=== PATIENT | male | born 1980 | race Caucasian/White ===

== ENCOUNTER 2016-10-17 10:04 | Inpatient (IN) | payer BC, OTHER ==
[2016-10-17] MEDS ORDERED: ONDANSETRON 4 MG/2 ML VIAL IVP STA ×2 (10:57→13:57)
[2016-10-17] MEDS ORDERED: HYDROmorphone 1 MG/ML 1 ML SYRINGE IVP STA ×2 (10:58→13:57)
--- NOTE | 2016-10-17 11:01 | ED ---
Nausea/Vomiting/Diarrhea HPI - General Source: patient, RN notes reviewed Mode of arrival: wheelchair Limitations: no limitations <Jaye Turcios - Last Filed: 10/17/16 17:25> <Thaddeus Allen - Last Filed: 10/18/16 01:53> - General Chief complaint: Nausea/Vomiting/Diarrhea Stated complaint: vomiting Time Seen by Provider: 10/17/16 10:32 - History of Present Illness Initial comments: Patient is a 35-year-old male presents to the emergency room for evaluation of nausea, vomiting and abdominal pain. Patient states nausea and vomiting beginning about 3 days ago. Patient states he's been unable to keep down any food. Patient denies trying any new foods. Patient denies recent travel outside the country. Patient denies sick contacts. Patient states he's having increased diffuse abdominal pain. Patient denies any history of abdominal surgeries. Patient states he is having 10 out of 10 constant pain. Patient states he feels dizzy. Patient denies headache. Patient denies chest pain or shortness of breath. Patient does admit that he drinks about 6-7 beers per day. Patient denies any history of pancreatitis. Patient denies pain or burning during urination, trouble urinating or blood in urine. Patient denies any flank pain. Patient denies fevers but states he's been having on and off hot flashes and chills. (Jaye Turcios) - Related Data Home Medications Medication Instructions Recorded Confirmed Atenolol [Atenolol] 50 mg PO BID 10/17/16 10/17/16 Citalopram Hydrobromide [CeleXA] 20 mg PO DAILY 10/17/16 10/17/16 Fluticasone Nasal [place] [Flonase 1 spray EA NOSTRIL BID PRN 10/17/16 10/17/16 Nasal [place]] Lisinopril-Hctz 20-25 mg 1 tab PO DAILY 10/17/16 10/17/16 [Zestoretic 20-25] Omeprazole [PriLOSEC] 20 mg PO AC-BID 10/17/16 10/17/16 Allergies Allergy/AdvReac Type Severity Reaction Status Date / Time Penicillins Allergy Severe Rash/Hives Verified 10/17/16 15:16 sulfamethoxazole Allergy Unknown Verified 10/17/16 15:16 [From ] Childhood trimethoprim [From ] Allergy Unknown Verified 10/17/16 15:16 Childhood Review of Systems ROS Other: All systems not noted in ROS Statement are negative. <Jaye Turcios - Last Filed: 10/17/16 17:25> ROS Other: All systems not noted in ROS Statement are negative. <Thaddeus Allen - Last Filed: 10/18/16 01:53> ROS Statement: Those systems with pertinent positive or pertinent negative responses have been documented in the HPI. (Jaye Turcios) (Thaddeus Allen) Past Medical History Past Medical History: No Reported History History of Any Multi-Drug Resistant Organisms: None Reported Past Surgical History: No Surgical Hx Reported Past Psychological History: No Psychological Hx Reported Smoking Status: Current every day smoker Past Alcohol Use History: Occasional Past Drug Use History: Marijuana - Past Family History Mother Family Medical History: COPD Father Family Medical History: Cancer Additional Family Medical History / Comment(s): PROSTATE CANCER <Jaye Turcios - Last Filed: 10/17/16 17:25> General Exam Limitations: no limitations General appearance: alert, in no apparent distress Head exam: Present: atraumatic, normocephalic, normal inspection Eye exam: Present: normal appearance ENT exam: Present: normal exam Neck exam: Present: normal inspection Respiratory exam: Present: normal lung sounds bilaterally. Absent: respiratory distress Cardiovascular Exam: Present: regular rate, normal rhythm, normal heart sounds GI/Abdominal exam: Present: distended, tenderness (Diffuse), guarding Extremities exam: Present: normal inspection Back exam: Present: normal inspection Neurological exam: Present: alert, oriented X3, CN II-XII intact, normal gait Psychiatric exam: Present: normal affect, normal mood Skin exam: Present: warm, dry, intact, normal color. Absent: rash <Jaye Turcios - Last Filed: 10/17/16 17:25> <Thaddeus Allen - Last Filed: 10/18/16 01:53> - General Exam Comments Initial Comments: Laying in exam room, uncomfortable secondary to pain. (Jaye Turcios) Medical Decision Making - Lab Data Result diagrams: 10/17/16 11:30 10/17/16 11:30 - Radiology Data Radiology results: report reviewed, image reviewed <Jaye Turcios - Last Filed: 10/17/16 17:25> - Lab Data Result diagrams: 10/17/16 11:30 10/17/16 22:03 <Thaddeus Allen - Last Filed: 10/18/16 01:53> - Medical Decision Making Patient is a 35-year-old male presents to the emergency room for evaluation of abdominal pain, nausea and vomiting. Patient does admit he drinks 6-7 beers per day. Patient's lipase/amylase elevated. WBC elevated. Patient will be admitted for acute pancreatitis secondary to alcohol dependence. Patient will be placed on Ativan protocol and NPO diet. Case discussed with Dr. Allen. Dr. Allen discussed case with Dr. Mendes who agreed to admit patient. Plan discussed with patient. (Jaye Turcios) I saw this patient in conjunction with the physician assistant activities director. I performed independent history and physical exam. Agree with case management. (Thaddeus Allen) - Lab Data Lab Results 10/17/16 10/17/16 10/17/16 Range/Units 11:30 11:30 11:30 WBC 17.8 H (3.8-10.6) k/uL RBC 6.66 H (4.30-5.90) m/uL Hgb 20.4 H (13.0-17.5) gm/dL Hct 58.1 H (39.0-53.0) % MCV 87.2 (80.0-100.0) fL MCH 30.6 (25.0-35.0) pg MCHC 35.0 (31.0-37.0) g/dL RDW 12.4 (11.5-15.5) % Plt Count 210 (150-450) k/uL Neutrophils % 90 % Lymphocytes % 5 % Monocytes % 4 % Eosinophils % 0 % Basophils % 0 % Neutrophils # 16.1 H (1.3-7.7) k/uL Lymphocytes # 0.8 L (1.0-4.8) k/uL Monocytes # 0.7 (0-1.0) k/uL Eosinophils # 0.0 (0-0.7) k/uL Basophils # 0.0 (0-0.2) k/uL Sodium 128 L (137-145) mmol/L Potassium 5.3 H (3.5-5.1) mmol/L Chloride 78 L* (98-107) mmol/L Carbon Dioxide 26 (22-30) mmol/L Anion Gap 24 mmol/L BUN 55 H (9-20) mg/dL Creatinine 3.43 H (0.66-1.25) mg/dL Est GFR (MDRD) Af Amer 25 (>60 ml/min/1.73 sqM) Est GFR (MDRD) Non-Af 20 (>60 ml/min/1.73 sqM) Glucose 121 H (74-99) mg/dL Calcium 7.0 L (8.4-10.2) mg/dL Magnesium 2.4 H (1.6-2.3) mg/dL Total Bilirubin 1.4 H (0.2-1.3) mg/dL AST 1218 H (17-59) U/L ALT 276 H (21-72) U/L Alkaline Phosphatase 57 (38-126) U/L Total Protein 7.3 (6.3-8.2) g/dL Albumin 4.8 (3.5-5.0) g/dL Amylase 1583 H* (30-110) U/L Lipase 33614 H (23-300) U/L Urine Color Urine Appearance (Clear) Urine pH (5.0-8.0) Ur Specific [place] (1.001-1.035) Urine Protein (Negative) Urine Glucose (UA) (Negative) Urine Ketones (Negative) Urine Blood (Negative) Urine Nitrate (Negative) Urine Bilirubin (Negative) Urine Urobilinogen (<2.0) mg/dL Ur Leukocyte Esterase (Negative) Urine WBC (0-5) /hpf Amorphous Sediment (None) /hpf Urine Mucus (None) /hpf 10/17/16 Range/Units 12:50 WBC (3.8-10.6) k/uL RBC (4.30-5.90) m/uL Hgb (13.0-17.5) gm/dL Hct (39.0-53.0) % MCV (80.0-100.0) fL MCH (25.0-35.0) pg MCHC (31.0-37.0) g/dL RDW (11.5-15.5) % Plt Count (150-450) k/uL Neutrophils % % Lymphocytes % % Monocytes % % Eosinophils % % Basophils % % Neutrophils # (1.3-7.7) k/uL Lymphocytes # (1.0-4.8) k/uL Monocytes # (0-1.0) k/uL Eosinophils # (0-0.7) k/uL Basophils # (0-0.2) k/uL Sodium (137-145) mmol/L Potassium (3.5-5.1) mmol/L Chloride (98-107) mmol/L Carbon Dioxide (22-30) mmol/L Anion Gap mmol/L BUN (9-20) mg/dL Creatinine (0.66-1.25) mg/dL Est GFR (MDRD) Af Amer (>60 ml/min/1.73 sqM) Est GFR (MDRD) Non-Af (>60 ml/min/1.73 sqM) Glucose (74-99) mg/dL Calcium (8.4-10.2) mg/dL Magnesium (1.6-2.3) mg/dL Total Bilirubin (0.2-1.3) mg/dL AST (17-59) U/L ALT (21-72) U/L Alkaline Phosphatase (38-126) U/L Total Protein (6.3-8.2) g/dL Albumin (3.5-5.0) g/dL Amylase (30-110) U/L Lipase (23-300) U/L Urine Color Dark Brown Urine Appearance Turbid (Clear) Urine pH 5.0 (5.0-8.0) Ur Specific [place] 1.008 (1.001-1.035) Urine Protein 1+ H (Negative) Urine Glucose (UA) Negative (Negative) Urine Ketones Negative (Negative) Urine Blood Large H (Negative) Urine Nitrate Negative (Negative) Urine Bilirubin Negative (Negative) Urine Urobilinogen <2.0 (<2.0) mg/dL Ur Leukocyte Esterase Negative (Negative) Urine WBC 14 H (0-5) /hpf Amorphous Sediment Few H (None) /hpf Urine Mucus Few H (None) /hpf (Thaddeus Allen) Disposition Decision Date: 10/17/16 <Jaye Turcios - Last Filed: 10/17/16 17:25> <Thaddeus Allen - Last Filed: 10/18/16 01:53> Clinical Impression: Pancreatitis Disposition: ADMITTED IP TO THIS HOSP Condition: Stable
[2016-10-17] MEDS: SODIUM CHLORIDE 0.9% 1,000 ML IV ONE (11:27)
--- NOTE | 2016-10-17 11:50 | XR ---
EXAMINATION TYPE: XR KUB DATE OF EXAM: 10/17/2016 11:43 AM COMPARISON: NONE HISTORY: Pain, nausea vomiting TECHNIQUE: Single supine KUB image of the abdomen is obtained. FINDINGS: The osseous structures are intact. The bowel gas pattern is nonspecific. Lung bases are clear. Scat tered prominent bowel loops in the right abdomen noted. IMPRESSION: 1. Nonspecific abdomen. Few prominent bowel loops are seen in the right abdomen which could be relat ed to an ileus or enteritis. Correlate clinically.
[2016-10-17 12:27] LABS: Basophils % (A) 0 %; CH 31.8; CHCM 36.6; Eosinophils % (A) 0 %; HCT 58.1 % (39.0-53.0); HGB 20.4 gm/dL (13.0-17.5); Luc # (Auto) 0.17; Luc % (Auto) 1; Lymphocytes # (A) 0.8 k/uL (1.0-4.8); Lymphocytes % (A) 5 %; MCH 30.6 pg (25.0-35.0); MCV 87.2 fL (80.0-100.0); Mean Platelet Volume 9.8; Monocytes # (A) 0.7 k/uL (0-1.0); Monocytes % (A) 4 %; Neutrophils # (A) 16.1 k/uL (1.3-7.7); Neutrophils % (A) 90 %; RBC 6.66 m/uL (4.30-5.90); RDW 12.4 % (11.5-15.5); WBC 17.8 k/uL (3.8-10.6); WBC (Perox) 19.52
[2016-10-17 12:42] LABS: Potassium 5.3 mmol/L (3.5-5.1); Total Bilirubin 1.4 mg/dL (0.2-1.3); Total Protein 7.3 g/dL (6.3-8.2)
[2016-10-17 13:17] LABS: Amorphous Sediment,Urine Few /hpf; Appearance,Urine Turbid (Clear); Bilirubin,Urine Negative (Negative); Glucose,Urine (UA) Negative (Negative); Ketones,Urine Negative (Negative); Leukocyte Esterase,Urine Negative (Negative); Mucus,Urine Few /hpf; Nitrite,Urine Negative (Negative); Particle Count 123748; Protein,Urine 1+ (Negative); Specific Gravity,Urine 1.008 (1.001-1.035); UA Billing (MACRO vs. MICRO) MICRO; Urobilinogen,Urine <2.0 mg/dL (<2.0); WBC,Urine 14 /hpf (0-5)
[2016-10-17] MEDS ORDERED: NALOXONE 0.4 MG/ML 1 ML VIAL IV PRN (14:12)
[2016-10-17] MEDS ORDERED: LORazepam 2 MG/ML SYRINGE IV PRN (14:15)
[2016-10-17] MEDS ORDERED: THIAMINE 100 MG/ML 2 ML VIAL IM STA (14:15)
[2016-10-17] MEDS: SODIUM CHLORIDE 0.9% 1,000 ML IV SCH (14:35)
[2016-10-17] MEDS ORDERED: FLUTICASONE 50MCG/SPRAY NASAL 16GM EA NOSTRIL PRN (15:58)
[2016-10-17] MEDS ORDERED: PANTOPRAZOLE 40 MG/10 ML VIAL IVP SCH (16:00)
[2016-10-17] MEDS ORDERED: THIAMINE 100 MG TAB PO SCH (17:00)
[2016-10-17] MEDS: HYDROmorphone 1 MG/ML 1 ML SYRINGE IV PRN ×3 (17:42→22:36)
[2016-10-17] MEDS: ATENOLOL 50 MG TAB PO SCH (20:28)
[2016-10-17] MEDS: ONDANSETRON 4 MG/2 ML VIAL IVP PRN (21:28)
[2016-10-17] MEDS ORDERED: hydrALAZINE HCL 20 MG/ML 1 ML VIAL IVP PRN (21:52)
[2016-10-17] MEDS ORDERED: IOHEXOL 350 MG/ML 25 ML BOTTLE (ORAL USE) PO PRN (22:09)
--- NOTE | 2016-10-17 22:26 | XR ---
EXAMINATION TYPE: XR chest 1V portable DATE OF EXAM: 10/17/2016 10:08 PM COMPARISON: NONE HISTORY: COPD, heart failure TECHNIQUE: Single frontal view of the chest is obtained. FINDINGS: Heart and mediastinum are normal. Lungs are clear. Diaphragm is normal. There is no heart failure. Bony thorax appears normal. IMPRESSION: Normal chest
[2016-10-17 22:30] LABS: Potassium 4.9 mmol/L (3.5-5.1); Total Bilirubin 1.1 mg/dL (0.2-1.3); Total Protein 5.5 g/dL (6.3-8.2)
[2016-10-17] MEDS ORDERED: LEVOFLOXACIN 500MG-D5W PMX 500 MG in DEXTROSE/WATER 1 100ML.BAG IVPB SCH (22:30)
[2016-10-17 22:43] LABS: Calcium 4.6 mg/dL (8.4-10.2)
[2016-10-17] MEDS ORDERED: CALCIUM GLUCONATE 1,000 MG in SODIUM CHLORIDE 0.9% 100 ML IVPB ONE (22:57)
[2016-10-18 00:23] LABS: Glucose,Whole Blood 139 mg/dL (75-99)
[2016-10-18] MEDS: HYDROmorphone 1 MG/ML 1 ML SYRINGE IV PRN ×7 (01:19→22:43)
[2016-10-18] MEDS: LORazepam 2 MG/ML SYRINGE IV PRN (01:20)
[2016-10-18] MEDS: SODIUM CHLORIDE 0.9% 1,000 ML IV SCH ×4 (01:22→21:06)
[2016-10-18] MEDS: HYDROcodone/APAP 5-325MG 1 EACH TAB PO PRN (02:20)
[2016-10-18 03:29] LABS: Troponin I 0.108 ng/mL (0.000-0.034)
[2016-10-18 06:06] LABS: Basophils % (A) 0 %; CH 31.5; CHCM 35.5; Eosinophils # (A) 0.1 k/uL (0-0.7); Eosinophils % (A) 0 %; HCT 52.2 % (39.0-53.0); HDW 2.31; HGB 18.3 gm/dL (13.0-17.5); Large Platelets Flag Slight; Luc # (Auto) 0.22; Luc % (Auto) 1; Lymphocytes # (A) 0.6 k/uL (1.0-4.8); Lymphocytes % (A) 4 %; MCH 31.2 pg (25.0-35.0); MCHC 35.1 g/dL (31.0-37.0); Monocytes # (A) 0.7 k/uL (0-1.0); Monocytes % (A) 5 %; Neutrophils # (A) 13.9 k/uL (1.3-7.7); Neutrophils % (A) 89 %; RBC 5.87 m/uL (4.30-5.90); RDW 12.6 % (11.5-15.5); WBC 15.6 k/uL (3.8-10.6); WBC (Perox) 16.49
[2016-10-18 07:37] LABS: Magnesium 1.9 mg/dL (1.6-2.3); Potassium 5.2 mmol/L (3.5-5.1)
[2016-10-18 07:55] LABS: Amorphous Sediment,Urine Occasional /hpf; Appearance,Urine Cloudy (Clear); Bilirubin,Urine Negative (Negative); Glucose,Urine (UA) Trace (Negative); Ketones,Urine Negative (Negative); Leukocyte Esterase,Urine Negative (Negative); Nitrite,Urine Negative (Negative); Particle Count 9871; Protein,Urine 1+ (Negative); RBC,Urine 1 /hpf (0-5); Specific Gravity,Urine 1.009 (1.001-1.035); Squamous Epithelial Cell,Urine 1 /hpf (0-4); UA Billing (MACRO vs. MICRO) MICRO; Urobilinogen,Urine <2.0 mg/dL (<2.0); WBC,Urine 2 /hpf (0-5)
[2016-10-18 08:06] LABS: Ionized Calcium 2.2 mg/dL (4.5-5.3)
[2016-10-18 08:08] LABS: Phosphorous 9.3 mg/dL (2.5-4.5)
[2016-10-18] MEDS: CALCIUM GLUCONATE 1,000 MG in SODIUM CHLORIDE 0.9% 100 ML IVPB SCH ×4 (08:19→22:44)
[2016-10-18] MEDS: ATENOLOL 50 MG TAB PO SCH (08:28)
[2016-10-18] MEDS: ONDANSETRON 4 MG/2 ML VIAL IVP PRN ×3 (08:28→20:10)
[2016-10-18] MEDS: NICOTINE 14MG/24HR PATCH TRANSDERM SCH (08:29)
[2016-10-18] MEDS: CITALOPRAM HYDROBROMIDE 20 MG TAB PO SCH (08:30)
[2016-10-18] MEDS: HEPARIN SODIUM,PORCINE 5,000 UNIT/ML 1 ML VIAL SQ SCH ×2 (08:30→20:11)
[2016-10-18] MEDS: PANTOPRAZOLE 40 MG/10 ML VIAL IVP SCH ×2 (08:31→20:12)
[2016-10-18 08:34] LABS: Total Protein 5.4 g/dL (6.3-8.2)
--- NOTE | 2016-10-18 08:42 | HP ---
DATE OF ADMISSION: 10/17/2016 CHIEF COMPLAINT: Nausea, vomiting and as well as abdominal pain. HISTORY OF PRESENT ILLNESS: This 35-year-old gentleman with a past medical history of multiple medical problems including Crohn's colitis, history of nicotine dependence being followed by Dr. Stone ) in the [facility] was complaining of abdominal pain, which was in upper abdomen. The symptoms persisting for the past several days. About 3 days ago the patient was unable to keep anything down. The patient also had significant alcohol intake up to 8 beers per day according to him. Patient also complaining of multiple other symptoms including burning chest pains and as well as feeling of heated face and because of multiple complex medical issues, the patient came to [facility] admitted for further evaluation and treatment. On admission the patient had multiple lab abnormalities including WBC 17.2, hemoglobin 20.4, amylase elevated to 1583, lipase 47666 indicating acute severe pancreatitis and patient is admitted for further evaluation and treatment. There is no history of any fever, rigors. No history of headache, loss of consciousness or seizures. PAST MEDICAL HISTORY: History of Crohn's colitis, history of nicotine dependence. Medications prior to admission include: 1. Prilosec 20 mg a.c. b.i.d. 2. Lisinopril, hydrochlorothiazide 1 tablet p.o. daily. 3. Flonase one spray b.i.d. p.r.n. 4. Celexa 20 mg p.o. daily. 5. Atenolol 50 mg b.i.d. ALLERGIES: PENICILLIN, SULFA, SEPTRA. FAMILY HISTORY: History of chronic obstructive pulmonary disease and prostate cancer in the family. SOCIAL HISTORY: History of smoking on a daily basis and alcohol as mentioned earlier. REVIEW OF SYSTEMS: ENT: No diminished hearing or diminished vision. CARDIOVASCULAR: No angina. RESPIRATORY: No cough or hemoptysis. GI: As mentioned earlier. : No dysuria. NERVOUS SYSTEM: No numbness or weakness. ALLERGY/IMMUNOLOGY: As mentioned earlier. MUSCULOSKELETAL: As mentioned earlier. HEMATOLOGY: No history of anemia. ENDOCRINE: No history of diabetes, hypothyroidism. CONSTITUTIONAL: As mentioned earlier. DERMATOLOGY: Negative. RHEUMATOLOGY: Negative. PSYCHIATRY: As mentioned earlier. PHYSICAL EXAMINATION: The patient is alert and oriented x3. Pulse 87, blood pressure 120/86, respirations 22, temperature 98 degrees, pulse ox 90% on room air. HEENT: Conjunctivae normal. Oral mucosa moist. Facial puffiness. NECK: No jugular venous distention. No thyroid enlargement or carotid bruit. No lymph node enlargement. CARDIOVASCULAR: S1 and S2, muffled. No S3, no S4. RESPIRATORY: Breath sounds diminished at the bases. No rhonchi, no crackles. ABDOMEN: Soft, distended. Diffuse tenderness present especially in the epigastrium. No guarding. No rigidity. No rebound tenderness. No mass palpable. No ascites. Bowel sounds diminished. LEGS: No edema, no swelling. NERVOUS SYSTEM: Higher function as mentioned earlier. Cranial nerves II through XII grossly intact. Moves all 4 limbs. No focal motor or sensory deficits. LYMPHATIC: No lymphadenopathy in the neck, axillae or groin. SKIN: No ulcer, rash or bleeding. LABS: WBC 17.3, hemoglobin 20.4. Sodium 128, potassium 5.3. Creatinine is 3.43. ASSESSMENT: 1. Acute severe pancreatitis with systemic inflammatory response syndrome. 2. Increased WBC. 3. Increased hemoglobin possibly secondary to dehydration. 4. Incessant vomiting, dehydration with acute renal failure, possible prerenal acute tubular necrosis. 5. Hyponatremia. 6. Hyperkalemia. 7. Hypochloremia. 8. Hypocalcemia. 9. Increased total bilirubin. 10. Increased AST, ALT, possibly secondary to alcoholic hepatitis. 11. History of EtOH. 12. History of nicotine dependence. 13. Increased amylase and lipase with amylase 1583 and lipase 38833. 14. Possible urinary tract infection. 15. History of Crohn's colitis. 16. History of nicotine dependence. 17. FULL CODE. RECOMMENDATIONS AND DISCUSSION: In this 35-year-old gentleman who presented with multiple complex medical issues, will monitor the patient closely. Continue the current medications and symptomatic treatment. The patient has features of acute severe pancreatitis. I recommend CAT scan of the abdomen and symptomatic treatment. We will keep the patient n.p.o. and obtain gastroenterology consultation. Empiric antibiotics also will be started. Cultures will be obtained. Proton pump inhibitors. Symptomatic treatment for pain. See orders for further details. Monitor blood pressure closely. Watch for alcohol withdrawal. Overall prognosis extremely guarded because of multiple complex medical issues, which I discussed with the patient and at the bedside who understand and agree. Further recommendations to follow.
[2016-10-18] MEDS ORDERED: LISINOPRIL-HCTZ 20-25 MG 1 EACH TAB PO SCH (09:00)
--- NOTE | 2016-10-18 09:18 | P.GSCN ---
History of Present Illness Consult date: 10/18/16 Reason for Consult: Abdominal pain/pancreatitis History of present illness: Patient is a 35-year-old white male who presented to the emergency room for nausea vomiting and abdominal pain. Of significance is the fact that on Thursday the patient had a heavy episode of binge drinking. The patient on laboratory studies as noted to have a markedly elevated lipase and amylase. Amylase was 1583, and lipase was 19,355. The patient was admitted to the floor and it was noted to have a calcium of 4.6. Additionally he had some changes of concern on his EKG. The patient does not have a known history of gallstones. Past surgical history: Negative Past medical history: Asthma Review of systems: HEENT: Patient complains of some blurred vision at this time Lungs: Asthma Heart: Negative, history of hypertension GI: As above : Negative ALLERGIES: Penicillin Sulfa Family history: Father substance abuse Social history: Alcohol 6-7 beers per day Marijuana use positive in the past Smoking positive Review of Systems - Constitutional Reports as per HPI - Cardiovascular Reports as per HPI - Respiratory Reports as per HPI - Gastrointestinal Reports as per HPI - Genitourinary Reports as per HPI - Psychiatric Reports as per HPI - Allergic/Immunologic Reports as per HPI Past Medical History Past Medical History: No Reported History Additional Past Medical History / Comment(s): CROHNS OR COLITS PT NOT SURE WHICH ONE History of Any Multi-Drug Resistant Organisms: None Reported Past Surgical History: No Surgical Hx Reported Past Anesthesia/Blood Transfusion Reactions: No Reported Reaction Past Psychological History: No Psychological Hx Reported Smoking Status: Current every day smoker Past Alcohol Use History: Occasional Additional Past Alcohol Use History / Comment(s): ADMITS TO 6-7 BEER PER DAY, STARTED SMOKING AT AGE 14 AND QUIT 2011 Past Drug Use History: Marijuana - Past Family History Mother Family Medical History: COPD Father Family Medical History: Cancer Additional Family Medical History / Comment(s): PROSTATE CANCER Medications and Allergies Home Medications Medication Instructions Recorded Confirmed Type Atenolol [Atenolol] 50 mg PO BID 10/17/16 10/17/16 History Citalopram Hydrobromide [CeleXA] 20 mg PO DAILY 10/17/16 10/17/16 History Fluticasone Nasal [place] [Flonase 1 spray EA NOSTRIL BID PRN 10/17/16 10/17/16 History Nasal [place]] Lisinopril-Hctz 20-25 mg 1 tab PO DAILY 10/17/16 10/17/16 History [Zestoretic 20-25] Omeprazole [PriLOSEC] 20 mg PO AC-BID 10/17/16 10/17/16 History Allergies Allergy/AdvReac Type Severity Reaction Status Date / Time Penicillins Allergy Severe Rash/Hives Verified 10/17/16 15:16 sulfamethoxazole Allergy Unknown Verified 10/17/16 15:16 [From ] Childhood trimethoprim [From ] Allergy Unknown Verified 10/17/16 15:16 Childhood Surgical - Exam Vital Signs Temp Pulse Resp BP Pulse Ox 97.2 F L 98 18 126/92 98 10/17/16 10:14 10/17/16 10:14 10/17/16 10:14 10/17/16 10:14 10/17/16 10:14 - General well developed, moderate distress - Eyes normal ocular movement - ENT normal pinna, normal nares, no hearing loss - Neck no masses, trachea midline, no lymphadectomy, no venous distension - Respiratory normal expansion, normal respiratory effort, clear to auscultation - Cardiovascular Rhythm: regular Heart Sounds: normal: S1, S2 - Abdomen Distended Diffuse tenderness greatest in the midepigastric area Decreased bowel sounds - Neurologic Somewhat lethargic Positive chovstec sign - Psychiatric Somewhat lethargic this morning Results - Labs 10/18/16 05:28 10/18/16 05:28 Abnormal Lab Results - Last 24 Hours (Table) 10/17/16 10/18/16 10/18/16 Range/Units 22:03 00:19 00:30 WBC (3.8-10.6) k/uL Hgb (13.0-17.5) gm/dL Neutrophils # (1.3-7.7) k/uL Lymphocytes # (1.0-4.8) k/uL Sodium 124 L (137-145) mmol/L Potassium (3.5-5.1) mmol/L Chloride 89 L (98-107) mmol/L Carbon Dioxide 18 L (22-30) mmol/L BUN 69 H (9-20) mg/dL Creatinine 3.70 H (0.66-1.25) mg/dL Glucose 142 H (74-99) mg/dL POC Glucose (mg/dL) 139 H (75-99) mg/dL Calcium 4.6 L* (8.4-10.2) mg/dL Ionized Calcium Dion (4.5-5.3) mg/dL Phosphorus (2.5-4.5) mg/dL AST 678 H (17-59) U/L ALT 198 H (21-72) U/L Alkaline Phosphatase 35 L (38-126) U/L CK-MB (CK-2) (0.0-2.4) ng/mL Troponin I (0.000-0.034) ng/mL Total Protein 5.5 L (6.3-8.2) g/dL Albumin 3.4 L (3.5-5.0) g/dL Amylase (30-110) U/L Lipase (23-300) U/L Urine Protein (Negative) Urine Glucose (UA) (Negative) Urine Blood (Negative) Amorphous Sediment (None) /hpf Urine Opiates Screen Detected H (NotDetected) U Methamphetamines Scrn Detected H (NotDetected) Urine Cocaine Screen Detected H (NotDetected) 10/18/16 10/18/16 10/18/16 Range/Units 00:30 02:20 05:28 WBC 15.6 H (3.8-10.6) k/uL Hgb 18.3 H (13.0-17.5) gm/dL Neutrophils # 13.9 H (1.3-7.7) k/uL Lymphocytes # 0.6 L (1.0-4.8) k/uL Sodium (137-145) mmol/L Potassium (3.5-5.1) mmol/L Chloride (98-107) mmol/L Carbon Dioxide (22-30) mmol/L BUN (9-20) mg/dL Creatinine (0.66-1.25) mg/dL Glucose (74-99) mg/dL POC Glucose (mg/dL) (75-99) mg/dL Calcium (8.4-10.2) mg/dL Ionized Calcium Dion (4.5-5.3) mg/dL Phosphorus (2.5-4.5) mg/dL AST (17-59) U/L ALT (21-72) U/L Alkaline Phosphatase (38-126) U/L CK-MB (CK-2) 186.0 H* (0.0-2.4) ng/mL Troponin I 0.108 H* (0.000-0.034) ng/mL Total Protein (6.3-8.2) g/dL Albumin (3.5-5.0) g/dL Amylase (30-110) U/L Lipase (23-300) U/L Urine Protein 1+ H (Negative) Urine Glucose (UA) Trace H (Negative) Urine Blood Large H (Negative) Amorphous Sediment Occasional H (None) /hpf Urine Opiates Screen (NotDetected) U Methamphetamines Scrn (NotDetected) Urine Cocaine Screen (NotDetected) 10/18/16 Range/Units 05:28 WBC (3.8-10.6) k/uL Hgb (13.0-17.5) gm/dL Neutrophils # (1.3-7.7) k/uL Lymphocytes # (1.0-4.8) k/uL Sodium 128 L (137-145) mmol/L Potassium 5.2 H (3.5-5.1) mmol/L Chloride 88 L (98-107) mmol/L Carbon Dioxide 21 L (22-30) mmol/L BUN 79 H (9-20) mg/dL Creatinine 4.30 H (0.66-1.25) mg/dL Glucose 129 H (74-99) mg/dL POC Glucose (mg/dL) (75-99) mg/dL Calcium 4.0 L* (8.4-10.2) mg/dL Ionized Calcium Dion 2.2 L* (4.5-5.3) mg/dL Phosphorus 9.3 H* (2.5-4.5) mg/dL AST 557 H (17-59) U/L ALT 187 H (21-72) U/L Alkaline Phosphatase (38-126) U/L CK-MB (CK-2) (0.0-2.4) ng/mL Troponin I (0.000-0.034) ng/mL Total Protein 5.4 L (6.3-8.2) g/dL Albumin 3.2 L (3.5-5.0) g/dL Amylase 970 H* (30-110) U/L Lipase 27257 H (23-300) U/L Urine Protein (Negative) Urine Glucose (UA) (Negative) Urine Blood (Negative) Amorphous Sediment (None) /hpf Urine Opiates Screen (NotDetected) U Methamphetamines Scrn (NotDetected) Urine Cocaine Screen (NotDetected) Diabetes panel 10/17/16 10/18/16 Range/Units 22:03 05:28 Sodium 124 L 128 L (137-145) mmol/L Potassium 4.9 5.2 H (3.5-5.1) mmol/L Chloride 89 L 88 L (98-107) mmol/L Carbon Dioxide 18 L 21 L (22-30) mmol/L BUN 69 H 79 H (9-20) mg/dL Creatinine 3.70 H 4.30 H (0.66-1.25) mg/dL Glucose 142 H 129 H (74-99) mg/dL Calcium 4.6 L* 4.0 L* (8.4-10.2) mg/dL AST 678 H 557 H (17-59) U/L ALT 198 H 187 H (21-72) U/L Alkaline Phosphatase 35 L 40 (38-126) U/L Total Protein 5.5 L 5.4 L (6.3-8.2) g/dL Albumin 3.4 L 3.2 L (3.5-5.0) g/dL Calcium panel 10/17/16 10/18/16 Range/Units 22:03 05:28 Calcium 4.6 L* 4.0 L* (8.4-10.2) mg/dL Ionized Calcium Dion 2.2 L* (4.5-5.3) mg/dL Phosphorus 9.3 H* (2.5-4.5) mg/dL Albumin 3.4 L 3.2 L (3.5-5.0) g/dL Pituitary panel 10/17/16 10/18/16 Range/Units 22:03 05:28 Sodium 124 L 128 L (137-145) mmol/L Potassium 4.9 5.2 H (3.5-5.1) mmol/L Chloride 89 L 88 L (98-107) mmol/L Carbon Dioxide 18 L 21 L (22-30) mmol/L BUN 69 H 79 H (9-20) mg/dL Creatinine 3.70 H 4.30 H (0.66-1.25) mg/dL Glucose 142 H 129 H (74-99) mg/dL Calcium 4.6 L* 4.0 L* (8.4-10.2) mg/dL Adrenal panel 10/17/16 10/18/16 Range/Units 22:03 05:28 Sodium 124 L 128 L (137-145) mmol/L Potassium 4.9 5.2 H (3.5-5.1) mmol/L Chloride 89 L 88 L (98-107) mmol/L Carbon Dioxide 18 L 21 L (22-30) mmol/L BUN 69 H 79 H (9-20) mg/dL Creatinine 3.70 H 4.30 H (0.66-1.25) mg/dL Glucose 142 H 129 H (74-99) mg/dL Calcium 4.6 L* 4.0 L* (8.4-10.2) mg/dL Total Bilirubin 1.1 1.0 (0.2-1.3) mg/dL AST 678 H 557 H (17-59) U/L ALT 198 H 187 H (21-72) U/L Alkaline Phosphatase 35 L 40 (38-126) U/L Total Protein 5.5 L 5.4 L (6.3-8.2) g/dL Albumin 3.4 L 3.2 L (3.5-5.0) g/dL - Imaging Chest x-ray: report reviewed Abdominal x-ray: report reviewed Assessment and Plan Plan: Impression/plan: 1. Pancreatitis 2. Hypocalcemia related to pancreatitis 3. Elevated cardiac enzymes cardiology consult pending 4. GI consult pending 5. Computed tomography scan to be performed today 6. Patient does not have an acute surgical abdomen at this time 7. Conservative management of pancreatitis will follow
[2016-10-18] MEDS ORDERED: SODIUM CHLORIDE 0.9% 500 ML IV ONE ×2 (09:26→10:14)
[2016-10-18] MEDS: SODIUM CHLORIDE 0.9% 1,000 ML IV ONE (10:13)
[2016-10-18 10:19] LABS: Creatine Kinase >32000 U/L (55-170)
[2016-10-18 10:20] LABS: Troponin I 0.065 ng/mL (0.000-0.034)
[2016-10-18] MEDS: THIAMINE 100 MG/ML 2 ML VIAL IVP SCH ×2 (12:36→18:51)
--- NOTE | 2016-10-18 13:12 | P.CNPUL ---
History of Present Illness Consult date: 10/18/16 Requesting physician: Syd Mendes Reason for consult: other (Acute pancreatitis) Chief complaint: Abdominal pain History of present illness: This is a 35-year-old white male with history of alcohol abuse, patient has been a heavy drinker for many years, but he had no previous episodes of documented pancreatitis. On Thursday, patient had a heavy episode of binge drinking, and he presented to the emergency room with severe abdominal pain and some nausea and vomiting, elevated lipase and amylase, and hypocalcemia with a calcium 4.6. Patient was admitted to the ICU, and he was noted to have prolonged QT interval, patient was given multiple doses of calcium gluconate since admission, and has been receiving significant amount of fluid boluses over the last a few hours since admission. At this point the patient has mild abdominal discomfort, no further episodes of nausea vomiting. No headaches no blurred vision no dizziness. No shortness of breath no cough no wheezing. No melena no hematemesis no frequency or urgency. Patient was already seen by GI and general surgery on consultation, and strongly felt that the patient does not have a surgical abdomen. Recommended present conservative measures for severe pancreatitis. Review of Systems 12 point review of systems were obtained, please refer to pertinent positives and negatives in HPI Past Medical History Past Medical History: No Reported History Additional Past Medical History / Comment(s): CROHNS OR COLITS PT NOT SURE WHICH ONE History of Any Multi-Drug Resistant Organisms: None Reported Past Surgical History: No Surgical Hx Reported Past Anesthesia/Blood Transfusion Reactions: No Reported Reaction Past Psychological History: No Psychological Hx Reported Smoking Status: Current every day smoker Past Alcohol Use History: Occasional Additional Past Alcohol Use History / Comment(s): ADMITS TO 6-7 BEER PER DAY, STARTED SMOKING AT AGE 14 AND QUIT 2011 Past Drug Use History: Marijuana - Past Family History Mother Family Medical History: COPD Father Family Medical History: Cancer Additional Family Medical History / Comment(s): PROSTATE CANCER Medications and Allergies Home Medications Medication Instructions Recorded Confirmed Type Atenolol [Atenolol] 50 mg PO BID 10/17/16 10/17/16 History Citalopram Hydrobromide [CeleXA] 20 mg PO DAILY 10/17/16 10/17/16 History Fluticasone Nasal [place] [Flonase 1 spray EA NOSTRIL BID PRN 10/17/16 10/17/16 History Nasal [place]] Lisinopril-Hctz 20-25 mg 1 tab PO DAILY 10/17/16 10/17/16 History [Zestoretic 20-25] Omeprazole [PriLOSEC] 20 mg PO AC-BID 10/17/16 10/17/16 History Allergies Allergy/AdvReac Type Severity Reaction Status Date / Time Penicillins Allergy Severe Rash/Hives Verified 10/17/16 15:16 sulfamethoxazole Allergy Unknown Verified 10/17/16 15:16 [From ] Childhood trimethoprim [From ] Allergy Unknown Verified 10/17/16 15:16 Childhood Physical Exam Vitals: Vital Signs Temp Pulse Pulse Resp BP BP Pulse Ox 10/18/16 12:00 96.5 F L 92 17 103/56 99 10/18/16 11:00 75 22 99/58 99 10/18/16 10:00 75 19 107/60 100 10/18/16 09:00 74 20 103/62 97 10/18/16 08:30 98.4 F 74 21 95/59 97 10/18/16 08:00 80 20 101/72 97 10/18/16 07:50 73 20 10/18/16 07:30 75 21 99/66 97 10/18/16 07:00 76 16 84/71 99 10/18/16 06:30 75 39 H 103/71 95 10/18/16 06:00 73 13 106/73 95 10/18/16 05:30 76 21 103/56 95 10/18/16 05:00 74 15 101/63 99 10/18/16 04:30 73 16 104/70 99 10/18/16 04:00 78 73 27 H 104/70 98 10/18/16 03:30 76 13 104/70 96 10/18/16 03:00 80 30 H 103/62 98 10/18/16 02:54 73 20 10/18/16 02:30 79 20 103/62 98 10/18/16 02:00 98.4 F 75 21 103/62 87 L 10/18/16 01:50 13 94/61 95 10/18/16 01:40 70 14 94/61 96 10/18/16 01:30 94/61 93 L 10/18/16 01:20 73 27 H 101/67 98 10/18/16 01:10 76 29 H 101/67 94 L 10/18/16 01:00 72 30 H 101/67 96 10/18/16 00:50 69 28 H 101/67 95 10/18/16 00:40 76 17 101/67 96 10/18/16 00:30 98.4 F 10 L 101/67 97 10/18/16 00:20 73 10/18/16 00:19 73 10/17/16 23:00 97.1 F L 73 18 97/66 97 10/17/16 16:24 96.2 F L 83 16 123/89 96 10/17/16 16:13 20 10/17/16 14:41 98 F 87 20 128/86 98 Intake and Output 10/17/16 10/18/16 10/18/16 22:59 06:59 14:59 Intake Total 0 600 2000 Output Total 515 345 Balance 0 85 1655 Intake: IV 600 1900 Calcium Gluconate 1,000 100 mg In Sodium Chloride 0.9 % 100 ml @ 100 mls/hr IVPB ONCE ONE Rx#: [id number] Sodium Chloride 0.9% 1, 500 900 000 ml @ 200 mls/hr IV . Q5H ROBYN Rx#:[id number] Sodium Chloride 0.9% 500 1000 ml @ 999 mls/hr IV .Q31M ONE Rx#:[id number] Intake, IV Titration 100 Amount Calcium Gluconate 1,000 100 mg In Sodium Chloride 0.9 % 100 ml @ 100 mls/hr IVPB TID ROBYN Rx#: [id number] Oral 0 Output: Urine 515 345 Other: Voiding Method Toilet Indwelling Catheter Indwelling Catheter # Voids 0 0 0 # Bowel Movements 0 0 Weight 79.832 kg Patient Weight 10/19/16 06:59 Weight 79.832 kg Physical Exam: Revealed a 35-year-old white male in no form of respiratory distress. Patient looks generally weak. HEENT:[Neck is supple.] [No neck masses.] [No thyromegaly.] [No JVD.] Chest: [Clear throughout, no crackles, no rhonchi, no wheezes.] Cardiac Exam: [Normal S1 and S2, no S3 gallop, no murmur.] Abdomen: [Slightly distended, mild tenderness throughout the epigastric area diminished bowel sounds. Extremities: [No clubbing, no edema, no cyanosis.] Neurological Exam: [No focal neurologic deficit. Except for minimal lethargy.] Results - Laboratory Findings CBC and BMP: 10/18/16 05:28 10/18/16 05:28 Abnormal lab findings: Abnormal Labs 10/17/16 10/18/16 10/18/16 22:03 00:19 00:30 WBC Hgb Neutrophils # Lymphocytes # Sodium 124 L Potassium Chloride 89 L Carbon Dioxide 18 L BUN 69 H Creatinine 3.70 H Glucose 142 H POC Glucose (mg/dL) 139 H Calcium 4.6 L* Ionized Calcium Dion Phosphorus AST 678 H ALT 198 H Alkaline Phosphatase 35 L Total Creatine Kinase CK-MB (CK-2) Troponin I Total Protein 5.5 L Albumin 3.4 L Amylase Lipase Urine Protein Urine Glucose (UA) Urine Blood Amorphous Sediment Urine Opiates Screen Detected H U Methamphetamines Scrn Detected H Urine Cocaine Screen Detected H 10/18/16 10/18/16 10/18/16 00:30 02:20 05:28 WBC 15.6 H Hgb 18.3 H Neutrophils # 13.9 H Lymphocytes # 0.6 L Sodium Potassium Chloride Carbon Dioxide BUN Creatinine Glucose POC Glucose (mg/dL) Calcium Ionized Calcium Dion Phosphorus AST ALT Alkaline Phosphatase Total Creatine Kinase CK-MB (CK-2) 186.0 H* Troponin I 0.108 H* Total Protein Albumin Amylase Lipase Urine Protein 1+ H Urine Glucose (UA) Trace H Urine Blood Large H Amorphous Sediment Occasional H Urine Opiates Screen U Methamphetamines Scrn Urine Cocaine Screen 10/18/16 10/18/16 10/18/16 05:28 08:30 08:33 WBC Hgb Neutrophils # Lymphocytes # Sodium 128 L Potassium 5.2 H Chloride 88 L Carbon Dioxide 21 L BUN 79 H Creatinine 4.30 H Glucose 129 H POC Glucose (mg/dL) Calcium 4.0 L* Ionized Calcium Dion 2.2 L* <2.0 L* Phosphorus 9.3 H* AST 557 H ALT 187 H Alkaline Phosphatase Total Creatine Kinase >72221 H CK-MB (CK-2) 158.0 H* Troponin I 0.065 H* Total Protein 5.4 L Albumin 3.2 L Amylase 970 H* Lipase 80165 H Urine Protein Urine Glucose (UA) Urine Blood Amorphous Sediment Urine Opiates Screen U Methamphetamines Scrn Urine Cocaine Screen - Diagnostic Findings Chest x-ray: image reviewed (No evidence of active disease) Assessment and Plan Plan: Impression: 1 acute severe pancreatitis secondary to alcoholism. Patient's tracie criteria is at least 3 point on admission, and that categorizes his pancreatitis as severe and needs criteria to be in the intensive care unit. 2 acute hypocalcemia secondary to severe pancreatitis. Patient is receiving calcium gluconate intermittently for his hypocalcemia. In the meantime we'll continue to monitor his cardiac rhythm. 3 history of alcoholism, patient will need to be on alcohol withdrawal protocol. 4 significantly elevated CPK, patient will be monitored closely for acute rhabdomyolysis, in the meantime we'll continue IV fluids as ordered. He received so far at least 4 L of fluids, and his symptoms receiving 0.9 normal saline at 200 mL per hour. Time with Patient: Greater than 30
--- NOTE | 2016-10-18 14:08 | CT ---
EXAMINATION TYPE: CT abdomen pelvis wo con DATE OF EXAM: 10/18/2016 1:45 PM COMPARISON: NONE HISTORY: Pancreatitis CT DLP: 817 mGycm Automated exposure control for dose reduction was used. FINDINGS: Multiple axial sections were obtained from the diaphragm to the floor the pelvis with oral contrast. There are bilateral pleural effusions. There is a small hiatal hernia. There is mild infiltrate or atelectasis at the posterior lung bases. There is moderate ascites fluid in the abdomen. There is a large pancreas with stranding around the p ancreas. There is fluid in the anterior pararenal space bilaterally. Liver shows no focal defect. Spleen appears normal. There is no adrenal mass. Kidneys have normal siz e. There is no hydronephrosis. There is no retroperitoneal adenopathy. There is no sign of a bowel ob struction. There is oral contrast in large and small bowel. There is a Powell catheter in urinary blad madan. There is a small amount of air in the bladder. There is no sign of a pelvic mass. Bony structure s are intact. IMPRESSION: BILATERAL PLEURAL EFFUSIONS WITH MILD BASILAR PULMONARY INFILTRATES. MODERATE ASCITES. MODERATE RETROPERITONEAL FLUID. DIFFUSE ENLARGEMENT OF THE PANCREAS CONSISTENT WITH ACUTE PANCREATITIS. NO EVIDENCE OF A PSEUDOCYST.
--- NOTE | 2016-10-18 15:28 | ECHOF ---
Referral Reason:htn MEASUREMENTS -------- HEIGHT: 167.6 cm WEIGHT: 77.1 kg BP: 109/76 RVIDd: 2.7 cm (< 3.3) IVSd: 1.1 cm (0.6 - 1.1) LVIDd: 4.0 cm (3.9 - 5.3) LVPWd: 1.2 cm (0.6 - 1.1) IVSs: 1.3 cm LVIDs: 2.8 cm LVPWs: 1.8 cm LA Diam: 3.2 cm (2.7 - 3.8) Ao Diam: 3.2 cm (2.0 - 3.7) AV Cusp: 2.1 cm (1.5 - 2.6) MV EXCURSION: 23.991 mm (> 18.000) MV EF SLOPE: 107 mm/s (70 - 150) EPSS: 0.5 cm MV E Silas: 0.59 m/s MV DecT: 252 ms MV A Silas: 0.50 m/s MV E/A Ratio: 1.18 FINDINGS -------- Sinus rhythm. This was a technically good study. The left ventricular size is normal. There is borderline concentric left ventricular hypertrophy. Overall left ventricular systolic function is normal with, an EF between 55 - 60 %. The right ventricle is normal in size and function. The left atrial size is normal. The right atrium is normal in size. The aortic valve is trileaflet and appears structurally normal. Normal appearing mitral valve. No mitral regurgitation. The tricuspid valve appears structurally normal. Trace/mild (physiologic) pulmonic regurgitation. The aortic root size is normal. Normal inferior vena cava with normal inspiratory collapse consistent with estimated right atrial pressure of 5 mmHg. There is no pericardial effusion. CONCLUSIONS -------- 1. Sinus rhythm. 2. The aortic root size is normal. 3. Normal inferior vena cava with normal inspiratory collapse consistent with estimated right atrial pressure of 5 mmHg. 4. There is no pericardial effusion. 5. This was a technically good study. 6. There is borderline concentric left ventricular hypertrophy. 7. Overall left ventricular systolic function is normal with, an EF between 55 - 60 %. 8. The left atrial size is normal. 9. The aortic valve is trileaflet and appears structurally normal. 10. Normal appearing mitral valve. 11. The tricuspid valve appears structurally normal. 12. Trace/mild (physiologic) pulmonic regurgitation. SPRAYER INSECTICIDE: Vicky Gutierrez RDCS
--- NOTE | 2016-10-18 17:25 | CONS ---
DATE OF CONSULTATION: 10/18/2016 REASON FOR CONSULTATION: Acute severe pancreatitis. HISTORY OF PRESENT ILLNESS: Patient is a 35-year-old white male with history of alcohol abuse admitted to the hospital with nausea, vomiting, and abdominal pain for the last 2 days' duration. The patient apparently had a night of binge drinking and he came home with severe epigastric pain and threw up several times. She was brought into the emergency room by his yesterday morning and subsequently was admitted to the hospital with acute severe pancreatitis. He was noted to have elevated amylase and lipase at 1583 and ( ) respectively. The patient was initially admitted to the floor and subsequently because of significant electrolytes abnormalities and calcium of 4.6 he was transferred to the intensive care unit. The patient was uncomfortable. He complains of severe abdominal pain. He did not have any further episodes of nausea, vomiting. He never had similar symptoms in the past. He states that he drinks approximately 8 beers a day along with a pint of whiskey for the last 3-4 years' duration. He denies any fever, chills, night sweats. PAST SURGICAL HISTORY: None PAST MEDICAL HISTORY: History of Crohn disease, hypertension, gastroesophageal reflux disease, anxiety, depression. Medications at home: 1. Atenolol. 2. Celexa. 3. Flonase. 4. Lisinopril/hydrochlorothiazide. 5. Prilosec. ALLERGIES: SULFA SOCIAL HISTORY: Chronic smoker and alcohol use, as mentioned above. FAMILY HISTORY: Dad had chronic obstructive pulmonary disease. REVIEW OF SYSTEMS: CARDIOPULMONARY: He denies any chest pain or shortness of breath. He denies any dysuria. NEUROLOGY: Unremarkable. PSYCHIATRIC: Unremarkable. ENT: Vision unremarkable. Overall he does not feel well. No fever, chills, night sweats. On physical examination he appears uncomfortable, but no respiratory distress. Vitals as are stable. Blood pressure is 119/56, pulse is 75, temperature 98.4. HEENT: Unremarkable. Conjunctivae pink. Sclerae anicteric. Oral cavity, no lesions. NECK: No JVD or lymph node enlargement. Chest clear to auscultation. HEART: Regular rate and rhythm. ABDOMEN: Soft. It was slightly distended. There was tenderness in the epigastric area, but no rebound, rigidity. Bowel sounds are positive. No organomegaly. EXTREMITIES: No pedal edema. NEURO: He is alert and oriented x3. No focal deficits. Labs done at the time of admission to hospital: Amylase [place] 1583. [place]ase 24[address]. [place] [address], amylase down to 970. AST and ALT are 557 and 187 respectively. Alk phos and T-bili are within normal limits. Calcium is 4, phosphorus is 9.3. BUN 79, creatinine 4.30. Sodium 128, potassium 5.2, chloride 88, CO2 21. WBC 15.6, hemoglobin 18.3, platelets 177. Urine was positive for opiates, methamphetamines and cocaine. IMPRESSION: This is a patient who was admitted to the hospital with acute onset of nausea, vomiting, severe epigastric pain and noted to have acute severe pancreatitis with inflammatory response syndrome. He is noted to have leukocytosis, multiple electrolyte abnormalities including severe hypocalcemia, acute renal failure with elevated BUN and creatinine which has worsened in the last 24 hours. So far no imaging studies were performed because of elevated BUN and creatinine but he is scheduled for a CT of the abdomen without any contrast. Over the last 12 hours, he developed slight hypertension and has become oliguric with significantly decreased urine output. Etiology of pancreatitis appears to be moderate to heavy drinking for the last several years. RECOMMENDATIONS: 1. We will start him on aggressive IV hydration, suggest to the nurse to give bolus of 500 mL and monitor urine output carefully and increase IV fluid rate to 200 mL an hour for now. 2. Discuss with Dr. Nunez about patient's overall condition. 3. Agree with CT of the abdomen without any contrast. 4. Nephrology consultation. 5. Continue to correct electrolyte abnormalities. 6. The patient was already started on empiric antibiotics and we will continue the same for now. 7. IV proton pump inhibitors with Protonix 40 mg q.12 hours. 8. I had a lengthy discussion with the patient's who is at the bedside about overall clinical condition and guarded prognosis. 9. Will follow the patient closely during this hospital stay. Thank you for this consultation.
--- NOTE | 2016-10-18 17:39 | CONS ---
DATE OF CONSULTATION: Mr. Rosado is a 35-year-old male who presented to the emergency room with abdominal pain, nausea and vomiting. He was diagnosed with acute pancreatitis. Cardiology consultation was requested because of elevation of his troponin. Patient denies any history of cardiac disease. He has symptoms of dyspnea and chest discomfort in the past. He has been told eight years ago he has a weak muscle of the heart. He has a history of hypertension. He chews tobacco. He is nondiabetic. His lipid profile is not available. He has been drinking alcohol quite heavily recently and he uses drugs at times. He denies any peripheral edema. No clear PND. No orthopnea. His medications at home include: 1. Atenolol 50 mg twice a day. 2. Lisinopril HCT 20 to 25 mg daily. 3. Fluticasone. 4. Celexa. 5. Prilosec 20 mg twice a day. REVIEW OF SYSTEMS: RESPIRATORY SYSTEM: He has some dyspnea on exertion. No recent wheezing. He has history of chronic tobacco use. GI system: He had the nausea and vomiting. The abdominal pain as noted. He has no prior history of pancreatitis. system: No history of dysuria or hematuria. Nervous system: No history of stroke or seizure. PHYSICAL EXAMINATION: A 35-year-old male; alert and in apparent discomfort. Blood pressure 107/60 with a heart in the 70s. HEAD: Normocephalic. EYES: Sclerae anicteric. NECK: Good upstroke. No bruit. No jugular venous distention. LUNGS: With decreased air exchange. No wheezes. HEART: Regular rate and rhythm. S1, S2, no S3, with a systolic murmur at the base. No diastolic murmur. No rub. ABDOMEN: Soft, mild general tenderness more noted in the left upper quadrant. Positive bowel sounds. No organomegaly. Lab data revealed a lipase of 10,422. On presentation it was 19,355. His amylase on admission was 1553. Today is 970. His troponin on admission 0.065 and subsequently 0.108. His BUN and creatinine this morning are 79 and 4.3. Potassium 5.2. Hemoglobin of 18.3. Calcium is less than 2. His drug screen positive for opiates, methamphetamine and cocaine. His white blood cell of 15.6, it was 17.8 on admission. His chest x-ray shows no acute changes. His abdominal x-ray shows no free air. IMPRESSION: 1. Acute pancreatitis related to her acute alcoholism. 2. Minimal elevation of troponin nondiagnostic probably type II event. 3. Renal failure of unclear duration. 4. History of hypertension. 5. Chronic tobacco use. 6. History of drug use. RECOMMENDATION: From the cardiac standpoint, I will stop his Lisinopril, HCT, the dose of his beta reji will be decreased to 25 mg twice a day because of his blood pressure being on the low side, I will obtain echocardiogram with Doppler. Will obtain an EKG. His prognosis is guarded because of the multiple indicators associated with his acute pancreatitis. Depending on his progress, further recommendation will be made. Thank you for this consult. We will follow with you.
[2016-10-18 19:15] LABS: INR 1.3 (<1.1); Prothrombin Time 12.8 sec (9.0-12.0)
[2016-10-18 19:20] LABS: Magnesium 1.7 mg/dL (1.6-2.3); Potassium 4.8 mmol/L (3.5-5.1)
[2016-10-18 19:41] LABS: Calcium 2.9 mg/dL (8.4-10.2)
[2016-10-18] MEDS: ATENOLOL 25 MG TAB PO SCH (20:11)
[2016-10-18] MEDS: LEVOFLOXACIN 250MG-D5W PMX 250 MG in DEXTROSE/WATER 1 50ML.BAG IVPB SCH (20:54)
--- NOTE | 2016-10-18 22:09 | PN ---
DATE OF SERVICE: 10/18/2016 This 35 -year-old gentleman admitted with acute severe pancreatitis, also had acute renal failure, possible rhabdomyolysis and prerenal factors and dehydration. The patient also had positive for cocaine also at this time. The patient also has significant ETOH as well. The pancreas and amylase elevated. CT scan of the abdomen showed bilateral pleural effusions, ascites and as well as diffuse enlargement of the pancreas consistent with acute pancreatitis. No evidence of pseudocyst or cholelithiasis noted. The patient is being closely monitored in the ICU at this time. The patient is complaining of pain. The patient also had severe hypocalcemia, possibly secondary to pancreatitis. The patient being monitored in the Intensive Care Unit. Past medical history reviewed. REVIEW OF SYSTEMS: CARDIOVASCULAR: No angina or palpitations. Respiratory: As mentioned earlier. GENITOURINARY: As mentioned earlier. GASTROINTESTINAL: as mentioned earlier. Nervous system: No numbness, weakness. Current medications reviewed and include: 1. Mclean 5 mg q.6 p.r.n. 2. Tenormin 25 mg p.o. b.i.d. 3. Calcium gluconate p.o. t.i.d. 4. Celexa 20 mg daily. 5. Flonase one spray b.i.d. 6. Heparin 5000 subcu b.i.d. 7. Dilaudid 1 mg q.3 p.r.n. nausea. 8. Levaquin 250 mg IV daily. 9. Ativan p.r.n. 10. Habitrol 14 day. 11. Zofran. 12. Protonix. 13. Vitamin B1. PHYSICAL EXAMINATION: The patient is alert and oriented times three. Pulse 94, blood pressure 99/56, respirations 18, temperature 96.5, pulse 99% on room air. HEENT: Conjunctivae normal. Oral mucosa moist. Facial puffiness and flushing also present. NECK: No jugular venous distention. No carotid bruit. No lymph node enlargement. CARDIOVASCULAR: S1, S2 muffled. No S3, no S4. RESPIRATORY: Breath sounds diminished at the bases. No rhonchi, no crackles. ABDOMEN: Soft, mild diffuse tenderness present, otherwise, no guarding. No rigidity. No mass palpable. Flanks are dull. Otherwise, bowel sounds present. No bruit. LEGS: No edema. No swelling. CENTRAL NERVOUS SYSTEM: Higher functions as mentioned earlier. Moves all four limbs. No focal deficits. LYMPHATICS: No lymph nodes palpable in the neck, axillae or groin. SKIN: No ulcer, rash or bleeding. LABS: WBC 15.6. Sodium 128, potassium 5.2, creatinine is 4.30, calcium is 4. calcium is 2.2. is 9.3, AST is 557, ALT is 187, creatinine kinase is 3200, troponin 0.065. Amylase is 970. Albumin 3.2. Total protein is 5.4. Lipase is 10,422. UA noted. Drug screen positive for opiates, methamphetamines and cocaine. Cultures are negative so far. ASSESSMENT: 1. Acute severe pancreatitis with severe acute respiratory syndrome as well as possible sepsis on empiric antibiotics. 2. Increased WBC secondary from sepsis and acute pancreatitis. 3. Acute renal failure, possibly acute tubular necrosis, prerenal and also secondary to rhabdomyolysis. 4. Acute rhabdomyolysis. 5. Incessant vomiting and dehydration, with possible acute gastritis secondary from alcohol intoxication. 6. Increased hemoglobin present on admission secondary to dehydration. 7. Hyponatremia. 8. Hyperkalemia. 9. Hyperchloremia. 10. Hypocalcemia severe persistent possibly secondary to severe pancreatitis. 11. Ascites and bilateral pleural effusion on the CAT scan. 12. Increased total bilirubin. 13. Increased AST, ALT, possibly secondary to alcoholic hepatitis. 14. History of ETOH. 15. History of nicotine dependence. 16. Increased amylase, lipase with amylase diminishing trends. 17. Urinary tract infection. 18. History of Crohn's colitis. 19. History of nicotine dependence. 20. FULL CODE. RECOMMENDATIONS AND DISCUSSION: In this 36 -year-old gentleman who presented with multiple complex medical issues, we will monitor the patient closely. Continue the current antibiotics. Continue symptomatic treatment. Continue empiric antibiotics. Follow cultures. Otherwise, I would also recommend closely follow with gastroenterology. Multiple consultants. Monitor fluid and electrolytes balance closely. Continue to monitor in the ICU. Continue the calcium. Repeat labs. DVT prophylaxis. Prognosis guarded. Further recommendations to follow. Discussed with the patient. VERONICA
[2016-10-19] MEDS: HYDROmorphone 1 MG/ML 1 ML SYRINGE IV PRN ×9 (01:12→23:05)
[2016-10-19] MEDS: CALCIUM GLUCONATE 1,000 MG in SODIUM CHLORIDE 0.9% 100 ML IVPB SCH ×12 (01:12→22:23)
[2016-10-19] MEDS: ONDANSETRON 4 MG/2 ML VIAL IVP PRN ×5 (01:12→22:56)
[2016-10-19] MEDS: SODIUM CHLORIDE 0.9% 1,000 ML IV SCH ×5 (02:38→22:23)
[2016-10-19 02:42] LABS: Uric Acid 12.5 mg/dL (3.5-8.5)
[2016-10-19 02:44] LABS: Ionized Calcium 2.2 mg/dL (4.5-5.3)
[2016-10-19 02:46] LABS: Calcium 3.5 mg/dL (8.4-10.2)
[2016-10-19 05:56] LABS: Anion Gap 15 mmol/L; Blood Urea Nitrogen 77 mg/dL (9-20); Carbon Dioxide 14 mmol/L (22-30); Chloride 99 mmol/L (98-107); Glucose 103 mg/dL (74-99); Magnesium 1.7 mg/dL (1.6-2.3); Non-African American GFR(MDRD) 20 (>60 ml/min/1.73 sqM); Phosphorous 4.9 mg/dL (2.5-4.5); Potassium 4.5 mmol/L (3.5-5.1); Sodium 128 mmol/L (137-145)
[2016-10-19 05:58] LABS: Ionized Calcium 2.5 mg/dL (4.5-5.3)
[2016-10-19 06:05] LABS: Calcium 3.8 mg/dL (8.4-10.2)
[2016-10-19 06:06] LABS: Amylase 443 U/L (30-110)
[2016-10-19] MEDS ORDERED: Magnesium Replacement Protocol 1 EACH MISC MISCELLANE PRN (06:09)
[2016-10-19 06:40] LABS: Creatine Kinase >32000 U/L (55-170)
[2016-10-19] MEDS: MAGNESIUM SULFATE-D5W PMX 1 GM in DEXTROSE/WATER 1 100ML.BAG IVPB SCH ×2 (06:46→08:10)
--- NOTE | 2016-10-19 08:45 | P.PN ---
Subjective Patient is a 35-year-old white male who presented to the emergency room with a complaint of nausea vomiting and abdominal pain. He was noted to have elevated lipase and amylase and findings consistent with severe pancreatitis. He had an episode of heavy drinking on Thursday prior to admission. After admission to the hospital his calcium was noted to be decreased and he had some changes of concern on his EKG he was therefore admitted to the intensive care unit. The patient despite calcium supplementation was noted to have a drop in his calcium to 2.9 which this morning is increased at 3.8. The patient is to be seen by cardiology. The patient today is more awake and alert. He complains of some midepigastric abdominal discomfort but this is improved. Objective - Vital Signs Vital signs: Vital Signs Temp 97.4 F L 10/19/16 04:00 Pulse 71 10/19/16 07:00 Resp 14 10/19/16 07:00 BP 100/86 10/19/16 07:00 Pulse Ox 100 10/19/16 07:00 Intake & Output 10/18/16 10/19/16 10/19/16 18:59 06:59 18:59 Intake Total 3200 3150 400 Output Total 1215 930 100 Balance 1984 2220 300 Weight 79.832 kg 77.4 kg Intake: IV 3100 2400 200 Sodium Chloride 0.9% 1, 2100 2400 200 000 ml @ 200 mls/hr IV . Q5H [facility] Rx#:[id number] Sodium Chloride 0.9% 500 1000 ml @ 999 mls/hr IV .Q31M [facility] Rx#:[id number] Intake, IV Titration 100 750 200 Amount Calcium Gluconate 1,000 100 mg In Sodium Chloride 0.9 % 100 ml @ 100 mls/hr IVPB Q4H [facility] Rx#: [id number] Calcium Gluconate 1,000 600 100 mg In Sodium Chloride 0.9 % 100 ml @ 100 mls/hr IVPB Q4H [facility] Rx#: [id number] Calcium Gluconate 1,000 100 mg In Sodium Chloride 0.9 % 100 ml @ 100 mls/hr IVPB TID [facility] Rx#: [id number] Levofloxacin 250Mg-D5w 50 Pmx 250 mg In Dextrose/ Water 1 50ml.bag @ 50 mls /hr IVPB HS [facility] Rx#: [id number] Magnesium Sulfate-D5w Pmx 100 1 gm In Dextrose/Water 1 100ml.bag @ 100 mls/hr IVPB Q1H [facility] Rx#: [id number] Output: Urine 1105 930 100 Emesis 110 Other: Voiding Method Indwelling Catheter Indwelling Catheter # Voids 0 - Constitutional General appearance: Present: average body habitus, mild distress - Respiratory Respiratory: bilateral: CTA - Cardiovascular Rhythm: regular Heart sounds: normal: S1, S2 - Gastrointestinal Gastrointestinal Comment(s): Positive bowel sounds Moderate midepigastric abdominal tenderness No guarding or rebound - Psychiatric Psychiatric: Present: appropriate affect - Labs CBC & Chem 7: 10/18/16 05:28 10/19/16 04:44 Labs: Abnormal Lab Results - Last 24 Hours (Table) 10/18/16 10/18/16 10/18/16 Range/Units 05:28 08:30 08:33 PT (9.0-12.0) sec Sodium 128 L (137-145) mmol/L Potassium 5.2 H (3.5-5.1) mmol/L Chloride 88 L (98-107) mmol/L Carbon Dioxide 21 L (22-30) mmol/L BUN 79 H (9-20) mg/dL Creatinine 4.30 H (0.66-1.25) mg/dL Glucose 129 H (74-99) mg/dL Uric Acid (3.5-8.5) mg/dL Calcium 4.0 L* (8.4-10.2) mg/dL Ionized Calcium Dion 2.2 L* <2.0 L* (4.5-5.3) mg/dL Phosphorus 9.3 H* (2.5-4.5) mg/dL AST 557 H (17-59) U/L ALT 187 H (21-72) U/L Creatine Kinase (55-170) U/L Total Creatine Kinase >24052 H (55-170) U/L CK-MB (CK-2) 158.0 H* (0.0-2.4) ng/mL Troponin I 0.065 H* (0.000-0.034) ng/mL Total Protein 5.4 L (6.3-8.2) g/dL Albumin 3.2 L (3.5-5.0) g/dL Amylase 970 H* (30-110) U/L Lipase 41721 H (23-300) U/L 10/18/16 10/18/16 10/18/16 Range/Units 18:54 18:54 19:39 PT 12.8 H (9.0-12.0) sec Sodium 127 L (137-145) mmol/L Potassium (3.5-5.1) mmol/L Chloride 95 L (98-107) mmol/L Carbon Dioxide 18 L (22-30) mmol/L BUN 84 H* (9-20) mg/dL Creatinine 4.19 H (0.66-1.25) mg/dL Glucose 123 H (74-99) mg/dL Uric Acid (3.5-8.5) mg/dL Calcium 2.9 L* (8.4-10.2) mg/dL Ionized Calcium Dion 2.0 L* (4.5-5.3) mg/dL Phosphorus 6.0 H (2.5-4.5) mg/dL AST (17-59) U/L ALT (21-72) U/L Creatine Kinase (55-170) U/L Total Creatine Kinase (55-170) U/L CK-MB (CK-2) (0.0-2.4) ng/mL Troponin I (0.000-0.034) ng/mL Total Protein (6.3-8.2) g/dL Albumin (3.5-5.0) g/dL Amylase (30-110) U/L Lipase (23-300) U/L 10/19/16 10/19/16 Range/Units 01:48 04:44 PT (9.0-12.0) sec Sodium 128 L (137-145) mmol/L Potassium (3.5-5.1) mmol/L Chloride (98-107) mmol/L Carbon Dioxide 14 L (22-30) mmol/L BUN 77 H (9-20) mg/dL Creatinine 3.50 H (0.66-1.25) mg/dL Glucose 103 H (74-99) mg/dL Uric Acid 12.5 H (3.5-8.5) mg/dL Calcium 3.5 L* 3.8 L* (8.4-10.2) mg/dL Ionized Calcium Dion 2.2 L* 2.5 L* (4.5-5.3) mg/dL Phosphorus 4.9 H (2.5-4.5) mg/dL AST (17-59) U/L ALT (21-72) U/L Creatine Kinase >90247 H (55-170) U/L Total Creatine Kinase (55-170) U/L CK-MB (CK-2) (0.0-2.4) ng/mL Troponin I (0.000-0.034) ng/mL Total Protein (6.3-8.2) g/dL Albumin (3.5-5.0) g/dL Amylase 443 H* (30-110) U/L Lipase 3723 H (23-300) U/L Microbiology - Last 24 Hours (Table) 10/17/16 22:03 Blood Culture - Preliminary Blood No Growth after 24 hours 10/18/16 00:30 Urine Culture - Preliminary Urine,Catheterized Assessment and Plan Plan: Impression/plan: 1. Pancreatitis 2. Hypocalcemia related to pancreatitis 3. Elevated cardiac enzymes cardiology consult pending 4. GI consult pending 5. Patient does not have an acute surgical abdomen at this time 6. Conservative management of pancreatitis will follow
[2016-10-19] MEDS: NICOTINE 14MG/24HR PATCH TRANSDERM SCH (08:51)
[2016-10-19] MEDS: PANTOPRAZOLE 40 MG/10 ML VIAL IVP SCH ×2 (08:52→20:07)
[2016-10-19] MEDS: HEPARIN SODIUM,PORCINE 5,000 UNIT/ML 1 ML VIAL SQ SCH ×2 (08:52→20:07)
[2016-10-19] MEDS: CITALOPRAM HYDROBROMIDE 20 MG TAB PO SCH (08:52)
[2016-10-19] MEDS: ATENOLOL 25 MG TAB PO SCH ×2 (09:51→20:06)
[2016-10-19] MEDS: THIAMINE 100 MG/ML 2 ML VIAL IVP SCH ×2 (13:31→17:59)
--- NOTE | 2016-10-19 13:37 | P.PN ---
Subjective Principal diagnosis: Acute alcohol related pancreatitis This is a 35-year-old white male with history of alcohol abuse, patient has been a heavy drinker for many years, but he had no previous episodes of documented pancreatitis. On Thursday, patient had a heavy episode of binge drinking, and he presented to the emergency room with severe abdominal pain and some nausea and vomiting, elevated lipase and amylase, and hypocalcemia with a calcium 4.6. Patient was admitted to the ICU, and he was noted to have prolonged QT interval, patient was given multiple doses of calcium gluconate since admission, and has been receiving significant amount of fluid boluses over the last a few hours since admission. At this point the patient has mild abdominal discomfort, no further episodes of nausea vomiting. No headaches no blurred vision no dizziness. No shortness of breath no cough no wheezing. No melena no hematemesis no frequency or urgency. Patient was already seen by GI and general surgery on consultation, and strongly felt that the patient does not have a surgical abdomen. Recommended present conservative measures for severe pancreatitis. Patient was reevaluated today on 10/19/2016, he is experiencing less and less abdominal pain, no nausea no vomiting, no melena, no hematemesis. His labs were reviewed, continues to have a bit of anion gap metabolic acidosis, renal profile is slightly improved. Amylases and lipases are improved, however his CPK remains elevated over 32,000, and the patient remains on lots of fluids his IV fluid is running at 200 mL per hour. He was reevaluated again by surgery and gastroenterology, and the recommendation is to continue present supportive care measures. Objective - Vital Signs Vital signs: Vital Signs Temp 97.9 F 10/19/16 08:00 Pulse 67 10/19/16 11:00 Resp 10/19/16 11:00 BP 116/65 10/19/16 11:00 Pulse Ox 100 10/19/16 11:00 Intake & Output 10/18/16 10/19/16 10/19/16 18:59 06:59 18:59 Intake Total 3200 3150 1300 Output Total 1215 930 600 Balance 19840 700 Weight 79.832 kg 77.4 kg Intake: IV 3100 2400 800 Sodium Chloride 0.9% 12099 2400 800 000 ml @ 200 mls/hr IV . Q5H [facility] Rx#:[id number] Sodium Chloride 0.9% 500 1000 ml @ 999 mls/hr IV .Q31M [facility] Rx#:[id number] Intake, IV Titration 100 750 500 Amount Calcium Gluconate 1,000 100 mg In Sodium Chloride 0.9 % 100 ml @ 100 mls/hr IVPB Q4H [facility] Rx#: [id number] Calcium Gluconate 1,000 600 300 mg In Sodium Chloride 0.9 % 100 ml @ 100 mls/hr IVPB Q4H [facility] Rx#: [id number] Calcium Gluconate 1,000 100 mg In Sodium Chloride 0.9 % 100 ml @ 100 mls/hr IVPB TID [facility] Rx#: [id number] Levofloxacin 250Mg-D5w 50 Pmx 250 mg In Dextrose/ Water 1 50ml.bag @ 50 mls /hr IVPB HS [facility] Rx#: [id number] Magnesium Sulfate-D5w Pmx 200 1 gm In Dextrose/Water 1 100ml.bag @ 100 mls/hr IVPB Q1H [facility] Rx#: [id number] Output: Urine 1105 930 600 Emesis 110 Other: Voiding Method Indwelling Catheter Indwelling Catheter Indwelling Catheter # Voids 0 - Exam Physical Exam: Revealed a 35-year-old white male in no form of respiratory distress. Patient looks generally weak. HEENT:[Neck is supple.] [No neck masses.] [No thyromegaly.] [No JVD.] Chest: [Clear throughout, no crackles, no rhonchi, no wheezes.] Cardiac Exam: [Normal S1 and S2, no S3 gallop, no murmur.] Abdomen: [Slightly distended, mild tenderness throughout the epigastric area diminished bowel sounds. Extremities: [No clubbing, no edema, no cyanosis.] Neurological Exam: [No focal neurologic deficit. Except for minimal lethargy.] - Labs CBC & Chem 7: 10/18/16 05:28 10/19/16 04:44 Labs: Abnormal Lab Results - Last 24 Hours (Table) 10/18/16 10/18/16 10/18/16 Range/Units 08:35 18:54 18:54 PT 12.8 H (9.0-12.0) sec Sodium 127 L (137-145) mmol/L Chloride 95 L (98-107) mmol/L Carbon Dioxide 18 L (22-30) mmol/L BUN 84 H* (9-20) mg/dL Creatinine 4.19 H (0.66-1.25) mg/dL Glucose 123 H (74-99) mg/dL Uric Acid (3.5-8.5) mg/dL Calcium 2.9 L* (8.4-10.2) mg/dL Ionized Calcium Dion (4.5-5.3) mg/dL Phosphorus 6.0 H (2.5-4.5) mg/dL Creatine Kinase (55-170) U/L Amylase (30-110) U/L Lipase (23-300) U/L Vitamin D 25-Hydroxy 20.3 L (30.0-100.0) ng/mL PTH Intact 75.6 H (14.0-72.0) pg/mL 10/18/16 10/19/16 10/19/16 Range/Units 19:39 01:48 04:44 PT (9.0-12.0) sec Sodium 128 L (137-145) mmol/L Chloride (98-107) mmol/L Carbon Dioxide 14 L (22-30) mmol/L BUN 77 H (9-20) mg/dL Creatinine 3.50 H (0.66-1.25) mg/dL Glucose 103 H (74-99) mg/dL Uric Acid 12.5 H (3.5-8.5) mg/dL Calcium 3.5 L* 3.8 L* (8.4-10.2) mg/dL Ionized Calcium Dion 2.0 L* 2.2 L* 2.5 L* (4.5-5.3) mg/dL Phosphorus 4.9 H (2.5-4.5) mg/dL Creatine Kinase >84621 H (55-170) U/L Amylase 443 H* (30-110) U/L Lipase 3723 H (23-300) U/L Vitamin D 25-Hydroxy (30.0-100.0) ng/mL PTH Intact (14.0-72.0) pg/mL Microbiology - Last 24 Hours (Table) 10/18/16 00:30 Urine Culture - Final Urine,Catheterized 10/17/16 22:03 Blood Culture - Preliminary Blood No Growth after 24 hours Assessment and Plan Plan: Impression: 1 acute severe pancreatitis secondary to alcoholism. Patient's tracie criteria is at least 3 point on admission, and that categorizes his pancreatitis as severe and needs criteria to be in the intensive care unit. 2 acute hypocalcemia secondary to severe pancreatitis. Patient is receiving calcium gluconate intermittently for his hypocalcemia. In the meantime we'll continue to monitor his cardiac rhythm. 3 history of alcoholism, patient will need to be on alcohol withdrawal protocol. 4 significantly elevated CPK, patient will be monitored closely for acute rhabdomyolysis, in the meantime we'll continue IV fluids as ordered. He received so far at least 4 L of fluids, and his symptoms receiving 0.9 normal saline at 200 mL per hour. Prognosis remains guarded, will continue to follow in the ICU. Time with Patient: Less than 30
--- NOTE | 2016-10-19 14:50 | CONS ---
DATE OF CONSULTATION: REASON FOR CONSULTATION: Renal failure, severe electrolyte abnormalities with severe hypocalcemia and hypophosphatemia. HISTORY OF PRESENT ILLNESS: Patient is a 35-year-old male who was admitted to the hospital with abdominal pain. His drug screen was positive for cocaine, amphetamines and opiates. He also has a history of alcohol abuse. His lipase was 19,355 on initial admission. Patient after also has rhabdomyolysis with CK levels more than 32,000. Serum creatinine was at 3.4. Initially it did go up to 4.19 and today it is down to 3.5. His urine output has improved. Sodium acetate about 127 to 128 mEq/L. Serum calcium was at 2.9 with ionized calcium less than 2, and phosphorus at 6. His vitamin D level was at 20.3 and PTH at 75.6. PAST MEDICAL HISTORY: Significant for Crohn's colitis, history of nicotine dependence and EtOH abuse. Medications prior to admission included lisinopril and hydrochlorothiazide, Prilosec, Flonase. ALLERGIES: PENICILLIN, SULFA, SEPTRA. SOCIAL HISTORY: As mentioned positive for smoking and alcohol. His drug screen was positive for cocaine as well. REVIEW OF SYSTEMS: Positive for abdominal pain, nausea or vomiting. No significant chest pain or shortness of breath. Patient denies numbness, tingling sensation. He has not had any seizures. On examination, the patient is comfortable, awake, alert, oriented x3, not in any acute distress. Blood pressure is 133/67, heart rate 85 per minute. He is afebrile. Examination of the heart S1 and S2. Examination of the lungs: Bilateral breath sounds are heard. Abdomen is soft, nontender. Examination of lower extremities shows no significant edema. LABS: His serum calcium 2.9 on admission, now it is up to 3.8, ionized calcium is at 2.5, magnesium at 1.7, vitamin D 20.3. PTH 75.6, sodium 128, potassium 4.5, serum creatinine 3.5. CK more than 32,000. Lipase at 3723, [place] [address]. ASSESSMENT: 1. Acute kidney injury secondary to acute tubular necrosis from rhabdomyolysis with improvement in urine output and decreasing serum creatinine. We will continue with aggressive IV hydration and continue to avoid nephrotoxic medications. Patient also has pancreatitis with evidence of intravascular volume depletion on admission. 2. Severe hypocalcemia which worsened postadmission possibly related to underlying pancreatitis and complicated with ongoing rhabdomyolysis. 25-hydroxy vitamin D level is on the lower side. Patient will be started on Drisdol. We will continue with the current dose of calcium gluconate at 2 grams q.4 hours. Rocaltrol can be added if serum calcium does not continue to improve. 3. Hyponatremia associated with renal failure. Continue with the normal saline for now. 4. Rhabdomyolysis associated with cocaine abuse. 5. Severe pancreatitis, being followed by Surgery, status post CT of the abdomen and pelvis, which showed diffuse enlargement of the pancreas. No necrotic areas or other complications mentioned on the CT scan at this time. PLAN: Continue with IV fluids for now. I will repeat another BMP this afternoon. If the acidosis is worse, we can add sodium bicarb. However, at this time in view of ongoing hypocalcemia would avoid aggressive and alkalinization. Thank you for this consultation. Will continue to follow the patient with you during his hospitalization.
--- NOTE | 2016-10-19 16:08 | PN ---
Patient is a 35-year-old pleasant white male admitted to the hospital with severe acute pancreatitis. He still complains of some abdominal pain, intermittent nausea, vomiting requiring pain medications every 2 to 3 hours. He did have a CT of the chest and abdomen done yesterday which showed moderate amount of ascites, moderate retroperitoneal fluid, diffuse enlargement of the pancreas consistent with acute pancreatitis. No evidence of pseudocyst or necrosis identified. On physical examination, he appears somewhat uncomfortable. Vital signs are stable. Blood pressure is 100/86, pulse is 71, temperature 97.9. HEENT: Unremarkable. Conjunctivae are pink. Sclerae anicteric. Oral cavity, no lesions. NECK: No JVD or lymph node enlargement. Chest was clear to auscultation. HEART: Regular rate and rhythm. ABDOMEN: Distended, was very tender in the epigastric area. Bowel sounds are positive. No organomegaly. EXTREMITIES: No pedal edema. SKIN: No rashes. NEURO: He is alert and oriented x3. No focal deficits. LABS: BUN 77, creatinine 3.5, sodium 128, potassium 4.5. She was 299, chloride 14, ionized calcium is 2.2 and T-bili is one, creatinine kinase is more than 32,000 and amylase is down to 443, lipase 3723. IMPRESSION: 1. Acute severe pancreatitis with systemic inflammatory response syndrome. 2. Acute rhabdomyolysis. 3. Acute renal failure gradually improving. 4. History of alcohol abuse. RECOMMENDATIONS: 1. Continue with aggressive IV hydration. 2. Continue with broad-spectrum antibiotics. 3. We will continue with supportive and symptomatic care and will follow the patient closely during his hospital stay.
--- NOTE | 2016-10-19 17:54 | PN ---
Mr. Rosado is a 35-year-old male who presented with evidence of severe pancreatitis. He is feeling better today. His abdomen is feeling better. His breathing is better. He denies any chest pain. He still has abdominal pain. Hemodynamically stable. His renal function, improving. He had evidence of rhabdomyolysis. He continues to be on the IV fluids and atenolol 25 mg twice a day. PHYSICAL EXAMINATION: Blood pressure 130/70 with a heart in the 70s. LUNGS: Clear. HEART: Regular rate rhythm. S1, S2, no S3, no rub. ABDOMEN: Soft, mild tenderness. No rebound. Positive bowel sounds. EXTREMITIES: No edema. Lab data revealed lytes revealed BUN, creatinine 77 and 3.5. Potassium 4.5. His calcium is up to 2.5. His creatinine kinase is 32,000. Amylase is down to 443 and lipase down to 3723. He had an echocardiogram performed yesterday revealed a preserved systolic function with no significant valvular abnormality. IMPRESSION: 1. Severe pancreatitis with multiple high risk indicators. 2. Acute renal failure, improving. 3. Rhabdomyolysis. 4. Hypertension. 5. History of chronic alcoholism. RECOMMENDATIONS: From the cardiac standpoint, we will continue present medical therapy. Follow his renal function and his CK. There is no active cardiac issue at this time, we will see him on as-needed basis. Please feel free to call us for any questions.
[2016-10-19 19:17] LABS: Ionized Calcium 2.4 mg/dL (4.5-5.3)
[2016-10-19 19:41] LABS: Calcium 3.5 mg/dL (8.4-10.2)
[2016-10-19] MEDS: LORazepam 2 MG/ML SYRINGE IV PRN ×2 (20:05→22:26)
[2016-10-19] MEDS: HYDROcodone/APAP 5-325MG 1 EACH TAB PO PRN (20:44)
[2016-10-19] MEDS: SODIUM BICARBONATE TAB 650 MG TAB PO SCH (22:22)
[2016-10-19] MEDS: LEVOFLOXACIN 250MG-D5W PMX 250 MG in DEXTROSE/WATER 1 50ML.BAG IVPB SCH (22:27)
[2016-10-20] MEDS: LORazepam 2 MG/ML SYRINGE IV PRN ×3 (00:06→01:28)
[2016-10-20] MEDS: CALCIUM GLUCONATE 1,000 MG in SODIUM CHLORIDE 0.9% 100 ML IVPB SCH ×5 (01:25→07:54)
[2016-10-20] MEDS: HYDROmorphone 1 MG/ML 1 ML SYRINGE IV PRN ×8 (01:27→22:00)
[2016-10-20] MEDS: SODIUM CHLORIDE 0.9% 1,000 ML IV SCH ×5 (01:44→21:42)
[2016-10-20] MEDS: IPRATROPIUM-ALBUTEROL 3 ML NEB INHALATION PRN ×2 (03:10→15:48)
[2016-10-20] MEDS: HYDROcodone/APAP 5-325MG 1 EACH TAB PO PRN ×3 (03:20→19:41)
[2016-10-20 04:51] LABS: Amylase 231 U/L (30-110); Anion Gap 10 mmol/L; Blood Urea Nitrogen 47 mg/dL (9-20); Carbon Dioxide 16 mmol/L (22-30); Chloride 105 mmol/L (98-107); Glucose 94 mg/dL (74-99); Magnesium 2.2 mg/dL (1.6-2.3); Non-African American GFR(MDRD) 40 (>60 ml/min/1.73 sqM); Phosphorous 3.2 mg/dL (2.5-4.5); Potassium 4.2 mmol/L (3.5-5.1); Sodium 131 mmol/L (137-145)
[2016-10-20 05:04] LABS: Calcium 4.1 mg/dL (8.4-10.2)
[2016-10-20 05:40] LABS: Creatine Kinase >32000 U/L (55-170)
[2016-10-20] MEDS: ONDANSETRON 4 MG/2 ML VIAL IVP PRN ×2 (05:59→19:39)
[2016-10-20 07:15] LABS: CH 30.5; CHCM 32.8; HCT 43.6 % (39.0-53.0); HDW 2.45; Large Platelets Flag Slight; MCH 30.6 pg (25.0-35.0); MCHC 32.8 g/dL (31.0-37.0); MCV 93.4 fL (80.0-100.0); Mean Platelet Volume 10.4; RBC 4.67 m/uL (4.30-5.90); RDW 12.9 % (11.5-15.5); WBC 10.6 k/uL (3.8-10.6)
[2016-10-20 07:21] LABS: HGB 14.3 gm/dL (13.0-17.5)
[2016-10-20] MEDS: NICOTINE 14MG/24HR PATCH TRANSDERM SCH (07:50)
[2016-10-20] MEDS: ATENOLOL 25 MG TAB PO SCH ×2 (07:53→20:01)
[2016-10-20] MEDS: HEPARIN SODIUM,PORCINE 5,000 UNIT/ML 1 ML VIAL SQ SCH ×2 (07:54→20:01)
[2016-10-20] MEDS: SODIUM BICARBONATE TAB 650 MG TAB PO SCH ×2 (07:54→20:01)
[2016-10-20] MEDS: CITALOPRAM HYDROBROMIDE 20 MG TAB PO SCH (07:54)
[2016-10-20] MEDS: PANTOPRAZOLE 40 MG/10 ML VIAL IVP SCH ×2 (07:54→20:02)
--- NOTE | 2016-10-20 08:27 | XR ---
EXAMINATION TYPE: XR chest 1V portable DATE OF EXAM: 10/20/2016 6:46 AM COMPARISON: 17 October 2016 chest x-ray HISTORY: Wheezes TECHNIQUE: Single frontal view of the chest is obtained. FINDINGS: Abnormal increased attenuation present at the right lung base, there is an obscured right hemidiaphragm. Increased retrocardiac density also noted, heart size is stable. No pneumothorax. Ther e are overlying cardiac leads. IMPRESSION: Correlate for basilar pneumonia versus atelectasis and associated effusion, follow-up to resolution
--- NOTE | 2016-10-20 11:31 | PN ---
DATE OF SERVICE: 10/19/2016 This 35-year-old admitted with acute severe pancreatitis, also had renal failure and rhabdomyolysis. Also had generalized aches and pains. Also had severe hypocalcemia, possibly secondary to pancreatitis. The patient also had some features of sepsis present on admission. The patient was on broad spectrum IV antibiotics. Multiple consultants including gastroenterology, Dr. Nunez, nephrology and cardiology are following the patient closely. Urine output is apparently improving at this time. The patient is still being monitored in the ICU at this time. Patient has severe chronic alcoholism also. Past medical history reviewed. REVIEW OF SYSTEMS: CARDIOVASCULAR: No angina or palpitations. GI: As mentioned earlier. : As mentioned. NERVOUS SYSTEM: As mentioned. ALLERGY/IMMUNOLOGY: No asthma or hayfever. MUSCULOSKELETAL: As mentioned earlier. Current medications are reviewed and include: 1. [place] 5 mg every 6. p.r.n. 2. Tenormin 25 mg b.i.d. 3. Calcium. 4. Celexa. 5. Hydromorphone. 6. Levaquin 500 mg daily. 7. Ativan p.r.n. 8. [place]. 9. Zofran. 10. Protonix. PHYSICAL EXAMINATION: GENERAL: Alert, oriented. VITAL SIGNS: Pulse 74, blood pressure 130/70, respirations 18, temperature 97.9, pulse ox 97% on room air. HEENT: Conjunctiva normal. NECK: No JVD. CARDIOVASCULAR: Breath sounds diminished in the bases. Bilateral scattered rhonchi and crackles. ABDOMEN: Soft. Mild diffuse distention. Mild diffuse tenderness. No guarding. No rigidity. No masses palpable. NERVOUS SYSTEM: No focal deficits. LABS: Creatinine is 2.4, which is improving. Sodium 130. Most recent total calcium is 3.5, creatine kinase is more than 32,000. Amylase and lipase improving. ASSESSMENT: 1. Acute severe pancreatitis with possible sepsis, on empiric antibiotics. 2. Increased WBC, possibly sepsis and acute pancreatitis. 3. Acute renal failure, possibly acute tubular necrosis, prerenal also rhabdomyolysis. 4. Acute rhabdomyolysis. 5. Severe hypocalcemia. 6. Vomiting and dehydration with possible acute gastritis secondary to alcohol intoxication. 7. Increased hemoglobin present on admission secondary to dehydration. 8. Hyponatremia. 9. Hyperkalemia. 10. Hypochloremia. 11. Ascites and bilateral pleural effusion on CT scan. 12. Increased total bilirubin. 13. Increased AST, ALT, possibly secondary to alcoholic hepatitis and history of EtOH. 14. History of nicotine dependence. 15. Increased amylase and lipase. 16. Urinary tract infection. 17. History of Crohn's colitis. 18. Positive cocaine. 19. History of nicotine dependence. 20. FULL CODE. RECOMMENDATIONS AND DISCUSSION: I recommend to continue the current medications, continue with symptomatic treatment. Continue with IV fluids and continue with antibiotics. Calcium supplementation. Follow closely with Dr. Karimi. Calcium gluconate has been administered every 4 hours. We will continue to monitor. Continue with proton pump inhibitors. Overall prognosis is extremely guarded because of multiple complex medical issues. Further recommendations to follow. We will continue to monitor the patient in the ICU.
--- NOTE | 2016-10-20 11:59 | P.PN ---
Subjective Patient is a 35-year-old white male who presented to the emergency room with a complaint of nausea vomiting and abdominal pain. He was noted to have elevated lipase and amylase and findings consistent with severe pancreatitis. He had an episode of heavy drinking on Thursday prior to admission. After admission to the hospital his calcium was noted to be decreased and he had some changes of concern on his EKG he was therefore admitted to the intensive care unit. The patient despite calcium supplementation was noted to have a drop in his calcium to 2.9 which this morning is increased at 4.1. The patient is somewhat more lethargic and agitated today. The family states he received Ativan and he has adverse reactions to this. Despite this his abdominal pain appears to be improved as per the patient. Objective - Vital Signs Vital signs: Vital Signs Temp 98.4 F 10/20/16 08:00 Pulse 85 10/20/16 11:00 Resp 21 10/20/16 11:00 BP 140/73 10/20/16 11:00 Pulse Ox 97 10/20/16 11:00 Intake & Output 10/19/16 10/20/16 10/20/16 18:59 06:59 18:59 Intake Total 3000 3150 1100 Output Total 1575 1920 800 Balance 1425 1230 300 Weight 80.1 kg Intake: IV 2200 2450 1000 Levofloxacin 250Mg-D5w 50 Pmx 250 mg In Dextrose/ Water 1 50ml.bag @ 50 mls /hr IVPB HS ROBYN Rx#: [id number] Sodium Chloride 0.9% 1, 2200 2400 1000 000 ml @ 200 mls/hr IV . Q5H [facility] Rx#:[id number] Intake, IV Titration 800 700 100 Amount Calcium Gluconate 1,000 100 mg In Sodium Chloride 0.9 % 100 ml @ 100 mls/hr IVPB Q4H [facility] Rx#: [id number] Calcium Gluconate 1,000 600 600 100 mg In Sodium Chloride 0.9 % 100 ml @ 100 mls/hr IVPB Q4H [facility] Rx#: [id number] Magnesium Sulfate-D5w Pmx 200 1 gm In Dextrose/Water 1 100ml.bag @ 100 mls/hr IVPB Q1H [facility] Rx#: [id number] Output: Urine 1575 1920 800 Other: Voiding Method Indwelling Catheter Indwelling Catheter Indwelling Catheter # Voids 0 0 # Bowel Movements 1 - Constitutional General appearance: Present: average body habitus - Respiratory Details: Decreased breath sounds at the bases - Cardiovascular Rhythm: regular Heart sounds: normal: S1, S2 - Gastrointestinal Gastrointestinal Comment(s): Tenderness greatest in the midepigastric area General gastrointestinal: Present: distended, normal bowel sounds - Psychiatric Psychiatric Comment(s): Somewhat lethargic and agitated and agitated - Labs CBC & Chem 7: 10/20/16 04:09 10/20/16 04:09 Labs: Abnormal Lab Results - Last 24 Hours (Table) 10/18/16 10/19/16 10/20/16 Range/Units 08:35 18:33 04:09 Sodium 130 L 131 L (137-145) mmol/L Carbon Dioxide 14 L 16 L (22-30) mmol/L BUN 61 H 47 H (9-20) mg/dL Creatinine 2.40 H 1.90 H (0.66-1.25) mg/dL Glucose 101 H (74-99) mg/dL Calcium 3.5 L* 4.1 L* (8.4-10.2) mg/dL Ionized Calcium Dion 2.4 L* (4.5-5.3) mg/dL Creatine Kinase >44880 H (55-170) U/L Amylase 231 H (30-110) U/L Lipase 1622 H (23-300) U/L Vitamin D 25-Hydroxy 20.3 L (30.0-100.0) ng/mL PTH Intact 75.6 H (14.0-72.0) pg/mL 10/20/16 Range/Units 05:48 Sodium (137-145) mmol/L Carbon Dioxide (22-30) mmol/L BUN (9-20) mg/dL Creatinine (0.66-1.25) mg/dL Glucose (74-99) mg/dL Calcium (8.4-10.2) mg/dL Ionized Calcium Dion 2.8 L* (4.5-5.3) mg/dL Creatine Kinase (55-170) U/L Amylase (30-110) U/L Lipase (23-300) U/L Vitamin D 25-Hydroxy (30.0-100.0) ng/mL PTH Intact (14.0-72.0) pg/mL Microbiology - Last 24 Hours (Table) 10/17/16 22:03 Blood Culture - Preliminary Blood No Growth after 48 hours 10/18/16 00:30 Urine Culture - Final Urine,Catheterized Assessment and Plan Plan: Impression/plan: 1. Pancreatitis 2. Hypocalcemia related to pancreatitis, improving 3. Elevated cardiac enzymes cardiology consult pending 4. GI consult pending 5. Patient does not have an acute surgical abdomen at this time 6. Conservative management of pancreatitis will follow
[2016-10-20] MEDS: CALCIUM GLUCONATE 2,000 MG in SODIUM CHLORIDE 0.9% 100 ML IVPB SCH ×4 (12:09→22:00)
[2016-10-20] MEDS: THIAMINE 100 MG/ML 2 ML VIAL IVP SCH ×2 (12:11→16:54)
--- NOTE | 2016-10-20 14:41 | P.PN ---
Subjective Principal diagnosis: Acute alcohol related pancreatitis This is a 35-year-old white male with history of alcohol abuse, patient has been a heavy drinker for many years, but he had no previous episodes of documented pancreatitis. On Thursday, patient had a heavy episode of binge drinking, and he presented to the emergency room with severe abdominal pain and some nausea and vomiting, elevated lipase and amylase, and hypocalcemia with a calcium 4.6. Patient was admitted to the ICU, and he was noted to have prolonged QT interval, patient was given multiple doses of calcium gluconate since admission, and has been receiving significant amount of fluid boluses over the last a few hours since admission. At this point the patient has mild abdominal discomfort, no further episodes of nausea vomiting. No headaches no blurred vision no dizziness. No shortness of breath no cough no wheezing. No melena no hematemesis no frequency or urgency. Patient was already seen by GI and general surgery on consultation, and strongly felt that the patient does not have a surgical abdomen. Recommended present conservative measures for severe pancreatitis. Patient was reevaluated today on 10/19/2016, he is experiencing less and less abdominal pain, no nausea no vomiting, no melena, no hematemesis. His labs were reviewed, continues to have a bit of anion gap metabolic acidosis, renal profile is slightly improved. Amylases and lipases are improved, however his CPK remains elevated over 32,000, and the patient remains on lots of fluids his IV fluid is running at 200 mL per hour. He was reevaluated again by surgery and gastroenterology, and the recommendation is to continue present supportive care measures. Patient was reevaluated today on 10/20/2016, denies any abdominal pain, no nausea , no vomiting, his liver enzymes and pancreatic enzymes are improving. CPK remains elevated, calcium remains low and he is requiring frequent IV push calcium gluconate. No shortness of breath, no cough, no wheezing. Patient is sedated and we are still following the of all withdrawal protocol. Objective - Vital Signs Vital signs: Vital Signs Temp 98.4 F 10/20/16 08:00 Pulse 78 10/20/16 12:00 Resp 22 10/20/16 12:00 BP 143/85 10/20/16 12:00 Pulse Ox 97 10/20/16 12:00 Intake & Output 10/19/16 10/20/16 10/20/16 18:59 06:59 18:59 Intake Total 3000 3150 1300 Output Total 1575 1920 1200 Balance 1425 1230 100 Weight 80.1 kg 80.1 kg Intake: IV 2200 2450 1200 Levofloxacin 250Mg-D5w 50 Pmx 250 mg In Dextrose/ Water 1 50ml.bag @ 50 mls /hr IVPB HS [facility] Rx#: [id number] Sodium Chloride 0.9% 1, 2200 2400 1200 000 ml @ 200 mls/hr IV . Q5H [facility] Rx#:[id number] Intake, IV Titration 800 700 100 Amount Calcium Gluconate 1,000 100 mg In Sodium Chloride 0.9 % 100 ml @ 100 mls/hr IVPB Q4H [facility] Rx#: [id number] Calcium Gluconate 1,000 600 600 100 mg In Sodium Chloride 0.9 % 100 ml @ 100 mls/hr IVPB Q4H [facility] Rx#: [id number] Magnesium Sulfate-D5w Pmx 200 1 gm In Dextrose/Water 1 100ml.bag @ 100 mls/hr IVPB Q1H [facility] Rx#: [id number] Output: Urine 1575 1920 1200 Other: Voiding Method Indwelling Catheter Indwelling Catheter Indwelling Catheter # Voids 0 0 # Bowel Movements 1 - Exam Physical Exam: Revealed a 35-year-old white male in no form of respiratory distress. Patient looks generally weak. HEENT:[Neck is supple.] [No neck masses.] [No thyromegaly.] [No JVD.] Chest: [Clear throughout, no crackles, no rhonchi, no wheezes.] Cardiac Exam: [Normal S1 and S2, no S3 gallop, no murmur.] Abdomen: [Slightly distended, mild tenderness throughout the epigastric area diminished bowel sounds. Extremities: [No clubbing, no edema, no cyanosis.] Neurological Exam: [No focal neurologic deficit. Except for minimal lethargy.] - Labs CBC & Chem 7: 10/20/16 04:09 10/20/16 04:09 Labs: Abnormal Lab Results - Last 24 Hours (Table) 10/19/16 10/20/16 10/20/16 Range/Units 18:33 04:09 05:48 Sodium 130 L 131 L (137-145) mmol/L Carbon Dioxide 14 L 16 L (22-30) mmol/L BUN 61 H 47 H (9-20) mg/dL Creatinine 2.40 H 1.90 H (0.66-1.25) mg/dL Glucose 101 H (74-99) mg/dL Calcium 3.5 L* 4.1 L* (8.4-10.2) mg/dL Ionized Calcium Dion 2.4 L* 2.8 L* (4.5-5.3) mg/dL Creatine Kinase >50455 H (55-170) U/L Amylase 231 H (30-110) U/L Lipase 1622 H (23-300) U/L Microbiology - Last 24 Hours (Table) 10/17/16 22:03 Blood Culture - Preliminary Blood No Growth after 48 hours 10/18/16 00:30 Urine Culture - Final Urine,Catheterized Assessment and Plan Plan: Impression: 1 acute severe pancreatitis secondary to alcoholism. Patient's tracie criteria is at least 3 point on admission, and that categorizes his pancreatitis as severe and needs criteria to be in the intensive care unit. 2 acute hypocalcemia secondary to severe pancreatitis. Patient is receiving calcium gluconate intermittently for his hypocalcemia. In the meantime we'll continue to monitor his cardiac rhythm. 3 history of alcoholism, patient will need to be on alcohol withdrawal protocol. 4 significantly elevated CPK, patient will be monitored closely for acute rhabdomyolysis, in the meantime we'll continue IV fluids as ordered. He received so far at least 4 L of fluids, and his symptoms receiving 0.9 normal saline at 200 mL per hour. Prognosis remains guarded, will continue to follow in the ICU.
--- NOTE | 2016-10-20 19:17 | PN ---
DATE OF SERVICE: 10/20/2016 Patient is a 35-year-old pleasant white male admitted to hospital with acute severe pancreatitis with abdominal pain, hypertension, electrolyte abnormalities and has been in the intensive care unit for the last 3 days. He stated that abdominal pain is slightly better, but still requiring pain medications every 3 to 4 hours. No fever, chills or night sweats. He has been having some episodes of nausea, vomiting despite being on Zofran. On physical examination, blood pressure is 128/90, pulse rate 82, and temperature is 97. HEENT unremarkable. Conjunctivae pink. Sclerae anicteric. Oral cavity, no lesions. NECK: No JVD or lymph node enlargement. Chest was clear to auscultation. HEART: Regular rate and rhythm. ABDOMEN: Soft. It was distended, it was tender in the epigastric area. Bowel sounds are positive. EXTREMITIES: No pedal edema. SKIN: No rashes. NEURO: Alert and oriented x3. No focal deficits. Labs from today: WBC 10.6, hemoglobin 14.3, platelets are 146, BUN is down to 47, creatinine is down to 1.9. CPK is still more than 22,000. Amylase is 231, lipase is 1622. IMPRESSION: 1. Acute severe pancreatitis with systemic inflammatory response syndrome, gradually improving 2. Acute renal failure gradually improving with BUN and creatinine with creatinine down to 1.9. The patient has been diuresing well. 3. Electrolyte abnormalities are being corrected and Dr. Nunez is following the patient closely. 4. Elevated serum transaminases probably related to acute pancreatitis and labs are still pending from today. 5. Acute rhabdomyolysis secondary to heavy alcohol use. RECOMMENDATIONS: 1. Continue with symptomatic and supportive care. 2. Repeat CMP tomorrow. 3. Continue with IV Protonix. 4. We will continue to follow the patient closely during his hospital stay.
--- NOTE | 2016-10-20 19:49 | PN ---
Patient is seen for follow-up for acute kidney injury, rhabdomyolysis, severe hypocalcemia and pancreatitis. He was admitted with drug screen being positive for opiates, cocaine, amphetamines. Patient also has a history of significant alcohol abuse. His renal function has been improving with significantly improved urine output and serum creatinine now down to 1.9 from 4.3 mg/dL. CK level remains elevated at more than 32,000. The patient's hypocalcemia has been improving. He is maintained on 2 grams q.4 hours. On examination, blood pressure is 141/71, heart rate 89 per minute. The patient is afebrile. Examination of the heart S1 and S2. Examination of the lungs are clear breath sounds bases. Abdomen is soft with tenderness noted all over the abdomen. Examination of lower extremities shows no significant edema. Labs show sodium 131, potassium 4.2, BUN 47, serum creatinine 1.9. Calcium is 4.1, CK more than 32,000. Lipase is down to 1622. ASSESSMENT: 1. Acute kidney injury, acute tubular necrosis secondary to rhabdomyolysis, acute pancreatitis and volume depletion. 2. Severe hypocalcemia which is multifactorial secondary to acute pancreatitis, rhabdomyolysis as well as possibly a component of hungry bone syndrome as patient probably had decreased nutritional intake prior to admission in view of history of EtOH abuse. The CT scan shows no evidence of necrosis. Patient is being followed by Surgery. The lipase level continues to improve. 3. Acute pancreatitis secondary to alcohol. Lipase level has been decreasing. 4. Hyperphosphatemia secondary to renal failure. 5. Anion gap metabolic acidosis secondary to renal failure, maintained on oral sodium bicarb. His CO2 has improved from 14 to 16. Therefore, I have not started IV bicarb as alkalinization would further worsen the hypocalcemia. PLAN: Continue normal saline. Repeat labs in the a.m. Continue with current dose of calcium gluconate. Consider reimaging of the abdomen.
[2016-10-20] MEDS: LEVOFLOXACIN 250MG-D5W PMX 250 MG in DEXTROSE/WATER 1 50ML.BAG IVPB SCH (20:01)
--- NOTE | 2016-10-20 23:54 | PN ---
Mr. Rosado is a 35-year-old male who presented with acute pancreatitis with alcoholism and drug abuse. He is feeling better today. Nausea is better. He has no chest pain. He has no dizziness. No palpitations. His calcium remains low. He is overall feeling better. He continues to be at this time on the IV fluids as well as calcium replacement. PHYSICAL EXAMINATION: Blood pressure 143/80 with a heart rate in the 70s. LUNGS: Clear. HEART: Regular rate and rhythm. S1, S2, no S3, no rub. ABDOMEN: Soft, improved tenderness. EXTREMITIES: No edema. Lab data revealed BUN, creatinine 46 and 1.9, improved compared with yesterday with potassium 4.2. His creatine kinase remains above 32,000. Calcium is 2.8. His lipase is down to 1622 and amylase to 231. IMPRESSION: 1. Acute severe pancreatitis, improving. 2. Rhabdomyolysis. 3. Renal failure with ATN improving. 4. Hypocalcemia. RECOMMENDATIONS: Will continue present therapy. From the cardiac standpoint, he is stable, I will repeat his EKG. I will see him on an as needed basis. Please feel free to call us for any question.
[2016-10-21] MEDS: HYDROmorphone 1 MG/ML 1 ML SYRINGE IV PRN ×9 (00:03→22:36)
[2016-10-21] MEDS: HYDROcodone/APAP 5-325MG 1 EACH TAB PO PRN ×4 (01:07→18:36)
[2016-10-21] MEDS: IPRATROPIUM-ALBUTEROL 3 ML NEB INHALATION PRN ×3 (01:26→18:41)
[2016-10-21] MEDS: CALCIUM GLUCONATE 2,000 MG in SODIUM CHLORIDE 0.9% 100 ML IVPB SCH ×6 (03:01→22:36)
[2016-10-21] MEDS: SODIUM CHLORIDE 0.9% 1,000 ML IV SCH ×2 (03:05→15:51)
[2016-10-21] MEDS: ONDANSETRON 4 MG/2 ML VIAL IVP PRN ×2 (05:16→19:53)
[2016-10-21 05:53] LABS: ALT 87 U/L (21-72); AST 185 U/L (17-59); Alkaline Phosphatase 31 U/L (38-126); Amylase 151 U/L (30-110); Anion Gap 16 mmol/L; Blood Urea Nitrogen 19 mg/dL (9-20); Carbon Dioxide 12 mmol/L (22-30); Chloride 110 mmol/L (98-107); Glucose 72 mg/dL (74-99); Magnesium 2.1 mg/dL (1.6-2.3); Non-African American GFR(MDRD) >60 (>60 ml/min/1.73 sqM); Phosphorous 2.8 mg/dL (2.5-4.5); Potassium 4.1 mmol/L (3.5-5.1); Sodium 138 mmol/L (137-145); Total Bilirubin 1.1 mg/dL (0.2-1.3); Total Protein 4.4 g/dL (6.3-8.2)
[2016-10-21 06:06] LABS: Calcium 5.6 mg/dL (8.4-10.2)
--- NOTE | 2016-10-21 06:53 | PN ---
DATE OF SERVICE: 10/20/2016 This 35-year-old gentleman who was admitted with acute severe pancreatitis and possible sepsis is on empiric antibiotics. The patient also WBC and acute renal failure, which is also being closely monitored. The creatinine is improved to 1.90 at this time and creatine kinase is still elevated at 32,000. The patient is on q.4 calcium. The total calcium is improving to 4.1 at this time. PAST MEDICAL HISTORY: Reviewed. REVIEW OF SYSTEMS: CARDIOVASCULAR: No angina or palpitations. RESPIRATORY: As mentioned earlier. GI: As mentioned earlier. : No dysuria. Current medications are reviewed and include: 1. [place] 5 mg q.6 p.r.n. 2. DuoNeb q.i.d. and p.r.n. 3. Tenormin 25 mg b.i.d. 4. Calcium gluconate 2 grams IV hours. 5. Celexa 20 mg p.o. daily. 6. Flonase one spray b.i.d. p.r.n. 7. Heparin 5000 subcu b.i.d. 8. Dilaudid 1 mg q.3 p.r.n. 9. Levaquin 250 mg q.h.s. 10. Ativan 1 mg q.2 p.r.n. 11. Narcan 0.2 q.2 p.r.n. 12. Habitrol 21 daily. 13. Protonix 40 b.i.d. 14. Vitamin B1, 100 mg p.o. b.i.d. PHYSICAL EXAM: The patient is alert and oriented x2. Pulse 85, blood pressure is 151/85, respirations 17, temperature normal, pulse ox 97% on room air. HEENT: Conjunctivae normal. Oral mucosa moist. NECK: No jugular venous distention. No carotid bruit. No lymph node enlargement. CARDIOVASCULAR: S1 and S2, muffled. RESPIRATORY: Breath sounds diminished at the bases. A few scattered rhonchi, no crackles. ABDOMEN: Soft, mild diffuse distention, mild diffuse tenderness. No guarding, no rigidity, no mass palpable. Bowel sounds diminished. Flanks are dull. LEGS: No edema, no swelling. NERVOUS SYSTEM: Higher function as mentioned. Moves all 4 limbs. No focal deficits. LYMPHATICS: No lymphadenopathy of neck, axillae or groin. SKIN: No ulcers, rashes or bleeding. LABS: CBC within normal limits. Sodium 131. Creatinine 1.90. The calcium is 4.1 and creatine kinase more than 32,000. Amylase is 231 and lipase 1622. ASSESSMENT: 1. Acute severe pancreatitis with possible sepsis, present on admission, on empiric antibiotics. 2. Increased WBC, possibly sepsis and as well as acute pancreatitis. 3. Acute renal failure, possibly acute tubular necrosis, prerenal also rhabdomyolysis. 4. Acute rhabdomyolysis. 5. Severe hypocalcemia secondary to acute pancreatitis. 6. Vomiting and dehydration with possible acute gastritis secondary to alcohol intoxication. 7. Increased hemoglobin, present on admission. secondary to dehydration. 8. Hyponatremia. 9. Hyperkalemia. 10. Hypochloremia. 11. Ascites and bilateral pleural effusion on the CAT scan. 12. Increased total bilirubin. 13. Increased AST, ALT, possibly secondary to alcohol hepatitis and EtOH. 14. History of nicotine dependence. 15. Increased amylase and lipase. 16. Urinary tract infection. 17. History of Crohn's colitis. 18. Positive cocaine. 19. FULL CODE. 20. Bibasilar atelectasis, possibly. RECOMMENDATIONS AND DISCUSSION: In this 35-year-old gentleman admitted with multiple complex medical issues, we will monitor the patient closely. Continue the current medications. Continue symptomatic treatment. Otherwise, continue with empiric antibiotics. Continue also proton pump inhibitors. Monitor fluid electrolyte balance closely. Gastroenterology is following the patient closely. Amylase and lipase are improving, but at the same time the patient has features of significant pancreatitis as well. The most recent chest x-ray showed bibasilar pneumonia atelectasis. A 2-D echo with Doppler was done yesterday, which showed normal ejection fraction. Overall prognosis guarded because of multiple complex medical issues. Further recommendations to follow. MTDD
[2016-10-21] MEDS: NICOTINE 14MG/24HR PATCH TRANSDERM SCH (07:05)
[2016-10-21] MEDS: ATENOLOL 25 MG TAB PO SCH ×2 (08:04→21:40)
[2016-10-21] MEDS: CITALOPRAM HYDROBROMIDE 20 MG TAB PO SCH (08:04)
[2016-10-21] MEDS: HEPARIN SODIUM,PORCINE 5,000 UNIT/ML 1 ML VIAL SQ SCH ×2 (08:05→21:40)
[2016-10-21] MEDS: PANTOPRAZOLE 40 MG/10 ML VIAL IVP SCH ×2 (08:05→21:41)
[2016-10-21] MEDS: SODIUM BICARBONATE TAB 650 MG TAB PO SCH ×2 (08:05→21:41)
--- NOTE | 2016-10-21 10:24 | P.CON ---
Psychiatric Consult - . Consult date: 10/21/16 Consult:: I reviewed the medical record and attempted to interview Mr. Rosado. He was in acute distress and complained of worsening abdominal pain. His , Rubia, was at his bedside. His complained that he had a "adverse reaction" to the lorazepam. She alleged that his mental status has improved since the doctors discontinued the lorazepam. However, he remains on the CIWA protocol. The severity of the alcohol withdrawal symptoms as indicated by his CIWA scores did not require dosing of lorazepam this morning. Due to the severity of his acute distress I could not complete a formal psychiatric assessment. He continues to be at risk for complications of alcohol withdrawal. Please reconsult when patient is medically stable. 10/21/16 10:17
[2016-10-21] MEDS: THIAMINE 100 MG/ML 2 ML VIAL IVP SCH ×2 (11:35→16:31)
--- NOTE | 2016-10-21 11:40 | P.PN ---
Subjective Principal diagnosis: 35-year-old male limited with acute severe pancreatitis rhabdomyolysis with underlying heavy alcohol abuse. Currently resting in the ICU. Multiple clear emesis. Unable to tolerate diet. Afebrile. Diffuse upper abdominal pain with mild abdominal bloatedness. [place] reticulocyte enzymes improving lipase 624. Creatinine kinase pending. Objective - Vital Signs Vital signs: Vital Signs Temp 97.6 F 10/21/16 08:00 Pulse 97 10/21/16 11:00 Resp 22 10/21/16 11:00 BP 149/90 10/21/16 11:00 Pulse Ox 96 10/21/16 11:00 Intake & Output 10/20/16 10/21/16 10/21/16 18:59 06:59 18:59 Intake Total 2800 2360 1100 Output Total 2400 2400 1185 Balance 400 -40 -85 Weight 80.1 kg 79.3 kg 79.3 kg Intake: IV 2400 2210 1000 Sodium Chloride 0.9% 1, 2400 2210 1000 000 ml @ 200 mls/hr IV . Q5H [facility] Rx#:[id number] Intake, IV Titration 400 150 100 Amount Calcium Gluconate 1,000 100 100 mg In Sodium Chloride 0.9 % 100 ml @ 100 mls/hr IVPB Q4H [facility] Rx#: [id number] Calcium Gluconate 2,000 300 100 mg In Sodium Chloride 0.9 % 100 ml @ 100 mls/hr IVPB Q4H [facility] Rx#: [id number] Levofloxacin 250Mg-D5w 50 Pmx 250 mg In Dextrose/ Water 1 50ml.bag @ 50 mls /hr IVPB HS ROBYN Rx#: [id number] Output: Urine 2400 2400 1185 Other: Voiding Method Indwelling Catheter Indwelling Catheter Indwelling Catheter # Voids 0 0 # Bowel Movements 1 - Exam General appearance: The patient is alert, oriented, in no acute distress. HET: Head is normocephalic and atraumatic. Pupils are equal and reactive. Oropharynx is clear without lesions. Neck: Supple without lymphadenopathy. Trachea midline. Heart: S1 S2. Regular rate and rhythm. Lungs: No crackles or wheezes are heard. Abdomen: Soft, bloated with diffuse tenderness midepigastrium and left upper quadrant with hypoactive bowel sounds. No peritoneal signs. No palpable organomegaly or masses. Extremities: Normal skin color and turgor. No cyanosis, rash, ulceration, clubbing, or edema. Radial and pedal pulses are 2/4 bilaterally. Fully liquid clear yellow urine. Neurological: No focal deficits. Strength and sensation are grossly intact. - Labs CBC & Chem 7: 10/20/16 04:09 10/21/16 05:09 Labs: Abnormal Lab Results - Last 24 Hours (Table) 10/21/16 10/21/16 Range/Units 05:09 06:35 Chloride 110 H (98-107) mmol/L Carbon Dioxide 12 L (22-30) mmol/L Glucose 72 L (74-99) mg/dL Calcium 5.6 L* (8.4-10.2) mg/dL Ionized Calcium Dion 3.7 L (4.5-5.3) mg/dL AST 185 H (17-59) U/L ALT 87 H (21-72) U/L Alkaline Phosphatase 31 L (38-126) U/L Total Protein 4.4 L (6.3-8.2) g/dL Albumin 2.3 L (3.5-5.0) g/dL Amylase 151 H (30-110) U/L Lipase 624 H (23-300) U/L Microbiology - Last 24 Hours (Table) 10/17/16 22:03 Blood Culture - Preliminary Blood No Growth after 72 hours Assessment and Plan Plan: Impression: 1. Acute severe pancreatitis with EtOH abuse. Hepatic enzymes slowly improving. 2. Alcohol hepatitis; transaminases improving. 3. Acute renal failure acute tubular necrosis secondary to rhabdomyolysis. Recommendations: 1. Consider TPN/PPN if agreeable with [employer] patient is unable to tolerate diet at this time secondary to persistent nausea vomiting abdominal discomfort. 2. Continue to monitor laboratory studies and vital signs. 3. Continue to monitor in the ICU setting. Supportive measures. 4. Will follow closely with you.
[2016-10-21] MEDS ORDERED: SODIUM CHLORIDE 0.9% 1,000 ML IV SCH (11:45)
--- NOTE | 2016-10-21 11:57 | P.PN ---
Subjective This is a pleasant 35-year-old gentleman who was admitted on 10/17/2016 with complaints of acute abdominal pain. He does have a history of alcohol abuse and had been binge drinking prior to his arrival. He had developed severe abdominal pain nausea vomiting. He is found to have elevated lipase and amylase with hypocalcemia and was admitted to the intensive care unit for prolonged QT interval and required multiple doses of calcium gluconate. He had been seen and evaluated by GI and general surgery and the plan is for conservative measures for the severe pancreatitis and rhabdomyolysis. His urine drug screen was also positive for opiates methamphetamines and cocaine. He is seen again today 10/21/2016 in follow-up. He remains in the intensive care unit. He is currently in fairly significant amount of abdominal discomfort. He's had clear emesis today. Not tolerating any liquids or food at this time. His CK level remains greater than 32,000. His amylase has improved to 151 lipase improved to 624. Acute renal failure has recovered as well. No leukocytosis. He has some complaints of increasing shortness of breath. He does have bilateral wheezing. His chest x-ray does show bilateral infiltrates with a right pleural effusion. He is maintaining good O2 saturations in the upper 90s on 2 L/m per nasal cannula. Objective - Vital Signs Vital signs: Vital Signs Temp 97.6 F 10/21/16 08:00 Pulse 102 H 10/21/16 11:43 Resp 22 10/21/16 11:00 BP 149/90 10/21/16 11:00 Pulse Ox 96 10/21/16 11:00 Intake & Output 10/20/16 10/21/16 10/21/16 18:59 06:59 18:59 Intake Total 2800 2360 1100 Output Total 2400 2400 1185 Balance 400 -40 -85 Weight 80.1 kg 79.3 kg 79.3 kg Intake: IV 2400 2210 1000 Sodium Chloride 0.9% 1, 2400 2210 1000 000 ml @ 200 mls/hr IV . Q5H [facility] Rx#:[id number] Intake, IV Titration 400 150 100 Amount Calcium Gluconate 1,000 100 100 mg In Sodium Chloride 0.9 % 100 ml @ 100 mls/hr IVPB Q4H [facility] Rx#: [id number] Calcium Gluconate 2,000 300 100 mg In Sodium Chloride 0.9 % 100 ml @ 100 mls/hr IVPB Q4H [facility] Rx#: [id number] Levofloxacin 250Mg-D5w 50 Pmx 250 mg In Dextrose/ Water 1 50ml.bag @ 50 mls /hr IVPB HS [facility] Rx#: [id number] Output: Urine 2400 2400 1185 Other: Voiding Method Indwelling Catheter Indwelling Catheter Indwelling Catheter # Voids 0 0 # Bowel Movements 1 - Exam GENERAL EXAM: Alert, currently fairly uncomfortable but in no acute distress. HEAD: Normocephalic. EYES: Normal reaction of pupils, equal size. NOSE: Clear with pink turbinates. THROAT: No erythema or exudates. NECK: No masses, no JVD. CHEST: No chest wall deformity. LUNGS: Equal air entry with faint end expiratory wheeze. Diminished. Crackles in the bilateral posterior bases. More so on the right.. CVS: S1 and S2 normal with no audible murmurs, regular rhythm. ABDOMEN: Slightly distended. Tender to palpation. SPINE: No scoliosis or deformity SKIN: No rashes CENTRAL NERVOUS SYSTEM: No focal deficits, tone is normal in all 4 extremities. Extremities: There is no significant peripheral edema. No clubbing, no cyanosis. Peripheral pulses are intact. - Labs CBC & Chem 7: 10/20/16 04:09 10/21/16 05:09 Labs: Abnormal Lab Results - Last 24 Hours (Table) 10/21/16 10/21/16 Range/Units 05:09 06:35 Chloride 110 H (98-107) mmol/L Carbon Dioxide 12 L (22-30) mmol/L Glucose 72 L (74-99) mg/dL Calcium 5.6 L* (8.4-10.2) mg/dL Ionized Calcium Dion 3.7 L (4.5-5.3) mg/dL AST 185 H (17-59) U/L ALT 87 H (21-72) U/L Alkaline Phosphatase 31 L (38-126) U/L Total Protein 4.4 L (6.3-8.2) g/dL Albumin 2.3 L (3.5-5.0) g/dL Amylase 151 H (30-110) U/L Lipase 624 H (23-300) U/L Microbiology - Last 24 Hours (Table) 10/17/16 22:03 Blood Culture - Preliminary Blood No Growth after 72 hours Assessment and Plan Plan: Impression: #1 Acute pancreatitis secondary to significant alcohol abuse. Improving, amylase 151, lipase 624. #2 Chronic and ongoing alcoholism. #3 Acute hypocalcemia secondary to severe pancreatitis., Improving calcium level 5.6. #4 Acute rhabdomyolysis reviewed #5 Drug abuse urine positive for opiates, cocaine, methamphetamines. Plan: The patient was seen and evaluated by Dr. Curran. We'll continue with his current medications. He does have the bronchodilators to be used as needed. We 'll continue to follow up with his chest x-ray. GI and surgical services are involved as well. We'll continue to follow make further recommendations based on his clinical status.
[2016-10-21] MEDS ORDERED: FUROSEMIDE 10 MG/ML 2 ML VIAL IV ONE (12:21)
[2016-10-21] MEDS ORDERED: LABETALOL SYRINGE 5 MG/ML IVP SCH (12:30)
--- NOTE | 2016-10-21 12:47 | XR ---
EXAMINATION TYPE: XR chest 1V portable DATE OF EXAM: 10/21/2016 12:30 PM COMPARISON: 10/20/2016 HISTORY: Shortness of breath TECHNIQUE: Single frontal view of the chest is obtained. FINDINGS: There is persistent right-sided consolidation and pleural effusion with tiny left effusion and lower lobe consolidation. Interstitial central pattern noted. Heart remains enlarged. IMPRESSION: 1. Mild improvement of findings most typical of CHF.
[2016-10-21] MEDS: DEXTROSE 5% IN WATER 1,000 ML with SODIUM BICARB (1 MEQ/ML) 150 ML IV SCH (12:50)
--- NOTE | 2016-10-21 13:45 | P.PN ---
Subjective 35-year-old gentleman being seen in the intensive care unit this morning. at the bedside. Patient's initial presentation on October 17 with acute abdominal pain with nausea vomiting inability to keep fluids down. Patient does have a history of chronic alcohol abuse. Patient apparently had been binge drinking prior to arrival. Patient was noted to have elevated lipase and amylase with hypocalcemia on admission. Patient was admitted to the intensive care unit to be monitored closely and treated for a prolonged QT interval. Calcium was corrected. Patient currently is resting in bed patient reports having increased abdominal pain. Patient states that he has had for greater than a year chronic left lower quadrant discomfort. It's noted that the amylase has improved 151 this morning. The lipase improving to 624. The CK continues to be elevated greater than 32,000 Objective - Vital Signs Vital signs: Vital Signs Temp 98.6 F 10/21/16 12:00 Pulse 99 10/21/16 13:00 Resp 32 H 10/21/16 13:00 BP 155/79 10/21/16 13:00 Pulse Ox 97 10/21/16 13:00 Intake & Output 10/20/16 10/21/16 10/21/16 18:59 06:59 18:59 Intake Total 2800 2360 1280 Output Total 2400 2400 1760 Balance 400 -40 -480 Weight 80.1 kg 79.3 kg 79.3 kg Intake: IV 2400 2210 1180 Dextrose 5% in Water 1, 80 000 ml @ 80 mls/hr IV . [id number] [facility] with Sodium Bicarb (1 Meq/ml) 150 ml Rx#:[id number] Sodium Chloride 0.9% 1, 2400 2210 1100 000 ml @ 200 mls/hr IV . Q5H [facility] Rx#:[id number] Intake, IV Titration 400 150 100 Amount Calcium Gluconate 1,000 100 100 mg In Sodium Chloride 0.9 % 100 ml @ 100 mls/hr IVPB Q4H [facility] Rx#: [id number] Calcium Gluconate 2,000 300 100 mg In Sodium Chloride 0.9 % 100 ml @ 100 mls/hr IVPB Q4H [facility] Rx#: [id number] Levofloxacin 250Mg-D5w 50 Pmx 250 mg In Dextrose/ Water 1 50ml.bag @ 50 mls /hr IVPB HS [facility] Rx#: [id number] Output: Urine 2400 2400 1760 Other: Voiding Method Indwelling Catheter Indwelling Catheter Indwelling Catheter # Voids 0 0 # Bowel Movements 1 1 - Exam Physical exam 35-year-old gentleman currently resting in bed reportedly experiencing bilateral abdominal pain with nausea Lungs posterior diminished at the bases right greater than the left. Adequate air entry bilaterally. Not able to appreciate any wheezing. No conversational dyspnea noted. Heart S1-S2 audible and regular denying chest pain Abdomen diffuse tenderness across the abdominal wall firm slightly distended. Indwelling Powell catheter in place. Bowel tones 4. No stool noted. Reports a sensation of nausea with dry heaves noted Skin no evidence of a skin rash flushed face Extremities no edema noted to the bilateral upper or lower extremities - Labs CBC & Chem 7: 10/20/16 04:09 10/21/16 05:09 Labs: Abnormal Lab Results - Last 24 Hours (Table) 10/21/16 10/21/16 Range/Units 05:09 06:35 Chloride 110 H (98-107) mmol/L Carbon Dioxide 12 L (22-30) mmol/L Glucose 72 L (74-99) mg/dL Calcium 5.6 L* (8.4-10.2) mg/dL Ionized Calcium Dion 3.7 L (4.5-5.3) mg/dL AST 185 H (17-59) U/L ALT 87 H (21-72) U/L Alkaline Phosphatase 31 L (38-126) U/L Total Protein 4.4 L (6.3-8.2) g/dL Albumin 2.3 L (3.5-5.0) g/dL Amylase 151 H (30-110) U/L Lipase 624 H (23-300) U/L Microbiology - Last 24 Hours (Table) 10/17/16 22:03 Blood Culture - Preliminary Blood No Growth after 72 hours Assessment and Plan Plan: Impression Present on admission nausea vomiting abdominal pain suspect due to acute pancreatitis due to significant alcohol abuse Chronic and ongoing alcoholism Urine drug screen positive for opiates, cocaine, and methamphetamines Present on admission acute right middle moniliasis Present on admission acute hypocalcemia secondary to severe pancreatitis Plan Conservative management of pancreatitis From a surgical perspective there is no evidence of an acute surgical abdomen at this time continue with IV fluid as ordered Continue with the ICU management per ornamenter hand's recommendations The above dictated assessment and findings were discussed with dr Lori Olivas. Impression and the plan of care have been dictated as directed. Zuly Clemente nurse practitioner acting as a scribe for dr White
--- NOTE | 2016-10-21 16:52 | CT ---
EXAMINATION TYPE: CT abdomen pelvis wo con DATE OF EXAM: 10/21/2016 4:15 PM COMPARISON: NONE INDICATION: Severe abdominal pain DLP: 579 mGycm, Automated exposure control for dose reduction was used. CONTRAST: None Study performed TECHNIQUE: Axial images were obtained from above the diaphragm to the pubic rami in the axial plane a t 5 mm thick sections. Reconstructed images are reviewed on the computer in the coronal plane. FINDINGS: Limited CT sections are obtained the lung bases. Bilateral pleural effusions are present.. CT ABDOMEN: Ascites is present. Liver: Normal Spleen: Normal Pancreas: The liver may be increased in size with irregular margins. Correlate for acute pancreatitis . Adrenal glands: The adrenal glands are normal. Gallbladder: Normal Kidneys: No masses are evident. No hydronephrosis is present. No cysts are present. Aorta: Vascular calcification is within the aorta. Inferior vena cava: Normal. CT PELVIS: Loops of bowel within the abdomen and pelvis are normal. Some wall thickening within the proximal small bowel loops may be present. Study is performed without oral contrast limiting their evaluation . Appendix: Not identified Urinary bladder: An air-fluid levels within urinary bladder. Correlate for recent catheterization. In fection could be considered. Genitourinary structures: Prostate appears unremarkable. Powell catheter is present. Osseous structures: No suspicious lytic or sclerotic lesions. IMPRESSIONS: 1. Small bilateral pleural effusions. 2. Ascites. 3. Enlarged irregular pancreas suspicious for acute pancreatitis. 4. Some wall thickening within loops of bowel may be present in the upper abdomen. Correlate for ente ritis.
--- NOTE | 2016-10-21 17:26 | PN ---
DATE OF SERVICE: 10/21/2016 This 35-year-old gentleman was admitted with acute severe pancreatitis also had renal failure and rhabdomyolysis. The patient also found to be acidotic at this time. The patient is being closely monitored at this time. The patient also had hypocalcemia which is being corrected by periodic episodes, multiple consultants are following the patient. The patient is being closely monitored in Intensive Care Unit at this time. Chest x-ray showed some mild improvement at this time. Past medical history reviewed. REVIEW OF SYSTEMS: CARDIOVASCULAR: As mentioned earlier. RESPIRATORY: As mentioned earlier. GI: No nausea or vomiting. GENITOURINARY: No dysuria. CENTRAL NERVOUS SYSTEM: No numbness or weakness. Current medications are reviewed and include: 1. Boaz 5 mg 2. DuoNeb q.i.d. and p.r.n. 3. Tenormin 25 mg p.o. b.i.d. 4. Calcium gluconate. 5. Celexa 20 mg daily. 6. Flonase b.i.d. 7. Heparin 5000 subcu b.i.d. 8. Dilaudid 1 mg q.3 p.r.n. 9. Trandate. 10. Levaquin daily. 11. Ativan 1 mg. 12. Narcan. 13. Habitrol 14. 14. Zofran. 15. Protonix. 16. Sodium Blood pressure is ntd, respiratory rate 34. Temperature 98.6. Pulse ox 98% on 2 L. HEENT: Conjunctivae normal. NECK: No jugular venous distention. CARDIOVASCULAR: S1, S2. RESPIRATORY: Breath sounds diminished at the bases. Scattered rhonchi and crackles. Abdomen soft, obese, and nontender. No guarding. No rigidity. Ascites present. LEGS: No edema. No swelling. Nervous system: Higher function as mentioned earlier. Moves all four limbs. No focal deficits. LABS: Albumin is 12.8, is 4.4.is 2.5 24. Calcium is 5.6. CO2 12. ASSESSMENT: 1. Acute severe pancreatitis with possible sepsis, present on admission on empiric antibiotics. 2. Increased WBC, possibly sepsis and as well as acute pancreatitis. 3. Severe acidosis. 4. Acute renal failure, possibly acute renal failure secondary to rhabdomyolysis. 5. Acute severe rhabdomyolysis. 6. Severe hypocalcemia secondary to acute pancreatitis, vomiting and dehydration with possible acute gastritis secondary to alcoholic intoxication. 7. Increased hemoglobin present on admission secondary to dehydration. 8. Hyponatremia. 9. Hyperkalemia. 10. Hyperchloremia. 11. Ascites and bilateral pleural effusion on the CAT scan, possibly secondary to pancreatitis. 12. Increased total bilirubin. 13. Increased AST, ALT, possibly secondary to alcoholic hepatitis and ETOH. 14. History of nicotine dependence. 15. Increased amylase lipase. 16. Urinary tract infection. 17. History of Crohn's colitis. 18. Positive cocaine. 19. Bibasilar atelectasis 20. FULL CODE. RECOMMENDATIONS AND DISCUSSION: In this 35 -year-old gentleman who presented with multiple complex medical issues, we will monitor the patient closely. Continue the current medications and symptomatic treatment. I would continue with empiric antibiotics, sodium bicarb drip for acidosis. Overall prognosis extremely guarded because of multiple complex medical issues, Further recommendations to follow. Repeat CAT scan will also be ordered. Further recommendations to follow. Prognosis guarded. Discussed with the family. Understands and agrees. VERONICA
[2016-10-21] MEDS: LABETALOL SYRINGE 5 MG/ML IVP PRN (19:50)
[2016-10-21] MEDS ORDERED: LEVOFLOXACIN 500MG-D5W PMX 500 MG in DEXTROSE/WATER 1 100ML.BAG IVPB SCH (21:00)
[2016-10-22] MEDS: HYDROcodone/APAP 5-325MG 1 EACH TAB PO PRN ×6 (00:29→23:32)
[2016-10-22] MEDS: HYDROmorphone 1 MG/ML 1 ML SYRINGE IV PRN ×4 (00:36→08:54)
[2016-10-22] MEDS: ONDANSETRON 4 MG/2 ML VIAL IVP PRN ×2 (02:54→08:53)
[2016-10-22] MEDS: IPRATROPIUM-ALBUTEROL 3 ML NEB INHALATION PRN ×2 (02:58→16:01)
[2016-10-22] MEDS: DEXTROSE 5% IN WATER 1,000 ML with SODIUM BICARB (1 MEQ/ML) 150 ML IV SCH ×2 (03:27→17:39)
[2016-10-22] MEDS: CALCIUM GLUCONATE 2,000 MG in SODIUM CHLORIDE 0.9% 100 ML IVPB SCH ×5 (03:27→23:15)
[2016-10-22 05:15] LABS: Ionized Calcium 4.4 mg/dL (4.5-5.3)
[2016-10-22 05:26] LABS: Amylase 58 U/L (30-110); Anion Gap 10 mmol/L; Blood Urea Nitrogen 10 mg/dL (9-20); Calcium 6.8 mg/dL (8.4-10.2); Carbon Dioxide 22 mmol/L (22-30); Chloride 103 mmol/L (98-107); Glucose 106 mg/dL (74-99); Non-African American GFR(MDRD) >60 (>60 ml/min/1.73 sqM); Phosphorous 2.2 mg/dL (2.5-4.5); Sodium 135 mmol/L (137-145)
[2016-10-22] MEDS ORDERED: Potassium Replacement Protocol 1 EACH MISC MISCELLANE PRN (05:41)
[2016-10-22 05:48] LABS: Creatine Kinase 5704 U/L (55-170)
[2016-10-22] MEDS: POTASSIUM CHLORIDE ER 20 MEQ TAB.ER PO SCH ×2 (05:59→06:50)
[2016-10-22 07:59] LABS: CH 30.1; CHCM 32.5; HDW 2.73; HGB 11.8 gm/dL (13.0-17.5); MCH 30.6 pg (25.0-35.0); MCHC 32.8 g/dL (31.0-37.0); MCV 93.2 fL (80.0-100.0); RBC 3.86 m/uL (4.30-5.90); RDW 13.3 % (11.5-15.5); WBC 18.3 k/uL (3.8-10.6)
[2016-10-22 08:00] LABS: Mean Platelet Volume 9.1
[2016-10-22] MEDS: ATENOLOL 25 MG TAB PO SCH ×2 (08:52→20:04)
[2016-10-22] MEDS: HEPARIN SODIUM,PORCINE 5,000 UNIT/ML 1 ML VIAL SQ SCH ×2 (08:53→20:04)
[2016-10-22] MEDS: CITALOPRAM HYDROBROMIDE 20 MG TAB PO SCH (08:53)
[2016-10-22] MEDS: SODIUM BICARBONATE TAB 650 MG TAB PO SCH ×2 (08:53→20:04)
[2016-10-22] MEDS: PANTOPRAZOLE 40 MG/10 ML VIAL IVP SCH ×2 (08:53→20:04)
[2016-10-22] MEDS: NICOTINE 14MG/24HR PATCH TRANSDERM SCH (09:13)
--- NOTE | 2016-10-22 09:14 | P.PN ---
Subjective Principal diagnosis: Acute severe pancreatitis, rhabdomyolysis 35-year-old male limited with acute severe pancreatitis rhabdomyolysis with underlying heavy alcohol abuse. Currently resting in the ICU. Improvement in nausea vomiting. Tolerating small amounts of clear liquids/popsicles. Afebrile T-max 99.7. Repeat CT scan abdomen pelvis just reported no evidence of bowel obstruction or pancreatic necrosis findings consistent with acute pancreatitis. Diffuse upper abdominal pain with mild abdominal bloatedness slowly improving. Pancreatic/CK enzymes improving. White count 18.3. Objective - Vital Signs Vital signs: Vital Signs Temp 98.6 F 10/22/16 08:00 Pulse 98 10/22/16 08:00 Resp 16 10/22/16 08:00 BP 149/91 10/22/16 08:00 Pulse Ox 94 L 10/22/16 08:00 Intake & Output 10/21/16 10/22/16 10/22/16 18:59 06:59 18:59 Intake Total 1780 1510 160 Output Total 3810 1855 300 Balance -2030 -345 -140 Weight 79.3 kg 80.2 kg Intake: IV 1580 960 160 Dextrose 5% in Water 1, 480 960 160 000 ml @ 80 mls/hr IV . [id number] [facility] with Sodium Bicarb (1 Meq/ml) 150 ml Rx#:[id number] Sodium Chloride 0.9% 1, 1100 000 ml @ 200 mls/hr IV . Q5H [facility] Rx#:[id number] Intake, IV Titration 200 550 Amount Calcium Gluconate 2,000 200 400 mg In Sodium Chloride 0.9 % 100 ml @ 100 mls/hr IVPB Q4H [facility] Rx#: [id number] Levofloxacin 250Mg-D5w 50 Pmx 250 mg In Dextrose/ Water 1 50ml.bag @ 50 mls /hr IVPB HS [facility] Rx#: [id number] Levofloxacin 500Mg-D5w 100 Pmx 500 mg In Dextrose/ Water 1 100ml.bag @ 100 mls/hr IVPB HS [facility] Rx#: [id number] Oral 0 Output: Urine 3810 1855 250 Emesis 50 Other: Voiding Method Indwelling Catheter Indwelling Catheter # Voids 0 # Bowel Movements 1 1 - Exam General appearance: The patient is alert, oriented, in no acute distress. HET: Head is normocephalic and atraumatic. Pupils are equal and reactive. Oropharynx is clear without lesions. Neck: Supple without lymphadenopathy. Trachea midline. Heart: S1 S2. Regular rate and rhythm. Lungs: No crackles or wheezes are heard. Abdomen: Soft, bloated with diffuse tenderness midepigastrium and left upper quadrant with hypoactive bowel sounds. No peritoneal signs. No palpable organomegaly or masses. Extremities: Normal skin color and turgor. No cyanosis, rash, ulceration, clubbing, or edema. Radial and pedal pulses are 2/4 bilaterally. Fully liquid clear yellow urine. Neurological: No focal deficits. Strength and sensation are grossly intact. - Labs CBC & Chem 7: 10/22/16 05:00 10/22/16 05:00 Labs: Abnormal Lab Results - Last 24 Hours (Table) 10/22/16 10/22/16 Range/Units 05:00 05:00 WBC 18.3 H (3.8-10.6) k/uL RBC 3.86 L (4.30-5.90) m/uL Hgb 11.8 L (13.0-17.5) gm/dL Hct 36.0 L (39.0-53.0) % Sodium 135 L (137-145) mmol/L Potassium 3.0 L* (3.5-5.1) mmol/L Glucose 106 H (74-99) mg/dL Calcium 6.8 L (8.4-10.2) mg/dL Ionized Calcium Dion 4.4 L (4.5-5.3) mg/dL Phosphorus 2.2 L (2.5-4.5) mg/dL Creatine Kinase 5704 H (55-170) U/L Lipase 325 H (23-300) U/L Microbiology - Last 24 Hours (Table) 10/17/16 22:03 Blood Culture - Preliminary Blood No Growth after 96 hours Assessment and Plan Plan: Impression: 1. Acute severe pancreatitis with EtOH abuse. Hepatic enzymes slowly improving. 2. Alcohol hepatitis; transaminases improving. 3. Acute renal failure acute tubular necrosis secondary to rhabdomyolysis. Recommendations: 1. Consider TPN/PPN if unable to advance diet presently patient is tolerating sips of clears popsicles. 2. Continue to monitor laboratory studies and vital signs. 3. Continue to monitor in the ICU setting. Supportive measures. 4. Will follow closely with you.
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
--- NOTE | 2016-10-22 10:20 | XR ---
EXAMINATION TYPE: XR chest 1V portable DATE OF EXAM: 10/22/2016 6:43 AM COMPARISON: Prior chest x-ray third of October 2016 HISTORY: Abnormal chest x-ray, infiltrates TECHNIQUE: Single frontal view of the chest is obtained. FINDINGS: Abnormal increased attenuation present at the lung bases right greater than left. No evide nt pneumothorax. Cardiac mediastinal silhouette, pulmonary vascularity and michelle are stable. IMPRESSION: There may be basilar atelectasis versus edema or pneumonia, possible associated effusion s, follow-up recommended.
[2016-10-22] MEDS ORDERED: Phosphorus Replacement Protoco 1 EACH MISC MISCELLANE PRN (10:27)
--- NOTE | 2016-10-22 10:43 | XR ---
EXAMINATION TYPE: XR abdomen 1V DATE OF EXAM ORDERED: 10/22/2016 10:32 AM HISTORY: Abdominal distention. COMPARISON: Previous study dated 10/17/[address] scan of the abdomen and pelvis dated 10/21/2016. FINDINGS: The abdominal gas pattern is within normal limits. There is no evidence of pio free air or bowel obstruction. No unusual calcifications are seen. IMPRESSION: NO ACUTE INTRA-ABDOMINAL ABNORMALITY.
--- NOTE | 2016-10-22 11:40 | P.PN ---
Subjective 35-year-old male being seen in the intensive care unit. at the bedside. Questions answered. Patient had a repeat CAT scan of the abdomen pelvis are reported no evidence of a bowel obstruction or pancreatic necrosis findings are consistent with acute pancreatitis patient continues to have diffuse abdominal bloating with upper abdominal discomfort. Patient continues to report feeling a nausea sensation is been no active emesis. Did note the white count is 18.3 this morning patient is afebrile the CPK is down to 5700. In the lipase is down to 325 Objective - Vital Signs Vital signs: Vital Signs Temp 98.6 F 10/22/16 08:00 Pulse 96 10/22/16 11:00 Resp 14 10/22/16 11:00 BP 153/87 10/22/16 11:00 Pulse Ox 92 L 10/22/16 11:00 Intake & Output 10/21/16 10/22/16 10/22/16 18:59 06:59 18:59 Intake Total 1780 1510 530 Output Total 3810 1855 780 Balance -2030 -345 -250 Weight 79.3 kg 80.2 kg Intake: IV 1580 960 240 Dextrose 5% in Water 1, 480 960 240 000 ml @ 80 mls/hr IV . [id number] [facility] with Sodium Bicarb (1 Meq/ml) 150 ml Rx#:[id number] Sodium Chloride 0.9% 1, 1100 000 ml @ 200 mls/hr IV . Q5H [facility] Rx#:[id number] Intake, IV Titration 200 550 240 Amount Calcium Gluconate 2,000 200 400 100 mg In Sodium Chloride 0.9 % 100 ml @ 100 mls/hr IVPB Q4H [facility] Rx#: [id number] Levofloxacin 250Mg-D5w 50 Pmx 250 mg In Dextrose/ Water 1 50ml.bag @ 50 mls /hr IVPB HS [facility] Rx#: [id number] Levofloxacin 500Mg-D5w 100 Pmx 500 mg In Dextrose/ Water 1 100ml.bag @ 100 mls/hr IVPB HS [facility] Rx#: [id number] Sodium Chloride 0.9% 1, 140 000 ml @ 100 mls/hr IV . Q10H [facility] Rx#:[id number] Oral 0 50 Output: Urine 3810 1855 730 Emesis 50 Other: Voiding Method Indwelling Catheter Indwelling Catheter # Voids 0 # Bowel Movements 1 1 - Exam Physical exam 35-year-old gentleman currently resting in bed oriented 3 states continues to have diffuse abdominal pain slightly improved Lungs posterior diminished at the bases right greater than the left. Adequate air entry bilaterally. Not able to appreciate any wheezing. No conversational dyspnea noted. Heart S1-S2 audible and regular denying chest pain Abdomen diffuse tenderness across the abdominal wall firm slightly distended. Indwelling Powell catheter in place. Bowel tones 4. No stool noted. Reports a sensation of nausea with dry heaves noted Skin no evidence of a skin Extremities no edema noted to the bilateral upper or lower extremities - Labs CBC & Chem 7: 10/22/16 05:00 10/22/16 05:00 Labs: Abnormal Lab Results - Last 24 Hours (Table) 10/22/16 10/22/16 Range/Units 05:00 05:00 WBC 18.3 H (3.8-10.6) k/uL RBC 3.86 L (4.30-5.90) m/uL Hgb 11.8 L (13.0-17.5) gm/dL Hct 36.0 L (39.0-53.0) % Sodium 135 L (137-145) mmol/L Potassium 3.0 L* (3.5-5.1) mmol/L Glucose 106 H (74-99) mg/dL Calcium 6.8 L (8.4-10.2) mg/dL Ionized Calcium Dion 4.4 L (4.5-5.3) mg/dL Phosphorus 2.2 L (2.5-4.5) mg/dL Creatine Kinase 5704 H (55-170) U/L Lipase 325 H (23-300) U/L Microbiology - Last 24 Hours (Table) 10/17/16 22:03 Blood Culture - Preliminary Blood No Growth after 96 hours Assessment and Plan Plan: Impression Present on admission nausea vomiting abdominal pain suspect due to acute pancreatitis due to significant alcohol abuse Chronic and ongoing alcoholism Urine drug screen positive for opiates, cocaine, and methamphetamines Present on admission acute right middle moniliasis Present on admission acute hypocalcemia secondary to severe pancreatitis Electrolyte abnormality hypokalemia Plan Conservative management of pancreatitis From a surgical perspective there is no evidence of an acute surgical abdomen at this time continue with IV fluid as ordered Continue with the ICU management per defensive line coach's recommendations Potassium to be replaced per protocol the ICU The above dictated assessment and findings were discussed with dr Lori Olivas. Impression and the plan of care have been dictated as directed. Zuly Clemente nurse practitioner acting as a scribe for dr White
[2016-10-22] MEDS: THIAMINE 100 MG/ML 2 ML VIAL IVP SCH ×2 (11:55→18:23)
[2016-10-22] MEDS ORDERED: POTASSIUM PHOSPHATE 10 MMOL in SODIUM CHLORIDE 0.9% 250 ML IV ONE (12:00)
--- NOTE | 2016-10-22 18:33 | PN ---
Patient is seen for follow-up for acute kidney injury, severe pancreatitis, metabolic acidosis, severe hypocalcemia. Calcium level has improved. Pancreatitis has also been improving. Renal function is significantly better, and overall the patient states he is feeling better. CK level has been decreasing. It had been more than 32,000. On examination today, blood pressure is 163/93, heart rate 89 per minute. He is afebrile. Examination of the heart S1 and S2. Examination of the lungs: Bilateral breath sounds are heard. Abdomen is soft, nontender. Examination of lower extremities shows edema 1+ bilaterally. MIX CHEMIST exam is grossly intact. Patient is moving all 4 extremities. Labs show sodium 135, potassium 3.0, chloride 103, BUN 10, serum creatinine 0.7. CO2 is 22. CK is 5704. ASSESSMENT: 1. Acute kidney injury, acute tubular necrosis, currently resolved. 2. Hypokalemia, status post replacement. 3. Metabolic acidosis, now improved. Will discontinue the bicarb and switch back to normal saline. 4. Severe hypocalcemia associated with pancreatitis with acute pancreatitis, currently significantly improved. I will decrease calcium gluconate to 2 grams every 6 hours for now. 5. Rhabdomyolysis currently improving. 6. Positive drug screen for cocaine, amphetamines and opiates at the time of admission with history of significant alcohol use as well. PLAN: Decrease calcium gluconate, discontinue IV bicarb. Repeat labs in a.m.
[2016-10-22] MEDS: SODIUM CHLORIDE 0.9% 1,000 ML IV SCH (22:19)
--- NOTE | 2016-10-22 22:46 | PN ---
DATE OF SERVICE: 10/22/2016 This 35-year-old gentleman who was admitted with acute severe pancreatitis, multiple problems, including possible sepsis, renal failure, rhabdomyolysis as well as severe hypocalcemia. The patient also has severe acidosis. Multiple consultants are following the patient closely. Abdomen x-ray showed no acute intra-abdominal abnormality. A CAT scan of the abdomen was repeated, showed small bilateral effusion and ascites and pancreas enlarged. PAST MEDICAL HISTORY: Reviewed. REVIEW OF SYSTEMS: CARDIOVASCULAR: No angina or palpitations. RESPIRATORY: As mentioned earlier. GI: As mentioned earlier. : No dysuria. NERVOUS: No numbness or weakness. Current medications are reviewed, include: 1. [place] 5 mg 2 tabs q.4 p.r.n. p.r.n. 2. DuoNeb q.i.d. and p.r.n. 3. Tenormin 25 mg b.i.d. 4. Calcium gluconate q.4 5. Celexa 20 mg daily. 6. Dextrose. 7. Ativan. 8. KCL. 9. Narcan. 10. Habitrol. 11. Zofran. 12. Protonix. 13. Vitamin B1. PHYSICAL EXAM: The patient is alert and oriented x3. Pulse 99, blood pressure 159/90, respirations 16, temperature is normal, pulse ox 100% on 3L. HEENT: Conjunctivae normal. NECK: No jugular venous distension. CARDIOVASCULAR: S1 and S2 muffled. RESPIRATORY: Breath sounds diminished in the bases. Bilateral scattered rhonchi and crackles. Abdomen is soft, obese. Ascites present. Mild diffuse discomfort present. LEGS: No edema. NERVOU SYSTEM: No focal deficits. LABS: WBC 18.3, hemoglobin 11.8. Sodium 130, potassium 3. Lipase is 325. Creatine kinase is 5704. ASSESSMENT: 1. Acute severe pancreatitis with possible sepsis, present on admission on empiric antibiotics. 2. Increased WBC, possibly sepsis and as well as acute pancreatitis. 3. Severe acidosis. 4. Acute renal failure, possibly acute renal failure secondary to acute tubular necrosis. 5. Acute severe rhabdomyolysis. 6. Severe hypocalcemia secondary to acute pancreatitis, vomiting and dehydration with a possible acute gastritis secondary to alcoholic intoxication. 7. Increased hemoglobin present on admission secondary to dehydration. 8. Hyponatremia. 9. Hyperkalemia. 10. Hyperchloremia. 11. Ascites and bilateral pleural effusion on the CAT scan secondary to pancreatitis. 12. Increased total bilirubin. 13. Increased AST, ALT, possibly secondary to alcoholic hepatitis and EtOH. 14. History of nicotine dependence. 15. Increased amylase, lipase. 16. Urinary tract infection. 17. History of Crohn colitis. 18. Positive cocaine. 19. Bibasilar atelectasis. 20. FULL CODE. RECOMMENDATIONS AND DISCUSSION: In this 35-year-old gentleman who presented with multiple complex medical issues, we will monitor the patient closely. Continue the current medications, continue symptomatic treatment. Otherwise, at this time I recommend continuing with current antibiotics. Otherwise, continue the rest of the medications. Monitor closely bicarb; otherwise, supplement potassium, monitor lytes closely, pain medications. Guarded prognosis guarded prognosis because of multiple complex medical issues. Monitor creatinine closely. Further recommendations to follow. MTDD
[2016-10-23] MEDS: LABETALOL SYRINGE 5 MG/ML IVP PRN ×2 (01:52→06:20)
[2016-10-23] MEDS: HYDROcodone/APAP 5-325MG 1 EACH TAB PO PRN ×7 (03:20→22:52)
[2016-10-23 05:00] LABS: CH 30.2; CHCM 32.7; HCT 37.1 % (39.0-53.0); HDW 2.84; HGB 12.2 gm/dL (13.0-17.5); MCH 30.5 pg (25.0-35.0); MCV 92.6 fL (80.0-100.0); Mean Platelet Volume 8.3; RBC 4.01 m/uL (4.30-5.90); RDW 13.5 % (11.5-15.5); WBC 23.7 k/uL (3.8-10.6)
[2016-10-23 05:23] LABS: Anion Gap 12 mmol/L; Blood Urea Nitrogen 9 mg/dL (9-20); Calcium 7.1 mg/dL (8.4-10.2); Carbon Dioxide 23 mmol/L (22-30); Chloride 106 mmol/L (98-107); Creatine Kinase 1346 U/L (55-170); Glucose 91 mg/dL (74-99); Magnesium 1.8 mg/dL (1.6-2.3); Non-African American GFR(MDRD) >60 (>60 ml/min/1.73 sqM); Potassium 3.4 mmol/L (3.5-5.1); Sodium 141 mmol/L (137-145)
[2016-10-23] MEDS: MAGNESIUM SULFATE-D5W PMX 1 GM in DEXTROSE/WATER 1 100ML.BAG IVPB SCH ×2 (06:23→07:52)
[2016-10-23] MEDS: POTASSIUM CHLORIDE ER 20 MEQ TAB.ER PO SCH ×2 (07:01→07:52)
[2016-10-23] MEDS: ATENOLOL 25 MG TAB PO SCH ×2 (07:54→20:43)
[2016-10-23] MEDS: PANTOPRAZOLE 40 MG/10 ML VIAL IVP SCH ×2 (07:54→20:43)
[2016-10-23] MEDS: CITALOPRAM HYDROBROMIDE 20 MG TAB PO SCH (07:54)
[2016-10-23] MEDS: SODIUM BICARBONATE TAB 650 MG TAB PO SCH ×2 (07:54→20:43)
[2016-10-23] MEDS: HEPARIN SODIUM,PORCINE 5,000 UNIT/ML 1 ML VIAL SQ SCH ×2 (07:54→20:42)
--- NOTE | 2016-10-23 07:54 | XR ---
EXAMINATION TYPE: XR chest 1V DATE OF EXAM: 10/23/2016 6:32 AM COMPARISON: Prior chest x-ray dated 22 October 2016 HISTORY: Shortness of breath, abnormal chest x-ray TECHNIQUE: Single frontal view of the chest is obtained. FINDINGS: No significant interval change is evident. Lung volumes are low, patchy basilar density pe rsists. Cardiomediastinal silhouette, pulmonary vascularity and michelle are stable. No evident pneumotho rax. IMPRESSION: There may be basilar atelectasis, effusion, correlate to exclude pneumonia, edema.
[2016-10-23] MEDS: NICOTINE 14MG/24HR PATCH TRANSDERM SCH (07:55)
[2016-10-23] MEDS: SODIUM CHLORIDE 0.9% 1,000 ML IV SCH (09:15)
[2016-10-23] MEDS: CALCIUM GLUCONATE 2,000 MG in SODIUM CHLORIDE 0.9% 100 ML IVPB SCH ×2 (09:15→17:40)
[2016-10-23] MEDS: POTASSIUM CHLORIDE ORAL LIQUID 40 MEQ/30 ML CUP NG-TUBE SCH ×2 (10:37→11:23)
[2016-10-23] MEDS: THIAMINE 100 MG/ML 2 ML VIAL IVP SCH ×2 (10:38→17:40)
--- NOTE | 2016-10-23 11:02 | P.PN ---
Subjective Principal diagnosis: Acute severe pancreatitis, rhabdomyolysis 35-year-old male limited with acute severe pancreatitis rhabdomyolysis with underlying heavy alcohol abuse. Currently resting in the ICU. Marked improvement in nausea vomiting. Tolerating clear liquids/popsicles. Afebrile. Abdominal pain improving. Objective - Vital Signs Vital signs: Vital Signs Temp 98.5 F 10/23/16 08:00 Pulse 97 10/23/16 10:00 Resp 18 10/23/16 10:00 BP 137/78 10/23/16 10:00 Pulse Ox 99 10/23/16 10:00 Intake & Output 10/22/16 10/23/16 10/23/16 18:59 06:59 18:59 Intake Total 1300 940 480 Output Total 1685 1575 525 Balance -385 -635 -45 Weight 84.5 kg Intake: IV 590 840 280 Dextrose 5% in Water 1, 240 000 ml @ 80 mls/hr IV . [id number] [facility] with Sodium Bicarb (1 Meq/ml) 150 ml Rx#:[id number] Sodium Chloride 0.9% 350 840 280 Intake, IV Titration 660 100 200 Amount Calcium Gluconate 2,000 200 mg In Sodium Chloride 0.9 % 100 ml @ 100 mls/hr IVPB Q4H [facility] Rx#: [id number] Calcium Gluconate 2,000 100 mg In Sodium Chloride 0.9 % 100 ml @ 100 mls/hr IVPB Q8HR [facility] Rx#: [id number] Magnesium Sulfate-D5w Pmx 200 1 gm In Dextrose/Water 1 100ml.bag @ 100 mls/hr IVPB Q1H [facility] Rx#: [id number] Potassium Phosphate 10 250 mmol In Sodium Chloride 0 .9% 250 ml @ 125 mls/hr IV ONCE ONE Rx#:[id number] Sodium Chloride 0.9% 1, 210 000 ml @ 100 mls/hr IV . Q10H [facility] Rx#:[id number] Oral 50 0 0 Output: Urine 1635 1575 525 Emesis 50 Other: Voiding Method Indwelling Catheter Indwelling Catheter Indwelling Catheter # Bowel Movements 1 - Exam General appearance: The patient is alert, oriented, in no acute distress. HET: Head is normocephalic and atraumatic. Pupils are equal and reactive. Oropharynx is clear without lesions. Neck: Supple without lymphadenopathy. Trachea midline. Heart: S1 S2. Regular rate and rhythm. Lungs: No crackles or wheezes are heard. Abdomen: Soft, mildly bloated with mild tenderness midepigastrium and left upper quadrant with normal bowel sounds. No peritoneal signs. No palpable organomegaly or masses. Extremities: Normal skin color and turgor. No cyanosis, rash, ulceration, clubbing, or edema. Radial and pedal pulses are 2/4 bilaterally. Neurological: No focal deficits. Strength and sensation are grossly intact. - Labs CBC & Chem 7: 10/23/16 04:47 10/23/16 09:35 Labs: Abnormal Lab Results - Last 24 Hours (Table) 10/23/16 10/23/16 10/23/16 Range/Units 04:47 04:47 09:35 WBC 23.7 H (3.8-10.6) k/uL RBC 4.01 L (4.30-5.90) m/uL Hgb 12.2 L (13.0-17.5) gm/dL Hct 37.1 L (39.0-53.0) % Potassium 3.4 L 3.3 L (3.5-5.1) mmol/L Creatinine 0.62 L (0.66-1.25) mg/dL Calcium 7.1 L (8.4-10.2) mg/dL Creatine Kinase 1346 H (55-170) U/L Microbiology - Last 24 Hours (Table) 10/17/16 22:03 Blood Culture - Preliminary Blood No Growth after 120 hours Assessment and Plan Plan: Impression: 1. Acute severe pancreatitis with EtOH abuse. Hepatic enzymes slowly improving. 2. Alcohol hepatitis; transaminases improving. 3. Acute renal failure acute tubular necrosis secondary to rhabdomyolysis. Recommendations: 1. Full liquids. 2. Continue to monitor laboratory studies and vital signs. 3. May transfer out of ICU. Supportive measures. 4. Will follow closely with you.
--- NOTE | 2016-10-23 11:10 | P.PN ---
Subjective This is a pleasant 35-year-old gentleman who was admitted on 10/17/2016 with complaints of acute abdominal pain. He does have a history of alcohol abuse and had been binge drinking prior to his arrival. He had developed severe abdominal pain nausea vomiting. He is found to have elevated lipase and amylase with hypocalcemia and was admitted to the intensive care unit for prolonged QT interval and required multiple doses of calcium gluconate. He had been seen and evaluated by GI and general surgery and the plan is for conservative measures for the severe pancreatitis and rhabdomyolysis. His urine drug screen was also positive for opiates methamphetamines and cocaine. He is seen again today 10/23/2016 in follow-up. He remains in the intensive care unit. He is awake and alert in no acute distress. He's been up ambulating in the hallway. His abdominal discomfort has subsided. He is anxious to go home. Objective - Vital Signs Vital signs: Vital Signs Temp 98.5 F 10/23/16 08:00 Pulse 97 10/23/16 10:00 Resp 18 10/23/16 10:00 BP 137/78 10/23/16 10:00 Pulse Ox 99 10/23/16 10:00 Intake & Output 10/22/16 10/23/16 10/23/16 18:59 06:59 18:59 Intake Total 1300 940 480 Output Total 1685 1575 525 Balance -385 -635 -45 Weight 84.5 kg Intake: IV 590 840 280 Dextrose 5% in Water 1, 240 000 ml @ 80 mls/hr IV . [id number] [facility] with Sodium Bicarb (1 Meq/ml) 150 ml Rx#:[id number] Sodium Chloride 0.9% 350 840 280 Intake, IV Titration 660 100 200 Amount Calcium Gluconate 2,000 200 mg In Sodium Chloride 0.9 % 100 ml @ 100 mls/hr IVPB Q4H [facility] Rx#: [id number] Calcium Gluconate 2,000 100 mg In Sodium Chloride 0.9 % 100 ml @ 100 mls/hr IVPB Q8HR [facility] Rx#: [id number] Magnesium Sulfate-D5w Pmx 200 1 gm In Dextrose/Water 1 100ml.bag @ 100 mls/hr IVPB Q1H [facility] Rx#: [id number] Potassium Phosphate 10 250 mmol In Sodium Chloride 0 .9% 250 ml @ 125 mls/hr IV ONCE ONE Rx#:[id number] Sodium Chloride 0.9% 1, 210 000 ml @ 100 mls/hr IV . Q10H [facility] Rx#:[id number] Oral 50 0 0 Output: Urine 1635 1575 525 Emesis 50 Other: Voiding Method Indwelling Catheter Indwelling Catheter Indwelling Catheter # Bowel Movements 1 - Exam GENERAL EXAM: Alert, currently fairly uncomfortable but in no acute distress. HEAD: Normocephalic. EYES: Normal reaction of pupils, equal size. NOSE: Clear with pink turbinates. THROAT: No erythema or exudates. NECK: No masses, no JVD. CHEST: No chest wall deformity. LUNGS: Equal air entry, clear anteriorly there are faint crackles in the left posterior base.. CVS: S1 and S2 normal with no audible murmurs, regular rhythm. ABDOMEN: Soft. Bowel sounds are present. SPINE: No scoliosis or deformity SKIN: No rashes CENTRAL NERVOUS SYSTEM: No focal deficits, tone is normal in all 4 extremities. Extremities: There is no significant peripheral edema. No clubbing, no cyanosis. Peripheral pulses are intact. - Labs CBC & Chem 7: 10/23/16 04:47 10/23/16 09:35 Labs: Abnormal Lab Results - Last 24 Hours (Table) 10/23/16 10/23/16 10/23/16 Range/Units 04:47 04:47 09:35 WBC 23.7 H (3.8-10.6) k/uL RBC 4.01 L (4.30-5.90) m/uL Hgb 12.2 L (13.0-17.5) gm/dL Hct 37.1 L (39.0-53.0) % Potassium 3.4 L 3.3 L (3.5-5.1) mmol/L Creatinine 0.62 L (0.66-1.25) mg/dL Calcium 7.1 L (8.4-10.2) mg/dL Creatine Kinase 1346 H (55-170) U/L Microbiology - Last 24 Hours (Table) 10/17/16 22:03 Blood Culture - Preliminary Blood No Growth after 120 hours Assessment and Plan Plan: Impression: #1 Acute pancreatitis secondary to significant alcohol abuse. Improved. #2 Chronic and ongoing alcoholism. #3 Acute hypocalcemia secondary to severe pancreatitis., Improving calcium level 7.1. #4 Acute rhabdomyolysis improved, current CK 1346. #5 Drug abuse urine positive for opiates, cocaine, methamphetamines. Plan: The patient was seen and evaluated by Dr. Curran. We'll continue with his current medications. He does have the bronchodilators to be used as needed. We 'll continue to follow up with his chest x-ray. He is again encouraged regarding the importance of complete smoking cessation. NicoDerm patch remains in place. CIWA protocol is continued. He is cleared for transfer out of the intensive care unit today. We'll continue to follow and make further recommendations based on his clinical status.
[2016-10-23] MEDS: BACITRACIN 500 UNIT/GM OINT 28.4 GM TUBE TOPICAL SCH ×2 (11:23→20:42)
--- NOTE | 2016-10-23 12:16 | P.PN ---
Subjective 35-year-old male patient being seen in the intensive care unit this morning. Significantly more awake and alert. Patient states there is a significant improvement in the abdominal pain this morning. Patient reportedly is denying any nausea vomiting. States urinating with no difficulty. Has had 2 loose stools this morning.. Did note the white count is elevated this morning to 23. Patient is currently denying any fever chills. Blood and urine cultures obtained on admission showed no growth. Patient's initial presentation was on October 17 when patient was admitted with acute abdominal pain. Patient has a history of chronic alcohol abuse. Reportedly had been binge drinking on the day of the admission. Subsequently the patient develop severe severe abdominal pain nausea vomiting and inability to keep fluids down. Patient was noted to have elevated lipase and amylase with hypocalcemia. Decision was to admit the patient to the intensive care unit for close monitoring. Patient did have a prolonged QT interval which was monitored closely and the calcium was corrected and patient was being treated for acute pancreatitis with rhabdomyolysis which improved Objective - Vital Signs Vital signs: Vital Signs Temp 98.5 F 10/23/16 08:00 Pulse 97 10/23/16 10:00 Resp 18 10/23/16 10:00 BP 137/78 10/23/16 10:00 Pulse Ox 99 10/23/16 10:00 Intake & Output 10/22/16 10/23/16 10/23/16 18:59 06:59 18:59 Intake Total 1300 940 480 Output Total 1685 1575 525 Balance -385 -635 -45 Weight 84.5 kg Intake: IV 590 840 280 Dextrose 5% in Water 1, 240 000 ml @ 80 mls/hr IV . [id number] [facility] with Sodium Bicarb (1 Meq/ml) 150 ml Rx#:[id number] Sodium Chloride 0.9% 350 840 280 Intake, IV Titration 660 100 200 Amount Calcium Gluconate 2,000 200 mg In Sodium Chloride 0.9 % 100 ml @ 100 mls/hr IVPB Q4H [facility] Rx#: [id number] Calcium Gluconate 2,000 100 mg In Sodium Chloride 0.9 % 100 ml @ 100 mls/hr IVPB Q8HR [facility] Rx#: [id number] Magnesium Sulfate-D5w Pmx 200 1 gm In Dextrose/Water 1 100ml.bag @ 100 mls/hr IVPB Q1H [facility] Rx#: [id number] Potassium Phosphate 10 250 mmol In Sodium Chloride 0 .9% 250 ml @ 125 mls/hr IV ONCE ONE Rx#:[id number] Sodium Chloride 0.9% 1, 210 000 ml @ 100 mls/hr IV . Q10H [facility] Rx#:[id number] Oral 50 0 0 Output: Urine 1635 1575 525 Emesis 50 Other: Voiding Method Indwelling Catheter Indwelling Catheter Indwelling Catheter # Bowel Movements 1 2 - Exam Physical exam 35-year-old gentleman currently resting in bed. Pleasant cooperative oriented 3 patient states "I'm going to stop drinking alcohol I'm done" Lungs essentially clear adequate air movement Heart S1-S2 audible regular Abdomen soft slightly distended pitting edema noted bilateral flank areas. Scrotal edema improving. Tolerating clear liquid diet no further episodes of nausea or vomiting states is improving. Patient states abdominal pain is improving 2 loose stools this morning bowel tones present 4 Extremities a trace pedal edema bilaterally - Labs CBC & Chem 7: 10/23/16 04:47 10/23/16 09:35 Labs: Abnormal Lab Results - Last 24 Hours (Table) 10/23/16 10/23/16 10/23/16 Range/Units 04:47 04:47 09:35 WBC 23.7 H (3.8-10.6) k/uL RBC 4.01 L (4.30-5.90) m/uL Hgb 12.2 L (13.0-17.5) gm/dL Hct 37.1 L (39.0-53.0) % Potassium 3.4 L 3.3 L (3.5-5.1) mmol/L Creatinine 0.62 L (0.66-1.25) mg/dL Calcium 7.1 L (8.4-10.2) mg/dL Creatine Kinase 1346 H (55-170) U/L Microbiology - Last 24 Hours (Table) 10/17/16 22:03 Blood Culture - Preliminary Blood No Growth after 120 hours Assessment and Plan Plan: Impression Present on admission nausea vomiting abdominal pain suspect due to acute pancreatitis due to significant alcohol abuse Chronic and ongoing alcoholism Urine drug screen positive for opiates, cocaine, and methamphetamines Present on admission acute right middle moniliasis Present on admission acute hypocalcemia secondary to severe pancreatitis Electrolyte abnormality hypokalemia Plan Conservative management of pancreatitis From a surgical perspective there is no evidence of an acute surgical abdomen at this time continue with IV fluid as ordered Repeat blood and urine culture now Start Zosyn as ordered monitor response Will follow with further surgical recommendations as indicated The above dictated assessment and findings were discussed with dr temple. Impression and the plan of care have been dictated as directed. Zuly Clemente nurse practitioner acting as a scribe for dr temple
[2016-10-23] MEDS ORDERED: CALCIUM GLUCONATE 1,000 MG in SODIUM CHLORIDE 0.9% 100 ML IVPB SCH (19:00)
--- NOTE | 2016-10-23 19:24 | PN ---
Patient is seen for followup for acute kidney injury, severe pancreatitis, severe hypocalcemia and rhabdomyolysis. His renal function has improved and is currently within normal range. Patient's CK level has decreased significantly. Pancreatitis has also improved. Overall, clinically he has improved as well. The calcium supplementation was decreased yesterday and his serum calcium level continues to rise with current calcium at 7.1 and ionized calcium at 4.5. On examination today, patient is resting comfortably. He is easily arousable. Blood pressure is 137/78, heart rate 90 per minute. He is afebrile. HEART: S1 and S2. LUNGS: Bilateral breath sounds are heard. Abdomen is soft. Some tenderness noted. Some ascites is noted as well. Lower extremities show trace edema bilaterally. [employer] is grossly intact. Labs show sodium 141, potassium was 3.5, status post replacement now at 4.3, serum creatinine down to 0.62. CK is 1346. ASSESSMENT: 1. Acute kidney injury, acute tubular necrosis, currently resolved. 2. Severe rhabdomyolysis also significantly improved. 3. Severe pancreatitis with significant improvement. 4. Severe hypocalcemia from acute pancreatitis, significantly improved. Currently patient is maintained on calcium gluconate 2 g q.8 hours. I will decrease it further to 1 g q.8h. and repeat labs in a.m.
--- NOTE | 2016-10-23 20:47 | PN ---
DATE OF SERVICE: 10/23/2016 This 35-year-old gentleman who was admitted with acute severe pancreatitis with possible sepsis is on empiric antibiotics. The patient also had abdominal distention. The patient also had multiple complex medical issues and complications of pancreatitis also. further details also pleural effusion and ascites. Hypocalcemia is improving. Sensorium was definitely improving at this time. also been advised. Multiple consultants are following the patient. Past medical history reviewed. REVIEW OF SYSTEMS: CARDIOVASCULAR: S1, S2. RESPIRATORY: As mentioned earlier. GASTROINTESTINAL: No nausea or vomiting. GASTROINTESTINAL: No dysuria. Current medications are reviewed and include: 1. [place] 5 mg q.4 p.r.n. 2. DuoNeb q.i.d. and p.r.n. 3. Tenormin 25 mg b.i.d. 4. Bacitracin. 5. Calcium gluconate q.8. 6. Celexa 20 mg daily. 7. Heparin 5000 subcu b.i.d. 8. Trandate. 9. Ativan p.r.n. 10. Habitrol 14 daily. 11. Protonix. 12. Vitamin B1. PHYSICAL EXAMINATION: The patient is alert and oriented times three. Pulse 89, blood pressure 150/84. Respiratory rate 18. Temperature 97.9. Pulse ox 98% on room air. HEENT: Conjunctivae normal. NECK: No jugular venous distention. CARDIOVASCULAR: S1, S2 muffled. RESPIRATORY: Breath sounds diminished at the bases. Bilateral scattered rhonchi and crackles. ABDOMEN: Soft, obese. Ascites present. LEGS: No edema. No swelling. CENTRAL NERVOUS SYSTEM: No focal deficits. LABS: WBC 23.7, hemoglobin 12.2, potassium 3.3 and 4.3. ASSESSMENT: 1. Acute severe pancreatitis with possible sepsis, present on admission on empiric antibiotics. 2. Increased WBC, possible sepsis as well as acute pancreatitis. 3. Acute acidosis. 4. Acute severe metabolic acidosis, possibly secondary to sepsis. 5. Acute renal failure, possibly acute renal failure, possibly secondary to acute tubular necrosis. 6. Acute severe rhabdomyolysis. 7. Severe hypocalcemia secondary to acute pancreatitis. 8. Vomiting and dehydration, with possible acute gastritis secondary to alcoholic intoxication, present on admission. 9. Increased hemoglobin present on admission secondary to dehydration. 10. Hyponatremia. 11. Hyperkalemia. 12. Hyperchloremia. 13. Ascites and bilateral pleural effusion on the CAT scan secondary to pancreatitis and increased total bilirubin. 14. Increased AST, ALT possibly secondary to alcoholic hepatitis and ETOH. 15. History of nicotine dependence. 16. Increased amylase and lipase. 17. Urinary tract infection. 18. History of Crohn's colitis. 19. Positive cocaine. 20. Bibasilar atelectasis. 21. FULL CODE. RECOMMENDATIONS AND DISCUSSION: Recommend to continue current medications, continue with monitoring, symptomatic treatment. Otherwise, at this time, supplement potassium. Continue the rest of the medications. Monitor closely. Follow the white count closely. Prognosis still extremely guarded because of multiple complex medical issues. See orders for further details. Monitor calcium and I would recommend telemetry at this time. Continue to monitor. Further recommendations to follow. MTDD
[2016-10-24] MEDS: HYDROcodone/APAP 5-325MG 1 EACH TAB PO PRN ×6 (03:05→21:59)
[2016-10-24] MEDS: CALCIUM GLUCONATE 1,000 MG in SODIUM CHLORIDE 0.9% 100 ML IVPB SCH ×2 (03:23→11:26)
[2016-10-24] MEDS: SODIUM CHLORIDE 0.9% 1,000 ML IV SCH ×2 (03:23→16:40)
[2016-10-24 05:26] LABS: Basophils % (A) 0 %; CH 29.8; CHCM 31.8; Eosinophils # (A) 0.2 k/uL (0-0.7); Eosinophils % (A) 1 %; HCT 39.6 % (39.0-53.0); HDW 2.85; HGB 12.7 gm/dL (13.0-17.5); Luc # (Auto) 0.18; Luc % (Auto) 1; Lymphocytes # (A) 0.4 k/uL (1.0-4.8); Lymphocytes % (A) 2 %; MCH 30.3 pg (25.0-35.0); MCHC 32.1 g/dL (31.0-37.0); MCV 94.3 fL (80.0-100.0); Mean Platelet Volume 8.2; Monocytes # (A) 0.6 k/uL (0-1.0); Monocytes % (A) 3 %; Neutrophils # (A) 21.3 k/uL (1.3-7.7); Neutrophils % (A) 94 %; RDW 13.7 % (11.5-15.5); WBC 22.7 k/uL (3.8-10.6)
[2016-10-24 05:41] LABS: Anion Gap 9 mmol/L; Blood Urea Nitrogen 7 mg/dL (9-20); Calcium 7.9 mg/dL (8.4-10.2); Carbon Dioxide 28 mmol/L (22-30); Chloride 101 mmol/L (98-107); Glucose 101 mg/dL (74-99); Magnesium 1.9 mg/dL (1.6-2.3); Non-African American GFR(MDRD) >60 (>60 ml/min/1.73 sqM); Phosphorous 3.4 mg/dL (2.5-4.5); Sodium 138 mmol/L (137-145)
[2016-10-24] MEDS: CITALOPRAM HYDROBROMIDE 20 MG TAB PO SCH (08:17)
[2016-10-24] MEDS: BACITRACIN 500 UNIT/GM OINT 28.4 GM TUBE TOPICAL SCH ×2 (08:17→21:03)
[2016-10-24] MEDS: SODIUM BICARBONATE TAB 650 MG TAB PO SCH (08:17)
[2016-10-24] MEDS: PANTOPRAZOLE 40 MG/10 ML VIAL IVP SCH ×2 (08:17→21:03)
[2016-10-24] MEDS: MAGNESIUM SULFATE-D5W PMX 1 GM in DEXTROSE/WATER 1 100ML.BAG IVPB SCH ×2 (08:17→14:36)
[2016-10-24] MEDS: NICOTINE 14MG/24HR PATCH TRANSDERM SCH (08:17)
[2016-10-24] MEDS: HEPARIN SODIUM,PORCINE 5,000 UNIT/ML 1 ML VIAL SQ SCH ×2 (08:17→21:03)
[2016-10-24] MEDS: ATENOLOL 25 MG TAB PO SCH ×2 (08:17→21:03)
[2016-10-24] MEDS ORDERED: IV VANCOMYCIN PER PHARMACY 1 EACH MISC MISCELLANE PRN (08:32)
[2016-10-24] MEDS: LEVOFLOXACIN 750MG-D5W PMX 750 MG in DEXTROSE/WATER 1 150ML.BAG IVPB SCH (09:28)
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
[2016-10-24 11:27] LABS: INR 1.4 (<1.1); Prothrombin Time 13.6 sec (9.0-12.0)
--- NOTE | 2016-10-24 11:51 | P.PN ---
Subjective Principal diagnosis: Acute severe pancreatitis, rhabdomyolysis 35-year-old male limited with acute severe pancreatitis rhabdomyolysis with underlying heavy alcohol abuse. Increased abdominal distention and discomfort Marked improvement in nausea vomiting. Tolerating clear liquids/popsicles. Afebrile. Objective - Vital Signs Vital signs: Vital Signs Temp 97.0 F L 10/24/16 10:15 Pulse 99 10/24/16 10:15 Resp 20 10/24/16 10:15 BP 140/87 10/24/16 10:15 Pulse Ox 95 10/24/16 10:15 Intake & Output 10/23/16 10/24/16 10/24/16 18:59 06:59 18:59 Intake Total 760 1140 560 Output Total 650 Balance 110 1140 560 Weight 91.2 kg 91.2 kg Intake: IV 560 560 560 Sodium Chloride 0.9% 560 560 560 Intake, IV Titration 200 100 Amount Calcium Gluconate 1,000 100 mg In Sodium Chloride 0.9 % 100 ml @ 100 mls/hr IVPB Q8H ROBYN Rx#: [id number] Magnesium Sulfate-D5w Pmx 200 1 gm In Dextrose/Water 1 100ml.bag @ 100 mls/hr IVPB Q1H ROBYN Rx#: [id number] Oral 0 480 Output: Urine 650 Other: Voiding Method Indwelling Catheter Toilet Toilet # Voids 4 # Bowel Movements 2 2 - Exam General appearance: The patient is alert, oriented, in no acute distress. HET: Head is normocephalic and atraumatic. Pupils are equal and reactive. Oropharynx is clear without lesions. Neck: Supple without lymphadenopathy. Trachea midline. Heart: S1 S2. Regular rate and rhythm. Lungs: No crackles or wheezes are heard. Abdomen: Increased abdominal distention and firmness with diffuse mild tenderness normal bowel sounds. No peritoneal signs. No palpable organomegaly or masses. Extremities: Generalized anasarca. Neurological: No focal deficits. Strength and sensation are grossly intact. - Labs CBC & Chem 7: 10/24/16 05:04 10/24/16 05:04 Labs: Abnormal Lab Results - Last 24 Hours (Table) 10/24/16 10/24/16 10/24/16 Range/Units 05:04 05:04 10:51 WBC 22.7 H (3.8-10.6) k/uL RBC 4.20 L (4.30-5.90) m/uL Hgb 12.7 L (13.0-17.5) gm/dL Neutrophils # 21.3 H (1.3-7.7) k/uL Lymphocytes # 0.4 L (1.0-4.8) k/uL PT 13.6 H (9.0-12.0) sec BUN 7 L (9-20) mg/dL Creatinine 0.60 L (0.66-1.25) mg/dL Glucose 101 H (74-99) mg/dL Calcium 7.9 L (8.4-10.2) mg/dL Microbiology - Last 24 Hours (Table) 10/23/16 14:00 Urine Culture - Preliminary Urine,Clean Catch 10/17/16 22:03 Blood Culture - Final Blood No Growth after 144 hours Assessment and Plan Plan: Impression: 1. Acute severe pancreatitis with EtOH abuse. Hepatic enzymes slowly improving. 2. Alcohol hepatitis; transaminases improving. 3. Acute renal failure acute tubular necrosis secondary to rhabdomyolysis. 4. Abdominal distention suspect ascites secondary to severe pancreatitis with component of anasarca. Recommendations: 1. May advance to full liquids as tolerated. Ultrasound abdomen to assess for ascites if present we'll proceed with therapeutic diagnostic paracentesis with IR. 2. Continue to monitor laboratory studies and vital signs. 3. Supportive measures. 4. Will follow closely with you. Assessment and plan of care discussed with Dr. Levy.
[2016-10-24 11:59] LABS: ALT 58 U/L (21-72); AST 70 U/L (17-59); Alkaline Phosphatase 97 U/L (38-126); Anion Gap 8 mmol/L; Blood Urea Nitrogen 6 mg/dL (9-20); Carbon Dioxide 28 mmol/L (22-30); Chloride 101 mmol/L (98-107); Glucose 102 mg/dL (74-99); Non-African American GFR(MDRD) >60 (>60 ml/min/1.73 sqM); Sodium 137 mmol/L (137-145); Total Protein 4.6 g/dL (6.3-8.2)
--- NOTE | 2016-10-24 12:13 | US ---
Limited abdomen ultrasound HISTORY: Ascites Limited abdomen ultrasound performed and correlated to CT scan abdomen and pelvis November 07 Small amount ascites is present. IMPRESSION: Limited exam. Small amount of ascites.
--- NOTE | 2016-10-24 13:37 | P.PN ---
Subjective 35-year-old male being seen resting comfortably in bed reports having less nausea no active vomiting and tolerating the clear liquids has remained afebrile. Patients being followed for acute severe pancreatitis suspect due to chronic alcohol abuse. The abdomen remains distended continues to report abdominal discomfort but states it's improving Objective - Vital Signs Vital signs: Vital Signs Temp 97.0 F L 10/24/16 10:15 Pulse 99 10/24/16 10:15 Resp 20 10/24/16 10:15 BP 140/87 10/24/16 10:15 Pulse Ox 95 10/24/16 10:15 Intake & Output 10/23/16 10/24/16 10/24/16 18:59 06:59 18:59 Intake Total 760 1140 560 Output Total 650 Balance 110 1140 560 Weight 91.2 kg 91.2 kg Intake: IV 560 560 560 Sodium Chloride 0.9% 560 560 560 Intake, IV Titration 200 100 Amount Calcium Gluconate 1,000 100 mg In Sodium Chloride 0.9 % 100 ml @ 100 mls/hr IVPB Q8H ROBYN Rx#: [id number] Magnesium Sulfate-D5w Pmx 200 1 gm In Dextrose/Water 1 100ml.bag @ 100 mls/hr IVPB Q1H ROBYN Rx#: [id number] Oral 0 480 Output: Urine 650 Other: Voiding Method Indwelling Catheter Toilet Toilet # Voids 4 # Bowel Movements 2 2 - Exam Physical exam Pleasant 35 rolled gentleman sitting up in bed states abdominal pain is improving but continues to report a feeling of abdominal bloating tolerating clear liquid diet Lungs essentially clear with adequate air movement on room air sats greater than 95% no cough noted no conversational dyspnea noted Heart S1-S2 audible regular denying chest pain Abdomen slightly distended persist slightly more firm with diffuse tenderness across the abdominal wall. Generalized anasarca decrease scrotal edema Extremities upper thighs edema noted no pedal edema noted - Labs CBC & Chem 7: 10/24/16 05:04 10/24/16 05:04 Labs: Abnormal Lab Results - Last 24 Hours (Table) 10/24/16 10/24/16 10/24/16 Range/Units 05:04 05:04 05:04 WBC 22.7 H (3.8-10.6) k/uL RBC 4.20 L (4.30-5.90) m/uL Hgb 12.7 L (13.0-17.5) gm/dL Neutrophils # 21.3 H (1.3-7.7) k/uL Lymphocytes # 0.4 L (1.0-4.8) k/uL PT (9.0-12.0) sec BUN 7 L 6 L (9-20) mg/dL Creatinine 0.60 L 0.64 L (0.66-1.25) mg/dL Glucose 101 H 102 H (74-99) mg/dL Calcium 7.9 L 8.0 L (8.4-10.2) mg/dL AST 70 H (17-59) U/L Total Protein 4.6 L (6.3-8.2) g/dL Albumin 2.3 L (3.5-5.0) g/dL 10/24/16 Range/Units 10:51 WBC (3.8-10.6) k/uL RBC (4.30-5.90) m/uL Hgb (13.0-17.5) gm/dL Neutrophils # (1.3-7.7) k/uL Lymphocytes # (1.0-4.8) k/uL PT 13.6 H (9.0-12.0) sec BUN (9-20) mg/dL Creatinine (0.66-1.25) mg/dL Glucose (74-99) mg/dL Calcium (8.4-10.2) mg/dL AST (17-59) U/L Total Protein (6.3-8.2) g/dL Albumin (3.5-5.0) g/dL Microbiology - Last 24 Hours (Table) 10/23/16 14:00 Urine Culture - Preliminary Urine,Clean Catch 10/17/16 22:03 Blood Culture - Final Blood No Growth after 144 hours Assessment and Plan Plan: Impression Present on admission nausea vomiting abdominal pain suspect due to acute pancreatitis due to significant alcohol abuse Chronic and ongoing alcoholism Urine drug screen positive for opiates, cocaine, and methamphetamines Present on admission acute hypocalcemia secondary to severe pancreatitis Electrolyte abnormality hypokalemia Present on admission Acute renal failure acute tubular necrosis secondary to rhabdomyolysis. Improving . Abdominal distention suspect ascites secondary to severe pancreatitis with component of anasarca. Plan Conservative management of pancreatitis From a surgical perspective there is no evidence of an acute surgical abdomen at this time continue with IV fluid as ordered Repeat blood and urine culture now Start IV Levaquin and vancomycin as ordered monitor response Will follow with further surgical recommendations as indicated Monitor white count repeat labs in the morning if there is no significant improvement in the white count patient would benefit from a CAT scan of the abdomen and pelvis GIs recommendations noted ultrasound the abdomen to assess ascites pending the results may benefit from a therapeutic diagnostic paracentesis with interventional radiology The above dictated assessment and findings were discussed with dr Lori Olivas. Impression and the plan of care have been dictated as directed. Zuly Clemente nurse practitioner acting as a scribe for dr White
[2016-10-24] MEDS: CALCIUM CARBONATE 500 MG CHEWABLE PO SCH ×2 (14:37→16:40)
[2016-10-24] MEDS: THIAMINE 100 MG/ML 2 ML VIAL IVP SCH (16:28)
--- NOTE | 2016-10-24 16:38 | PN ---
DATE OF SERVICE: 10/24/2016 This 35-year-old gentleman who was admitted with acute severe pancreatitis with possible sepsis also has significant ascites. No chest pain. No palpitation. No fever. On exam, alert and oriented x3. Pulse is 99, blood pressure 140/87, respiration 20, temperature 97 degrees, pulse ox 94% on room air. HEENT: Conjunctivae normal. NECK: No jugular venous distention. CARDIOVASCULAR SYSTEM: S1, S2 muffled. RESPIRATORY: Breath sounds diminished at bases. Scattered rhonchi and crackles. ABDOMEN: Soft, obese. Ascites present. LEGS: No edema. No swelling. NERVOUS SYSTEM: No focal deficit. LABS: WBC 20.7, hemoglobin 12.7. ASSESSMENT: 1. Acute severe pancreatitis with possible sepsis, present on admission, on empiric antibiotics. 2. Increased white count, possible sepsis as well as acute pancreatitis. 3. Acute acidosis. 4. Acute severe metabolic acidosis, possibly secondary to sepsis. 5. Acute renal failure, possibly secondary to acute tubular necrosis. 6. Acute severe rhabdomyolysis. 7. Severe hypocalcemia secondary to acute pancreatitis. 8. Ascites. 9. Vomiting and dehydration, possibly acute gastritis secondary to alcohol intoxication, present on admission. 10. Increased hemoglobin, present on admission, secondary to dehydration. 11. Hyponatremia. 12. Hyperkalemia. 13. Hyperchloremia. 14. Ascites and bilateral pleural effusion on the CT scan secondary to pancreatitis. 15. Increased total bilirubin. 16. Increased AST, ALT, possibly secondary to alcoholic hepatitis and ethanol. 17. History of nicotine dependence. 18. Increased amylase, lipase. 19. Urinary tract infection. 20. History of Crohn's colitis. 21. Positive cocaine. 22. Bibasilar atelectasis. 23. FULL CODE. RECOMMENDATIONS AND DISCUSSION: In this 35-year-old gentleman who presented with multiple complex medical issues, we will monitor the patient closely, continue the current medications, continue with symptomatic treatment. Otherwise, monitor calcium closely. Ascites was noted. Otherwise, I would also recommend repeat chest x-ray in the morning and continue to monitor. Guarded prognosis. Further recommendations to follow. See orders for further details.
[2016-10-24] MEDS: VANCOMYCIN 1,500 MG in SODIUM CHLORIDE 0.9% 250 ML IVPB SCH ×3 (16:39→23:43)
[2016-10-24] MEDS: THIAMINE 100 MG TAB PO SCH (16:51)
--- NOTE | 2016-10-24 17:06 | US ---
EXAMINATION TYPE: US paracentesis abd w/image DATE OF EXAM: 10/24/2016 4:35 PM COMPARISON: NONE HISTORY: Ascites. PROCEDURE: Maximal barrier technique was utilized. The skin overlying a suitable pocket of fluid was localized with ultrasound and the overlying skin was prepped and draped. Ultrasound was utilized with sterile technique. Lidocaine was used for local anesthesia and a skin anastacio made with a scalpel. Catheter was advanced under direct ultrasound guidance into a suitable pocket of fluid and approximately 2.3 liter s of dark miguel fluid were removed. Catheter was withdrawn and hemostasis achieved. There is no imm ediate complication; the patient is discharged in stable condition. IMPRESSION: STATUS POST ULTRASOUND GUIDED PARACENTESIS FOR PALLIATION OF ASCITES. THIS PROCEDURE WA S PERFORMED BY THE UNDERSIGNED. Specimen sent for laboratory analysis.
[2016-10-24 20:07] LABS: RBC, Body Fluid 3300 /uL
[2016-10-24] MEDS: ONDANSETRON 4 MG/2 ML VIAL IVP PRN (22:03)
[2016-10-25] MEDS: HYDROcodone/APAP 5-325MG 1 EACH TAB PO PRN ×7 (01:00→23:20)
[2016-10-25] MEDS: ONDANSETRON 4 MG/2 ML VIAL IVP PRN ×3 (04:13→20:20)
[2016-10-25] MEDS: VANCOMYCIN 1,500 MG in SODIUM CHLORIDE 0.9% 250 ML IVPB SCH ×3 (07:47→23:20)
[2016-10-25] MEDS: HEPARIN SODIUM,PORCINE 5,000 UNIT/ML 1 ML VIAL SQ SCH ×2 (07:49→21:01)
[2016-10-25] MEDS: CALCIUM CARBONATE 500 MG CHEWABLE PO SCH ×3 (07:49→18:30)
[2016-10-25] MEDS: BACITRACIN 500 UNIT/GM OINT 28.4 GM TUBE TOPICAL SCH ×2 (07:49→21:00)
[2016-10-25] MEDS: NICOTINE 14MG/24HR PATCH TRANSDERM SCH (07:49)
[2016-10-25] MEDS: CITALOPRAM HYDROBROMIDE 20 MG TAB PO SCH (07:50)
[2016-10-25] MEDS: ATENOLOL 25 MG TAB PO SCH ×2 (07:50→21:00)
[2016-10-25] MEDS: PANTOPRAZOLE 40 MG TABLET PO SCH ×2 (07:50→21:01)
--- NOTE | 2016-10-25 08:04 | XR ---
EXAMINATION TYPE: XR chest 1V portable DATE OF EXAM: 10/25/2016 7:37 AM CLINICAL HISTORY: Difficulty breathing and CHF progress study. Right-sided pain. Paracentesis yester day. History of COPD. TECHNIQUE: Single AP portable upright view of the chest is obtained. COMPARISON: Chest x-ray from 2 days earlier. FINDINGS: There is persistent low lung volumes with small bilateral pleural effusions and right basi lar atelectasis and/or infiltrate all redemonstrated. Cardiac silhouette size is stable and upper hopkins its of normal. Upper lungs are clear without pneumothorax. Osseous structures are intact. IMPRESSION: Overall stable findings, low lung volumes with small bilateral pleural effusions and pa tchy right basilar atelectasis and/or infiltrate all redemonstrated.
[2016-10-25] MEDS: LEVOFLOXACIN 750MG-D5W PMX 750 MG in DEXTROSE/WATER 1 150ML.BAG IVPB SCH (10:45)
[2016-10-25] MEDS: THIAMINE 100 MG TAB PO SCH ×2 (11:17→18:30)
--- NOTE | 2016-10-25 11:51 | P.PN ---
Subjective Patient seen in follow-up for acute kidney injury and electrolyte imbalance. Patient presented with acute pancreatitis and rhabdomyolysis. His renal injury has resolved and GFR is at baseline. He was extremely hypocalcemic which is now significantly improved. He is maintained on oral calcium supplementation. Appetite is gradually improving still has abdominal discomfort. No vomiting or diarrhea. He did undergo paracentesis for 2.3 L drained on October 24. Vital signs are stable. General: The patient appeared well nourished and normally developed. HEENT: Head exam is unremarkable. Neck is without jugular venous distension. LUNGS: Lungs are clear to auscultation and percussion. Breath sounds decreased. HEART: Rate and Rhythm are regular. First and second heart sounds normal. No murmurs, rubs or gallops. ABDOMEN: Abdominal exam reveals normal bowel sounds. Mildly tender to palpation. EXTREMITITES: Trace edema. Objective - Vital Signs Vital signs: Vital Signs Temp 97.9 F 10/25/16 07:39 Pulse 110 H 10/25/16 07:39 Resp 22 10/25/16 07:39 BP 139/89 10/25/16 07:39 Pulse Ox 97 10/25/16 07:39 Intake & Output 10/24/16 10/25/16 10/25/16 18:59 06:59 18:59 Intake Total 1640 Balance 1640 Weight 91.2 kg Intake: IV 560 Sodium Chloride 0.9% 560 Oral 1080 Other: Voiding Method Toilet # Voids 1 - Labs CBC & Chem 7: 10/24/16 05:04 10/24/16 05:04 Labs: Abnormal Lab Results - Last 24 Hours (Table) 10/24/16 Range/Units 05:04 BUN 6 L (9-20) mg/dL Creatinine 0.64 L (0.66-1.25) mg/dL Glucose 102 H (74-99) mg/dL Calcium 8.0 L (8.4-10.2) mg/dL AST 70 H (17-59) U/L Total Protein 4.6 L (6.3-8.2) g/dL Albumin 2.3 L (3.5-5.0) g/dL Microbiology - Last 24 Hours (Table) 10/24/16 12:35 Gram Stain - Preliminary Paracentesis Fluid Body Fluid Culture - Preliminary 10/23/16 14:00 Urine Culture - Final Urine,Clean Catch 10/23/16 12:56 Blood Culture - Preliminary Blood No Growth after 24 hours 10/23/16 13:05 Blood Culture - Preliminary Blood No Growth after 24 hours Assessment and Plan Plan: Assessment: #1. Nonoliguric acute kidney injury secondary to ATN related to pancreatitis. Resolved. #2. Rhabdomyolysis. Resolved. #3. Severe hypocalcemia related to acute pancreatitis. Improved with aggressive supplementation. Calcium corrected for albumin is now in normal range. #4. Acute pancreatitis. Improved. Plan: Continue Tums 500 mg 3 times daily. Encourage oral intake. Avoid nephrotoxic agents and hypotensive episodes. Repeat electrolytes in the morning.
[2016-10-25] MEDS: HYDROmorphone 1 MG/ML 1 ML SYRINGE IVP PRN ×3 (13:18→21:01)
[2016-10-25 13:37] LABS: Basophils # (A) 0.1 k/uL (0-0.2); Basophils % (A) 0 %; CHCM 32.6; Eosinophils # (A) 0.1 k/uL (0-0.7); Eosinophils % (A) 1 %; HCT 38.6 % (39.0-53.0); HDW 2.78; HGB 12.1 gm/dL (13.0-17.5); Luc # (Auto) 0.25; Luc % (Auto) 1; Lymphocytes # (A) 0.4 k/uL (1.0-4.8); Lymphocytes % (A) 2 %; MCH 29.1 pg (25.0-35.0); MCHC 31.5 g/dL (31.0-37.0); MCV 92.6 fL (80.0-100.0); Mean Platelet Volume 9.1; Monocytes % (A) 5 %; Neutrophils # (A) 17.1 k/uL (1.3-7.7); Neutrophils % (A) 90 %; RBC 4.16 m/uL (4.30-5.90); RDW 13.9 % (11.5-15.5); WBC (Perox) 20.18
--- NOTE | 2016-10-25 14:05 | CT ---
EXAMINATION TYPE: CT abdomen pelvis wo con DATE OF EXAM: 10/25/2016 1:40 PM COMPARISON: CT abdomen and pelvis 4 days earlier HISTORY: Patient just had paracentesis yesterday and today is having a lot of pain CT DLP: 538.6 mGycm Automated exposure control for dose reduction was used. TECHNIQUE: Helical acquisition of images was performed from the lung bases through the pelvis. FINDINGS: LUNG BASES: There are persistent small to moderate-sized bilateral pleural effusions partially imaged with associated compressive atelectasis. LIVER/GB: Dependent density in gallbladder could reflect vicarious excretion of contrast versus gallb ladder sludge. PANCREAS: There is heterogeneous ill-defined fluid surrounding pancreas appears mildly prominent in d istal body and tail. No significant change from prior study is seen. SPLEEN: No significant abnormality is seen. ADRENALS: No significant abnormality is seen. KIDNEYS: No significant abnormality is seen. ADENOPATHY: None visualized REPRODUCTIVE ORGANS: No significant abnormality is seen URINARY BLADDER: No significant abnormality is seen. PELVIC ADENOPATHY: None visualized. OSSEOUS STRUCTURES: No significant abnormality is seen. BOWEL: Evaluation bowel is suboptimal due to lack of enteric contrast. New ingested pill is seen dep endently in the stomach on axial image 18. No suspicious small or large bowel dilatation is seen. The re is abnormal wall thickening throughout entirely visualized colon consistent with long segment coli tis. Some mild to moderate wall thickening of small bowel loops centrally in the abdomen is also felt present. Long segment enterocolitis is suspected. Other: There is worsening mild to moderate diffuse soft tissue anasarca. There is persistent small to moderate amount of abdominal and pelvic ascites that remains present slightly improved from prior af ter paracentesis. IMPRESSION: 1. Small to moderate amount of abdominal and pelvic ascites slightly improved after interval paracent esis. Stable small to moderate-sized bilateral pleural effusions. Slightly worsening mild diffuse sof t tissue anasarca. Findings may be product of acute pancreatitis, clinical and lab correlation advise d. There is suspicion for diffuse enterocolitis similar to the prior exam. No free air or new suspici ous finding is seen to account for patient's symptoms.
--- NOTE | 2016-10-25 14:40 | P.PN ---
Subjective Principal diagnosis: acute severe pancreatits Objective - Vital Signs Vital signs: Vital Signs Temp 97.9 F 10/25/16 07:39 Pulse 110 H 10/25/16 07:39 Resp 18 10/25/16 08:00 BP 139/89 10/25/16 07:39 Pulse Ox 97 10/25/16 07:39 Intake & Output 10/24/16 10/25/16 10/25/16 18:59 06:59 18:59 Intake Total 1640 Balance 1640 Weight 91.2 kg Intake: IV 560 Sodium Chloride 0.9% 560 Oral 1080 Other: Voiding Method Toilet # Voids 1 - Constitutional General appearance: Present: average body habitus - Gastrointestinal Gastrointestinal Comment(s): Wound is moderately distended and diffusely tender but without any guarding or rebound. - Labs CBC & Chem 7: 10/25/16 13:10 10/24/16 05:04 Labs: Abnormal Lab Results - Last 24 Hours (Table) 10/25/16 Range/Units 13:10 WBC 19.0 H (3.8-10.6) k/uL RBC 4.16 L (4.30-5.90) m/uL Hgb 12.1 L (13.0-17.5) gm/dL Hct 38.6 L (39.0-53.0) % Neutrophils # 17.1 H (1.3-7.7) k/uL Lymphocytes # 0.4 L (1.0-4.8) k/uL Microbiology - Last 24 Hours (Table) 10/24/16 12:35 Gram Stain - Preliminary Paracentesis Fluid Body Fluid Culture - Preliminary 10/23/16 14:00 Urine Culture - Final Urine,Clean Catch 10/23/16 12:56 Blood Culture - Preliminary Blood No Growth after 24 hours 10/23/16 13:05 Blood Culture - Preliminary Blood No Growth after 24 hours Assessment and Plan Plan: The patient is fair for acute pancreatitis which is not resolving. His white count is trending downwards. Other labs are still pending. Computed tomography scan from this morning was reviewed and does not show any development of an abscess. She still has significant amount of intra-abdominal fluid and ascites which has improved since last paracentesis. Have recommended placement of a PICC line and starting TPN and since the patient is not tolerating any oral diet at this time. Further recommendations are to followher surgical intervention is planned at this time
[2016-10-25 15:20] LABS: Ionized Calcium 4.7 mg/dL (4.5-5.3)
[2016-10-25 15:34] LABS: ALT 50 U/L (21-72); AST 67 U/L (17-59); Alkaline Phosphatase 110 U/L (38-126); Amylase 56 U/L (30-110); Anion Gap 9 mmol/L; Blood Urea Nitrogen 5 mg/dL (9-20); Calcium 7.4 mg/dL (8.4-10.2); Carbon Dioxide 31 mmol/L (22-30); Chloride 100 mmol/L (98-107); Glucose 112 mg/dL (74-99); Non-African American GFR(MDRD) >60 (>60 ml/min/1.73 sqM); Potassium 3.7 mmol/L (3.5-5.1); Sodium 140 mmol/L (137-145); Total Bilirubin 0.7 mg/dL (0.2-1.3); Total Protein 4.5 g/dL (6.3-8.2); Triglycerides 103 mg/dL (<150)
[2016-10-25 15:56] LABS: Magnesium 1.8 mg/dL (1.6-2.3); Phosphorous 4.1 mg/dL (2.5-4.5)
[2016-10-25] MEDS ORDERED: MVI, ADULT NO.4 WITH VIT K 10 ML, TRACE (CONC-1ML/DOSE) 1 ML in AMINO ACID 4.25%-D10W+L... IV ONE ×3 (16:30)
[2016-10-26] MEDS: HYDROmorphone 1 MG/ML 1 ML SYRINGE IVP PRN ×5 (01:21→20:01)
[2016-10-26] MEDS: HYDROcodone/APAP 5-325MG 1 EACH TAB PO PRN ×6 (02:36→21:32)
[2016-10-26] MEDS: ONDANSETRON 4 MG/2 ML VIAL IVP PRN ×3 (02:36→15:30)
[2016-10-26 06:31] LABS: Glucose,Whole Blood 111 mg/dL (75-99)
[2016-10-26] MEDS: INSULIN LISPRO (humaLOG) 300 UNIT/3 ML VIAL SQ SCH ×3 (06:48→17:59)
[2016-10-26] MEDS ORDERED: VANCOMYCIN TROUGH DUE 1 EACH MISC MISCELLANE ONE (07:00)
[2016-10-26] MEDS: VANCOMYCIN 1,500 MG in SODIUM CHLORIDE 0.9% 250 ML IVPB SCH (08:56)
[2016-10-26] MEDS: PANTOPRAZOLE 40 MG TABLET PO SCH ×2 (09:03→21:36)
[2016-10-26] MEDS: BACITRACIN 500 UNIT/GM OINT 28.4 GM TUBE TOPICAL SCH ×2 (09:03→20:10)
[2016-10-26] MEDS: CITALOPRAM HYDROBROMIDE 20 MG TAB PO SCH (09:03)
[2016-10-26] MEDS: NICOTINE 14MG/24HR PATCH TRANSDERM SCH (09:03)
[2016-10-26] MEDS: HEPARIN SODIUM,PORCINE 5,000 UNIT/ML 1 ML VIAL SQ SCH ×2 (09:03→20:10)
[2016-10-26] MEDS: CALCIUM CARBONATE 500 MG CHEWABLE PO SCH ×3 (09:03→17:24)
[2016-10-26] MEDS: ATENOLOL 25 MG TAB PO SCH ×2 (09:04→20:10)
[2016-10-26 09:28] LABS: Ionized Calcium 4.4 mg/dL (4.5-5.3)
[2016-10-26 09:50] LABS: Amylase 51 U/L (30-110); Anion Gap 10 mmol/L; Calcium 7.4 mg/dL (8.4-10.2); Carbon Dioxide 29 mmol/L (22-30); Chloride 100 mmol/L (98-107); Glucose 138 mg/dL (74-99); Non-African American GFR(MDRD) >60 (>60 ml/min/1.73 sqM); Sodium 139 mmol/L (137-145)
[2016-10-26 10:06] LABS: Blood Urea Nitrogen 6 mg/dL (9-20); Potassium 4.7 mmol/L (3.5-5.1)
[2016-10-26 10:07] LABS: Magnesium 1.7 mg/dL (1.6-2.3); Total Protein 4.6 g/dL (6.3-8.2)
[2016-10-26 10:08] LABS: Phosphorous 4.2 mg/dL (2.5-4.5); Total Bilirubin 0.9 mg/dL (0.2-1.3)
[2016-10-26 10:09] LABS: ALT 41 U/L (21-72); AST 71 U/L (17-59); Alkaline Phosphatase 108 U/L (38-126)
--- NOTE | 2016-10-26 11:18 | P.PN ---
Subjective Patient seen in follow-up for acute kidney injury and electrolyte imbalance. Patient presented with acute pancreatitis and rhabdomyolysis. His renal injury has resolved and GFR is at baseline. He was extremely hypocalcemic which is now significantly improved. He is maintained on oral calcium supplementation. Appetite remains poor and he was started on TPN on October 25. No vomiting or diarrhea. He did undergo paracentesis for 2.3 L drained on October 24. Vital signs are stable. General: The patient appeared well nourished and normally developed. HEENT: Head exam is unremarkable. Neck is without jugular venous distension. LUNGS: Lungs are clear to auscultation and percussion. Breath sounds decreased. HEART: Rate and Rhythm are regular. First and second heart sounds normal. No murmurs, rubs or gallops. ABDOMEN: Abdominal exam reveals normal bowel sounds. Mildly tender to palpation. EXTREMITITES: 1+ edema. Objective - Vital Signs Vital signs: Vital Signs Temp 96.9 F L 10/25/16 23:00 Pulse 99 10/26/16 07:37 Resp 16 10/26/16 08:00 BP 155/96 10/26/16 07:37 Pulse Ox 99 10/26/16 09:03 Intake & Output 10/25/16 10/26/16 10/26/16 18:59 06:59 18:59 Weight 91.2 kg 84 kg Other: # Voids 1 - Labs CBC & Chem 7: 10/25/16 13:10 10/26/16 08:35 Labs: Abnormal Lab Results - Last 24 Hours (Table) 10/25/16 10/25/16 10/25/16 Range/Units 13:10 14:50 14:50 WBC 19.0 H (3.8-10.6) k/uL RBC 4.16 L (4.30-5.90) m/uL Hgb 12.1 L (13.0-17.5) gm/dL Hct 38.6 L (39.0-53.0) % Neutrophils # 17.1 H (1.3-7.7) k/uL Lymphocytes # 0.4 L (1.0-4.8) k/uL Carbon Dioxide 31 H (22-30) mmol/L BUN 5 L (9-20) mg/dL Creatinine 0.51 L (0.66-1.25) mg/dL Glucose 112 H (74-99) mg/dL POC Glucose (mg/dL) (75-99) mg/dL Calcium 7.4 L (8.4-10.2) mg/dL Ionized Calcium Dion (4.5-5.3) mg/dL AST 67 H (17-59) U/L Total Protein 4.5 L (6.3-8.2) g/dL Albumin 2.1 L (3.5-5.0) g/dL Prealbumin 4 L (18-36) mg/dL Lipase 506 H (23-300) U/L 10/26/16 10/26/16 Range/Units 06:27 08:35 WBC (3.8-10.6) k/uL RBC (4.30-5.90) m/uL Hgb (13.0-17.5) gm/dL Hct (39.0-53.0) % Neutrophils # (1.3-7.7) k/uL Lymphocytes # (1.0-4.8) k/uL Carbon Dioxide (22-30) mmol/L BUN 6 L (9-20) mg/dL Creatinine 0.47 L (0.66-1.25) mg/dL Glucose 138 H (74-99) mg/dL POC Glucose (mg/dL) 111 H (75-99) mg/dL Calcium 7.4 L (8.4-10.2) mg/dL Ionized Calcium Dion 4.4 L (4.5-5.3) mg/dL AST 71 H (17-59) U/L Total Protein 4.6 L (6.3-8.2) g/dL Albumin 2.1 L (3.5-5.0) g/dL Prealbumin (18-36) mg/dL Lipase 503 H (23-300) U/L Microbiology - Last 24 Hours (Table) 10/24/16 12:35 Gram Stain - Preliminary Paracentesis Fluid Body Fluid Culture - Preliminary 10/23/16 12:56 Blood Culture - Preliminary Blood No Growth after 48 hours 10/23/16 13:05 Blood Culture - Preliminary Blood No Growth after 48 hours Assessment and Plan Plan: Assessment: #1. Nonoliguric acute kidney injury secondary to ATN related to pancreatitis. Resolved. #2. Rhabdomyolysis. Resolved. #3. Severe hypocalcemia related to acute pancreatitis. Improved with aggressive supplementation. Calcium corrected for albumin is now in normal range. #4. Acute pancreatitis. Improved. Plan: Continue Tums 500 mg 3 times daily. Encourage oral intake as tolerated. Avoid nephrotoxic agents and hypotensive episodes. Repeat electrolytes in the morning. Scheduled for another paracentesis tomorrow. Surgery following.
[2016-10-26] MEDS: LEVOFLOXACIN 750MG-D5W PMX 750 MG in DEXTROSE/WATER 1 150ML.BAG IVPB SCH (11:24)
--- NOTE | 2016-10-26 11:50 | P.PN ---
Subjective Principal diagnosis: acute severe pancreatits Patient is doing okay with some nausea vomiting tolerating ice chips and water. PICC line has not been placed. He is scheduled for a paracentesis for tomorrow morning. Pain persists but is not improving. Continues to have significant amount of anasarca. Objective - Vital Signs Vital signs: Vital Signs Temp 96.9 F L 10/25/16 23:00 Pulse 99 10/26/16 07:37 Resp 16 10/26/16 08:00 BP 155/96 10/26/16 07:37 Pulse Ox 99 10/26/16 09:03 Intake & Output 10/25/16 10/26/16 10/26/16 18:59 06:59 18:59 Weight 91.2 kg 84 kg Other: # Voids 1 - Gastrointestinal Gastrointestinal Comment(s): Abdomen remains distended and firm - Labs CBC & Chem 7: 10/25/16 13:10 10/26/16 08:35 Labs: Abnormal Lab Results - Last 24 Hours (Table) 10/25/16 10/25/16 10/25/16 Range/Units 13:10 14:50 14:50 WBC 19.0 H (3.8-10.6) k/uL RBC 4.16 L (4.30-5.90) m/uL Hgb 12.1 L (13.0-17.5) gm/dL Hct 38.6 L (39.0-53.0) % Neutrophils # 17.1 H (1.3-7.7) k/uL Lymphocytes # 0.4 L (1.0-4.8) k/uL Carbon Dioxide 31 H (22-30) mmol/L BUN 5 L (9-20) mg/dL Creatinine 0.51 L (0.66-1.25) mg/dL Glucose 112 H (74-99) mg/dL POC Glucose (mg/dL) (75-99) mg/dL Calcium 7.4 L (8.4-10.2) mg/dL Ionized Calcium Dion (4.5-5.3) mg/dL AST 67 H (17-59) U/L Total Protein 4.5 L (6.3-8.2) g/dL Albumin 2.1 L (3.5-5.0) g/dL Prealbumin 4 L (18-36) mg/dL Lipase 506 H (23-300) U/L 10/26/16 10/26/16 Range/Units 06:27 08:35 WBC (3.8-10.6) k/uL RBC (4.30-5.90) m/uL Hgb (13.0-17.5) gm/dL Hct (39.0-53.0) % Neutrophils # (1.3-7.7) k/uL Lymphocytes # (1.0-4.8) k/uL Carbon Dioxide (22-30) mmol/L BUN 6 L (9-20) mg/dL Creatinine 0.47 L (0.66-1.25) mg/dL Glucose 138 H (74-99) mg/dL POC Glucose (mg/dL) 111 H (75-99) mg/dL Calcium 7.4 L (8.4-10.2) mg/dL Ionized Calcium Dion 4.4 L (4.5-5.3) mg/dL AST 71 H (17-59) U/L Total Protein 4.6 L (6.3-8.2) g/dL Albumin 2.1 L (3.5-5.0) g/dL Prealbumin (18-36) mg/dL Lipase 503 H (23-300) U/L Microbiology - Last 24 Hours (Table) 10/24/16 12:35 Gram Stain - Preliminary Paracentesis Fluid Body Fluid Culture - Preliminary 10/23/16 12:56 Blood Culture - Preliminary Blood No Growth after 48 hours 10/23/16 13:05 Blood Culture - Preliminary Blood No Growth after 48 hours Assessment and Plan Plan: The patient is fair for acute pancreatitis which is not resolving. Patient has been started on TPN. PICC line and paracentesis plan for tomorrow morning. CT shows no evidence of abscess or necrosis at this time. Continue current treatment no surgical intervention is planned.
[2016-10-26] MEDS ORDERED: CALCIUM GLUCONATE 1,000 MG in SODIUM CHLORIDE 0.9% 100 ML IVPB ONE (12:00)
[2016-10-26 12:20] LABS: Glucose,Whole Blood 103 mg/dL (75-99)
--- NOTE | 2016-10-26 12:25 | PN ---
DATE OF SERVICE: 11/04/2016 This 35 -year-old gentleman admitted with acute severe pancreatitis with possible sepsis, also had significant ascites, ascitic tap was done. Currently the fluid is leaking from the ascitic tap site. The patient complaining of severe left-sided diffuse abdominal pain also. WBC 9, hemoglobin is 12.1. Other labs are noted. Lipase is still elevated, 506. CAT scan of the abdomen was ordered on an urgent basis which showed small to moderate amount of abdominal pelvic ascites, slightly improved after the paracentesis and small to moderate sized bilateral pleural effusions and worsening mild diffuse soft tissue anasarca. Suspicion for diffuse enterocolitis also noted. PAST MEDICAL HISTORY: Reviewed. REVIEW OF SYSTEMS: CARDIOVASCULAR: As mentioned earlier. RESPIRATORY: As mentioned earlier. GASTROINTESTINAL: As mentioned earlier. : No dysuria. Nervous system: No numbness, weakness. TPN PICC line is recommend by Dr. Taylor. Nephrology is also following the patient closely. Current medications are: 1. [place] 5 mg q.4 p.r.n. 2. DuoNeb q.i.d. and p.r.n. 3. Tenormin 25 mg b.i.d. 4. Bacitracin. 5. Celexa. 6. Heparin. 7. Dilaudid. 8. Levaquin. 9. Ativan. 10. Narcan. 11. Habitrol. 12. Protonix. 13. Calcium. 14. Vitamin B1. 15. Vancomycin. PHYSICAL EXAMINATION: Patient is alert and oriented times three. Pulse 94. Blood pressure 140/92. Respiratory rate 20. Temperature 97.7. Pulse ox 97% on 2 L. HEENT: Conjunctivae normal. NECK: No jugular venous distention. CARDIOVASCULAR: S1, S2 muffled. RESPIRATORY: Breath sounds diminished at the bases. A few scattered rhonchi and crackles. ABDOMEN: Soft. Tense, diffuse, ascites present. Diffuse tenderness. No guarding. No rigidity. No mass palpable. Bowel sounds diminished. Legs: No edema, no swelling. Nervous system: Diffusely weak. Labs: WBC 19, hemoglobin is 12.1. Otherwise, total protein 4.5, albumin is 2.1. Lipase is 506. ASSESSMENT: 1. Acute severe pancreatitis with possible sepsis, present on admission on empiric antibiotics. 2. Increased WBC, possible sepsis as well as acute pancreatitis. 3. Acute acidosis. 4. Acute severe metabolic acidosis, possibly secondary to sepsis and pancreatitis. 5. Acute renal failure, possibly secondary to acute tubular necrosis with acute severe rhabdomyolysis. 6. Severe hypocalcemia possibly secondary to acute pancreatitis. 7. Ascites secondary to acute pancreatitis. 8. Vomiting and dehydration possible acute gastritis secondary to alcoholic intoxication, present on admission. 9. Poor nutrition with mild to moderate protein calorie malnutrition. 10. Increased hemoglobin present on admission secondary to dehydration. 11. Hyponatremia. 12. Hyperkalemia. 13. Hyperchloremia. 14. Ascites and bilateral pleural effusion on the CAT scan secondary to pancreatitis. 15. Increased total bilirubin. 16. Increased AST, ALT, possibly secondary to alcoholic hepatitis and ETOH. 17. PPN. 18. History of nicotine dependence. 19. Increased amylase and lipase. 20. Urinary tract infection. 21. History of Crohn's colitis. 22. Positive cocaine on admission. 23. Bibasilar atelectasis. 24. FULL CODE. RECOMMENDATIONS AND DISCUSSION: In this 35-year-old gentleman who presented with multiple complex medical issues, we will monitor the patient closely. Continue the current medications. Continue symptomatic treatment. Otherwise, there is no evidence of pancreatic abscess in the new CAT scan. However, we will continue to monitor. Dr. Taylor's notes appreciated. Prognosis extremely guarded because of multiple complex medical issues as described earlier. Further recommendations to follow. See orders for further details. I would also recommend repeat cultures as well. Interventional radiology to evaluate the patient for possible repeat aspiration also. Closely follow with gastroenterology and multiple other consultants. Further recommendations to follow. Discussed with family.
[2016-10-26 12:48] LABS: Basophils # (A) 0.1 k/uL (0-0.2); Basophils % (A) 0 %; CH 29.6; CHCM 31.1; Eosinophils # (A) 0.2 k/uL (0-0.7); Eosinophils % (A) 1 %; HCT 37.2 % (39.0-53.0); HDW 2.79; HGB 11.7 gm/dL (13.0-17.5); Hypochromasia Slight; Luc # (Auto) 0.26; Luc % (Auto) 1; Lymphocytes # (A) 1.2 k/uL (1.0-4.8); Lymphocytes % (A) 6 %; MCH 30.1 pg (25.0-35.0); MCHC 31.6 g/dL (31.0-37.0); MCV 95.5 fL (80.0-100.0); Mean Platelet Volume 10.9; Monocytes # (A) 1.2 k/uL (0-1.0); Monocytes % (A) 7 %; Neutrophils # (A) 16.2 k/uL (1.3-7.7); Neutrophils % (A) 85 %; RDW 13.9 % (11.5-15.5); WBC 19.1 k/uL (3.8-10.6); WBC (Perox) 20.22
[2016-10-26] MEDS: THIAMINE 100 MG TAB PO SCH ×2 (13:08→17:24)
[2016-10-26] MEDS: 1: MVI, ADULT NO.4 WITH VIT K 10 ML, TRACE (CONC-1ML/DOSE) 1 ML in AMINO ACID 4.25%-D10W IV SCH ×6 (13:10→13:21)
[2016-10-26] MEDS: VANCOMYCIN 1,750 MG in SODIUM CHLORIDE 0.9% 250 ML IVPB SCH (15:45)
[2016-10-26 17:12] LABS: Glucose,Whole Blood 120 mg/dL (75-99)
[2016-10-27] MEDS: HYDROmorphone 1 MG/ML 1 ML SYRINGE IVP PRN ×6 (00:05→20:43)
[2016-10-27] MEDS: 1: MVI, ADULT NO.4 WITH VIT K 10 ML, TRACE (CONC-1ML/DOSE) 1 ML in AMINO ACID 4.25%-D10W IV SCH ×6 (00:09→12:16)
[2016-10-27 00:17] LABS: Glucose,Whole Blood 112 mg/dL (75-99)
[2016-10-27] MEDS: VANCOMYCIN 1,750 MG in SODIUM CHLORIDE 0.9% 250 ML IVPB SCH ×2 (00:20→08:27)
[2016-10-27] MEDS: INSULIN LISPRO (humaLOG) 300 UNIT/3 ML VIAL SQ SCH ×3 (00:22→12:14)
[2016-10-27] MEDS: HYDROcodone/APAP 5-325MG 1 EACH TAB PO PRN ×6 (02:17→23:05)
[2016-10-27 05:58] LABS: Glucose,Whole Blood 125 mg/dL (75-99)
[2016-10-27] MEDS: CALCIUM CARBONATE 500 MG CHEWABLE PO SCH ×3 (08:27→16:20)
[2016-10-27] MEDS: NICOTINE 14MG/24HR PATCH TRANSDERM SCH (08:27)
[2016-10-27] MEDS: PANTOPRAZOLE 40 MG TABLET PO SCH ×2 (08:27→21:16)
[2016-10-27] MEDS: BACITRACIN 500 UNIT/GM OINT 28.4 GM TUBE TOPICAL SCH ×2 (08:27→21:16)
[2016-10-27] MEDS: CITALOPRAM HYDROBROMIDE 20 MG TAB PO SCH (08:27)
[2016-10-27] MEDS: ATENOLOL 25 MG TAB PO SCH ×2 (08:27→21:16)
[2016-10-27] MEDS: HEPARIN SODIUM,PORCINE 5,000 UNIT/ML 1 ML VIAL SQ SCH ×2 (08:32→21:16)
[2016-10-27 09:08] LABS: Basophils % (A) 0 %; CH 29.3; CHCM 30.4; Eosinophils # (A) 0.1 k/uL (0-0.7); Eosinophils % (A) 1 %; HCT 33.8 % (39.0-53.0); HDW 2.72; HGB 10.6 gm/dL (13.0-17.5); Hypochromasia Moderate; Luc # (Auto) 0.31; Luc % (Auto) 2; Lymphocytes # (A) 0.5 k/uL (1.0-4.8); Lymphocytes % (A) 4 %; MCH 30.4 pg (25.0-35.0); MCHC 31.3 g/dL (31.0-37.0); MCV 96.9 fL (80.0-100.0); Monocytes # (A) 0.8 k/uL (0-1.0); Monocytes % (A) 6 %; Neutrophils # (A) 11.5 k/uL (1.3-7.7); Neutrophils % (A) 87 %; RBC 3.49 m/uL (4.30-5.90); WBC 13.3 k/uL (3.8-10.6); WBC (Perox) 14.19
[2016-10-27 09:29] LABS: INR 1.1 (<1.1); Prothrombin Time 11.4 sec (9.0-12.0)
[2016-10-27 09:30] LABS: ALT 41 U/L (21-72); AST 56 U/L (17-59); Alkaline Phosphatase 113 U/L (38-126); Amylase 51 U/L (30-110); Anion Gap 11 mmol/L; Blood Urea Nitrogen 6 mg/dL (9-20); Calcium 7.3 mg/dL (8.4-10.2); Carbon Dioxide 28 mmol/L (22-30); Chloride 101 mmol/L (98-107); Glucose 127 mg/dL (74-99); Non-African American GFR(MDRD) >60 (>60 ml/min/1.73 sqM); Phosphorous 4.4 mg/dL (2.5-4.5); Potassium 3.5 mmol/L (3.5-5.1); Sodium 140 mmol/L (137-145); Total Bilirubin 0.5 mg/dL (0.2-1.3); Total Protein 4.3 g/dL (6.3-8.2)
[2016-10-27 09:47] LABS: Magnesium 1.7 mg/dL (1.6-2.3)
[2016-10-27 09:49] LABS: Ionized Calcium 4.5 mg/dL (4.5-5.3)
[2016-10-27] MEDS: LEVOFLOXACIN 750MG-D5W PMX 750 MG in DEXTROSE/WATER 1 150ML.BAG IVPB SCH (10:11)
--- NOTE | 2016-10-27 10:37 | PN ---
DATE OF SERVICE: 10/26/2016 This 35-year-old gentleman who was admitted with severe pancreatitis with possible sepsis is still having significant tense ascites at this admission, abdominal pain and inability to eat much at this time. He is being closely monitored. PAST MEDICAL HISTORY: Reviewed. REVIEW OF SYSTEMS: CARDIOVASCULAR: No angina. GI: As mentioned. : As mentioned. Current medications are reviewed and include: 1. [place] 5 mg 2 tabs every 6 hours q.i.d. p.r.n. 3. Tenormin 25 mg b.i.d. 4. Bacitracin. 5. TUMS. 6. Celexa. 7. Heparin subcu b.i.d. 8. Dilaudid. 9. Humalog. 10. Levaquin. 11. Ativan. 12. Albuterol. 13. Zofran. 14. Protonix. 15. Vancomycin. At this time the patient is alert and oriented x3, pulse 89, blood pressure 145/90, respirations 20, temperature 97.4, pulse ox 100% on 2 liters. HEENT: Conjunctivae normal. Oral mucosa moist. NECK: No JVD. No lymph node enlargement. CARDIOVASCULAR: S1 and S2 muffled. LUNGS: Breath sounds diminished at the bases. Few scattered rhonchi and crackles. ABDOMEN: Soft, tense, ascites present. Otherwise leaking fluid also present. LYMPHATICS: No lymph node enlargement. LEGS: No edema. NERVOUS SYSTEM: Diffusely weak. LABS: WBC 19, hemoglobin 11.7, 8.3, lipase 503. ASSESSMENT: 1. Acute severe pancreatitis with possible sepsis, present on admission, on empiric antibiotics. 2. Increased WBC, possibly sepsis secondary to acute pancreatitis. 3. Acute metabolic acidosis, severe, possibly secondary to sepsis and pancreatitis. 4. Acute renal failure, possibly secondary to tubular necrosis with acute severe rhabdomyolysis. 5. Severe hypocalcemia, possibly secondary to acute pancreatitis. 6. Ascites secondary to acute pancreatitis. 7. Vomiting and dehydration, possible gastritis secondary to alcoholic intoxication, present on admission. 8. Poor nutrition with mild to moderate protein calorie malnutrition. 9. Increased hemoglobin, present on admission, secondary to dehydration. 10. Hyponatremia. 11. Hyperkalemia. 12. Hyperchloremia. 13. Ascites with bilateral pleural effusion on the CT scan, secondary to pancreatitis. 14. Increased total bilirubin. 15. Increased AST, ALT, possibly secondary to alcoholic hepatitis and EtOH. 16. TPN. 17. History of nicotine dependence. 18. Increased amylase and lipase. 19. Urinary tract infection. 20. History of Crohn's colitis. 21. Positive cocaine on admission. 22. History of bibasilar atelectasis. 23. FULL CODE. RECOMMENDATIONS AND DISCUSSION: This 35-year-old gentleman who presented with multiple complex medical issues, we will monitor the patient closely. Continue the current medications and symptomatic treatment. Otherwise at this time interventional radiology for ascitic tap tomorrow. Monitor electrolytes closely. TPN. Proton pump inhibitors. Guarded prognosis because of multiple complex medical issues. Further recommendations to follow. MTDD
--- NOTE | 2016-10-27 11:27 | P.PN ---
Subjective 35-year-old male being seen on rounds this morning at bedside. Patients being followed by surgical service for surgical recommendations for symptomatic acute pancreatitis. Patient is status post paracentesis done on Thursday with 2.3 L obtained. Patient does have a drain in place right lower quadrant dark miguel drainage noted in the drainage bag lipase this morning is 552 patient continues to report having abdominal discomfort with a nausea sensation and inability to eat poor oral intake. Patient is to be receiving nutritional support per PPN Objective - Vital Signs Vital signs: Vital Signs Temp 97.8 F 10/27/16 11:02 Pulse 106 H 10/27/16 11:02 Resp 20 10/27/16 11:02 BP 140/85 10/27/16 11:02 Pulse Ox 91 L 10/27/16 11:02 Intake & Output 10/26/16 10/27/16 10/27/16 18:59 06:59 18:59 Intake Total 1346 1131 Output Total 2350 5450 1150 Balance -2350 -4104 -19 Weight 80 kg Intake: IV 100 Sodium Chloride 0.9% 100 Intake, IV Titration 1246 Amount Amino Acid 4.25%-D10w+ 996 Lytes*E* 1,000 ml @ 83 mls/hr IV .BY DURATION ROBYN Rx#:[id number] Vancomycin 1,750 mg In 250 Sodium Chloride 0.9% 250 ml @ 125 mls/hr IVPB Q8HR ROBYN Rx#:[id number] Oral 1131 Output: Urine 2350 5200 1150 Emesis 250 Other: Voiding Method Toilet # Voids 3 # Bowel Movements 0 # Emeses 1 - Exam Physical exam 35-year-old male resting in bed continues to report having abdominal discomfort with inability to take oral fluid poor caloric intake Lungs essentially clear with adequate air movement on room air sats greater than 95% no cough noted no conversational dyspnea noted Heart S1-S2 audible regular denying chest pain Abdomen slightly distended persist slightly more firm with diffuse tenderness across the abdominal wall. Generalized anasarca decrease scrotal edema. Drain in place right lower quadrant Extremities upper thighs edema noted no pedal edema noted - Labs CBC & Chem 7: 10/28/16 09:15 10/28/16 09:15 Labs: Abnormal Lab Results - Last 24 Hours (Table) 10/26/16 10/26/16 10/26/16 Range/Units 08:40 11:57 17:11 WBC 19.1 H (3.8-10.6) k/uL RBC 3.90 L (4.30-5.90) m/uL Hgb 11.7 L (13.0-17.5) gm/dL Hct 37.2 L (39.0-53.0) % Neutrophils # 16.2 H (1.3-7.7) k/uL Lymphocytes # (1.0-4.8) k/uL Monocytes # 1.2 H (0-1.0) k/uL BUN (9-20) mg/dL Creatinine (0.66-1.25) mg/dL Glucose (74-99) mg/dL POC Glucose (mg/dL) 103 H 120 H (75-99) mg/dL Calcium (8.4-10.2) mg/dL Total Protein (6.3-8.2) g/dL Albumin (3.5-5.0) g/dL Lipase (23-300) U/L 10/27/16 10/27/16 10/27/16 Range/Units 00:01 05:49 08:07 WBC 13.3 H (3.8-10.6) k/uL RBC 3.49 L (4.30-5.90) m/uL Hgb 10.6 L (13.0-17.5) gm/dL Hct 33.8 L (39.0-53.0) % Neutrophils # 11.5 H (1.3-7.7) k/uL Lymphocytes # 0.5 L (1.0-4.8) k/uL Monocytes # (0-1.0) k/uL BUN (9-20) mg/dL Creatinine (0.66-1.25) mg/dL Glucose (74-99) mg/dL POC Glucose (mg/dL) 112 H 125 H (75-99) mg/dL Calcium (8.4-10.2) mg/dL Total Protein (6.3-8.2) g/dL Albumin (3.5-5.0) g/dL Lipase (23-300) U/L 10/27/16 Range/Units 08:07 WBC (3.8-10.6) k/uL RBC (4.30-5.90) m/uL Hgb (13.0-17.5) gm/dL Hct (39.0-53.0) % Neutrophils # (1.3-7.7) k/uL Lymphocytes # (1.0-4.8) k/uL Monocytes # (0-1.0) k/uL BUN 6 L (9-20) mg/dL Creatinine 0.53 L (0.66-1.25) mg/dL Glucose 127 H (74-99) mg/dL POC Glucose (mg/dL) (75-99) mg/dL Calcium 7.3 L (8.4-10.2) mg/dL Total Protein 4.3 L (6.3-8.2) g/dL Albumin 1.9 L (3.5-5.0) g/dL Lipase 552 H (23-300) U/L Microbiology - Last 24 Hours (Table) 10/26/16 00:15 Blood Culture - Preliminary Blood No Growth after 24 hours 10/24/16 12:35 Gram Stain - Preliminary Paracentesis Fluid Body Fluid Culture - Preliminary 10/23/16 12:56 Blood Culture - Preliminary Blood No Growth after 72 hours 10/23/16 13:05 Blood Culture - Preliminary Blood No Growth after 72 hours 10/26/16 01:15 Urine Culture - Preliminary Urine,Voided Assessment and Plan Plan: Impression Present on admission nausea vomiting abdominal pain suspect due to acute pancreatitis due to significant alcohol abuse Chronic and ongoing alcoholism Urine drug screen positive for opiates, cocaine, and methamphetamines Present on admission acute hypocalcemia secondary to severe pancreatitis Electrolyte abnormality hypokalemia Present on admission Acute renal failure acute tubular necrosis secondary to rhabdomyolysis. Improving . Abdominal distention suspect ascites secondary to severe pancreatitis with component of anasarca. Status post paracentesis October 24 2.3 L obtained with right lower quadrant drain placed Mild to moderate protein calorie malnutrition suspect due to poor caloric intake Plan From a surgical perspective there is no evidence of an acute surgical abdomen at this time continue with IV fluid as ordered Repeat blood and urine culture now Increase activity Will follow with further surgical recommendations as indicated The above dictated assessment and findings were discussed with dr Lori Olivas. Impression and the plan of care have been dictated as directed. Zuly Clemente nurse practitioner acting as a scribe for dr White
--- NOTE | 2016-10-27 11:41 | US ---
EXAMINATION TYPE: US abdomen limited DATE OF EXAM: 10/27/2016 10:18 AM COMPARISON: US on PACS CLINICAL HISTORY: Pancreatitis, Alcohol dependance. Check for ascites. Previous Para. RUQ ABDOMINAL ULTRASOUND, limited Very minimal free fluid seen in abdomen. IMPRESSION: Minimal ascites, Limited exam
[2016-10-27 11:46] LABS: Glucose,Whole Blood 124 mg/dL (75-99)
[2016-10-27] MEDS: THIAMINE 100 MG TAB PO SCH ×2 (12:16→16:20)
[2016-10-27] MEDS ORDERED: LIDOCAINE 2% INJ 20 MG/ML (20 ML MDV) ONE (13:36)
[2016-10-27] MEDS ORDERED: LIDOCAINE 2% INJ 20 MG/ML SQ ONE (13:49)
[2016-10-27] MEDS ORDERED: FAT EMULSION 20% 250 ML in EMPTY BAG 1 BAG IV SCH (16:00)
--- NOTE | 2016-10-27 16:40 | IR ---
EXAMINATION TYPE: IR cvc insert >=5 years DATE OF EXAM: 10/27/2016 2:01 PM COMPARISON: NONE CLINICAL HISTORY: Abdomen surgery, pancreatitis Needs long-term intravenous access for therapy. PROCEDURE: After informed consent, the skin overlying the left upper extremity vein was localized with ultrasoun d and noted to be compressible and patent. An ultrasound image was obtained and submitted on the pat ient's chart. The overlying skin was prepped and draped and Lidocaine was used for local anesthesia. A skin anastacio was made with a scalpel. Access was gained to the vein under ultrasound guidance with a 21 gauge needle and a 0.018 inch wire was advanced. Access site was dilated with Peel-Away sheath and catheter tailored to the appropriate length and advanced such that the distal tip is at the cavoa trial junction. Spot image was obtained verifying placement. Catheter was fixed to the skin with rivas ture and a sterile dressing was placed following hemostasis. Catheter was aspirated and flushed with saline. Patient was discharged in stable condition without complication. Maximal barrier technique is utilized. Ultrasound image is documented on the chart. Ultrasound used with sterile technique. Fluoro time and fluoroscopic images submitted to document procedure: 47 intraoperative C-arm images, 0.1 minutes fluoroscopy time IMPRESSION: STATUS POST ULTRASOUND AND FLUOROSCOPIC GUIDED PICC LINE PLACEMENT, READY FOR USE. THIS PROCEDURE WAS PERFORMED BY THE UNDERSIGNED.
[2016-10-27 17:56] LABS: Hepatitis B Surface Ag Index 0.06
[2016-10-27 18:01] LABS: Hepatitis B Core IgM Index 0.04
[2016-10-27 18:13] LABS: Hepatitis C Virus IgG Index 0.02
[2016-10-27 18:15] LABS: Hepatitis C Virus IgG Ab Negative (Negative)
[2016-10-27] MEDS ORDERED: MAGNESIUM SULFATE-D5W PMX 1 GM in DEXTROSE/WATER 1 100ML.BAG IVPB ONE (20:00)
[2016-10-27] MEDS: POTASSIUM CHLORIDE ER 20 MEQ TAB.ER PO SCH ×2 (21:15→23:08)
[2016-10-27] MEDS: FUROSEMIDE 10 MG/ML 4 ML VIAL IV SCH (21:16)
[2016-10-28] MEDS ORDERED: HYDROmorphone 1 MG/ML 1 ML SYRINGE IVP STA (00:22)
[2016-10-28] MEDS: HYDROcodone/APAP 5-325MG 1 EACH TAB PO PRN ×5 (04:44→22:53)
[2016-10-28] MEDS: HYDROmorphone 1 MG/ML 1 ML SYRINGE IVP PRN ×6 (05:48→23:28)
[2016-10-28] MEDS ORDERED: VANCOMYCIN TROUGH DUE 1 EACH MISC MISCELLANE ONE (07:00)
[2016-10-28] MEDS: BACITRACIN 500 UNIT/GM OINT 28.4 GM TUBE TOPICAL SCH ×2 (09:00→20:14)
[2016-10-28] MEDS: HEPARIN SODIUM,PORCINE 5,000 UNIT/ML 1 ML VIAL SQ SCH ×2 (09:00→20:14)
[2016-10-28] MEDS: FUROSEMIDE 10 MG/ML 4 ML VIAL IV SCH ×2 (09:00→20:14)
[2016-10-28] MEDS: ATENOLOL 25 MG TAB PO SCH ×2 (09:01→20:14)
[2016-10-28] MEDS: PANTOPRAZOLE 40 MG TABLET PO SCH ×2 (09:01→20:14)
[2016-10-28] MEDS: CALCIUM CARBONATE 500 MG CHEWABLE PO SCH ×3 (09:01→16:12)
[2016-10-28] MEDS: NICOTINE 14MG/24HR PATCH TRANSDERM SCH (09:02)
[2016-10-28] MEDS: CITALOPRAM HYDROBROMIDE 20 MG TAB PO SCH (09:02)
[2016-10-28 09:24] LABS: Basophils # (A) 0.1 k/uL (0-0.2); Basophils % (A) 0 %; CH 29.4; CHCM 31.1; Eosinophils # (A) 0.1 k/uL (0-0.7); Eosinophils % (A) 1 %; HCT 35.3 % (39.0-53.0); HDW 2.65; HGB 11.1 gm/dL (13.0-17.5); Hypochromasia Slight; Luc # (Auto) 0.43; Luc % (Auto) 3; Lymphocytes # (A) 0.6 k/uL (1.0-4.8); Lymphocytes % (A) 4 %; MCH 29.8 pg (25.0-35.0); MCHC 31.4 g/dL (31.0-37.0); MCV 94.9 fL (80.0-100.0); Mean Platelet Volume 8.3; Monocytes % (A) 7 %; Neutrophils # (A) 13.2 k/uL (1.3-7.7); Neutrophils % (A) 85 %; RBC 3.72 m/uL (4.30-5.90); WBC 15.4 k/uL (3.8-10.6)
[2016-10-28 09:29] LABS: Ionized Calcium 4.6 mg/dL (4.5-5.3)
[2016-10-28 09:40] LABS: ALT 44 U/L (21-72); AST 54 U/L (17-59); Alkaline Phosphatase 148 U/L (38-126); Amylase 56 U/L (30-110); Anion Gap 9 mmol/L; Blood Urea Nitrogen 5 mg/dL (9-20); Calcium 7.6 mg/dL (8.4-10.2); Carbon Dioxide 32 mmol/L (22-30); Chloride 98 mmol/L (98-107); Glucose 128 mg/dL (74-99); Magnesium 1.6 mg/dL (1.6-2.3); Non-African American GFR(MDRD) >60 (>60 ml/min/1.73 sqM); Phosphorous 4.5 mg/dL (2.5-4.5); Potassium 3.7 mmol/L (3.5-5.1); Sodium 139 mmol/L (137-145); Total Bilirubin 0.5 mg/dL (0.2-1.3); Total Protein 4.8 g/dL (6.3-8.2)
[2016-10-28] MEDS: ONDANSETRON 4 MG/2 ML VIAL IVP PRN ×2 (10:35→17:37)
[2016-10-28] MEDS: THIAMINE 100 MG TAB PO SCH ×2 (11:49→16:12)
--- NOTE | 2016-10-28 13:17 | P.PN ---
Subjective 35-year-old being seen on rounds this morning currently resting in bed patient is currently tolerating liquids with no difficulty continues to report having abdominal discomfort this been no active emesis. No stool. Patient did have an ultrasound of the abdomen done yesterday minimal ascites noted labs reviewed lipase 581 this morning potassium 3.7 Objective - Vital Signs Vital signs: Vital Signs Temp 97.4 F L 10/28/16 07:00 Pulse 101 H 10/28/16 07:00 Resp 18 10/28/16 07:00 BP 148/97 10/28/16 07:00 Pulse Ox 100 10/28/16 07:00 Intake & Output 10/27/16 10/28/16 10/28/16 18:59 06:59 18:59 Intake Total 4310 800 Output Total 3875 Balance 435 800 Weight 80 kg 85.3 kg Intake: Oral 4310 800 Output: Urine 3575 Emesis 100 Other 200 Other: Voiding Method Toilet # Voids 2 1 # Bowel Movements 1 1 - Exam Physical exam 35-year-old currently resting in bed reportedly tolerating liquids or spinal nausea. Lungs essentially clear with adequate air movement on room air sats 99% Heart S1-S2 audible and regular denying chest pain abdomen firm slightly distended drain right lower quadrant and place urinating no difficulty currently tolerating a full liquid diet 2 stools documented Extremities 1+ nonpitting edema to the bilateral lower extremities - Labs CBC & Chem 7: 10/28/16 09:15 10/28/16 09:15 Labs: Abnormal Lab Results - Last 24 Hours (Table) 10/28/16 10/28/16 Range/Units 09:15 09:15 WBC 15.4 H (3.8-10.6) k/uL RBC 3.72 L (4.30-5.90) m/uL Hgb 11.1 L (13.0-17.5) gm/dL Hct 35.3 L (39.0-53.0) % Neutrophils # 13.2 H (1.3-7.7) k/uL Lymphocytes # 0.6 L (1.0-4.8) k/uL Carbon Dioxide 32 H (22-30) mmol/L BUN 5 L (9-20) mg/dL Creatinine 0.58 L (0.66-1.25) mg/dL Glucose 128 H (74-99) mg/dL Calcium 7.6 L (8.4-10.2) mg/dL Alkaline Phosphatase 148 H (38-126) U/L Total Protein 4.8 L (6.3-8.2) g/dL Albumin 2.2 L (3.5-5.0) g/dL Lipase 581 H (23-300) U/L Microbiology - Last 24 Hours (Table) 10/26/16 00:15 Blood Culture - Preliminary Blood No Growth after 48 hours 10/24/16 12:35 Gram Stain - Preliminary Paracentesis Fluid Body Fluid Culture - Preliminary 10/23/16 12:56 Blood Culture - Preliminary Blood No Growth after 96 hours 10/23/16 13:05 Blood Culture - Preliminary Blood No Growth after 96 hours 10/26/16 01:15 Urine Culture - Final Urine,Voided Assessment and Plan Plan: Impression Present on admission nausea vomiting abdominal pain suspect due to acute pancreatitis due to significant alcohol abuse Chronic and ongoing alcoholism Urine drug screen positive for opiates, cocaine, and methamphetamines Present on admission acute hypocalcemia secondary to severe pancreatitis Electrolyte abnormality hypokalemia Present on admission Acute renal failure acute tubular necrosis secondary to rhabdomyolysis. Improving . Abdominal distention suspect ascites secondary to severe pancreatitis with component of anasarca. Status post paracentesis October 24 2.3 L obtained with right lower quadrant drain placed Mild to moderate protein calorie malnutrition suspect due to poor caloric intake Plan Full liquid diet Increase activity Monitor electrolytes attempt keep in a therapeutic range Continue Lasix 40 IV every 12 From a surgical perspective there is no evidence of an acute surgical abdomen at this time continue with IV fluid as ordered Will follow with further surgical recommendations as indicated The above dictated assessment and findings were discussed with dr Lori Olivas. Impression and the plan of care have been dictated as directed. Zuly Clemente nurse practitioner acting as a scribe for dr White
[2016-10-28] MEDS ORDERED: SPIRONOLACTONE 25 MG TAB PO STA (14:43)
[2016-10-29] MEDS: HYDROmorphone 1 MG/ML 1 ML SYRINGE IVP PRN ×3 (02:24→09:32)
[2016-10-29] MEDS: HYDROcodone/APAP 5-325MG 1 EACH TAB PO PRN ×6 (03:09→23:25)
[2016-10-29] MEDS: CALCIUM CARBONATE 500 MG CHEWABLE PO SCH ×3 (07:46→17:22)
[2016-10-29 08:13] LABS: Ionized Calcium 4.6 mg/dL (4.5-5.3)
[2016-10-29 08:23] LABS: ALT 38 U/L (21-72); AST 50 U/L (17-59); Alkaline Phosphatase 114 U/L (38-126); Amylase 54 U/L (30-110); Anion Gap 7 mmol/L; Blood Urea Nitrogen 4 mg/dL (9-20); Calcium 7.3 mg/dL (8.4-10.2); Carbon Dioxide 32 mmol/L (22-30); Chloride 100 mmol/L (98-107); Glucose 125 mg/dL (74-99); Magnesium 1.7 mg/dL (1.6-2.3); Non-African American GFR(MDRD) >60 (>60 ml/min/1.73 sqM); Potassium 3.4 mmol/L (3.5-5.1); Sodium 139 mmol/L (137-145); Total Bilirubin 0.4 mg/dL (0.2-1.3); Total Protein 4.7 g/dL (6.3-8.2)
[2016-10-29 08:44] LABS: Basophils # (A) 0.1 k/uL (0-0.2); Basophils % (A) 0 %; CH 29.4; CHCM 31.5; Eosinophils # (A) 0.1 k/uL (0-0.7); Eosinophils % (A) 1 %; HCT 34.3 % (39.0-53.0); HDW 2.54; HGB 10.8 gm/dL (13.0-17.5); Luc # (Auto) 0.29; Luc % (Auto) 2; Lymphocytes # (A) 0.7 k/uL (1.0-4.8); Lymphocytes % (A) 5 %; MCH 29.5 pg (25.0-35.0); MCHC 31.4 g/dL (31.0-37.0); MCV 93.9 fL (80.0-100.0); Mean Platelet Volume 8.8; Monocytes # (A) 0.9 k/uL (0-1.0); Monocytes % (A) 6 %; Neutrophils # (A) 11.5 k/uL (1.3-7.7); Neutrophils % (A) 85 %; RBC 3.65 m/uL (4.30-5.90); RDW 13.9 % (11.5-15.5); WBC 13.5 k/uL (3.8-10.6); WBC (Perox) 14.01
[2016-10-29] MEDS: POTASSIUM CHLORIDE ER 20 MEQ TAB.ER PO SCH ×2 (09:32→11:35)
[2016-10-29] MEDS: PANTOPRAZOLE 40 MG TABLET PO SCH ×2 (09:32→20:09)
[2016-10-29] MEDS: NICOTINE 14MG/24HR PATCH TRANSDERM SCH (09:32)
[2016-10-29] MEDS: HEPARIN SODIUM,PORCINE 5,000 UNIT/ML 1 ML VIAL SQ SCH ×2 (09:32→20:09)
[2016-10-29] MEDS: BACITRACIN 500 UNIT/GM OINT 28.4 GM TUBE TOPICAL SCH ×2 (09:32→20:09)
[2016-10-29] MEDS: FUROSEMIDE 10 MG/ML 4 ML VIAL IV SCH ×2 (09:32→20:09)
[2016-10-29] MEDS: ATENOLOL 25 MG TAB PO SCH ×2 (09:32→20:09)
[2016-10-29] MEDS: ONDANSETRON 4 MG/2 ML VIAL IVP PRN (09:42)
--- NOTE | 2016-10-29 09:57 | P.PN ---
Subjective Principal diagnosis: Acute severe pancreatitis, rhabdomyolysis 35-year-old male limited with acute severe pancreatitis rhabdomyolysis with underlying heavy alcohol abuse. Diagnostic therapeutic paracentesis Thursday. Cytology negative for malignant cells. Tolerating clear liquids. Afebrile. Objective - Vital Signs Vital signs: Vital Signs Temp 96.3 F L 10/29/16 07:00 Pulse 96 10/29/16 07:00 Resp 20 10/29/16 07:00 BP 159/96 10/29/16 07:00 Pulse Ox 99 10/29/16 07:00 Intake & Output 10/28/16 10/29/16 10/29/16 18:59 06:59 18:59 Intake Total 160 550 Output Total 400 2150 Balance -240 -1600 Weight 86.2 kg Intake: IV 160 Sodium Chloride 0.9% 160 Oral 550 Output: Urine 400 2150 Other: Voiding Method Urinal # Voids 1 1 # Bowel Movements 1 - Exam General appearance: The patient is alert, oriented, in no acute distress. HET: Head is normocephalic and atraumatic. Pupils are equal and reactive. Oropharynx is clear without lesions. Neck: Supple without lymphadenopathy. Trachea midline. Heart: S1 S2. Regular rate and rhythm. Lungs: No crackles or wheezes are heard. Abdomen: Mildly bloated. Paracentesis site with ostomy bag collecting small amount clear yellow ascitic fluid drainage. No peritoneal signs. No palpable organomegaly or masses. Extremities: Generalized mild anasarca. Neurological: No focal deficits. Strength and sensation are grossly intact. - Labs CBC & Chem 7: 10/29/16 08:00 10/29/16 08:00 Labs: Abnormal Lab Results - Last 24 Hours (Table) 10/29/16 10/29/16 Range/Units 08:00 08:00 WBC 13.5 H (3.8-10.6) k/uL RBC 3.65 L (4.30-5.90) m/uL Hgb 10.8 L (13.0-17.5) gm/dL Hct 34.3 L (39.0-53.0) % Neutrophils # 11.5 H (1.3-7.7) k/uL Lymphocytes # 0.7 L (1.0-4.8) k/uL Potassium 3.4 L (3.5-5.1) mmol/L Carbon Dioxide 32 H (22-30) mmol/L BUN 4 L (9-20) mg/dL Creatinine 0.56 L (0.66-1.25) mg/dL Glucose 125 H (74-99) mg/dL Calcium 7.3 L (8.4-10.2) mg/dL Total Protein 4.7 L (6.3-8.2) g/dL Albumin 2.1 L (3.5-5.0) g/dL Lipase 579 H (23-300) U/L Microbiology - Last 24 Hours (Table) 10/26/16 00:15 Blood Culture - Preliminary Blood No Growth after 72 hours 10/24/16 12:35 Gram Stain - Final Paracentesis Fluid Body Fluid Culture - Final 10/23/16 12:56 Blood Culture - Preliminary Blood No Growth after 120 hours 10/23/16 13:05 Blood Culture - Preliminary Blood No Growth after 120 hours Assessment and Plan Plan: Impression: 1. Acute severe pancreatitis with EtOH abuse. 2. Alcohol hepatitis. 3. Acute renal failure acute tubular necrosis secondary to rhabdomyolysis. 4. Abdominal distention with ascites secondary to severe pancreatitis with component of anasarca status post therapeutic diagnostic paracentesis. Recommendations: 1. May advance to full liquids as tolerated. 2. Continue to monitor laboratory studies and vital signs. 3. Supportive measures. Assessment and plan of care discussed with Dr. Johnston.
--- NOTE | 2016-10-29 10:12 | P.PN ---
Subjective 35-year-old being seen on rounds this morning for surgical service as part of a workup for acute pancreatitis. Patient did undergo a diagnostic therapeutic paracentesis done last Thursday. Patient currently is sleepy and lethargic had just received IV pain medication. Patient reports tolerating a clear liquid diet. Patient states "that he has been out of bed ambulating to the bathroom" backup did note the potassium this morning is 3.8. The lipase 579. Was 581 the day before. Objective - Vital Signs Vital signs: Vital Signs Temp 96.3 F L 10/29/16 07:00 Pulse 96 10/29/16 07:00 Resp 20 10/29/16 07:00 BP 159/96 10/29/16 07:00 Pulse Ox 99 10/29/16 07:00 Intake & Output 10/28/16 10/29/16 10/29/16 18:59 06:59 18:59 Intake Total 160 550 Output Total 400 2150 Balance -240 -1600 Weight 86.2 kg Intake: IV 160 Sodium Chloride 0.9% 160 Oral 550 Output: Urine 400 2150 Other: Voiding Method Urinal # Voids 1 1 # Bowel Movements 1 - Exam Physical exam 35-year-old resting in bed arousable to verbal stimuli he just received IV pain medication continues to report having abdominal discomfort Lungs essentially clear on room air Heart S1-S2 audible and regular Abdomen remains firm distended a drain in the right lower quadrant. States stooling states no difficulty in urinating Extremities bilateral lower extremity nonpitting edema noted - Labs CBC & Chem 7: 10/29/16 08:00 10/29/16 08:00 Labs: Abnormal Lab Results - Last 24 Hours (Table) 10/29/16 10/29/16 Range/Units 08:00 08:00 WBC 13.5 H (3.8-10.6) k/uL RBC 3.65 L (4.30-5.90) m/uL Hgb 10.8 L (13.0-17.5) gm/dL Hct 34.3 L (39.0-53.0) % Neutrophils # 11.5 H (1.3-7.7) k/uL Lymphocytes # 0.7 L (1.0-4.8) k/uL Potassium 3.4 L (3.5-5.1) mmol/L Carbon Dioxide 32 H (22-30) mmol/L BUN 4 L (9-20) mg/dL Creatinine 0.56 L (0.66-1.25) mg/dL Glucose 125 H (74-99) mg/dL Calcium 7.3 L (8.4-10.2) mg/dL Total Protein 4.7 L (6.3-8.2) g/dL Albumin 2.1 L (3.5-5.0) g/dL Lipase 579 H (23-300) U/L Microbiology - Last 24 Hours (Table) 10/26/16 00:15 Blood Culture - Preliminary Blood No Growth after 72 hours 10/24/16 12:35 Gram Stain - Final Paracentesis Fluid Body Fluid Culture - Final 10/23/16 12:56 Blood Culture - Preliminary Blood No Growth after 120 hours 10/23/16 13:05 Blood Culture - Preliminary Blood No Growth after 120 hours Assessment and Plan Plan: Impression Present on admission nausea vomiting abdominal pain suspect due to acute pancreatitis due to significant alcohol abuse Chronic and ongoing alcoholism Urine drug screen positive for opiates, cocaine, and methamphetamines Present on admission acute hypocalcemia secondary to severe pancreatitis Electrolyte abnormality hypokalemia Present on admission Acute renal failure acute tubular necrosis secondary to rhabdomyolysis. Improving . Abdominal distention suspect ascites secondary to severe pancreatitis with component of anasarca. Status post paracentesis October 24 2.3 L obtained with right lower quadrant drain placed Mild to moderate protein calorie malnutrition suspect due to poor caloric intake Hypokalemic Plan Full liquid diet Increase activity Monitor electrolytes attempt keep in a therapeutic range Continue Lasix 40 IV every 12 From a surgical perspective there is no evidence of an acute surgical abdomen at this time we'll sign off and reevaluate as needed continue with IV fluid as ordered The above dictated assessment and findings were discussed with dr Lori Olivas. Impression and the plan of care have been dictated as directed. Zuly Clemente nurse practitioner acting as a scribe for dr White
[2016-10-29] MEDS: CITALOPRAM HYDROBROMIDE 20 MG TAB PO SCH (10:41)
[2016-10-29] MEDS: THIAMINE 100 MG TAB PO SCH ×2 (11:36→17:22)
[2016-10-29] MEDS ORDERED: POTASSIUM CHLORIDE ER 20 MEQ TAB.ER PO STA ×2 (12:33→14:55)
--- NOTE | 2016-10-29 12:33 | P.PN ---
Subjective Date of service 10/27/2016. Progress note dictated for Dr. Nesbitt. Interval history: This a 35-year-old gentleman admitted with acute severe pancreatitis with rhabdomyolysis, and multiple other medical issues in a patient with EtOH abuse. Underwent diagnostic, therapeutic paracentesis on Thursday with 2.3 L of dark miguel fluid removed, cytology pending. Scheduled again for therapeutic paracentesis today blood not enough fluid per ultrasound for radiology to tap. Complains of generalized abdominal pain. NPO, Feels hungry asking for diet advancement. Currently denying any nausea vomiting. Receiving PPN. Afebrile, improving leukocytosis with WBC down to 13.3. Urine and blood cultures currently negative. Lipase 552. Denies chest pain, palpitations or increasing shortness of breath. Objective - Vital Signs Vital signs: Vital Signs Temp 97.8 F 10/27/16 11:02 Pulse 106 H 10/27/16 11:02 Resp 20 10/27/16 11:02 BP 140/85 10/27/16 11:02 Pulse Ox 91 L 10/27/16 11:02 Intake & Output 10/26/16 10/27/16 10/27/16 18:59 06:59 18:59 Intake Total 2357 1251 Output Total 2350 5450 1150 Balance -2350 -3093 101 Weight 80 kg 80 kg Intake: IV 100 Sodium Chloride 0.9% 100 Intake, IV Titration 2257 Amount Amino Acid 4.25%-D10w+ 996 Lytes*E* 1,000 ml @ 83 mls/hr IV .BY DURATION ROBYN Rx#:[id number] Mvi, Adult No.4 with Vit 1011 K 10 ml Trace (Conc-1Ml/ Dose) 1 ml In Amino Acid 4.25%-D10w+Lytes*E* 1,000 ml @ 83 mls/hr IV .BY DURATION ROBYN Rx#: [id number] Vancomycin 1,750 mg In 250 Sodium Chloride 0.9% 250 ml @ 125 mls/hr IVPB Q8HR ROBYN Rx#:[id number] Oral 1251 Output: Urine 2350 5200 1150 Emesis 250 Other: Voiding Method Toilet # Voids 3 # Bowel Movements 0 # Emeses 1 - Exam PHYSICAL EXAM: VITAL SIGNS: As above GENERAL: [Sitting up in bed, no acute distress] HEENT: [Pupils equal conjunctiva normal.] NECK: [Supple, no JVD] RESPIRATORY EFFORT:[Normal] LUNGS: [Diminished, no rhonchi, no crackles, no wheezing] CARDIOVASCULAR regular S1 and S2, no murmurs rubs or gallops GI: [Abdomen soft, distended, generalized diffuse tenderness, right lower quadrant -prior paracentesis site covered with ostomy bag collecting dark miguel drainage, positive bowel sounds. Generalized anasarca. PSYCH: [Alert and oriented -3, mood and affect normal.] EXTREMITIES: Generalized anasarca NEURO: No focal deficits, moves all 4 extremities, strength and sensation grossly intact - Labs CBC & Chem 7: 10/29/16 08:00 10/29/16 08:00 Labs: Abnormal Lab Results - Last 24 Hours (Table) 10/26/16 10/27/16 10/27/16 Range/Units 17:11 00:01 05:49 WBC (3.8-10.6) k/uL RBC (4.30-5.90) m/uL Hgb (13.0-17.5) gm/dL Hct (39.0-53.0) % Neutrophils # (1.3-7.7) k/uL Lymphocytes # (1.0-4.8) k/uL BUN (9-20) mg/dL Creatinine (0.66-1.25) mg/dL Glucose (74-99) mg/dL POC Glucose (mg/dL) 120 H 112 H 125 H (75-99) mg/dL Calcium (8.4-10.2) mg/dL Total Protein (6.3-8.2) g/dL Albumin (3.5-5.0) g/dL Lipase (23-300) U/L 10/27/16 10/27/16 10/27/16 Range/Units 08:07 08:07 11:42 WBC 13.3 H (3.8-10.6) k/uL RBC 3.49 L (4.30-5.90) m/uL Hgb 10.6 L (13.0-17.5) gm/dL Hct 33.8 L (39.0-53.0) % Neutrophils # 11.5 H (1.3-7.7) k/uL Lymphocytes # 0.5 L (1.0-4.8) k/uL BUN 6 L (9-20) mg/dL Creatinine 0.53 L (0.66-1.25) mg/dL Glucose 127 H (74-99) mg/dL POC Glucose (mg/dL) 124 H (75-99) mg/dL Calcium 7.3 L (8.4-10.2) mg/dL Total Protein 4.3 L (6.3-8.2) g/dL Albumin 1.9 L (3.5-5.0) g/dL Lipase 552 H (23-300) U/L Microbiology - Last 24 Hours (Table) 10/26/16 00:15 Blood Culture - Preliminary Blood No Growth after 24 hours 10/24/16 12:35 Gram Stain - Preliminary Paracentesis Fluid Body Fluid Culture - Preliminary 10/23/16 12:56 Blood Culture - Preliminary Blood No Growth after 72 hours 10/23/16 13:05 Blood Culture - Preliminary Blood No Growth after 72 hours 10/26/16 01:15 Urine Culture - Preliminary Urine,Voided Assessment and Plan Plan: 1. Acute severe pancreatitis, possible sepsis present on admission in a patient with EtOH abuse. 2. [Acute metabolic acidosis, severe possibly secondary to sepsis and pancreatitis]. 3. [Acute renal failure, secondary to tubular necrosis with acute severe rhabdomyolysis, improving]. 4. [Severe hypocalcemia possibly secondary to acute pancreatitis]. 5. Ascites with bilateral pleural effusion per computed tomography scan secondary to acute pancreatitis. Status post paracentesis 6. [Nausea, vomiting and dehydration possibly gastritis secondary to alcohol intoxication, present on admission, subsided]. 7. [Hypoalbuminemia, Mild to moderate protein calorie malnutrition, 8. Alcoholic hepatitis 9. Hypokalemia 10. Hyperchloremia 11. . Alcoholic hepatitis 12. History of Nicotine abuse 13. History of Crohn's colitis 14. Drug screen positive for cocaine on admission Plan: Continue on current medication regime , PPI, monitoring and symptomatic treatment. Antibiotics, TPN have been discontinued. Diet advanced to clear liquids. If tolerated plan on advancing diet to full liquids tomorrow. Lasix scheduled IV push added to med regime. Hepatitis panel ordered. Increase ambulation as tolerated. Following with GI closely. Maintain supportive care. Further recommendations to follow. The impression and plan of care has been dictated as directed. : I performed a H&P examination of this patient and discussed the same with the dictator. I agree with the dictator's note. Any additional findings/opinions/ etc. will be noted.
--- NOTE | 2016-10-29 12:44 | P.PN ---
Subjective Date of service 10/28/2016. Progress note dictated for Dr. Nesbitt. Interval history: This a 35-year-old gentleman admitted with acute severe pancreatitis with rhabdomyolysis, and multiple other medical issues in a patient with EtOH abuse. Status post paracentesis, cytology pending. Abdominal pain improving. Tolerating clear liquid diet with no nausea vomiting or diarrhea. Positive bowel movement.Afebrile. Lipase 581. Potassium 3.7, magnesium 1.6. Denies chest pain, palpitations or increasing shortness of breath. Objective - Vital Signs Vital signs: Vital Signs Temp 96.3 F L 10/29/16 07:00 Pulse 96 10/29/16 07:00 Resp 20 10/29/16 07:00 BP 159/96 10/29/16 07:00 Pulse Ox 99 10/29/16 07:00 Intake & Output 10/28/16 10/29/16 10/29/16 18:59 06:59 18:59 Intake Total 160 550 Output Total 400 2150 Balance -240 -1600 Weight 86.2 kg Intake: IV 160 Sodium Chloride 0.9% 160 Oral 550 Output: Urine 400 2150 Other: Voiding Method Urinal # Voids 1 1 # Bowel Movements 1 - Exam PHYSICAL EXAM: VITAL SIGNS: As above GENERAL: [Sitting up in bed, no acute distress] HEENT: [Pupils equal conjunctiva normal.] NECK: [Supple, no JVD] RESPIRATORY EFFORT:[Normal] LUNGS: [Essentially clear, Diminished bases, no rhonchi, no crackles, no wheezing] CARDIOVASCULAR regular S1 and S2, no murmurs rubs or gallops, positive edema GI: [Abdomen soft, distended, generalized diffuse tenderness, right lower quadrant -prior paracentesis site covered with ostomy-clear yellow drainage, positive bowel sounds. Generalized anasarca. PSYCH: [Alert and oriented -3, mood and affect normal.] EXTREMITIES: Generalized anasarca NEURO: No focal deficits, moves all 4 extremities, strength and sensation grossly intact - Labs CBC & Chem 7: 10/29/16 08:00 10/29/16 08:00 Labs: Abnormal Lab Results - Last 24 Hours (Table) 10/29/16 10/29/16 Range/Units 08:00 08:00 WBC 13.5 H (3.8-10.6) k/uL RBC 3.65 L (4.30-5.90) m/uL Hgb 10.8 L (13.0-17.5) gm/dL Hct 34.3 L (39.0-53.0) % Neutrophils # 11.5 H (1.3-7.7) k/uL Lymphocytes # 0.7 L (1.0-4.8) k/uL Potassium 3.4 L (3.5-5.1) mmol/L Carbon Dioxide 32 H (22-30) mmol/L BUN 4 L (9-20) mg/dL Creatinine 0.56 L (0.66-1.25) mg/dL Glucose 125 H (74-99) mg/dL Calcium 7.3 L (8.4-10.2) mg/dL Total Protein 4.7 L (6.3-8.2) g/dL Albumin 2.1 L (3.5-5.0) g/dL Lipase 579 H (23-300) U/L Microbiology - Last 24 Hours (Table) 10/26/16 00:15 Blood Culture - Preliminary Blood No Growth after 72 hours 10/24/16 12:35 Gram Stain - Final Paracentesis Fluid Body Fluid Culture - Final 10/23/16 12:56 Blood Culture - Preliminary Blood No Growth after 120 hours 10/23/16 13:05 Blood Culture - Preliminary Blood No Growth after 120 hours Assessment and Plan Plan: 1. Acute severe pancreatitis, possible sepsis present on admission in a patient with EtOH abuse. 2. [Acute metabolic acidosis, severe possibly secondary to sepsis and pancreatitis]. 3. [Acute renal failure, secondary to tubular necrosis with acute severe rhabdomyolysis, improving]. 4. [Severe hypocalcemia possibly secondary to acute pancreatitis]. 5. Ascites with bilateral pleural effusion per computed tomography scan secondary to acute pancreatitis. Status post paracentesis 6. [Nausea, vomiting and dehydration possibly gastritis secondary to alcohol intoxication, present on admission, subsided]. 7. [Hypoalbuminemia, Mild to moderate protein calorie malnutrition, 8. Alcoholic hepatitis 9. Hypokalemia 10. Hyperchloremia 11. . Alcoholic hepatitis 12. History of Nicotine abuse 13. History of Crohn's colitis 14. Drug screen positive for cocaine on admission 15. Hypomagnesemia Plan: Continue on current medication regime , PPI, Lasix, monitoring and symptomatic treatment. Antibiotics, TPN have been discontinued. Diet advanced to full liquids. Electrolyte supplements ordered. Close monitoring of electrolytes with repeat labs ordered for a.m. Aldactone added to med regime. Increase ambulation as tolerated. Maintain supportive care. Further recommendations to follow. The impression and plan of care has been dictated as directed. : I performed a H&P examination of this patient and discussed the same with the dictator. I agree with the dictator's note. Any additional findings/opinions/ etc. will be noted.
[2016-10-29] MEDS ORDERED: MAGNESIUM SULFATE-D5W PMX 1 GM in DEXTROSE/WATER 1 100ML.BAG IVPB ONE (13:00)
--- NOTE | 2016-10-29 15:26 | P.PN ---
Subjective Date of service 10/29/2016. Progress note dictated for Dr. Nesbitt. Interval history: This a 35-year-old gentleman admitted with acute severe pancreatitis with rhabdomyolysis, and multiple other medical issues in a patient with EtOH abuse. Cytology reporting no malignant cells. Minimal abdominal pain. Tolerating full liquid diet with no nausea vomiting or diarrhea. Positive bowel movement.Afebrile. Potassium and magnesium being supplemented .Denies chest pain, palpitations or increasing shortness of breath. Objective - Vital Signs Vital signs: Vital Signs Temp 96.3 F L 10/29/16 07:00 Pulse 96 10/29/16 07:00 Resp 20 10/29/16 07:00 BP 159/96 10/29/16 07:00 Pulse Ox 99 10/29/16 07:00 Intake & Output 10/28/16 10/29/16 10/29/16 18:59 06:59 18:59 Intake Total 160 550 Output Total 400 2150 Balance -240 -1600 Weight 86.2 kg Intake: IV 160 Sodium Chloride 0.9% 160 Oral 550 Output: Urine 400 2150 Other: Voiding Method Urinal # Voids 1 1 # Bowel Movements 1 - Labs CBC & Chem 7: 10/29/16 08:00 10/29/16 08:00 Labs: Abnormal Lab Results - Last 24 Hours (Table) 10/29/16 10/29/16 Range/Units 08:00 08:00 WBC 13.5 H (3.8-10.6) k/uL RBC 3.65 L (4.30-5.90) m/uL Hgb 10.8 L (13.0-17.5) gm/dL Hct 34.3 L (39.0-53.0) % Neutrophils # 11.5 H (1.3-7.7) k/uL Lymphocytes # 0.7 L (1.0-4.8) k/uL Potassium 3.4 L (3.5-5.1) mmol/L Carbon Dioxide 32 H (22-30) mmol/L BUN 4 L (9-20) mg/dL Creatinine 0.56 L (0.66-1.25) mg/dL Glucose 125 H (74-99) mg/dL Calcium 7.3 L (8.4-10.2) mg/dL Total Protein 4.7 L (6.3-8.2) g/dL Albumin 2.1 L (3.5-5.0) g/dL Lipase 579 H (23-300) U/L Microbiology - Last 24 Hours (Table) 10/26/16 00:15 Blood Culture - Preliminary Blood No Growth after 72 hours 10/24/16 12:35 Gram Stain - Final Paracentesis Fluid Body Fluid Culture - Final 10/23/16 12:56 Blood Culture - Preliminary Blood No Growth after 120 hours 10/23/16 13:05 Blood Culture - Preliminary Blood No Growth after 120 hours Assessment and Plan Plan: 1. Acute severe pancreatitis, possible sepsis present on admission in a patient with EtOH abuse. 2. [Acute metabolic acidosis, severe possibly secondary to sepsis and pancreatitis]. 3. [Acute renal failure, secondary to tubular necrosis with acute severe rhabdomyolysis, improving]. 4. [Severe hypocalcemia possibly secondary to acute pancreatitis]. 5. Ascites with bilateral pleural effusion per computed tomography scan secondary to acute pancreatitis. Status post paracentesis 6. [Nausea, vomiting and dehydration possibly gastritis secondary to alcohol intoxication, present on admission, subsided]. 7. [Hypoalbuminemia, Mild to moderate protein calorie malnutrition, 8. Alcoholic hepatitis 9. Hypokalemia 10. Hyperchloremia 11. . Alcoholic hepatitis 12. History of Nicotine abuse 13. History of Crohn's colitis 14. Drug screen positive for cocaine on admission 15. Hypomagnesemia Plan: Continue on current medication regime , PPI, Lasix, monitoring and symptomatic treatment. Electrolyte supplements ordered. Close monitoring of electrolytes with repeat labs ordered for a.m. Increase ambulation in hallway. Previous paracentesis site continues to drain an ostomy bag, further recommendations from GI pending. Discharge planning in progress for tomorrow. Further recommendations to follow. The impression and plan of care has been dictated as directed. : I performed a H&P examination of this patient and discussed the same with the dictator. I agree with the dictator's note. Any additional findings/opinions/ etc. will be noted.
[2016-10-29 17:11] LABS: Magnesium 1.9 mg/dL (1.6-2.3); Potassium 3.7 mmol/L (3.5-5.1)
[2016-10-30] MEDS: ONDANSETRON 4 MG/2 ML VIAL IVP PRN ×2 (00:23→07:51)
[2016-10-30] MEDS: HYDROcodone/APAP 5-325MG 1 EACH TAB PO PRN ×3 (03:31→11:32)
[2016-10-30 06:26] LABS: Basophils # (A) 0.1 k/uL (0-0.2); Basophils % (A) 1 %; CH 29.2; CHCM 31.2; Eosinophils # (A) 0.1 k/uL (0-0.7); Eosinophils % (A) 1 %; HCT 31.9 % (39.0-53.0); HDW 2.57; HGB 10.1 gm/dL (13.0-17.5); Hypochromasia Slight; Luc # (Auto) 0.38; Luc % (Auto) 2; Lymphocytes # (A) 0.7 k/uL (1.0-4.8); Lymphocytes % (A) 5 %; MCH 29.6 pg (25.0-35.0); MCHC 31.6 g/dL (31.0-37.0); MCV 93.8 fL (80.0-100.0); Mean Platelet Volume 8.3; Monocytes % (A) 6 %; Neutrophils # (A) 13.7 k/uL (1.3-7.7); Neutrophils % (A) 86 %; RBC 3.41 m/uL (4.30-5.90); RDW 13.8 % (11.5-15.5); WBC 15.9 k/uL (3.8-10.6); WBC (Perox) 17.08
[2016-10-30 06:32] LABS: Ionized Calcium 4.6 mg/dL (4.5-5.3)
[2016-10-30 06:53] LABS: ALT 43 U/L (21-72); AST 46 U/L (17-59); Alkaline Phosphatase 115 U/L (38-126); Amylase 65 U/L (30-110); Anion Gap 11 mmol/L; Blood Urea Nitrogen 4 mg/dL (9-20); Calcium 7.3 mg/dL (8.4-10.2); Carbon Dioxide 27 mmol/L (22-30); Chloride 99 mmol/L (98-107); Glucose 103 mg/dL (74-99); Magnesium 1.6 mg/dL (1.6-2.3); Non-African American GFR(MDRD) >60 (>60 ml/min/1.73 sqM); Phosphorous 4.3 mg/dL (2.5-4.5); Potassium 3.6 mmol/L (3.5-5.1); Sodium 137 mmol/L (137-145); Total Bilirubin 0.6 mg/dL (0.2-1.3); Total Protein 4.7 g/dL (6.3-8.2)
[2016-10-30] MEDS: NICOTINE 14MG/24HR PATCH TRANSDERM SCH (07:50)
[2016-10-30] MEDS: CALCIUM CARBONATE 500 MG CHEWABLE PO SCH ×2 (07:50→11:33)
[2016-10-30] MEDS: HEPARIN SODIUM,PORCINE 5,000 UNIT/ML 1 ML VIAL SQ SCH (07:50)
[2016-10-30] MEDS: FUROSEMIDE 10 MG/ML 4 ML VIAL IV SCH (07:50)
[2016-10-30] MEDS: CITALOPRAM HYDROBROMIDE 20 MG TAB PO SCH (07:50)
[2016-10-30] MEDS: BACITRACIN 500 UNIT/GM OINT 28.4 GM TUBE TOPICAL SCH (07:50)
[2016-10-30] MEDS: ATENOLOL 25 MG TAB PO SCH (07:50)
[2016-10-30] MEDS: PANTOPRAZOLE 40 MG TABLET PO SCH (07:51)
[2016-10-30 08:19] VITALS: BP 160/96; PULSE 109; RESP 22; TEMP 97.5
--- NOTE | 2016-10-30 08:58 | P.PN ---
Subjective Principal diagnosis: Acute severe pancreatitis, rhabdomyolysis 35-year-old male limited with acute severe pancreatitis rhabdomyolysis with underlying heavy alcohol abuse. Feels better today more alert. Tolerating full liquid diet requesting advancement. Drainage from paracentesis puncture site seems to be resolving. Objective - Vital Signs Vital signs: Vital Signs Temp 97.5 F L 10/30/16 07:00 Pulse 109 H 10/30/16 07:00 Resp 22 10/30/16 07:00 BP 160/96 10/30/16 07:00 Pulse Ox 98 10/30/16 07:00 Intake & Output 10/29/16 10/30/16 10/30/16 18:59 06:59 18:59 Intake Total 500 Output Total 2600 900 Balance -2600 -400 Weight 78.7 kg Intake: Oral 500 Output: Urine 2600 900 Other: Voiding Method Urinal # Voids 2 # Bowel Movements 2 - Exam General appearance: The patient is alert, oriented, in no acute distress. HET: Head is normocephalic and atraumatic. Pupils are equal and reactive. Oropharynx is clear without lesions. Neck: Supple without lymphadenopathy. Trachea midline. Heart: S1 S2. Regular rate and rhythm. Lungs: No crackles or wheezes are heard. Abdomen: Mildly bloated. Paracentesis site without drainage bowel sounds present. No peritoneal signs. No palpable organomegaly or masses. Extremities: Generalized very mild anasarca. Left upper extremity PICC line without erythema or drainage Neurological: No focal deficits. Strength and sensation are grossly intact. - Labs CBC & Chem 7: 10/30/16 06:10 10/30/16 06:10 Labs: Abnormal Lab Results - Last 24 Hours (Table) 10/30/16 10/30/16 Range/Units 06:10 06:10 WBC 15.9 H (3.8-10.6) k/uL RBC 3.41 L (4.30-5.90) m/uL Hgb 10.1 L (13.0-17.5) gm/dL Hct 31.9 L (39.0-53.0) % Neutrophils # 13.7 H (1.3-7.7) k/uL Lymphocytes # 0.7 L (1.0-4.8) k/uL BUN 4 L (9-20) mg/dL Creatinine 0.60 L (0.66-1.25) mg/dL Glucose 103 H (74-99) mg/dL Calcium 7.3 L (8.4-10.2) mg/dL Total Protein 4.7 L (6.3-8.2) g/dL Albumin 2.1 L (3.5-5.0) g/dL Lipase 655 H (23-300) U/L Microbiology - Last 24 Hours (Table) 10/26/16 00:15 Blood Culture - Preliminary Blood No Growth after 96 hours 10/23/16 12:56 Blood Culture - Final Blood No Growth after 144 hours 10/23/16 13:05 Blood Culture - Final Blood No Growth after 144 hours Assessment and Plan Plan: Impression: 1. Acute severe pancreatitis with EtOH abuse. 2. Alcohol hepatitis. 3. Acute renal failure acute tubular necrosis secondary to rhabdomyolysis. 4. Abdominal distention with ascites secondary to severe pancreatitis with component of anasarca status post therapeutic diagnostic paracentesis. Recommendations: 1. Advance to low-salt diet. 2. Continue to monitor laboratory studies and vital signs. 3. Supportive measures. Discharge planning per medicine. We'll follow as needed return to office in 1-2 weeks for reevaluation. Assessment and plan of care discussed with Dr. Johnston.
[2016-10-30] MEDS: MAGNESIUM SULFATE-D5W PMX 1 GM in DEXTROSE/WATER 1 100ML.BAG IVPB SCH ×3 (10:13→12:28)
[2016-10-30] MEDS: POTASSIUM CHLORIDE ER 20 MEQ TAB.ER PO SCH ×2 (10:13→12:29)
[2016-10-30] MEDS: THIAMINE 100 MG TAB PO SCH (11:33)
[2016-10-30 13:51] VITALS: BMI 28.0
--- NOTE | 2016-11-04 12:08 | P.DS ---
Providers Date of admission: 10/17/16 14:12 Expected date of discharge: 10/30/16 Attending physician: Syd Nesbitt Consults: 10/20/16 16:10 Consult Physician Routine Consulting Provider: Tosha Ahmadi Consult Reason/Comments: ETOH withdrawl/ med management Do you want consulting provider notified?: Yes 10/18/16 01:47 Consult Physician Routine Consulting Provider: Syd Mendes Consult Reason/Comments: icu management Do you want consulting provider notified?: Yes, Notify in am 10/18/16 06:29 Consult Physician Routine Consulting Provider: Haroon Carrillo Consult Reason/Comments: elevated trops Do you want consulting provider notified?: Yes, Notify in am 10/18/16 09:24 Consult Physician Routine Consulting Provider: Corby Nunez Consult Reason/Comments: icu management Do you want consulting provider notified?: Already Contacted 10/18/16 11:54 Consult Physician Routine Consulting Provider: Ya Karimi Consult Reason/Comments: arf Do you want consulting provider notified?: Yes 10/18/16 14:56 Consult Physician Routine Consulting Provider: Ya Karimi Consult Reason/Comments: total creatinine kinase >32,000, renal failure Do you want consulting provider notified?: Yes Dr. Johnston & Dr. Luis Eduardo Levy, GI Pulmonary, Dr. Curran & Dr. Nunez Surg, Dr. OlivasTim Primary care physician: [facility] Course: Final Diagnoses: 1. Acute severe pancreatitis, possible sepsis present on admission in a patient with EtOH abuse. 2. [Acute metabolic acidosis, severe possibly secondary to sepsis and pancreatitis]. 3. [Acute renal failure, secondary to tubular necrosis with acute severe rhabdomyolysis, improved 4. [Severe hypocalcemia possibly secondary to acute pancreatitis]. 5. Ascites with bilateral pleural effusion per computed tomography scan secondary to acute pancreatitis. Status post paracentesis 6. [Nausea, vomiting and dehydration possibly gastritis secondary to alcohol intoxication, present on admission, subsided]. 7. [Hypoalbuminemia, Mild to moderate protein calorie malnutrition, 8. Alcoholic hepatitis 9. Hypokalemia 10. Hyperchloremia 11. . Alcoholic hepatitis 12. History of Nicotine abuse 13. History of Crohn's colitis 14. Drug screen positive for cocaine on admission 15. Hypomagnesemia Hospital course:This is a 35-year-old gentleman admitted with acute severe pancreatitis with rhabdomyolysis, and multiple other medical issues in a patient with EtOH abuse. Evaluated and treated by multiple consults. Underwent diagnostic, therapeutic paracentesis on Thursday with 2.3 L of dark miguel fluid removed, cytology reported nonmalignant. No DTs reported. Diet intake significantly improved. Cleared by all consults for discharge. Patient is being discharged home with in a stable condition with guarded prognosis. The impression and plan of care has been dictated as directed. Dr.Vegesna Lowery performed a H&P examination of this patient and discussed the same with the dictator. I agree with the dictator's note. Any additional findings/opinions/ etc. will be noted. Patient Condition at Discharge: Stable Plan - Discharge Summary New Discharge Prescriptions: Calcium Carbonate [Tums] 500 mg PO TID-W/MEALS #90 chew Folic Acid 1 mg PO DAILY #30 tablet Furosemide [Lasix] 40 mg PO BID #60 tablet Multivitamins, Thera [Multivitamin] 1 tab PO DAILY #30 tablet Nicotine 14Mg/24Hr Patch [Habitrol] 1 patch TRANSDERM DAILY #30 patch Spironolactone [Aldactone] 100 mg PO DAILY #30 tab Thiamine [Vitamin B-1] 100 mg PO DAILY #30 tab traMADol HCL [Ultram] 50 mg PO Q4HR PRN #30 tab PRN Reason: Pain Discharge Medication List Citalopram Hydrobromide [CeleXA] 20 mg PO DAILY 10/17/16 [History] Fluticasone Nasal [place] [Flonase Nasal [place]] 1 spray EA NOSTRIL BID PRN [History] Omeprazole [PriLOSEC] 20 mg PO AC-BID 10/17/16 [History] Atenolol [Tenormin] 50 mg PO BID #1 tab 10/30/16 [Rx] Calcium Carbonate [Tums] 500 mg PO TID-W/MEALS #90 chew 10/30/16 [Rx] Folic Acid 1 mg PO DAILY #30 tablet 10/30/16 [Rx] Furosemide [Lasix] 40 mg PO BID #60 tablet 10/30/16 [Rx] Multivitamins, Thera [Multivitamin] 1 tab PO DAILY #30 tablet 10/30/16 [Rx] Nicotine 14Mg/24Hr Patch [Habitrol] 1 patch TRANSDERM DAILY #30 patch 10/30/16 [ Rx] Spironolactone [Aldactone] 100 mg PO DAILY #30 tab 10/30/16 [Rx] Thiamine [Vitamin B-1] 100 mg PO DAILY #30 tab 10/30/16 [Rx] traMADol HCL [Ultram] 50 mg PO Q4HR PRN #30 tab 10/30/16 [Rx] Ibuprofen [Motrin] 400 mg PO Q6HR PRN 11/03/16 [History] Follow up Appointment(s)/Referral(s): Lorena Levy MD [STAFF PHYSICIAN] - 11/06/16 4:30 pm Tim Marroquin MD [Primary Care Provider] - 11/03/16 (Office currently closed, please call for appointment. ) Ambulatory/Diagnostic Orders: Lipase [LAB.AMB] Time Frame: 3 Days, Location: Determined By Patient Patient Instructions/Handouts: How to Stop Smoking (DC), Pancreatitis (DC) Activity/Diet/Wound Care/Special Instructions: Diet: Low Sodium, 2000mg repeat lytes pending Activity: limited until follow up No recreational drug use: no alcolhol consumption, No smoking. References given. Discharge Disposition: HOME SELF-CARE
== END 2016-10-30 14:00 | disposition home or self-care (01) | DRG 871 ==
LOC: EC 10:04 → 4MS4W 14:12 → 6ICU 10-18 00:16 → 4MS4W 10-24 10:15
PROVIDERS: ADMIT Hospitalist; ATTEND Hospitalist
PROC: 0W9G3ZZ Drainage of Peritoneal Cavity, Percutaneous Approach (ICD-10-PCS; 2016-10-24)
PROC: B5181ZA Fluoroscopy of Superior Vena Cava using Low Osmolar Contrast, Guidance (ICD-10-PCS; principal; 2016-10-27 10:30)
PROC: B548ZZA Ultrasonography of Superior Vena Cava, Guidance (ICD-10-PCS; principal; 2016-10-27 10:30)
PROC: 02HV33Z Insertion of Infusion Device into Superior Vena Cava, Percutaneous Approach (ICD-10-PCS; principal; 2016-10-27 10:30)
DX: A41.9 Sepsis, unspecified organism (principal); K85.20 Alcohol induced acute pancreatitis without necrosis or infection; N17.0 Acute kidney failure with tubular necrosis; J90 Pleural effusion, not elsewhere classified; E87.2 Acidosis; E44.0 Moderate protein-calorie malnutrition; M62.82 Rhabdomyolysis; E87.1 Hypo-osmolality and hyponatremia; K50.10 Crohn's disease of large intestine without complications; F10.239 Alcohol dependence with withdrawal, unspecified; J98.11 Atelectasis; N39.0 Urinary tract infection, site not specified; E87.8 Other disorders of electrolyte and fluid balance, not elsewhere classified; E83.39 Other disorders of phosphorus metabolism; E83.51 Hypocalcemia; E86.0 Dehydration; E87.5 Hyperkalemia; E87.6 Hypokalemia; F14.10 Cocaine abuse, uncomplicated; F17.200 Nicotine dependence, unspecified, uncomplicated; I10 Essential (primary) hypertension; J45.909 Unspecified asthma, uncomplicated; K21.9 Gastro-esophageal reflux disease without esophagitis; K70.11 Alcoholic hepatitis with ascites; Z81.4 Family history of other substance abuse and dependence; Z79.899 Other long term (current) drug therapy; E83.42 Hypomagnesemia; B37.9 Candidiasis, unspecified
CPT/HCPCS: 36415; 36569; 49083; 71010; 71020; 74000; 74176; 74177; 76705; 76937; 77001; 80048; 80053; 80074; 80202; 80299; 80300; 81001; 81003; 82042; 82150; 82306; 82310; 82330; 82550; 82553; 82945; 83605; 83690; 83735; 83970; 84100; 84132; 84134; 84157; 84478; 84484; 84550; 85025; 85027; 85610; 87040; 87070; 87086; 87205; 87502; 88108; 88305; 89050; 93005; 93306; 94640; 94760; 96361; 96374; 96375; 96376; 99284; 99285

== ENCOUNTER 2016-11-03 14:43 | Inpatient (IN) | payer BC, OTHER ==
--- NOTE | 2016-11-03 16:05 | XR ---
EXAMINATION TYPE: XR chest 2V DATE OF EXAM: 11/03/2016 4:01 PM COMPARISON: Prior chest x-ray 25 October 2016 HISTORY: Fever, pancreatitis, abnormal chest x-ray TECHNIQUE: Frontal and lateral views of the chest are obtained. FINDINGS: There is improved aeration at the lung bases, retrocardiac density persists. No evident pn eumothorax or sizable effusion. Cardiac mediastinal silhouette, pulmonary vascularity and michelle are wi thin normal limits. IMPRESSION: There may be left lower lobe atelectasis greater than right. Possible small effusions.
[2016-11-03 16:22] LABS: Appearance,Urine Clear (Clear); Bilirubin,Urine Negative (Negative); Glucose,Urine (UA) Negative (Negative); Ketones,Urine Negative (Negative); Leukocyte Esterase,Urine Negative (Negative); Nitrite,Urine Negative (Negative); PH, Urine 6.5 (5.0-8.0); Protein,Urine Negative (Negative); Specific Gravity,Urine 1.003 (1.001-1.035); UA Billing (MACRO vs. MICRO) CHEM; Urobilinogen,Urine <2.0 mg/dL (<2.0)
[2016-11-03 16:23] LABS: ALT 110 U/L (21-72); AST 103 U/L (17-59); Alkaline Phosphatase 246 U/L (38-126); Amylase 135 U/L (30-110); Anion Gap 14 mmol/L; Blood Urea Nitrogen 6 mg/dL (9-20); Calcium 8.8 mg/dL (8.4-10.2); Carbon Dioxide 28 mmol/L (22-30); Chloride 93 mmol/L (98-107); Glucose 92 mg/dL (74-99); Non-African American GFR(MDRD) >60 (>60 ml/min/1.73 sqM); Potassium 5.2 mmol/L (3.5-5.1); Sodium 135 mmol/L (137-145); Total Protein 6.4 g/dL (6.3-8.2)
[2016-11-03 16:25] LABS: Basophils # (A) 0.1 k/uL (0-0.2); Basophils % (A) 1 %; CH 29.4; CHCM 32.3; Eosinophils # (A) 0.3 k/uL (0-0.7); Eosinophils % (A) 1 %; HCT 38.7 % (39.0-53.0); HDW 2.88; HGB 12.1 gm/dL (13.0-17.5); Hypochromasia Slight; Immature Gran Flag Slight; Luc # (Auto) 0.36; Luc % (Auto) 2; Lymphocytes # (A) 0.9 k/uL (1.0-4.8); Lymphocytes % (A) 4 %; MCH 28.5 pg (25.0-35.0); MCHC 31.3 g/dL (31.0-37.0); MCV 90.9 fL (80.0-100.0); Mean Platelet Volume 8.1; Monocytes # (A) 1.3 k/uL (0-1.0); Monocytes % (A) 6 %; Neutrophils # (A) 20.1 k/uL (1.3-7.7); Neutrophils % (A) 87 %; RBC 4.26 m/uL (4.30-5.90); RDW 13.5 % (11.5-15.5); WBC 23.1 k/uL (3.8-10.6)
[2016-11-03] MEDS ORDERED: NALOXONE 0.4 MG/ML 1 ML VIAL IV PRN (18:05)
[2016-11-03] MEDS ORDERED: ACETAMINOPHEN TAB 325 MG TAB PO PRN (18:05)
[2016-11-03] MEDS ORDERED: SODIUM CHLORIDE 0.9% 1,000 ML IV SCH (18:15)
--- NOTE | 2016-11-03 18:18 | ED ---
Fever HPI - General Chief Complaint: Fever Stated Complaint: high fever-revisit Time Seen by Provider: 11/03/16 15:26 Source: patient Mode of arrival: wheelchair Limitations: no limitations - History of Present Illness Initial Comments: This patient is a 36-year-old man who presents with complaint that he has felt like he is having fevers for about the past 2 days. He had been in the hospital previous to that for an episode of pancreatitis. He states that he was feeling a little better and then 2 days ago started having high fever. The patient denies cough or dyspnea. He has not had any urinary frequency, dysuria or hematuria. MD Complaint: fever Onset/Timin -: days(s) Temperature Source: subjective Associated Symptoms: nausea - Related Data Home Medications Medication Instructions Recorded Confirmed Citalopram Hydrobromide [CeleXA] 20 mg PO DAILY 10/17/16 12/07/16 Fluticasone Nasal [place] [Flonase 1 spray EA NOSTRIL BID PRN 10/17/16 12/07/16 Nasal [place]] Omeprazole [PriLOSEC] 20 mg PO AC-BID 10/17/16 12/07/16 Ibuprofen [Motrin] 400 mg PO Q6HR PRN 11/03/16 12/07/16 Previous Rx's Medication Instructions Recorded Atenolol [Tenormin] 50 mg PO BID #1 tab 10/30/16 Calcium Carbonate [Tums] 500 mg PO TID-W/MEALS #90 chew 10/30/16 Folic Acid 1 mg PO DAILY #30 tablet 10/30/16 Furosemide [Lasix] 40 mg PO BID #60 tablet 10/30/16 Multivitamins, Thera [Multivitamin 1 tab PO DAILY #30 tablet 10/30/16 (formulary)] Nicotine 14Mg/24Hr Patch [Habitrol] 1 patch TRANSDERM DAILY #30 patch 10/30/16 Spironolactone [Aldactone] 100 mg PO DAILY #30 tab 10/30/16 Thiamine [Vitamin B-1] 100 mg PO DAILY #30 tab 10/30/16 traMADol HCL [Ultram] 50 mg PO Q4HR PRN #30 tab 10/30/16 Allergies Allergy/AdvReac Type Severity Reaction Status Date / Time Penicillins Allergy Severe Rash/Hives Verified 12/07/16 06:55 sulfamethoxazole Allergy Unknown Verified 12/07/16 06:55 [From Septra] Childhood trimethoprim [From Septra] Allergy Unknown Verified 12/07/16 06:55 Childhood lorazepam [From Ativan] AdvReac Hallucinati Verified 12/07/16 06:55 ons Review of Systems ROS Statement: Those systems with pertinent positive or pertinent negative responses have been documented in the HPI. ROS Other: All systems not noted in ROS Statement are negative. Constitutional: Reports: fever, chills ENT: Denies: ear pain, throat pain, congestion Respiratory: Denies: cough, dyspnea Cardiovascular: Denies: chest pain, palpitations, edema Gastrointestinal: Reports: abdominal pain, nausea. Denies: vomiting, diarrhea Genitourinary: Denies: dysuria, frequency, hematuria Musculoskeletal: Denies: back pain Skin: Denies: rash Neurological: Denies: headache, weakness, numbness Past Medical History Past Medical History: No Reported History Additional Past Medical History / Comment(s): pancreatitis, CROHNS OR COLITS PT NOT SURE WHICH ONE History of Any Multi-Drug Resistant Organisms: None Reported Past Surgical History: No Surgical Hx Reported Past Anesthesia/Blood Transfusion Reactions: No Reported Reaction Past Psychological History: No Psychological Hx Reported Smoking Status: Former smoker Past Alcohol Use History: Occasional Additional Past Alcohol Use History / Comment(s): ADMITS TO 6-7 BEER PER DAY, STARTED SMOKING AT AGE 14 AND QUIT 2011 Past Drug Use History: Marijuana - Past Family History Mother Family Medical History: COPD Father Family Medical History: Cancer Additional Family Medical History / Comment(s): PROSTATE CANCER General Exam Limitations: no limitations General appearance: alert, in no apparent distress Head exam: Present: atraumatic, normocephalic Eye exam: Present: normal appearance. Absent: scleral icterus, conjunctival injection ENT exam: Present: normal oropharynx Neck exam: Present: normal inspection, full ROM Respiratory exam: Present: normal lung sounds bilaterally. Absent: respiratory distress, wheezes, rales, rhonchi, stridor Cardiovascular Exam: Present: regular rate, normal rhythm, normal heart sounds. Absent: systolic murmur, diastolic murmur, rubs, gallop GI/Abdominal exam: Present: soft, tenderness (There is mild epigastric and upper abdominal tenderness without rebound or guarding). Absent: distended, guarding, rebound, rigid, mass, pulsatile mass Extremities exam: Present: normal inspection, normal capillary refill. Absent: pedal edema, calf tenderness Back exam: Present: normal inspection. Absent: CVA tenderness (R), CVA tenderness (L) Neurological exam: Present: alert Skin exam: Present: warm, dry, intact, normal color. Absent: rash Course Vital Signs 11/03/16 11/03/16 11/03/16 14:59 17:24 19:46 Temperature 98.5 F 100.5 F H Pulse Rate 90 100 100 Respiratory 22 16 18 Rate Blood Pressure 132/82 125/74 143/90 O2 Sat by Pulse 99 96 98 Oximetry 11/03/16 20:59 Temperature 98.7 F Pulse Rate 110 H Respiratory 18 Rate Blood Pressure 132/89 O2 Sat by Pulse 97 Oximetry Medical Decision Making - Lab Data Result diagrams: 11/05/16 07:37 11/05/16 07:33 Lab Results 11/03/16 11/03/16 11/03/16 Range/Units 15:52 15:52 16:05 WBC 23.1 H (3.8-10.6) k/uL RBC 4.26 L (4.30-5.90) m/uL Hgb 12.1 L (13.0-17.5) gm/dL Hct 38.7 L (39.0-53.0) % MCV 90.9 (80.0-100.0) fL MCH 28.5 (25.0-35.0) pg MCHC 31.3 (31.0-37.0) g/dL RDW 13.5 (11.5-15.5) % Plt Count 848 H* (150-450) k/uL Neutrophils % 87 % Lymphocytes % 4 % Monocytes % 6 % Eosinophils % 1 % Basophils % 1 % Neutrophils # 20.1 H (1.3-7.7) k/uL Lymphocytes # 0.9 L (1.0-4.8) k/uL Monocytes # 1.3 H (0-1.0) k/uL Eosinophils # 0.3 (0-0.7) k/uL Basophils # 0.1 (0-0.2) k/uL Hypochromasia Slight Sodium 135 L (137-145) mmol/L Potassium 5.2 H (3.5-5.1) mmol/L Chloride 93 L (98-107) mmol/L Carbon Dioxide 28 (22-30) mmol/L Anion Gap 14 mmol/L BUN 6 L (9-20) mg/dL Creatinine 0.60 L (0.66-1.25) mg/dL Est GFR (MDRD) Af Amer >60 (>60 ml/min/1.73 sqM) Est GFR (MDRD) Non-Af >60 (>60 ml/min/1.73 sqM) Glucose 92 (74-99) mg/dL Calcium 8.8 (8.4-10.2) mg/dL Total Bilirubin 1.0 (0.2-1.3) mg/dL AST 103 H (17-59) U/L ALT 110 H (21-72) U/L Alkaline Phosphatase 246 H (38-126) U/L Total Protein 6.4 (6.3-8.2) g/dL Albumin 3.0 L (3.5-5.0) g/dL Amylase 135 H (30-110) U/L Lipase 1233 H (23-300) U/L Urine Color Yellow Urine Appearance Clear (Clear) Urine pH 6.5 (5.0-8.0) Ur Specific [place] 1.003 (1.001-1.035) Urine Protein Negative (Negative) Urine Glucose (UA) Negative (Negative) Urine Ketones Negative (Negative) Urine Blood Negative (Negative) Urine Nitrate Negative (Negative) Urine Bilirubin Negative (Negative) Urine Urobilinogen <2.0 (<2.0) mg/dL Ur Leukocyte Esterase Negative (Negative) Disposition Clinical Impression: Pancreatitis Disposition: ADMITTED IP TO THIS [facility] Condition: Fair
[2016-11-03] MEDS: ONDANSETRON 4 MG/2 ML VIAL IVP PRN (19:39)
[2016-11-03] MEDS: MORPHINE SULFATE 4 MG/ML SYRINGE IV PRN (19:41)
[2016-11-03] MEDS: IBUPROFEN 200 MG TAB PO PRN (20:03)
[2016-11-03] MEDS ORDERED: FUROSEMIDE 40 MG TAB PO SCH (21:15)
[2016-11-03] MEDS: traMADol 50 MG TAB PO PRN (22:22)
[2016-11-03] MEDS: ATENOLOL 50 MG TAB PO SCH (22:23)
[2016-11-03] MEDS: metroNIDAZOLE-NS PMX 500 MG in SALINE 1 100ML.BAG IVPB SCH (22:36)
[2016-11-04] MEDS: MORPHINE SULFATE 4 MG/ML SYRINGE IV PRN ×6 (00:28→22:18)
[2016-11-04] MEDS: IBUPROFEN 200 MG TAB PO PRN (04:28)
[2016-11-04] MEDS: PANTOPRAZOLE 40 MG TABLET PO SCH ×2 (08:08→17:30)
[2016-11-04] MEDS: NICOTINE 14MG/24HR PATCH TRANSDERM SCH (08:08)
[2016-11-04] MEDS: CITALOPRAM HYDROBROMIDE 20 MG TAB PO SCH (08:09)
[2016-11-04] MEDS: ATENOLOL 50 MG TAB PO SCH ×2 (08:09→20:42)
[2016-11-04] MEDS: metroNIDAZOLE-NS PMX 500 MG in SALINE 1 100ML.BAG IVPB SCH ×2 (08:09→17:30)
[2016-11-04] MEDS: CALCIUM CARBONATE 500 MG CHEWABLE PO SCH ×3 (08:09→17:30)
[2016-11-04] MEDS: traMADol 50 MG TAB PO PRN ×4 (08:18→20:42)
[2016-11-04] MEDS: THIAMINE 100 MG TAB PO SCH (08:21)
[2016-11-04 08:24] LABS: AST 71 U/L (17-59); Alkaline Phosphatase 246 U/L (38-126); Amylase 118 U/L (30-110); Anion Gap 13 mmol/L; Blood Urea Nitrogen 7 mg/dL (9-20); Calcium 8.8 mg/dL (8.4-10.2); Carbon Dioxide 30 mmol/L (22-30); Chloride 96 mmol/L (98-107); Glucose 100 mg/dL (74-99); Non-African American GFR(MDRD) >60 (>60 ml/min/1.73 sqM); Potassium 5.2 mmol/L (3.5-5.1); Sodium 139 mmol/L (137-145); Total Bilirubin 0.7 mg/dL (0.2-1.3); Total Protein 6.1 g/dL (6.3-8.2)
[2016-11-04 08:29] LABS: CHCM 31.3; HCT 33.7 % (39.0-53.0); HDW 2.87; HGB 10.6 gm/dL (13.0-17.5); Hypochromasia Slight; Immature Gran Flag Slight; MCH 29.1 pg (25.0-35.0); MCHC 31.4 g/dL (31.0-37.0); MCV 92.7 fL (80.0-100.0); Mean Platelet Volume 8.2; RBC 3.64 m/uL (4.30-5.90); RDW 13.7 % (11.5-15.5); WBC 19.3 k/uL (3.8-10.6); WBC (Perox) 20.21
[2016-11-04 08:32] LABS: ALT 94 U/L (21-72)
[2016-11-04] MEDS ORDERED: SPIRONOLACTONE 25 MG TAB PO SCH (09:00)
[2016-11-04] MEDS ORDERED: LEVOFLOXACIN 750MG-D5W PMX 750 MG in DEXTROSE/WATER 1 150ML.BAG IVPB SCH (09:00)
[2016-11-04 10:46] LABS: Manual Review Performed
[2016-11-04 10:47] LABS: Add Differential Manual Differential
[2016-11-04 10:49] LABS: Band Neutrophils % 3.5 %; Metamyelocytes % 2.5 %; Nucleated Red Blood Cells 0 /100 WBC (0-0); Total Cells Counted 200
[2016-11-04] MEDS ORDERED: FLUTICASONE 50MCG/SPRAY NASAL 16GM EA NOSTRIL PRN (11:14)
--- NOTE | 2016-11-04 12:22 | P.CONS ---
History of Present Illness - Reason for Consult Consult date: 11/04/16 Pancreatitis Requesting physician: Syd Mendes - History of Present Illness 35-year-old male recently admitted with acute alcohol hepatitis/pancreatitis, rhabdomyolysis/acute kidney injury with underlying polysubstance abuse; methamphetamines, cocaine identified in urine drug screen. He underwent paracentesis with 2.0 L removal negative for cytology. Discharge 10/30/2016 readmitted yesterday with reports of weakness, fever T-max 100.5. Denies abdominal pain, hematemesis, hematochezia, or melena. White count 23.1 currently 19.3. Hemoglobin 10.6. Platelet 848. Total bilirubin 0.7. AST 71. ALT 94. Alkaline phosphatase 246. Lipase 1233. Amylase 135. Review of Systems Constitutional: reports fever, denies chills, sweats, weight gain, or loss. HEENT: Negative for migraines, blurred vision or loss, earaches, drainage, tinnitus, oral mucosal lesions, dysphagia, or odynophagia. Cardiac: Negative for chest pain, arrhythmias, or palpitation. Respiratory: Negative for shortness of breath, hemoptysis, cough, or sputum production. Gastrointestinal: See HPI for pertinent findings. Mild ascites. Genitourinary: Negative for hematuria, urgency, frequency, polyuria, dysuria, or penile discharge. Musculoskeletal: Negative for muscle aches, swelling, arthritis, and arthralgias. Neurologic: Negative for stroke or TIA. Endocrine: Negative for thyroid problems. Skin: Negative for rash or itching. Psychiatric: History of anxiety. History of EtOH and polysubstance abuse. Marijuana usage. Remote nicotine cigarette dependency quit in 2011. All systems: negative (See HPI) Past Medical History Past Medical History: Asthma, GERD/Reflux, Hypertension Additional Past Medical History / Comment(s): pancreatitis, CROHNS OR COLITS PT NOT SURE WHICH ONE,UPPER BRIDGE, History of Any Multi-Drug Resistant Organisms: None Reported Past Surgical History: No Surgical Hx Reported Additional Past Surgical History / Comment(s): PARACENTESIS, PICC LINE-SINCE REMOVED,NOSE SXPER PTS "STARIGHTENED AND BONE GRAFT" Past Anesthesia/Blood Transfusion Reactions: No Reported Reaction Past Psychological History: Anxiety Smoking Status: Former smoker Past Alcohol Use History: Daily Additional Past Alcohol Use History / Comment(s): QUIT DRINKING 11--15,USED TO 6-7 BEER AND 1/2 PINT LIQUOR PER DAY. , STARTED SMOKING AT AGE 14 AND QUIT 2011,THEN CHEWED TOBACCO FOR AWHILE THEN QUIT Past Drug Use History: Marijuana Additional Drug Use History / Comment(s): QUIT SEP 2016 - Past Family History Mother Family Medical History: COPD Father Family Medical History: Cancer Additional Family Medical History / Comment(s): PROSTATE CANCER Medications and Allergies Home Medications Medication Instructions Recorded Confirmed Type Citalopram Hydrobromide [CeleXA] 20 mg PO DAILY 10/17/16 11/03/16 History Fluticasone Nasal [place] [Flonase 1 spray EA NOSTRIL BID PRN 10/17/16 11/03/16 History Nasal [place]] Omeprazole [PriLOSEC] 20 mg PO AC-BID 10/17/16 11/03/16 History Ibuprofen [Motrin] 400 mg PO Q6HR PRN 11/03/16 11/03/16 History Allergies Allergy/AdvReac Type Severity Reaction Status Date / Time Penicillins Allergy Severe Rash/Hives Verified 11/03/16 16:09 sulfamethoxazole Allergy Unknown Verified 11/03/16 16:09 [From Septra] Childhood trimethoprim [From Septra] Allergy Unknown Verified 11/03/16 16:09 Childhood lorazepam [From Ativan] AdvReac Hallucinati Verified 11/03/16 16:09 ons Physical Exam Vitals: Vital Signs Temp Pulse Pulse Resp BP BP Pulse Ox 11/04/16 07:00 97.8 F 88 16 118/75 97 11/03/16 21:15 98.9 F 96 16 136/82 94 L 11/03/16 20:59 98.7 F 110 H 18 132/89 97 11/03/16 19:46 100.5 F H 100 18 143/90 98 Intake and Output 11/03/16 11/04/16 11/04/16 22:59 06:59 14:59 Intake Total 100 Balance 100 Intake: IV 100 metroNIDAZOLE-NS PMX 500 100 mg In Saline 1 100ml.bag @ 100 mls/hr IVPB Q8HR ROBYN Rx#:[id number] Other: Voiding Method Toilet Toilet # Voids 1 1 General appearance: The patient is alert, oriented, in no acute distress. HET: Head is normocephalic and atraumatic. Pupils are equal and reactive. Oropharynx is clear without lesions. Neck: Supple without lymphadenopathy. Trachea midline. Heart: S1 S2. Regular rate and rhythm. Lungs: No crackles or wheezes are heard. Abdomen: Soft, mildly distended with ascites, nontender, with bowel sounds. No peritoneal signs. No palpable organomegaly or masses. Extremities: Normal skin color and turgor. No cyanosis, rash, ulceration, clubbing, or edema. Radial and pedal pulses are 2/4 bilaterally. Neurological: No focal deficits. Strength and sensation are grossly intact. Results CBC & Chem 7: 11/04/16 07:44 11/04/16 07:44 Labs: Abnormal Lab Results - Last 24 Hours (Table) 11/04/16 11/04/16 Range/Units 07:44 07:44 WBC 19.3 H (3.8-10.6) k/uL RBC 3.64 L (4.30-5.90) m/uL Hgb 10.6 L (13.0-17.5) gm/dL Hct 33.7 L (39.0-53.0) % Potassium 5.2 H (3.5-5.1) mmol/L Chloride 96 L (98-107) mmol/L BUN 7 L (9-20) mg/dL Glucose 100 H (74-99) mg/dL AST 71 H (17-59) U/L ALT 94 H (21-72) U/L Alkaline Phosphatase 246 H (38-126) U/L Total Protein 6.1 L (6.3-8.2) g/dL Albumin 2.7 L (3.5-5.0) g/dL Amylase 118 H (30-110) U/L Lipase 1179 H (23-300) U/L Assessment and Plan (1) Alcoholic pancreatitis Narrative/Plan: 35-year-old male recent hospitalization for acute alcohol hepatitis pancreatitis with acute kidney injury secondary to cocaine abuse with rhabdomyolysis admitted with generalized malaise, weakness, leukocytosis, and reported fevers with persistent elevation of amylase lipase consistent with previous admission of pancreatitis sequelae. Clinically patient does not have recurrent pancreatitis. Status: Acute (2) ETOH abuse Status: Acute (3) Polysubstance abuse Status: Acute (4) Alcoholic hepatitis Status: Acute Plan: 1. Supportive measures. 2. Case discussed with Dr. Hawk diuretics will be adjusted. 3. No further workup at this time. We'll continue to follow with you. Thank you for this kind referral and the opportunity to participate in the care of your patient. This consultation was discussed with Dr. Levy. The impression and plan of care have been directed as dictated.
[2016-11-04] MEDS: FOLIC ACID 1 MG TAB PO SCH (12:23)
[2016-11-04] MEDS: MULTIVITAMINS, THERA 1 EACH TAB PO SCH (12:23)
--- NOTE | 2016-11-04 12:49 | HP ---
DATE OF ADMISSION: A 35-year-old gentleman was recently discharged from the hospital, came in with flulike symptoms including body aches, fevers, and when patient chest x-ray did show some atelectasis. Patient denied any cough. Patient is although coughing when I evaluated the patient, he is not bring up anything. Denied any seizure-like symptoms. Patient was started on Levofloxacin, not sure why. Lipase was done in the ER which is elevated which is a nonspecific elevation. Patient does have some diffuse abdominal pain, has been there all the time. Patient denied any epigastric abdominal pain or pain radiating to the back. Patient does not have any symptoms. Basically patient does not have any symptoms consistent with acute pancreatitis and I will start him on diet and patient is on Prilosec will be continued, ibuprofen will be discontinued and patient's antibiotics will be discontinued. Will watch him off antibiotics and if he is afebrile for tomorrow, patient will be discharged tomorrow. Patient has mildly elevated liver enzymes due to alcoholic hepatitis, although patient quit drinking since his last admission. During his last admission, patient was treated for severe acute pancreatitis and patient has significant clinical improvement after which patient went home started having fever as mentioned above. Patient denied any cough or runny nose. REVIEW OF SYSTEMS: GENERAL: As described in HPI. HEENT: No recent visual problems or hearing problems. Denied any sore throat. CARDIOVASCULAR: No chest pain, orthopnea, PND, no palpitations, no syncope. PULMONARY: No shortness of breath, no cough, no hemoptysis. GASTROINTESTINAL: No diarrhea, no nausea, no vomiting, no abdominal pain. Normoactive bowel sounds. NEUROLOGICAL: No headaches, no weakness, no numbness. HEMATOLOGICAL: Denies any bleeding or petechiae. GENITOURINARY: Denies any burning micturition, frequency, or urgency. MUSCULOSKELETAL/RHEUMATOLOGICAL: Denies any joint pain, swelling, or any muscle pain. ENDOCRINE: Denies any polyuria or polydipsia. The rest of the 14 point review of systems is negative. Home medications include: 1. Citalopram. 2. Flonase. 3. Omeprazole. 4. Ibuprofen. 5. Atenolol. 6. Calcium carbonate. 7. Folic acid. 8. Lasix. 9. Multivitamin. 10. Nicotine transdermal patch. 11. Aldactone. 12. Thiamine. 13. Tramadol. ALLERGIES: Allergic to PENICILLIN, BACTRIM and LORAZEPAM. PAST MEDICAL HISTORY: Significant for pancreatitis, Crohn's colitis. SOCIAL HISTORY: Former smoker. Quit smoking a few months ago. Denied any alcohol abuse. Lately, use to abuse alcohol, use to drink 6 to 7 beers a day, which led to acute alcoholic hepatitis, probably cirrhosis and alcoholic pancreatitis during his last admission and occasional use of marijuana. FAMILY HISTORY: Mother had COPD, father had prostate cancer. PHYSICAL EXAMINATION: VITAL SIGNS: Temperature 98.5, 24 hour T-max is 100.5, pulse of 88, respiratory rate of 16, blood pressure is 118/75, saturating at 97% on room air. ABDOMINAL EXAMINATION: Patient does have abdominal distention, mild ascites, which is a significant improvement compared to yesterday. GENERAL: The patient is alert and oriented x3, not in any acute distress. Well developed, well nourished. HEENT: Pupils are round and equally reacting to light. EOMI. No scleral icterus. No conjunctival pallor. Normocephalic, atraumatic. No pharyngeal erythema. No thyromegaly. CARDIOVASCULAR: S1 and S2 present. No murmurs, rubs, or gallops. PULMONARY: Chest is clear to auscultation, no wheezing or crackles. MUSCULOSKELETAL: No joint swelling or deformity. EXTREMITIES: No cyanosis, clubbing, or pedal edema. NEUROLOGICAL: Gross neurological examination did not reveal any focal deficits. SKIN: No rashes. LABORATORY DATA: CBC, CMP are abnormal for elevated WBC count of 23,300 which has come down to 19,300, platelet count is elevated, which is a reactive thrombocytosis and patient's potassium is 5.2. Elevated amylase and lipase. AST and ALT are minimally elevated which are coming down.UA is essentially negative. Chest x-ray is not impressive. ASSESSMENT AND PLAN: 1. Patient with elevated fever with leukocytosis and sepsis, probably related to viral illness. Patient will not need antibiotics and because of his ascites, I am not going to start him on any IV fluids. 2. Elevated amylase and lipase. This is a nonspecific elevation. No further intervention at this point of time. Will to start him on diet, advance the diet as tolerated. Will repeat lipase tomorrow after diet and make sure they are not worsening. 3. Diffuse abdominal pain which is chronic and secondary to his chronic Crohn's colitis. No further intervention at this point of time. 4. Leukocytosis due to assessment #1. 5. Elevated hyperkalemia secondary to Aldactone which will hold today. Patient probably will be discharged on 40 mg of Lasix and 50 mg of Aldactone and possible gastritis. 6. Acute alcoholic hepatitis. 7. Possible alcoholic cirrhosis. 8. History of Crohn's colitis. 9. Marijuana use counseling was provided. 10. Reactive thrombocytosis from his systemic inflammatory response syndrome. PLAN: As mentioned above.
[2016-11-04 14:24] VITALS: BMI 25.0
[2016-11-04] MEDS: FUROSEMIDE 40 MG TAB PO SCH (17:30)
[2016-11-04] MEDS: ONDANSETRON 4 MG/2 ML VIAL IVP PRN (17:36)
[2016-11-05] MEDS: metroNIDAZOLE-NS PMX 500 MG in SALINE 1 100ML.BAG IVPB SCH ×3 (00:06→14:59)
[2016-11-05] MEDS: traMADol 50 MG TAB PO PRN ×5 (01:41→21:42)
[2016-11-05] MEDS: MORPHINE SULFATE 4 MG/ML SYRINGE IV PRN ×6 (02:24→22:05)
[2016-11-05 07:53] LABS: CH 29.3; CHCM 32.3; HDW 2.81; HGB 10.2 gm/dL (13.0-17.5); Hypochromasia Slight; MCHC 30.9 g/dL (31.0-37.0); MCV 90.8 fL (80.0-100.0); Mean Platelet Volume 8.1; RBC 3.64 m/uL (4.30-5.90); RDW 13.6 % (11.5-15.5); WBC 21.6 k/uL (3.8-10.6)
[2016-11-05 08:15] LABS: ALT 77 U/L (21-72); AST 51 U/L (17-59); Alkaline Phosphatase 195 U/L (38-126); Anion Gap 12 mmol/L; Blood Urea Nitrogen 4 mg/dL (9-20); Calcium 8.4 mg/dL (8.4-10.2); Carbon Dioxide 29 mmol/L (22-30); Chloride 96 mmol/L (98-107); Glucose 115 mg/dL (74-99); Non-African American GFR(MDRD) >60 (>60 ml/min/1.73 sqM); Potassium 4.7 mmol/L (3.5-5.1); Sodium 137 mmol/L (137-145); Total Bilirubin 0.4 mg/dL (0.2-1.3); Total Protein 5.6 g/dL (6.3-8.2)
[2016-11-05] MEDS: ATENOLOL 50 MG TAB PO SCH ×2 (08:24→21:10)
[2016-11-05] MEDS: NICOTINE 14MG/24HR PATCH TRANSDERM SCH (08:24)
[2016-11-05] MEDS: CALCIUM CARBONATE 500 MG CHEWABLE PO SCH ×3 (08:24→16:32)
--- NOTE | 2016-11-05 08:24 | P.PN ---
Subjective Principal diagnosis: History of recent pancreatitis flulike symptoms 35-year-old male admitted with reported fevers flulike symptoms with recent hospitalization for severe pancreatitis. Reports mid epigastric discomfort. Tolerating light diet. Afebrile. Lipase 1282. Diuretics decreased/adjusted yesterday. Objective - Vital Signs Vital signs: Vital Signs Temp 98.3 F 11/04/16 23:00 Pulse 91 11/04/16 23:00 Resp 16 11/04/16 23:00 BP 134/80 11/04/16 23:00 Pulse Ox 96 11/04/16 23:00 Intake & Output 11/04/16 11/05/16 11/05/16 18:59 06:59 18:59 Intake Total 250 800 Output Total 900 Balance 250 -100 Weight 70.307 kg Intake: IV 250 100 Levofloxacin 750Mg-D5w 150 Pmx 750 mg In Dextrose/ Water 1 150ml.bag @ 100 mls/hr IVPB DAILY [facility] Rx# :[id number] metroNIDAZOLE-NS PMX 500 100 100 mg In Saline 1 100ml.bag @ 100 mls/hr IVPB Q8HR [facility] Rx#:[id number] Oral 700 Output: Urine 900 Other: Voiding Method Toilet Toilet # Voids 3 - Exam General appearance: The patient is alert, oriented, in no acute distress. HET: Head is normocephalic and atraumatic. Pupils are equal and reactive. Oropharynx is clear without lesions. Neck: Supple without lymphadenopathy. Trachea midline. Heart: S1 S2. Regular rate and rhythm. Lungs: No crackles or wheezes are heard. Abdomen: Soft, mildly distended with ascites, nontender, with bowel sounds. No peritoneal signs. No palpable organomegaly or masses. Extremities: Normal skin color and turgor. No cyanosis, rash, ulceration, clubbing, or edema. Radial and pedal pulses are 2/4 bilaterally. Neurological: No focal deficits. Strength and sensation are grossly intact. - Labs CBC & Chem 7: 11/05/16 07:37 11/05/16 07:33 Labs: Abnormal Lab Results - Last 24 Hours (Table) 11/04/16 11/04/16 11/05/16 Range/Units 07:44 07:44 07:33 WBC 19.3 H (3.8-10.6) k/uL RBC 3.64 L (4.30-5.90) m/uL Hgb 10.6 L (13.0-17.5) gm/dL Hct 33.7 L (39.0-53.0) % MCHC (31.0-37.0) g/dL Plt Count 803 H* (150-450) k/uL Neutrophils # (Manual) 15.5 H (1.3-7.7) k/uL Monocytes # (Manual) 1.8 H (0-1.0) k/uL Potassium 5.2 H (3.5-5.1) mmol/L Chloride 96 L 96 L (98-107) mmol/L BUN 7 L 4 L (9-20) mg/dL Glucose 100 H 115 H (74-99) mg/dL AST 71 H (17-59) U/L ALT 94 H 77 H (21-72) U/L Alkaline Phosphatase 246 H 195 H (38-126) U/L Total Protein 6.1 L 5.6 L (6.3-8.2) g/dL Albumin 2.7 L 2.5 L (3.5-5.0) g/dL Amylase 118 H (30-110) U/L Lipase 1179 H 1282 H (23-300) U/L 11/05/16 Range/Units 07:37 WBC 21.6 H (3.8-10.6) k/uL RBC 3.64 L (4.30-5.90) m/uL Hgb 10.2 L (13.0-17.5) gm/dL Hct 33.0 L (39.0-53.0) % MCHC 30.9 L (31.0-37.0) g/dL Plt Count 800 H* (150-450) k/uL Neutrophils # (Manual) (1.3-7.7) k/uL Monocytes # (Manual) (0-1.0) k/uL Potassium (3.5-5.1) mmol/L Chloride (98-107) mmol/L BUN (9-20) mg/dL Glucose (74-99) mg/dL AST (17-59) U/L ALT (21-72) U/L Alkaline Phosphatase (38-126) U/L Total Protein (6.3-8.2) g/dL Albumin (3.5-5.0) g/dL Amylase (30-110) U/L Lipase (23-300) U/L Microbiology - Last 24 Hours (Table) 11/03/16 18:24 Blood Culture - Preliminary Blood No Growth after 24 hours Assessment and Plan (1) Alcoholic pancreatitis Narrative/Plan: 35-year-old male recent hospitalization for acute alcohol hepatitis pancreatitis with acute kidney injury secondary to cocaine abuse with rhabdomyolysis admitted with generalized malaise, weakness, leukocytosis, and reported fevers with persistent elevation of amylase lipase consistent with previous admission of pancreatitis sequelae. Clinically patient does not have recurrent pancreatitis. Rule out pseudocyst formation. Status: Acute (2) ETOH abuse Status: Acute (3) Polysubstance abuse Status: Acute (4) Alcoholic hepatitis Status: Acute Plan: 1. Supportive measures. Dr. Levy has requested ultrasound the abdomen to rule out pseudocyst. 2. Continue with light diet. Medical management. 3. We'll continue to follow with you. Assessment and plan a care discussed with Dr. Levy
[2016-11-05] MEDS: PANTOPRAZOLE 40 MG TABLET PO SCH ×2 (08:25→16:32)
[2016-11-05] MEDS: FUROSEMIDE 40 MG TAB PO SCH ×2 (08:25→16:32)
[2016-11-05] MEDS: CITALOPRAM HYDROBROMIDE 20 MG TAB PO SCH (08:25)
[2016-11-05] MEDS: ONDANSETRON 4 MG/2 ML VIAL IVP PRN ×2 (08:30→18:44)
[2016-11-05] MEDS: THIAMINE 100 MG TAB PO SCH (10:49)
[2016-11-05] MEDS: FOLIC ACID 1 MG TAB PO SCH (10:58)
[2016-11-05] MEDS: MULTIVITAMINS, THERA 1 EACH TAB PO SCH (10:58)
--- NOTE | 2016-11-05 16:25 | US ---
EXAMINATION TYPE: US abdomen limited DATE OF EXAM: 11/05/2016 3:17 PM COMPARISON: 10/27/2016 CLINICAL HISTORY: Abd pain, distention, chronic pancreatitis EXAM MEASUREMENTS: Liver Length: 15.4cm Gallbladder Wall: 0.4cm CBD: 0.5cm Right Kidney: 11.5 x 4.8 x 5.5cm RUQ ABDOMINAL ULTRASOUND ANATOMY: Pancreas: not seen due to bowel gas, difficult to exclude a pseudocyst at the level of the head of t he pancreas Liver: heterogeneous Gallbladder: mobile sludge seen with thickened wall Evidence for sonographic Perez's sign: no CBD: wnl Right Kidney: wnl right sided pleural effusion seen septated, mild fluid cluster seen adjacent to liver, non vascular, superior to right kidney at distended RLQ/midline abdomen there is a 11.6cm complex, non mobile, non vascular area noted IMPRESSION: Findings may represent postinflammatory change. It could be pancreatic pseudocyst or poss ibly hematoma, CT abdomen and pelvis may be of benefit.
[2016-11-05] MEDS ORDERED: RX INFO: IV CONTRAST WAS GIVEN 1 EACH MISC MISCELLANE PRN (16:38)
[2016-11-05] MEDS: IOHEXOL 350 MG/ML 25 ML BOTTLE (ORAL USE) PO PRN ×2 (17:03→18:06)
--- NOTE | 2016-11-05 19:03 | CT ---
EXAMINATION TYPE: CT abdomen pelvis w con DATE OF EXAM: 11/05/2016 6:50 PM COMPARISON: 10/25/2016 HISTORY: Abdominal pain and distension, follow-up pancreatitis CT DLP: 1369 mGycm CONTRAST: CT scan of the abdomen and pelvis is performed with Oral Contrast and with IV Contrast, patient injec reji with 100 mL of Omnipaque 300. FINDINGS: LUNG BASES-: Noted are bilateral pleural effusions and compressive atelectasis. LIVER/GB: No calcified gallstones. No space occupying hepatic lesion. Biliary tree is of normal ca liber. PANCREAS: There is persistent edema of the pancreas felt to reflect acute pancreatitis. There is exte nsive pseudocyst formation throughout the abdomen and retroperitoneum impossible measure accurately. The largest pseudocyst component is seen anterior to the pancreas measures 14 x 10.2 cm. There is als o a large pseudocyst component within the right lower quadrant measuring 12.6 x 9.7 cm. Additional in numerable smaller pseudocyst components identified. Small amount of free fluid is seen within the pel vis. SPLEEN: No splenic enlargement. No lesion seen. ADRENALS: No nodule. No thickening. KIDNEYS/BLADDER: No hydronephrosis. No nephrolithiasis. No disctinct renal mass. Urinary bladder i s poorly distended. BOWEL: Mild small bowel wall thickening and moderate thickening of the large bowel wall noted unchang ed from prior study. GENITAL ORGANS: No gross abnormality. LYMPH NODES: No greater than 1cm abdominal or pelvic lymph nodes are appreciated. AORTA: No significant abnormality. OSSEOUS STRUCTURES: No significant abnormality is seen. OTHER: No significant additional abnormality is seen. IMPRESSION: 1. There is persistent edema of the pancreas felt to reflect acute pancreatitis. There is extensive p seudocyst formation throughout the abdomen and retroperitoneum impossible measure accurately. See abo ve 2. Persistent enterocolitis. 3. Basilar effusions and compressive atelectasis.
[2016-11-06] MEDS: metroNIDAZOLE-NS PMX 500 MG in SALINE 1 100ML.BAG IVPB SCH ×2 (00:40→09:23)
[2016-11-06] MEDS: traMADol 50 MG TAB PO PRN ×3 (01:55→11:16)
[2016-11-06] MEDS: ONDANSETRON 4 MG/2 ML VIAL IVP PRN ×2 (01:58→09:29)
[2016-11-06] MEDS: MORPHINE SULFATE 4 MG/ML SYRINGE IV PRN ×3 (02:02→11:16)
[2016-11-06 07:57] VITALS: BP 127/83; PULSE 89; RESP 16; TEMP 97.6
[2016-11-06] MEDS: CALCIUM CARBONATE 500 MG CHEWABLE PO SCH (09:23)
[2016-11-06] MEDS: ATENOLOL 50 MG TAB PO SCH (09:23)
[2016-11-06] MEDS: FUROSEMIDE 40 MG TAB PO SCH (09:23)
[2016-11-06] MEDS: NICOTINE 14MG/24HR PATCH TRANSDERM SCH (09:23)
[2016-11-06] MEDS: PANTOPRAZOLE 40 MG TABLET PO SCH (09:24)
[2016-11-06] MEDS: THIAMINE 100 MG TAB PO SCH (09:24)
[2016-11-06] MEDS: CITALOPRAM HYDROBROMIDE 20 MG TAB PO SCH (09:24)
--- NOTE | 2016-11-06 09:46 | P.PN ---
Subjective Date of service 11/05/2016 Personal being dictated for Dr. Nesbitt Interval history: This is a 35-year-old gentleman admitted with flulike symptoms , ascites with abdominal pain, possible pancreatitis, recently hospitalized for severe pancreatitis and multiple other medical issues. Lipase 1282. Tolerating clear liquid diet with no nausea or vomiting. Denies chest pain, palpitations. Denies increased shortness of breath. Abdominal ultrasound performed this morning reporting postinflammatory change, possible pancreatic pseudocyst or hematoma, CT of abdomen and pelvis ordered. Afebrile, urine culture negative, preliminary blood cultures negative Objective - Vital Signs Vital signs: Vital Signs Temp 97.9 F 11/05/16 10:00 Pulse 93 11/05/16 10:00 Resp 16 11/05/16 10:00 BP 118/65 11/05/16 10:00 Pulse Ox 95 11/05/16 10:00 Intake & Output 11/04/16 11/05/16 11/05/16 18:59 06:59 18:59 Intake Total 250 800 100 Output Total 900 800 Balance 250 -100 -700 Weight 70.307 kg Intake: IV 250 100 100 Levofloxacin 750Mg-D5w 150 Pmx 750 mg In Dextrose/ Water 1 150ml.bag @ 100 mls/hr IVPB DAILY [facility] Rx# :[id number] metroNIDAZOLE-NS PMX 500 100 100 100 mg In Saline 1 100ml.bag @ 100 mls/hr IVPB Q8HR [facility] Rx#:[id number] Oral 700 Output: Urine 900 800 Other: Voiding Method Toilet Toilet Toilet # Voids 3 - Exam PHYSICAL EXAM: VITAL SIGNS: [As above] GENERAL: [Sitting up in bed, no acute distress] HEENT: [Pupils equal conjunctiva normal.] NECK: [Supple, no JVD] RESPIRATORY EFFORT:[Normal] LUNGS: [Clear, no crackles, no wheezes, no rhonchi] CARDIOVASCULAR[regular S1 and S2, no murmur] GI: [Abdomen soft, distended, positive ascites ,nontender, positive bowel sounds. No organomegaly, no guarding, no rigidity] PSYCH: [Alert and oriented -3, mood and affect normal.] NEURO: No focal deficits, moves all 4 extremities strength and sensation grossly intact - Labs CBC & Chem 7: 11/05/16 07:37 11/05/16 07:33 Labs: Abnormal Lab Results - Last 24 Hours (Table) 11/05/16 11/05/16 Range/Units 07:33 07:37 WBC 21.6 H (3.8-10.6) k/uL RBC 3.64 L (4.30-5.90) m/uL Hgb 10.2 L (13.0-17.5) gm/dL Hct 33.0 L (39.0-53.0) % MCHC 30.9 L (31.0-37.0) g/dL Plt Count 800 H* (150-450) k/uL Chloride 96 L (98-107) mmol/L BUN 4 L (9-20) mg/dL Glucose 115 H (74-99) mg/dL ALT 77 H (21-72) U/L Alkaline Phosphatase 195 H (38-126) U/L Total Protein 5.6 L (6.3-8.2) g/dL Albumin 2.5 L (3.5-5.0) g/dL Lipase 1282 H (23-300) U/L Microbiology - Last 24 Hours (Table) 11/03/16 18:24 Blood Culture - Preliminary Blood No Growth after 24 hours Assessment and Plan Plan: 1. [Patient with elevated fever, leukocytosis and sepsis, possible viral illness ]. 2. [Elevated amylase and lipase, nonspecific in a patient recently hospitalized with severe pancreatitis in a patient with EtOH abuse]. 3. [Diffuse abdominal pain, ascites in a patient with chronic crohns colitis]. Ultrasound reporting possible pancreatic pseudocyst versus hematoma, CT pending 4. [Leukocytosis secondary to #1]. 5. [Hyperkalemia secondary to Aldactone]. 6. [Possible alcoholic cirrhosis]. 7. [Polysubstance abuse], drug screen positive on last admission for cocaine 8. Reactive thrombocytosis, systemic inflammatory response syndrome 9. Moderate protein calorie malnutrition Plan: Continue on current medication regime ,monitoring and symptomatic treatment. As mentioned above awaiting CT of abdomen and pelvis. Diet changed to nothing by mouth. Close monitoring of lipase, LFTs, electrolytes with repeat labs ordered for a.m. Follow closely with GI. Supportive measures. Prognosis guarded given multiple complex medical issues. Further recommendations to follow. The impression and plan of care has been dictated as directed as a scribe. Dr.: I performed a H&P examination of this patient and discussed the same with the dictator. I agree with the dictator's note. Any additional findings/opinions/ etc. will be noted.
[2016-11-06] MEDS: FOLIC ACID 1 MG TAB PO SCH (11:20)
[2016-11-06] MEDS: MULTIVITAMINS, THERA 1 EACH TAB PO SCH (11:20)
--- NOTE | 2016-11-06 11:57 | DS ---
DATE OF ADMISSION: 11/03/2016 DATE OF DISCHARGE: FINAL DIAGNOSES: 1. Acute multiple pancreatic pseudocysts causing abdominal distention and difficulty in eating. 2. Rule out acute recurrent pancreatitis. 3. History of recent severe pancreatitis. 4. Fever, leukocytosis, possible viral illness, possible sepsis, present on admission. 5. History of EtOH abuse. 6. History of polysubstance abuse. 7. History of ascites related to pancreatitis recently and ascitic tap. 8. Hyperkalemia possibly secondary to Aldactone. 9. History of possible alcoholic cirrhosis. 10. Reactive thrombocytosis. 11. Moderate protein calorie malnutrition. DISCHARGE DISPOSITION: The patient will be transferred to [facility] in a stable condition with guarded prognosis. Total time taken 35 minutes. HISTORY OF PRESENT ILLNESS: This 35-year-old gentleman with a past medical history of multiple medical problems was admitted with severe acute pancreatitis with multiple complications recently. The patient improved significantly. Patient went home but the patient was readmitted with significant abdominal distention, pain and difficulty eating. The patient also had a fever and flu-like symptoms also. The patient was treated symptomatically as mentioned earlier. White count was elevated on admission at 21.6 and amylase was 118 and lipase was 1179. The CAT scan of the abdomen showed extensive pseudocyst formation including the retroperitoneal area and some suspected recurrent pancreatitis also. The patient was still symptomatic and because of that reason we discussed the case at length with [facility] to transfer him. The patient will be transferred to [facility] for further evaluation and treatment in a stable condition with guarded prognosis. The patient also had multiple electrolyte imbalances including hypocalcemia during the previous admission. The current medications are as follows: 1. Tylenol. 2. Atenolol 50 mg p.o. b.i.d. 3. Calcium carbonate 500 mg t.i.d. 4. Celexa 20 mg p.o. daily. 5. Fluticasone daily. 6. Folic acid 1 daily. 7. Lasix 40 mg p.o. b.i.d. 8. Morphine p.r.n. 9. Multivitamins 1 p.o. daily. 10. Naloxone p.r.n. 11. Habitrol 14 daily. 12. Zofran. 13. Protonix 40 mg. 14. Thiamine 100 mg daily. 15. Flagyl 500 mg q.8. 16. Ultram 50 mg q.4 p.r.n. MTDD
--- NOTE | 2016-11-06 12:31 | P.PN ---
Subjective Principal diagnosis: History of recent pancreatitis flulike symptoms 35-year-old male admitted with reported fevers flulike symptoms with recent hospitalization for severe pancreatitis. Reports mid epigastric discomfort. Tolerating light diet. Afebrile. Ultrasound and computed tomography scan abdomen reports 2 large pseudocysts measuring 14 cm 10.2 cm and 12.69.7 cm respectively. Objective - Vital Signs Vital signs: Vital Signs Temp 97.6 F 11/06/16 07:00 Pulse 89 11/06/16 08:00 Resp 16 11/06/16 08:00 BP 127/83 11/06/16 07:00 Pulse Ox 94 L 11/06/16 07:00 Intake & Output 11/05/16 11/06/16 11/06/16 18:59 06:59 18:59 Intake Total 100 200 100 Output Total 800 75 Balance -700 125 100 Intake: IV 100 100 metroNIDAZOLE-NS PMX 500 100 100 mg In Saline 1 100ml.bag @ 100 mls/hr IVPB Q8HR [facility] Rx#:[id number] Oral 100 100 Output: Urine 800 Emesis 75 Other: Voiding Method Toilet Toilet Toilet # Voids 1 - Exam General appearance: The patient is alert, oriented, in no acute distress. HET: Head is normocephalic and atraumatic. Pupils are equal and reactive. Oropharynx is clear without lesions. Neck: Supple without lymphadenopathy. Trachea midline. Heart: S1 S2. Regular rate and rhythm. Lungs: No crackles or wheezes are heard. Abdomen: Soft, mildly distended with ascites, nontender, with bowel sounds. No peritoneal signs. No palpable organomegaly or masses. Extremities: Normal skin color and turgor. No cyanosis, rash, ulceration, clubbing, or edema. Radial and pedal pulses are 2/4 bilaterally. Neurological: No focal deficits. Strength and sensation are grossly intact. - Labs CBC & Chem 7: 11/05/16 07:37 11/05/16 07:33 Labs: Microbiology - Last 24 Hours (Table) 11/03/16 18:24 Blood Culture - Preliminary Blood No Growth after 48 hours Assessment and Plan (1) Pseudocyst of pancreas Status: Acute (2) Alcoholic pancreatitis Narrative/Plan: 35-year-old male recent hospitalization for acute alcohol hepatitis pancreatitis with acute kidney injury secondary to cocaine abuse with rhabdomyolysis admitted with generalized malaise, weakness, leukocytosis, and reported fevers with persistent elevation of amylase lipase consistent with previous admission of pancreatitis sequelae. Clinically patient does not have recurrent pancreatitis. Rule out pseudocyst formation. Status: Acute (3) ETOH abuse Status: Acute (4) Polysubstance abuse Status: Acute (5) Alcoholic hepatitis Status: Acute Plan: 1. Recommend transfer to tertiary care center for large pseudocyst formation; further evaluation and possible drainage. 2. Continue supportive measures. Assessment and plan a care discussed with Dr. Levy.
== END 2016-11-06 13:25 | disposition short-term general hospital (02) | DRG 871 ==
LOC: EC 14:43 → 5MS5E 18:05
PROVIDERS: ADMIT Hospitalist; ATTEND Hospitalist
DX: A41.89 Other specified sepsis (principal); K85.20 Alcohol induced acute pancreatitis without necrosis or infection; E44.0 Moderate protein-calorie malnutrition; K86.3 Pseudocyst of pancreas; E87.5 Hyperkalemia; K50.10 Crohn's disease of large intestine without complications; E83.51 Hypocalcemia; K70.11 Alcoholic hepatitis with ascites; K70.31 Alcoholic cirrhosis of liver with ascites; K86.1 Other chronic pancreatitis; J98.11 Atelectasis; B34.9 Viral infection, unspecified; T50.2X5A Adverse effect of carbonic-anhydrase inhibitors, benzothiadiazides and other diuretics, initial encounter; F10.10 Alcohol abuse, uncomplicated; G89.29 Other chronic pain; D47.3 Essential (hemorrhagic) thrombocythemia; F19.10 Other psychoactive substance abuse, uncomplicated; F41.9 Anxiety disorder, unspecified; F12.90 Cannabis use, unspecified, uncomplicated; J45.909 Unspecified asthma, uncomplicated; I10 Essential (primary) hypertension; K21.9 Gastro-esophageal reflux disease without esophagitis; Z82.5 Family history of asthma and other chronic lower respiratory diseases; Z87.891 Personal history of nicotine dependence; Z80.42 Family history of malignant neoplasm of prostate; Z88.0 Allergy status to penicillin; Z88.2 Allergy status to sulfonamides; Z88.8 Allergy status to other drugs, medicaments and biological substances; Z87.448 Personal history of other diseases of urinary system; Z68.25 Body mass index [BMI] 25.0-25.9, adult; Z87.19 Personal history of other diseases of the digestive system; Z79.2 Long term (current) use of antibiotics; Z79.891 Long term (current) use of opiate analgesic; Z79.51 Long term (current) use of inhaled steroids; Z79.899 Other long term (current) drug therapy; Z71.89 Other specified counseling
CPT/HCPCS: 36415; 71020; 74177; 76705; 80053; 81003; 82150; 83605; 83690; 85025; 85027; 87040; 87086; 87502; 96374; 96375; 99284

== ENCOUNTER → 2016-11-03 | Outpatient (CLI) | payer BC, OTHER ==
[2016-11-03 09:09] LABS: CH 29.3; CHCM 31.7; HGB 10.5 gm/dL (13.0-17.5); Hypochromasia Slight; MCH 28.6 pg (25.0-35.0); MCV 92.4 fL (80.0-100.0); Mean Platelet Volume 9.4; RBC 3.68 m/uL (4.30-5.90); RDW 13.8 % (11.5-15.5); WBC 20.9 k/uL (3.8-10.6)
[2016-11-03 09:11] LABS: ALT 122 U/L (21-72); AST 111 U/L (17-59); Alkaline Phosphatase 241 U/L (38-126); Anion Gap 12 mmol/L; Blood Urea Nitrogen 4 mg/dL (9-20); Calcium 8.3 mg/dL (8.4-10.2); Carbon Dioxide 31 mmol/L (22-30); Chloride 92 mmol/L (98-107); Glucose 104 mg/dL (74-99); Non-African American GFR(MDRD) >60 (>60 ml/min/1.73 sqM); Potassium 5.4 mmol/L (3.5-5.1); Sodium 135 mmol/L (137-145); Total Bilirubin 0.6 mg/dL (0.2-1.3); Total Protein 6.1 g/dL (6.3-8.2)
== END | disposition home or self-care (01) ==
LOC: LABWHC1 07:30
PROVIDERS: ATTEND Nurse Practitioner
DX: K85.90 Acute pancreatitis without necrosis or infection, unspecified (principal); E87.6 Hypokalemia; E83.42 Hypomagnesemia
CPT/HCPCS: 36415; 80053; 83690; 85027

== ENCOUNTER → 2016-12-03 | Outpatient (CLI) | payer BC ==
--- NOTE | 2016-12-03 15:35 | US ---
EXAMINATION TYPE: US kidneys/renal and bladder DATE OF EXAM: 12/03/2016 3:19 PM COMPARISON: CT abdomen and pelvis November 05, 2016. CLINICAL HISTORY: N17.9 Acute Kidney Injury. History of pseudo- cysts and pancreatitis EXAM MEASUREMENTS: Right Kidney: 10.4 x 5.7 x 5.8 cm Left Kidney: 12.1 x 5.3 x 4.9 cm TECHNOLOGIST IMPRESSION: wnl Right Kidney: No hydronephrosis or masses seen Left Kidney: No hydronephrosis or masses seen Bladder: wnl Bilateral Jets seen: Yes There is no evidence for hydronephrosis at this point in time. No nephrolithiasis is seen. No miguel s are identified. The urinary bladder is anechoic. Bilateral ureteral jets are seen. Bladder is better distended on current study without suspicious wall thickening seen. IMPRESSION: Unremarkable study.
== END | disposition home or self-care (01) ==
LOC: RADUSWWP 15:03
PROVIDERS: ATTEND Internal Medicine Nephrology
DX: N17.9 Acute kidney failure, unspecified (principal)
CPT/HCPCS: 76770

== ENCOUNTER 2016-12-07 06:48 | Emergency (ER) | payer BC ==
[2016-12-07] MEDS ORDERED: MORPHINE SULFATE 4 MG/ML SYRINGE IV STA (07:20)
[2016-12-07] MEDS ORDERED: PANTOPRAZOLE 40 MG/10 ML VIAL IVP STA (07:20)
[2016-12-07] MEDS ORDERED: SODIUM CHLORIDE 0.9% 500 ML IV STA (07:20)
[2016-12-07] MEDS ORDERED: SODIUM CHLORIDE 0.9% 1,000 ML IV STA ×2 (07:20)
[2016-12-07] MEDS ORDERED: ONDANSETRON 4 MG/2 ML VIAL IVP STA (07:20)
--- NOTE | 2016-12-07 07:30 | ED ---
General Adult HPI - General Chief complaint: Nausea/Vomiting/Diarrhea Stated complaint: nvd Time Seen by Provider: 12/07/16 07:10 Source: patient, family, RN notes reviewed, old records reviewed Mode of arrival: ambulatory Limitations: no limitations - History of Present Illness Initial comments: This is a 36-year-old male to the ER for evaluation of abdominal pain, severe epigastric and diffuse abdominal pain with nausea and vomiting. Patient does suffer from pancreatitis secondary to alcohol. Patient denies fever, mild diarrhea, positive nausea vomiting. Patient has history of a pseudocyst, no history of surgery. Symptoms of be going on overnight getting progressively worse. Patient has no modifying factors for symptoms. - Related Data Home Medications Medication Instructions Recorded Confirmed Citalopram Hydrobromide [CeleXA] 20 mg PO DAILY 10/17/16 12/07/16 Fluticasone Nasal Leon [Flonase 1 spray EA NOSTRIL BID PRN 10/17/16 12/07/16 Nasal Leon] Omeprazole [PriLOSEC] 20 mg PO AC-BID 10/17/16 12/07/16 Ibuprofen [Motrin] 400 mg PO Q6HR PRN 11/03/16 12/07/16 Previous Rx's Medication Instructions Recorded Atenolol [Tenormin] 50 mg PO BID #1 tab 10/30/16 Calcium Carbonate [Tums] 500 mg PO TID-W/MEALS #90 chew 10/30/16 Folic Acid 1 mg PO DAILY #30 tablet 10/30/16 Furosemide [Lasix] 40 mg PO BID #60 tablet 10/30/16 Multivitamins, Thera [Multivitamin] 1 tab PO DAILY #30 tablet 10/30/16 Nicotine 14Mg/24Hr Patch [Habitrol] 1 patch TRANSDERM DAILY #30 patch 10/30/16 Spironolactone [Aldactone] 100 mg PO DAILY #30 tab 10/30/16 Thiamine [Vitamin B-1] 100 mg PO DAILY #30 tab 10/30/16 traMADol HCL [Ultram] 50 mg PO Q4HR PRN #30 tab 10/30/16 Allergies Allergy/AdvReac Type Severity Reaction Status Date / Time Penicillins Allergy Severe Rash/Hives Verified 12/07/16 06:55 sulfamethoxazole Allergy Unknown Verified 12/07/16 06:55 [From ] Childhood trimethoprim [From Septra] Allergy Unknown Verified 12/07/16 06:55 Childhood lorazepam [From Ativan] AdvReac Hallucinati Verified 12/07/16 06:55 ons Review of Systems ROS Statement: Those systems with pertinent positive or pertinent negative responses have been documented in the HPI. ROS Other: All systems not noted in ROS Statement are negative. Past Medical History Past Medical History: Asthma, GERD/Reflux, Hypertension Additional Past Medical History / Comment(s): pancreatitis, CROHNS OR COLITS PT NOT SURE WHICH ONE,UPPER BRIDGE, History of Any Multi-Drug Resistant Organisms: None Reported Past Surgical History: No Surgical Hx Reported Additional Past Surgical History / Comment(s): PARACENTESIS, PICC LINE-SINCE REMOVED,NOSE SXPER PTS "STARIGHTENED AND BONE GRAFT" Past Anesthesia/Blood Transfusion Reactions: No Reported Reaction Past Psychological History: Anxiety Smoking Status: Former smoker Past Alcohol Use History: Daily Additional Past Alcohol Use History / Comment(s): QUIT DRINKING 15,USED TO 6-7 BEER AND 1/2 PINT LIQUOR PER DAY. , STARTED SMOKING AT AGE 14 AND QUIT 2011,THEN CHEWED TOBACCO FOR AWHILE THEN QUIT Past Drug Use History: Marijuana Additional Drug Use History / Comment(s): QUIT SEP 2016 - Past Family History Mother Family Medical History: COPD Father Family Medical History: Cancer Additional Family Medical History / Comment(s): PROSTATE CANCER General Exam Limitations: no limitations General appearance: alert, in no apparent distress, anxious Head exam: Present: atraumatic, normocephalic, normal inspection Eye exam: Present: normal appearance, PERRL, EOMI. Absent: scleral icterus, conjunctival injection, periorbital swelling ENT exam: Present: mucous membranes dry, mucous membranes moist Neck exam: Present: normal inspection. Absent: tenderness, meningismus, lymphadenopathy Respiratory exam: Present: normal lung sounds bilaterally. Absent: respiratory distress, wheezes, rales, rhonchi, stridor Cardiovascular Exam: Present: regular rate, normal rhythm, normal heart sounds. Absent: systolic murmur, diastolic murmur, rubs, gallop, clicks GI/Abdominal exam: Present: soft, distended, tenderness, normal bowel sounds. Absent: guarding, rebound, rigid Extremities exam: Present: normal inspection, full ROM, normal capillary refill. Absent: tenderness, pedal edema, joint swelling, calf tenderness Back exam: Present: normal inspection Neurological exam: Present: alert, oriented X3, CN II-XII intact Psychiatric exam: Present: normal affect, normal mood Skin exam: Present: warm, dry, intact, normal color. Absent: rash Course Vital Signs 12/07/16 12/07/16 06:52 08:16 Temperature 98.2 F Pulse Rate 89 71 Respiratory 20 18 Rate Blood Pressure 137/88 133/89 O2 Sat by Pulse 99 97 Oximetry - Reevaluation(s) Reevaluation #1: 12/07/16 10:51 Patient's pain is well-controlled Medical Decision Making - Medical Decision Making There is now the ER for evaluation. This patient presents to ER for evaluation of abdominal pain. Patient having recurrence of pancreatitis, chronic pancreatitis patient will be admitted for IV hydration and management of symptoms - Lab Data Result diagrams: 12/07/16 07:32 12/07/16 07:32 Lab Results 12/07/16 12/07/16 12/07/16 Range/Units 07:32 07:32 07:32 WBC 13.3 H (3.8-10.6) k/uL RBC 4.96 (4.30-5.90) m/uL Hgb 13.1 (13.0-17.5) gm/dL Hct 41.6 (39.0-53.0) % MCV 83.9 D (80.0-100.0) fL MCH 26.5 (25.0-35.0) pg MCHC 31.5 (31.0-37.0) g/dL RDW 14.8 (11.5-15.5) % Plt Count 462 H (150-450) k/uL Neutrophils % 81 % Lymphocytes % 10 % Monocytes % 5 % Eosinophils % 2 % Basophils % 1 % Neutrophils # 10.8 H (1.3-7.7) k/uL Lymphocytes # 1.3 (1.0-4.8) k/uL Monocytes # 0.6 (0-1.0) k/uL Eosinophils # 0.3 (0-0.7) k/uL Basophils # 0.1 (0-0.2) k/uL Hypochromasia Marked Poikilocytosis Slight Sodium 142 (137-145) mmol/L Potassium 4.8 (3.5-5.1) mmol/L Chloride 101 (98-107) mmol/L Carbon Dioxide 25 (22-30) mmol/L Anion Gap 16 mmol/L BUN 6 L (9-20) mg/dL Creatinine 0.78 (0.66-1.25) mg/dL Est GFR (MDRD) Af Amer >60 (>60 ml/min/1.73 sqM) Est GFR (MDRD) Non-Af >60 (>60 ml/min/1.73 sqM) Glucose 113 H (74-99) mg/dL Plasma Lactic Acid Ananth (0.7-2.0) mmol/L Calcium 9.7 (8.4-10.2) mg/dL Phosphorus 4.7 H (2.5-4.5) mg/dL Magnesium 1.8 (1.6-2.3) mg/dL Total Bilirubin 0.7 (0.2-1.3) mg/dL AST 18 (17-59) U/L ALT 36 (21-72) U/L Alkaline Phosphatase 98 (38-126) U/L Total Creatine Kinase 28 L (55-170) U/L CK-MB (CK-2) 1.6 (0.0-2.4) ng/mL CK-MB (CK-2) Rel Index 5.7 Troponin I <0.012 (0.000-0.034) ng/mL Total Protein 7.0 (6.3-8.2) g/dL Albumin 3.9 (3.5-5.0) g/dL Amylase 88 (30-110) U/L Lipase 514 H (23-300) U/L Urine Color Urine Appearance (Clear) Urine pH (5.0-8.0) Ur Specific [place] (1.001-1.035) Urine Protein (Negative) Urine Glucose (UA) (Negative) Urine Ketones (Negative) Urine Blood (Negative) Urine Nitrate (Negative) Urine Bilirubin (Negative) Urine Urobilinogen (<2.0) mg/dL Ur Leukocyte Esterase (Negative) Urine RBC (0-5) /hpf Urine WBC (0-5) /hpf Urine Bacteria (None) /hpf Urine Mucus (None) /hpf Urine Opiates Screen (NotDetected) Ur Oxycodone Screen (NotDetected) Urine Methadone Screen (NotDetected) Ur Propoxyphene Screen (NotDetected) Ur Barbiturates Screen (NotDetected) U Tricyclic Antidepress (NotDetected) Ur Phencyclidine Scrn (NotDetected) Ur Amphetamines Screen (NotDetected) U Methamphetamines Scrn (NotDetected) U Benzodiazepines Scrn (NotDetected) Urine Cocaine Screen (NotDetected) U Marijuana (THC) Screen (NotDetected) Serum Alcohol <10 mg/dL 12/07/16 12/07/16 Range/Units 07:32 08:32 WBC (3.8-10.6) k/uL RBC (4.30-5.90) m/uL Hgb (13.0-17.5) gm/dL Hct (39.0-53.0) % MCV (80.0-100.0) fL MCH (25.0-35.0) pg MCHC (31.0-37.0) g/dL RDW (11.5-15.5) % Plt Count (150-450) k/uL Neutrophils % % Lymphocytes % % Monocytes % % Eosinophils % % Basophils % % Neutrophils # (1.3-7.7) k/uL Lymphocytes # (1.0-4.8) k/uL Monocytes # (0-1.0) k/uL Eosinophils # (0-0.7) k/uL Basophils # (0-0.2) k/uL Hypochromasia Poikilocytosis Sodium (137-145) mmol/L Potassium (3.5-5.1) mmol/L Chloride (98-107) mmol/L Carbon Dioxide (22-30) mmol/L Anion Gap mmol/L BUN (9-20) mg/dL Creatinine (0.66-1.25) mg/dL Est GFR (MDRD) Af Amer (>60 ml/min/1.73 sqM) Est GFR (MDRD) Non-Af (>60 ml/min/1.73 sqM) Glucose (74-99) mg/dL Plasma Lactic Acid Ananth 1.5 (0.7-2.0) mmol/L Calcium (8.4-10.2) mg/dL Phosphorus (2.5-4.5) mg/dL Magnesium (1.6-2.3) mg/dL Total Bilirubin (0.2-1.3) mg/dL AST (17-59) U/L ALT (21-72) U/L Alkaline Phosphatase (38-126) U/L Total Creatine Kinase (55-170) U/L CK-MB (CK-2) (0.0-2.4) ng/mL CK-MB (CK-2) Rel Index Troponin I (0.000-0.034) ng/mL Total Protein (6.3-8.2) g/dL Albumin (3.5-5.0) g/dL Amylase (30-110) U/L Lipase (23-300) U/L Urine Color Yellow Urine Appearance Clear (Clear) Urine pH 7.0 (5.0-8.0) Ur Specific [place] 1.016 (1.001-1.035) Urine Protein 1+ H (Negative) Urine Glucose (UA) Negative (Negative) Urine Ketones 2+ H (Negative) Urine Blood Negative (Negative) Urine Nitrate Negative (Negative) Urine Bilirubin Negative (Negative) Urine Urobilinogen 3.0 (<2.0) mg/dL Ur Leukocyte Esterase Negative (Negative) Urine RBC 1 (0-5) /hpf Urine WBC 2 (0-5) /hpf Urine Bacteria Rare H (None) /hpf Urine Mucus Occasional H (None) /hpf Urine Opiates Screen Detected H (NotDetected) Ur Oxycodone Screen Not Detected (NotDetected) Urine Methadone Screen Not Detected (NotDetected) Ur Propoxyphene Screen Not Detected (NotDetected) Ur Barbiturates Screen Not Detected (NotDetected) U Tricyclic Antidepress Not Detected (NotDetected) Ur Phencyclidine Scrn Not Detected (NotDetected) Ur Amphetamines Screen Not Detected (NotDetected) U Methamphetamines Scrn Not Detected (NotDetected) U Benzodiazepines Scrn Not Detected (NotDetected) Urine Cocaine Screen Not Detected (NotDetected) U Marijuana (THC) Screen Detected H (NotDetected) Serum Alcohol mg/dL - Radiology Data Radiology results: report reviewed (X-ray KUB, computed tomography scan pelvis positive for cirrhosis, unchanged from prior CT), image reviewed Disposition Clinical Impression: Alcoholic hepatitis, Pancreatitis, Pseudocyst of pancreas Disposition: ADMITTED IP TO THIS HOSP Condition: Fair Referrals: Tim Marroquin MD [Primary Care Provider] - 1-2 days
[2016-12-07 07:46] LABS: Basophils # (A) 0.1 k/uL (0-0.2); Basophils % (A) 1 %; CH 26.6; CHCM 31.6; Eosinophils # (A) 0.3 k/uL (0-0.7); Eosinophils % (A) 2 %; HCT 41.6 % (39.0-53.0); HDW 3.72; HGB 13.1 gm/dL (13.0-17.5); Hypochromasia Marked; Luc # (Auto) 0.26; Luc % (Auto) 2; Lymphocytes # (A) 1.3 k/uL (1.0-4.8); Lymphocytes % (A) 10 %; MCH 26.5 pg (25.0-35.0); MCHC 31.5 g/dL (31.0-37.0); Mean Platelet Volume 6.9; Monocytes # (A) 0.6 k/uL (0-1.0); Monocytes % (A) 5 %; Neutrophils # (A) 10.8 k/uL (1.3-7.7); Neutrophils % (A) 81 %; Poikilocytosis Slight; RBC 4.96 m/uL (4.30-5.90); RDW 14.8 % (11.5-15.5); WBC 13.3 k/uL (3.8-10.6); WBC (Perox) 13.31
[2016-12-07 07:51] LABS: MCV 83.9 fL (80.0-100.0)
[2016-12-07 07:57] LABS: ALT 36 U/L (21-72); AST 18 U/L (17-59); Alcohol <10 mg/dL; Alkaline Phosphatase 98 U/L (38-126); Amylase 88 U/L (30-110); Anion Gap 16 mmol/L; Blood Urea Nitrogen 6 mg/dL (9-20); Calcium 9.7 mg/dL (8.4-10.2); Carbon Dioxide 25 mmol/L (22-30); Chloride 101 mmol/L (98-107); Glucose 113 mg/dL (74-99); Non-African American GFR(MDRD) >60 (>60 ml/min/1.73 sqM); Potassium 4.8 mmol/L (3.5-5.1); Sodium 142 mmol/L (137-145); Total Bilirubin 0.7 mg/dL (0.2-1.3)
[2016-12-07 08:08] LABS: Creatine Kinase 28 U/L (55-170)
[2016-12-07 08:21] LABS: Creatine Kinase MB 1.6 ng/mL (0.0-2.4); Troponin I <0.012 ng/mL (0.000-0.034)
--- NOTE | 2016-12-07 08:23 | XR ---
Abdomen HISTORY: Nausea vomiting and diarrhea Frontal view of the abdomen on 2 images correlated to prior 17 October 2016 There are air-fluid levels without bowel distention. There is mild spinal curvature. IMPRESSION: Findings suggest enteritis.
[2016-12-07] MEDS ORDERED: RX INFO: IV CONTRAST WAS GIVEN 1 EACH MISC MISCELLANE PRN (08:29)
[2016-12-07 08:48] LABS: Appearance,Urine Clear (Clear); Bacteria,Urine Rare /hpf; Bilirubin,Urine Negative (Negative); Glucose,Urine (UA) Negative (Negative); Ketones,Urine 2+ (Negative); Leukocyte Esterase,Urine Negative (Negative); Mucus,Urine Occasional /hpf; Nitrite,Urine Negative (Negative); Particle Count 5845; Protein,Urine 1+ (Negative); RBC,Urine 1 /hpf (0-5); Specific Gravity,Urine 1.016 (1.001-1.035); UA Billing (MACRO vs. MICRO) MICRO; WBC,Urine 2 /hpf (0-5)
[2016-12-07 09:10] LABS: Magnesium 1.8 mg/dL (1.6-2.3); Phosphorous 4.7 mg/dL (2.5-4.5)
[2016-12-07] MEDS ORDERED: MORPHINE SULFATE 4 MG/ML SYRINGE IVP STA ×2 (09:14→10:53)
--- NOTE | 2016-12-07 09:32 | CT ---
EXAMINATION TYPE: CT abdomen pelvis w con DATE OF EXAM: 12/07/2016 9:23 AM COMPARISON: Prior CT abdomen pelvis October HISTORY: NVD, History of pancreatitis CT DLP: 542.00 mGycm Automated exposure control for dose reduction was used. TECHNIQUE: Helical acquisition of images was performed from the lung bases through the pelvis. CONTRAST: Performed without Oral Contrast and with IV Contrast, patient injected with 100 ml mL of Omnipaque 30 0. FINDINGS: LUNG BASES: There is improvement in aeration, pleural effusion has resolved bilaterally LIVER/GB: No significant abnormality is appreciated. PANCREAS: Multiple large cystic fluid collections are scattered throughout the abdomen, the largest a nterior to the pancreas measures approximately 12 cm in greatest dimension. Additional collection is hourglass shaped in the right lower quadrant measuring approximately 12 cm in anterior to posterior d imension. Along Gerota's fascia laterally and additional collection measures approximately 9.3 cm in greatest dimension. There are some smaller collections lateral to the psoas muscle in the left lower quadrant, lateral to the right psoas muscle and there is ascites additionally. SPLEEN: No significant abnormality is seen. ADRENALS: No significant abnormality is seen. KIDNEYS: No significant abnormality is seen. RETROPERITONEAL ADENOPATHY: None visualized REPRODUCTIVE ORGANS: No significant abnormality is seen URINARY BLADDER: Shows a thickened wall and is not distended, correlate for possible cystitis. PELVIC ADENOPATHY: None visualized. OSSEOUS STRUCTURES: Stable BOWEL: Multiple bowel loops show thickened valdez possibly due to inflammatory change or hypoproteine mingo, there may be an underlying enteritis. OTHER: No evident pneumoperitoneum IMPRESSION: SEQUELA OF PATIENT'S PANCREATITIS AGAIN NOTED. SIMILAR FINDINGS TO PRIOR EXAM, ADDITIONAL FINDINGS AB OVE.
[2016-12-07] MEDS ORDERED: SODIUM CHLORIDE 0.9% 1,000 ML IV ONE (10:52)
[2016-12-07] MEDS ORDERED: MORPHINE SULFATE 4 MG/ML SYRINGE IVP PRN (10:53)
[2016-12-07] MEDS ORDERED: ONDANSETRON 4 MG/2 ML VIAL IVP PRN (10:53)
[2016-12-07 11:12] VITALS: RESP 16
--- NOTE | 2016-12-07 11:25 | ED ---
Medical Decision Making - Medical Decision Making 36 male to the ER for acute on chronic pancreatitis. Prior to admission and prior to going up patient states he is completely felt better, at this time he is not lasting possibly longer, since hospitals make him worse To be discharged home. Patient in no acute distress and can be discharged home. - Lab Data Result diagrams: 12/07/16 07:32 12/07/16 07:32 Lab Results 12/07/16 12/07/16 12/07/16 Range/Units 07:32 07:32 07:32 WBC 13.3 H (3.8-10.6) k/uL RBC 4.96 (4.30-5.90) m/uL Hgb 13.1 (13.0-17.5) gm/dL Hct 41.6 (39.0-53.0) % MCV 83.9 D (80.0-100.0) fL MCH 26.5 (25.0-35.0) pg MCHC 31.5 (31.0-37.0) g/dL RDW 14.8 (11.5-15.5) % Plt Count 462 H (150-450) k/uL Neutrophils % 81 % Lymphocytes % 10 % Monocytes % 5 % Eosinophils % 2 % Basophils % 1 % Neutrophils # 10.8 H (1.3-7.7) k/uL Lymphocytes # 1.3 (1.0-4.8) k/uL Monocytes # 0.6 (0-1.0) k/uL Eosinophils # 0.3 (0-0.7) k/uL Basophils # 0.1 (0-0.2) k/uL Hypochromasia Marked Poikilocytosis Slight Sodium 142 (137-145) mmol/L Potassium 4.8 (3.5-5.1) mmol/L Chloride 101 (98-107) mmol/L Carbon Dioxide 25 (22-30) mmol/L Anion Gap 16 mmol/L BUN 6 L (9-20) mg/dL Creatinine 0.78 (0.66-1.25) mg/dL Est GFR (MDRD) Af Amer >60 (>60 ml/min/1.73 sqM) Est GFR (MDRD) Non-Af >60 (>60 ml/min/1.73 sqM) Glucose 113 H (74-99) mg/dL Plasma Lactic Acid Ananth (0.7-2.0) mmol/L Calcium 9.7 (8.4-10.2) mg/dL Phosphorus 4.7 H (2.5-4.5) mg/dL Magnesium 1.8 (1.6-2.3) mg/dL Total Bilirubin 0.7 (0.2-1.3) mg/dL AST 18 (17-59) U/L ALT 36 (21-72) U/L Alkaline Phosphatase 98 (38-126) U/L Total Creatine Kinase 28 L (55-170) U/L CK-MB (CK-2) 1.6 (0.0-2.4) ng/mL CK-MB (CK-2) Rel Index 5.7 Troponin I <0.012 (0.000-0.034) ng/mL Total Protein 7.0 (6.3-8.2) g/dL Albumin 3.9 (3.5-5.0) g/dL Amylase 88 (30-110) U/L Lipase 514 H (23-300) U/L Urine Color Urine Appearance (Clear) Urine pH (5.0-8.0) Ur Specific [place] (1.001-1.035) Urine Protein (Negative) Urine Glucose (UA) (Negative) Urine Ketones (Negative) Urine Blood (Negative) Urine Nitrate (Negative) Urine Bilirubin (Negative) Urine Urobilinogen (<2.0) mg/dL Ur Leukocyte Esterase (Negative) Urine RBC (0-5) /hpf Urine WBC (0-5) /hpf Urine Bacteria (None) /hpf Urine Mucus (None) /hpf Urine Opiates Screen (NotDetected) Ur Oxycodone Screen (NotDetected) Urine Methadone Screen (NotDetected) Ur Propoxyphene Screen (NotDetected) Ur Barbiturates Screen (NotDetected) U Tricyclic Antidepress (NotDetected) Ur Phencyclidine Scrn (NotDetected) Ur Amphetamines Screen (NotDetected) U Methamphetamines Scrn (NotDetected) U Benzodiazepines Scrn (NotDetected) Urine Cocaine Screen (NotDetected) U Marijuana (THC) Screen (NotDetected) Serum Alcohol <10 mg/dL 12/07/16 12/07/16 Range/Units 07:32 08:32 WBC (3.8-10.6) k/uL RBC (4.30-5.90) m/uL Hgb (13.0-17.5) gm/dL Hct (39.0-53.0) % MCV (80.0-100.0) fL MCH (25.0-35.0) pg MCHC (31.0-37.0) g/dL RDW (11.5-15.5) % Plt Count (150-450) k/uL Neutrophils % % Lymphocytes % % Monocytes % % Eosinophils % % Basophils % % Neutrophils # (1.3-7.7) k/uL Lymphocytes # (1.0-4.8) k/uL Monocytes # (0-1.0) k/uL Eosinophils # (0-0.7) k/uL Basophils # (0-0.2) k/uL Hypochromasia Poikilocytosis Sodium (137-145) mmol/L Potassium (3.5-5.1) mmol/L Chloride (98-107) mmol/L Carbon Dioxide (22-30) mmol/L Anion Gap mmol/L BUN (9-20) mg/dL Creatinine (0.66-1.25) mg/dL Est GFR (MDRD) Af Amer (>60 ml/min/1.73 sqM) Est GFR (MDRD) Non-Af (>60 ml/min/1.73 sqM) Glucose (74-99) mg/dL Plasma Lactic Acid Ananth 1.5 (0.7-2.0) mmol/L Calcium (8.4-10.2) mg/dL Phosphorus (2.5-4.5) mg/dL Magnesium (1.6-2.3) mg/dL Total Bilirubin (0.2-1.3) mg/dL AST (17-59) U/L ALT (21-72) U/L Alkaline Phosphatase (38-126) U/L Total Creatine Kinase (55-170) U/L CK-MB (CK-2) (0.0-2.4) ng/mL CK-MB (CK-2) Rel Index Troponin I (0.000-0.034) ng/mL Total Protein (6.3-8.2) g/dL Albumin (3.5-5.0) g/dL Amylase (30-110) U/L Lipase (23-300) U/L Urine Color Yellow Urine Appearance Clear (Clear) Urine pH 7.0 (5.0-8.0) Ur Specific [place] 1.016 (1.001-1.035) Urine Protein 1+ H (Negative) Urine Glucose (UA) Negative (Negative) Urine Ketones 2+ H (Negative) Urine Blood Negative (Negative) Urine Nitrate Negative (Negative) Urine Bilirubin Negative (Negative) Urine Urobilinogen 3.0 (<2.0) mg/dL Ur Leukocyte Esterase Negative (Negative) Urine RBC 1 (0-5) /hpf Urine WBC 2 (0-5) /hpf Urine Bacteria Rare H (None) /hpf Urine Mucus Occasional H (None) /hpf Urine Opiates Screen Detected H (NotDetected) Ur Oxycodone Screen Not Detected (NotDetected) Urine Methadone Screen Not Detected (NotDetected) Ur Propoxyphene Screen Not Detected (NotDetected) Ur Barbiturates Screen Not Detected (NotDetected) U Tricyclic Antidepress Not Detected (NotDetected) Ur Phencyclidine Scrn Not Detected (NotDetected) Ur Amphetamines Screen Not Detected (NotDetected) U Methamphetamines Scrn Not Detected (NotDetected) U Benzodiazepines Scrn Not Detected (NotDetected) Urine Cocaine Screen Not Detected (NotDetected) U Marijuana (THC) Screen Detected H (NotDetected) Serum Alcohol mg/dL Disposition Clinical Impression: Alcoholic hepatitis, Pancreatitis, Pseudocyst of pancreas Disposition: HOME SELF-CARE Condition: Fair
[2016-12-07 12:49] VITALS: BP 123/74; PULSE 72; TEMP 97
[2016-12-08] MEDS ORDERED: PANTOPRAZOLE 40 MG/10 ML VIAL IVP SCH (09:00)
== END 2016-12-07 12:30 | disposition home or self-care (01) ==
LOC: EC 06:48 → UNDOADMIN 11:21 → 3SUR 11:21 → EC 12:30
DX: K85.90 Acute pancreatitis without necrosis or infection, unspecified (principal); K86.1 Other chronic pancreatitis; K70.10 Alcoholic hepatitis without ascites; K86.3 Pseudocyst of pancreas; K50.90 Crohn's disease, unspecified, without complications; I10 Essential (primary) hypertension; F41.9 Anxiety disorder, unspecified; K21.9 Gastro-esophageal reflux disease without esophagitis; Z79.899 Other long term (current) drug therapy; Z88.0 Allergy status to penicillin; Z88.1 Allergy status to other antibiotic agents; Z88.2 Allergy status to sulfonamides; Z87.891 Personal history of nicotine dependence
CPT/HCPCS: 36415; 80053; 82150; 82550; 82553; 83605; 83690; 83735; 84100; 84484; 85025; 81001; 80306; 80320; 87086; 74000; 74177; 99285; 96374; 96375 ×2; 96376; 96361 ×4; J2270; J2405; Q9967; C9113

== ENCOUNTER → 2017-01-26 | Outpatient (CLI) | payer BC ==
[2017-01-26 08:47] LABS: Amylase 49 U/L (30-110); Anion Gap 9 mmol/L; Blood Urea Nitrogen 6 mg/dL (9-20); Calcium 9.7 mg/dL (8.4-10.2); Carbon Dioxide 29 mmol/L (22-30); Chloride 106 mmol/L (98-107); Glucose 99 mg/dL (74-99); Non-African American GFR(MDRD) >60 (>60 ml/min/1.73 sqM); Potassium 4.5 mmol/L (3.5-5.1); Sodium 144 mmol/L (137-145); Total Protein 7.6 g/dL (6.3-8.2)
[2017-01-26 08:49] LABS: ALT 23 U/L (21-72); AST 23 U/L (17-59); Alkaline Phosphatase 42 U/L (38-126); Total Bilirubin 0.8 mg/dL (0.2-1.3)
--- NOTE | 2017-01-26 11:40 | CT ---
EXAMINATION TYPE: CT abdomen pelvis wo/w con DATE OF EXAM: 01/26/2017 10:12 AM COMPARISON: 12/07/2016 INDICATION: Pancreatic Pseudocyst DLP: 685.6 mGycm, Automated exposure control for dose reduction was used. CONTRAST: 100 mL of Omnipaque 300. Study performed with Oral Contrast TECHNIQUE: Axial images were obtained from above the diaphragm to the pubic rami in the axial plane a t 5 mm thick sections. Reconstructed images are reviewed on the computer in the coronal plane. FINDINGS: Limited CT sections are obtained the lung bases. There is streak opacity in the right middle lobe ab ove the diaphragm measuring 0.6 cm in transverse dimension is present previously. Some atelectasis co uld be present. Follow-up is recommended. Lung bases are otherwise clear. CT ABDOMEN: Liver: Normal Spleen: Normal Pancreas: Hypodensities are adjacent to this pancreas. These are difficult to separate from the pancr eas and loops of bowel. A larger area near the tail of the pancreas measures 5.5 cm. Thickening anter ior to the body of the pancreas is approximately 3.8 cm. Additional smaller areas are adjacent to the head and proximal body of the pancreas. These are diminished in size from the prior study. These are less distinctly cystic than the comparison study. Adrenal glands: The adrenal glands are normal. Gallbladder: Normal Kidneys: No masses are evident. No hydronephrosis is present. No cysts are present. No renal stone s are identified. Aorta: Normal Inferior vena cava: Normal. CT PELVIS: Loops of bowel within the abdomen and pelvis are normal. Studies performed with oral contrast. Th ere are some loops of bowel lacking oral contrast limiting their evaluation. Appendix: Normal as visualized. Urinary bladder: Normal. Genitourinary structures: Prostate is normal Osseous structures: No suspicious lytic or sclerotic lesions. IMPRESSIONS: 1. No suspicious renal stones. 2. Streak opacity right lung base could represent some atelectasis or underlying mass. Follow-up is r ecommended. 3. Pseudocyst formation has a similar to diminished size appearance to 12/07/2016. These are less well -defined on this noncontrast study.
== END | disposition home or self-care (01) ==
LOC: RADCTMAIN 07:55
PROVIDERS: ATTEND Internal Medicine Gastroenterology
DX: K86.3 Pseudocyst of pancreas (principal)
CPT/HCPCS: 80053; 82150; 83690; 74178; 36415; Q9967

== ENCOUNTER → 2017-02-09 | Outpatient (CLI) | payer BC ==
[2017-02-09 15:45] LABS: Appearance,Urine Clear (Clear); Bilirubin,Urine Negative (Negative); Glucose,Urine (UA) Negative (Negative); Ketones,Urine Negative (Negative); Leukocyte Esterase,Urine Negative (Negative); Nitrite,Urine Negative (Negative); Protein,Urine Negative (Negative); Specific Gravity,Urine 1.003 (1.001-1.035); UA Billing (MACRO vs. MICRO) CHEM; Urobilinogen,Urine <2.0 mg/dL (<2.0)
[2017-02-09 15:46] LABS: Anisocytosis Slight; CH 26.1; CHCM 31.1; HCT 41.9 % (39.0-53.0); HGB 13.2 gm/dL (13.0-17.5); Hypochromasia Slight; MCH 26.4 pg (25.0-35.0); MCHC 31.4 g/dL (31.0-37.0); MCV 83.9 fL (80.0-100.0); Mean Platelet Volume 8.5; RDW 16.7 % (11.5-15.5); WBC 5.5 k/uL (3.8-10.6)
[2017-02-09 16:09] LABS: Anion Gap 11 mmol/L; Blood Urea Nitrogen 8 mg/dL (9-20); Calcium 9.9 mg/dL (8.4-10.2); Carbon Dioxide 28 mmol/L (22-30); Chloride 105 mmol/L (98-107); Glucose 94 mg/dL (74-99); Iron 64 ug/dL (49-181); Magnesium 1.8 mg/dL (1.6-2.3); Non-African American GFR(MDRD) >60 (>60 ml/min/1.73 sqM); Phosphorous 4.5 mg/dL (2.5-4.5); Sodium 144 mmol/L (137-145); Uric Acid 6.2 mg/dL (3.5-8.5)
[2017-02-09 16:18] LABS: % Iron Saturation 20.8 % (20-50); Total Iron Binding Capacity 307 ug/dL (261-462)
== END | disposition home or self-care (01) ==
LOC: LABWHC1 15:17
PROVIDERS: ATTEND Nurse Practitioner Family
DX: N17.9 Acute kidney failure, unspecified (principal); D64.9 Anemia, unspecified; E87.8 Other disorders of electrolyte and fluid balance, not elsewhere classified; N39.0 Urinary tract infection, site not specified; E21.3 Hyperparathyroidism, unspecified; E55.9 Vitamin D deficiency, unspecified; M10.9 Gout, unspecified
CPT/HCPCS: 36415; 80048; 81003; 82040; 82306; 82728; 83540; 83550; 83735; 83970; 84100; 84550; 85027

== ENCOUNTER → 2017-06-30 | Outpatient (CLI) | payer BC ==
--- NOTE | 2017-06-30 08:06 | CT ---
EXAMINATION TYPE: CT chest wo con DATE OF EXAM: 06/30/2017 COMPARISON: NONE HISTORY: hx was in ICU with pancreatits caused bilateral pneumothorax. spot found in one of his lungs CT DLP: 231.60 mGycm. Automated Exposure Control for Dose Reduction was Utilized. TECHNIQUE: CT scan of the thorax is performed without IV contrast. This limits exam for mass or martinez opathy. FINDINGS: LUNGS: Within the right upper lobe image 28 there is a 3 mm pulmonary nodule. Additional irregular de nsity within the anterior segment right upper lobe measuring 8 mm and contains internal calcification . stable from previous exam. No pleural effusion or consolidation. MEDIASTINUM: Lack of IV contrast is noted to limit evaluation for mediastinal and especially hilar ad enopathy. There are no definitive greater than 1 cm hilar or mediastinal lymph nodes. No cardiomega ly or pericardial effusion is seen. OTHER: No additional significant abnormality is seen. IMPRESSION: 1. There are 2 nodular densities within the right lung as discussed above. Most likely a benign etiol renée recommended follow-up [address] of the chest stability.
== END | disposition home or self-care (01) ==
LOC: RADCTMAIN 07:10
PROVIDERS: ATTEND Family Medicine
DX: R91.8 Other nonspecific abnormal finding of lung field (principal); D38.1 Neoplasm of uncertain behavior of trachea, bronchus and lung
CPT/HCPCS: 71250

== ENCOUNTER 2018-08-30 05:26 | Emergency (ER) | payer BC ==
[2018-08-30 05:33] VITALS: BP 157/94; PULSE 108; RESP 20; TEMP 99
--- NOTE | 2018-08-30 05:40 | ED ---
General Adult HPI - General Chief complaint: Skin/Abscess/Foreign Body Stated complaint: infection Time Seen by Provider: 08/30/18 05:40 Source: patient Mode of arrival: ambulatory Limitations: no limitations - History of Present Illness Initial comments: Estevan is a previously healthy 37-year-old male who presents the ED today for evaluation of cellulitis of his upper lip. On reports approximately 4-5 days ago he had what he believed to be was a pimple on his upper lip, he attempted to squeeze it and subsequently developed cellulitis. He reports over the past 2 days it's progressively become more painful and intolerable. He did have some old antibiotics his home. He is uncertain what the antibiotics were or what they're prescribed for but he did take a few of them with no improvement in his symptoms. At which time he decided to come here for further evaluation. Patient reports significant pain describing as feeling as though his lip is on fire. He denies additional complaints. - Related Data Home Medications Medication Instructions Recorded Confirmed Citalopram Hydrobromide [CeleXA] 20 mg PO DAILY 10/17/16 12/07/16 Fluticasone Nasal [place] [Flonase 1 spray EA NOSTRIL BID PRN 10/17/16 12/07/16 Nasal [place]] Omeprazole [PriLOSEC] 20 mg PO AC-BID 10/17/16 12/07/16 Ibuprofen [Motrin] 400 mg PO Q6HR PRN 11/03/16 12/07/16 Previous Rx's Medication Instructions Recorded Atenolol [Tenormin] 50 mg PO BID #1 tab 10/30/16 Calcium Carbonate [Tums] 500 mg PO TID-W/MEALS #90 chew 10/30/16 Folic Acid 1 mg PO DAILY #30 tablet 10/30/16 Furosemide [Lasix] 40 mg PO BID #60 tablet 10/30/16 Multivitamins, Thera [Multivitamin 1 tab PO DAILY #30 tablet 10/30/16 (formulary)] Nicotine 14Mg/24Hr Patch [Habitrol] 1 patch TRANSDERM DAILY #30 patch 10/30/16 Spironolactone [Aldactone] 100 mg PO DAILY #30 tab 10/30/16 Thiamine [Vitamin B-1] 100 mg PO DAILY #30 tab 10/30/16 traMADol HCL [Ultram] 50 mg PO Q4HR PRN #30 tab 10/30/16 Clindamycin [Cleocin] 450 mg PO Q6H #28 capsule 08/30/18 HYDROcodone/APAP 5-325MG [Raphine 1 tab PO Q6HR PRN 3 Days #12 tab 08/30/18 5-325] Allergies Allergy/AdvReac Type Severity Reaction Status Date / Time Penicillins Allergy Severe Rash/Hives Verified 08/30/18 05:33 sulfamethoxazole Allergy Unknown Verified 08/30/18 05:33 [From Septra] Childhood trimethoprim [From Septra] Allergy Unknown Verified 08/30/18 05:33 Childhood lorazepam [From Ativan] AdvReac Hallucinati Verified 08/30/18 05:33 ons Review of Systems ROS Statement: Those systems with pertinent positive or pertinent negative responses have been documented in the HPI. ROS Other: All systems not noted in ROS Statement are negative. Past Medical History Past Medical History: Asthma, GERD/Reflux, Hypertension Additional Past Medical History / Comment(s): pancreatitis, CROHNS OR COLITS PT NOT SURE WHICH ONE,UPPER BRIDGE, History of Any Multi-Drug Resistant Organisms: None Reported Past Surgical History: No Surgical Hx Reported Additional Past Surgical History / Comment(s): PARACENTESIS, PICC LINE-SINCE REMOVED,NOSE SXPER PTS "STARIGHTENED AND BONE GRAFT" Past Anesthesia/Blood Transfusion Reactions: No Reported Reaction Past Psychological History: Anxiety Past Alcohol Use History: Daily - Past Family History Mother Family Medical History: COPD Father Family Medical History: Cancer Additional Family Medical History / Comment(s): PROSTATE CANCER General Exam - General Exam Comments Initial Comments: Physical Exam GENERAL: Patient is well-developed and well-nourished. Patient appears uncomfortable HENT: Normocephalic, Atraumatic. Upper lip is edematous, there is cellulitis of the upper lip, there is a small scab in the philtrum of the lip No palpable abscess EYES: PERRL, EOMI PULMONARY: Unlabored respirations. CARDIOVASCULAR: There is a regular rate and rhythm without any murmurs gallops or rubs. ABDOMEN: Nondistended SKIN: Cellulitis upper lip as noted above : Deferred NEUROLOGIC: Patient is alert and oriented x3. Moving all extremities spontaneously Normal gait MUSCULOSKELETAL: Normal extremities with adequate strength and full range of motion. No lower extremity swelling or edema. No calf tenderness. PSYCHIATRIC: Normal psychiatric evaluation. Limitations: no limitations Limitations: no limitations Course Vital Signs 08/30/18 05:29 Temperature 99 F Pulse Rate 108 H Respiratory 20 Rate Blood Pressure 157/94 O2 Sat by Pulse 97 Oximetry Medical Decision Making - Medical Decision Making The patient was seen and evaluated, history was obtained from the patient Physical exam is significant for cellulitis of the upper lip, the patient does have what appears to be a small pimple that he may have scratched with a scab on it, there is no palpable abscess Patient is in significant discomfort. I did check his maps report noted that he has not had any narcotic prescriptions in the past one year therefore I will treat with Raphine for pain management First dose of oral clindamycin was even in the emergency department a prescription for 7 days of clindamycin was provided I had an extensive conversation with the patient about return parameters including any worsening fever, headache, worsening swelling, development of any significant drainage. I advised the patient he should take up photograph of the swelling daily so that he can compare it and so that he has a to show any physicians when he comes back for reevaluation if needed. All questions pertaining to care were answered the best my ability were return parameters were discussed and the patient was discharged home in stable condition. Disposition Clinical Impression: Cellulitis of face Disposition: HOME SELF-CARE Condition: Serious Instructions: Cellulitis (ED), Abscess (ED) Additional Instructions: Apply warm compresses to encourage drainage of the wound, do not squeeze or manipulate the area Take antibiotics 4 times daily as prescribed and pain management as needed Return to the emergency department if you have any worsening pain or swelling development of fever or any new or concerning symptoms I recommend that he take a picture of your face daily to document whether you' re having worsening or improvement of the condition Prescriptions: Clindamycin [Cleocin] 450 mg PO Q6H #28 capsule HYDROcodone/APAP 5-325MG [Raphine 5-325] 1 tab PO Q6HR PRN 3 Days #12 tab PRN Reason: Pain Is patient prescribed a controlled substance at d/c from ED?: Yes When asked, does pt state using other controlled substances?: Yes If prescribed controlled substance>3 days was MAPS reviewed?: Yes If opioid is for acute pain is fill amount 7 days or less?: Yes If Rx opioid, was Start Talking consent form obtained?: Yes Referrals: None,Stated [REFERRING] - 1-2 days
[2018-08-30] MEDS ORDERED: CLINDAMYCIN 150 MG CAP PO STA (05:49)
== END 2018-08-30 06:16 | disposition home or self-care (01) ==
LOC: EC 05:26
DX: K13.0 Diseases of lips (principal); J45.909 Unspecified asthma, uncomplicated; K21.9 Gastro-esophageal reflux disease without esophagitis; F41.9 Anxiety disorder, unspecified; Z88.0 Allergy status to penicillin; Z88.2 Allergy status to sulfonamides; Z88.8 Allergy status to other drugs, medicaments and biological substances; Z79.899 Other long term (current) drug therapy
CPT/HCPCS: 99283

== ENCOUNTER 2020-06-14 18:07 | Emergency (ER) | payer BC ==
[2020-06-14] MEDS ORDERED: HYDROmorphone 0.5 MG/0.5 ML SYRINGE IVP STA (18:29)
[2020-06-14] MEDS ORDERED: SODIUM CHLORIDE 0.9% 1,000 ML IV STA (18:29)
[2020-06-14] MEDS ORDERED: LORazepam 2 MG/ML INJ IV STA (18:33)
--- NOTE | 2020-06-14 18:37 | ED ---
General Adult HPI - General Chief complaint: Nausea/Vomiting/Diarrhea Stated complaint: Vomiting Time Seen by Provider: 06/14/20 18:24 Source: patient, RN notes reviewed, old records reviewed Mode of arrival: wheelchair Limitations: no limitations - History of Present Illness Initial comments: 39-year-old male with abdominal pain nausea vomiting. Patient is a daily drinker, states he last drank about 36 hours ago. He's had persistent vomiting and abdominal pain in the left upper quadrant and epigastrium. He has history of recurrent pancreatitis. He states he is currently drinking between one half and 1/5 gallon of liquor daily. Denies fever. Denies cough or dyspnea. - Related Data Home Medications Medication Instructions Recorded Confirmed Citalopram Hydrobromide [CeleXA] 20 mg PO DAILY 10/17/16 12/07/16 Fluticasone Nasal [place] [Flonase 1 spray EA NOSTRIL BID PRN 10/17/16 12/07/16 Nasal [place]] Omeprazole [PriLOSEC] 20 mg PO AC-BID 10/17/16 12/07/16 Ibuprofen [Motrin] 400 mg PO Q6HR PRN 11/03/16 12/07/16 Previous Rx's Medication Instructions Recorded Atenolol [Tenormin] 50 mg PO BID #1 tab 10/30/16 Calcium Carbonate [Tums] 500 mg PO TID-W/MEALS #90 chew 10/30/16 Folic Acid 1 mg PO DAILY #30 tablet 10/30/16 Furosemide [Lasix] 40 mg PO BID #60 tablet 10/30/16 Multivitamins, Thera [Multivitamin 1 tab PO DAILY #30 tablet 10/30/16 (formulary)] Nicotine 14Mg/24Hr Patch [Habitrol] 1 patch TRANSDERM DAILY #30 patch 10/30/16 Spironolactone [Aldactone] 100 mg PO DAILY #30 tab 10/30/16 Thiamine [Vitamin B-1] 100 mg PO DAILY #30 tab 10/30/16 traMADol HCL [Ultram] 50 mg PO Q4HR PRN #30 tab 10/30/16 Clindamycin [Cleocin] 450 mg PO Q6H #28 capsule 08/30/18 HYDROcodone/APAP 5-325MG [[place] 1 tab PO Q6HR PRN 3 Days #12 tab 08/30/18 5-325] Magnesium Oxide [Mag-Ox] 400 mg PO DAILY #30 tablet 06/14/20 diazePAM [Valium] 5 mg PO TID PRN 3 Days #9 tab 06/14/20 Allergies Allergy/AdvReac Type Severity Reaction Status Date / Time No Known Allergies Allergy Verified 06/14/20 18:18 Review of Systems ROS Statement: Those systems with pertinent positive or pertinent negative responses have been documented in the HPI. ROS Other: All systems not noted in ROS Statement are negative. Past Medical History Past Medical History: Asthma, GERD/Reflux, Hypertension Additional Past Medical History / Comment(s): pancreatitis, CROHNS OR COLITS PT NOT SURE WHICH ONE,UPPER BRIDGE, History of Any Multi-Drug Resistant Organisms: None Reported Past Surgical History: No Surgical Hx Reported Additional Past Surgical History / Comment(s): PARACENTESIS, PICC LINE-SINCE REMOVED,NOSE SXPER PTS "STARIGHTENED AND BONE GRAFT" Past Anesthesia/Blood Transfusion Reactions: No Reported Reaction Past Psychological History: Anxiety Smoking Status: Current every day smoker, Light tobacco smoker Past Alcohol Use History: Daily - Past Family History Mother Family Medical History: COPD Father Family Medical History: Cancer Additional Family Medical History / Comment(s): PROSTATE CANCER General Exam Limitations: no limitations General appearance: alert, in distress Head exam: Present: atraumatic, normocephalic Eye exam: Present: normal appearance, PERRL ENT exam: Present: mucous membranes dry Neck exam: Present: normal inspection. Absent: tenderness, meningismus Respiratory exam: Present: normal lung sounds bilaterally. Absent: respiratory distress Cardiovascular Exam: Present: normal rhythm, tachycardia GI/Abdominal exam: Present: soft, tenderness (Epigastric and left upper quadrant tenderness), guarding. Absent: rebound Extremities exam: Present: normal inspection, normal capillary refill. Absent: pedal edema Neurological exam: Present: alert, oriented X3, CN II-XII intact. Absent: motor sensory deficit Skin exam: Present: warm, intact, diaphoretic Course Vital Signs 06/14/20 06/14/20 18:14 20:01 Temperature 98.4 F Pulse Rate 140 H 104 H Respiratory 16 18 Rate Blood Pressure 164/91 145/96 O2 Sat by Pulse 96 98 Oximetry - Reevaluation(s) Reevaluation #1: 06/14/20 20:55 Patient reevaluated, he is hungry, eager to eat, states his symptoms have completely resolved. Medical Decision Making - Medical Decision Making 39-year-old male presenting with nausea vomiting abdominal pain, history of pancreatitis. CT performed showing a mild pancreatitis. He has normal amylase and lipase. He has a sodium of 128, lactic of 3.0 which I suspect is from vomiting and dehydration. His magnesium is 1.3. Bilirubin is elevated at 1.8. She'll plan was to admit this patient for pancreatitis, dehydration symptom control as well as concern for alcohol withdrawal. Patient declines. He is feeling 100% better he is accompanied by his he is requesting discharge. I did have a long discussion about alcohol withdrawal risks, need for abstinence from alcohol, he states he has quit in the past and would like to quit now. We did discuss the risks of detox ultimately patient will monitor symptoms at home, he will be prescribed Valium and magnesium replacement. He will follow with his primary care physician and return for worsening or changing symptoms. - Lab Data Result diagrams: 06/14/20 19:03 06/14/20 19:03 Lab Results 06/14/20 06/14/20 06/14/20 Range/Units 19:03 19:03 19:03 WBC 10.6 (3.8-10.6) k/uL RBC 5.85 (4.30-5.90) m/uL Hgb 17.5 (13.0-17.5) gm/dL Hct 51.3 (39.0-53.0) % MCV 87.7 (80.0-100.0) fL MCH 29.9 (25.0-35.0) pg MCHC 34.1 (31.0-37.0) g/dL RDW 12.2 (11.5-15.5) % Plt Count 229 (150-450) k/uL Neutrophils % 82 % Lymphocytes % 7 % Monocytes % 7 % Eosinophils % 1 % Basophils % 1 % Neutrophils # 8.8 H (1.3-7.7) k/uL Lymphocytes # 0.7 L (1.0-4.8) k/uL Monocytes # 0.8 (0-1.0) k/uL Eosinophils # 0.1 (0-0.7) k/uL Basophils # 0.1 (0-0.2) k/uL Sodium 128 L (137-145) mmol/L Potassium 4.3 (3.5-5.1) mmol/L Chloride 91 L (98-107) mmol/L Carbon Dioxide 23 (22-30) mmol/L Anion Gap 14 mmol/L BUN 12 (9-20) mg/dL Creatinine 0.76 (0.66-1.25) mg/dL Est GFR (CKD-EPI)AfAm >90 (>60 ml/min/1.73 sqM) Est GFR (CKD-EPI)NonAf >90 (>60 ml/min/1.73 sqM) Glucose 137 H (74-99) mg/dL Plasma Lactic Acid Ananth (0.7-2.0) mmol/L Calcium 9.4 (8.4-10.2) mg/dL Magnesium 1.3 L (1.6-2.3) mg/dL Total Bilirubin 1.8 H (0.2-1.3) mg/dL AST 121 H (17-59) U/L ALT 70 H (4-49) U/L Alkaline Phosphatase 62 (38-126) U/L Total Protein 7.5 (6.3-8.2) g/dL Albumin 4.9 (3.5-5.0) g/dL Amylase 42 (30-110) U/L Lipase 169 (23-300) U/L Urine Color Yellow Urine Appearance Clear (Clear) Urine pH 7.5 (5.0-8.0) Ur Specific [place] 1.017 (1.001-1.035) Urine Protein Trace H (Negative) Urine Glucose (UA) Negative (Negative) Urine Ketones 2+ H (Negative) Urine Blood Negative (Negative) Urine Nitrite Negative (Negative) Urine Bilirubin Negative (Negative) Urine Urobilinogen <2.0 (<2.0) mg/dL Ur Leukocyte Esterase Negative (Negative) 06/14/20 Range/Units 19:03 WBC (3.8-10.6) k/uL RBC (4.30-5.90) m/uL Hgb (13.0-17.5) gm/dL Hct (39.0-53.0) % MCV (80.0-100.0) fL MCH (25.0-35.0) pg MCHC (31.0-37.0) g/dL RDW (11.5-15.5) % Plt Count (150-450) k/uL Neutrophils % % Lymphocytes % % Monocytes % % Eosinophils % % Basophils % % Neutrophils # (1.3-7.7) k/uL Lymphocytes # (1.0-4.8) k/uL Monocytes # (0-1.0) k/uL Eosinophils # (0-0.7) k/uL Basophils # (0-0.2) k/uL Sodium (137-145) mmol/L Potassium (3.5-5.1) mmol/L Chloride (98-107) mmol/L Carbon Dioxide (22-30) mmol/L Anion Gap mmol/L BUN (9-20) mg/dL Creatinine (0.66-1.25) mg/dL Est GFR (CKD-EPI)AfAm (>60 ml/min/1.73 sqM) Est GFR (CKD-EPI)NonAf (>60 ml/min/1.73 sqM) Glucose (74-99) mg/dL Plasma Lactic Acid Ananth 3.0 H* (0.7-2.0) mmol/L Calcium (8.4-10.2) mg/dL Magnesium (1.6-2.3) mg/dL Total Bilirubin (0.2-1.3) mg/dL AST (17-59) U/L ALT (4-49) U/L Alkaline Phosphatase (38-126) U/L Total Protein (6.3-8.2) g/dL Albumin (3.5-5.0) g/dL Amylase (30-110) U/L Lipase (23-300) U/L Urine Color Urine Appearance (Clear) Urine pH (5.0-8.0) Ur Specific [place] (1.001-1.035) Urine Protein (Negative) Urine Glucose (UA) (Negative) Urine Ketones (Negative) Urine Blood (Negative) Urine Nitrite (Negative) Urine Bilirubin (Negative) Urine Urobilinogen (<2.0) mg/dL Ur Leukocyte Esterase (Negative) Disposition Clinical Impression: Pancreatitis, ETOH abuse Disposition: HOME SELF-CARE Condition: Fair Instructions (If sedation given, give patient instructions): Acute Nausea and Vomiting (ED), Pancreatitis (ED) Prescriptions: Magnesium Oxide [Mag-Ox] 400 mg PO DAILY #30 tablet diazePAM [Valium] 5 mg PO TID PRN 3 Days #9 tab PRN Reason: Alcohol Withdrawal Is patient prescribed a controlled substance at d/c from ED?: No Referrals: Tim Marroquin MD [Primary Care Provider] - 1-2 days Time of Disposition: 20:57
[2020-06-14] MEDS ORDERED: ONDANSETRON 4 MG/2 ML VIAL IVP STA (18:44)
[2020-06-14 19:16] LABS: Appearance,Urine Clear (Clear); Basophils # (A) 0.1 k/uL (0-0.2); Basophils % (A) 1 %; Bilirubin,Urine Negative (Negative); Blood,Urine Negative (Negative); Color,Urine Yellow; Eosinophils # (A) 0.1 k/uL (0-0.7); Eosinophils % (A) 1 %; Glucose,Urine (UA) Negative (Negative); HCT 51.3 % (39.0-53.0); HGB 17.5 gm/dL (13.0-17.5); Ketones,Urine 2+ (Negative); Leukocyte Esterase,Urine Negative (Negative); Lymphocytes # (A) 0.7 k/uL (1.0-4.8); Lymphocytes % (A) 7 %; MCH 29.9 pg (25.0-35.0); MCHC 34.1 g/dL (31.0-37.0); MCV 87.7 fL (80.0-100.0); Mean Platelet Volume 8.6; Monocytes # (A) 0.8 k/uL (0-1.0); Monocytes % (A) 7 %; Neutrophils # (A) 8.8 k/uL (1.3-7.7); Neutrophils % (A) 82 %; Nitrite,Urine Negative (Negative); PH, Urine 7.5 (5.0-8.0); Platelet Count 229 k/uL (150-450); Protein,Urine Trace (Negative); RBC 5.85 m/uL (4.30-5.90); RDW 12.2 % (11.5-15.5); Specific Gravity,Urine 1.017 (1.001-1.035); Urobilinogen,Urine <2.0 mg/dL (<2.0); WBC 10.6 k/uL (3.8-10.6)
[2020-06-14 19:34] LABS: ALT 70 U/L (4-49); AST 121 U/L (17-59); African American GFR (CKD) >90 (>60 ml/min/1.73 sqM); Albumin 4.9 g/dL (3.5-5.0); Alkaline Phosphatase 62 U/L (38-126); Amylase 42 U/L (30-110); Anion Gap 14 mmol/L; Blood Urea Nitrogen 12 mg/dL (9-20); Calcium 9.4 mg/dL (8.4-10.2); Carbon Dioxide 23 mmol/L (22-30); Chloride 91 mmol/L (98-107); Glucose 137 mg/dL (74-99); Magnesium 1.3 mg/dL (1.6-2.3); Non-African American GFR(CKD) >90 (>60 ml/min/1.73 sqM); Potassium 4.3 mmol/L (3.5-5.1); Sodium 128 mmol/L (137-145); Total Bilirubin 1.8 mg/dL (0.2-1.3); Total Protein 7.5 g/dL (6.3-8.2)
[2020-06-14] MEDS ORDERED: LORazepam 2 MG/ML INJ IV PRN ×3 (20:07)
[2020-06-14] MEDS ORDERED: THIAMINE 100 MG/ML 2 ML VIAL IM STA (20:07)
[2020-06-14] MEDS ORDERED: MAGNESIUM SULFATE-D5W PMX 1 GM in DEXTROSE/WATER 1 100ML.BAG IVPB SCH (20:15)
[2020-06-14] MEDS ORDERED: SODIUM CHLORIDE 0.9% 1,000 ML IV SCH (20:15)
--- NOTE | 2020-06-14 20:47 | CT ---
EXAMINATION TYPE: CT abdomen pelvis w con DATE OF EXAM: 06/14/2020 COMPARISON: 01/26/2017 HISTORY: Epigastric pain and vomiting. History of pancreatitis. CT DLP: 815.5 mGycm Automated exposure control for dose reduction was used. TECHNIQUE: Helical acquisition of images was performed from the lung bases through the pelvis. CONTRAST: Performed without Oral Contrast and with IV Contrast, patient injected with 100ml mL of Iso gomez 300. FINDINGS: LUNG BASES: No significant abnormality is appreciated. LIVER/GB: The gallbladder and remainder of the biliary tree is unremarkable. PANCREAS: The margins of the pancreatic body shows mild indistinctness, associated with anterior para renal space mild peripancreatic edematous reticulation. Pancreatic parenchyma enhances homogeneously. These changes are consistent with clinical diagnosis of mild acute pancreatitis. SPLEEN: No significant abnormality is seen. ADRENALS: No significant abnormality is seen. KIDNEYS: No significant abnormality is seen. FREE AIR: No free air is visualized. RETROPERITONEAL ADENOPATHY: None visualized REPRODUCTIVE ORGANS: No significant abnormality is seen URINARY BLADDER: No significant abnormality is seen. PELVIC ADENOPATHY: None visualized. OSSEOUS STRUCTURES: No significant abnormality is seen. BOWEL: No significant abnormality is seen. OTHER: No acute vascular findings. IMPRESSION: Findings consistent with a clinical diagnosis of mild acute pancreatitis.
[2020-06-14] MEDS ORDERED: THIAMINE 100 MG TAB PO SCH (21:00)
[2020-06-14 21:09] VITALS: BP 156/94; PULSE 93; RESP 16; TEMP 98.8
== END 2020-06-14 21:05 | disposition home or self-care (01) ==
LOC: EC 18:07
DX: K85.90 Acute pancreatitis without necrosis or infection, unspecified (principal); F10.10 Alcohol abuse, uncomplicated; E80.6 Other disorders of bilirubin metabolism; K21.9 Gastro-esophageal reflux disease without esophagitis; I10 Essential (primary) hypertension; F41.9 Anxiety disorder, unspecified; Z79.899 Other long term (current) drug therapy; Z98.890 Other specified postprocedural states
CPT/HCPCS: 36415; 80053; 82150; 83605; 83690; 83735; 85025; 81003; 74177; 96374; 96375; 96361 ×2; 99285; J2060; J1170; Q9967

== ENCOUNTER 2021-06-06 22:47 | Emergency (ER) | payer BC ==
[2021-06-06] MEDS ORDERED: SODIUM CHLORIDE 0.9% 1,000 ML IV ONE (23:33)
[2021-06-07 00:03] LABS: Basophils # (A) 0.2 k/uL (0-0.2); Basophils % (A) 3 %; Eosinophils # (A) 0.1 k/uL (0-0.7); Eosinophils % (A) 2 %; HCT 46.6 % (39.0-53.0); HGB 16.1 gm/dL (13.0-17.5); Lymphocytes # (A) 1.7 k/uL (1.0-4.8); Lymphocytes % (A) 22 %; MCH 31.2 pg (25.0-35.0); MCHC 34.4 g/dL (31.0-37.0); MCV 90.6 fL (80.0-100.0); Mean Platelet Volume 8.5; Monocytes # (A) 0.6 k/uL (0-1.0); Monocytes % (A) 8 %; Neutrophils # (A) 4.7 k/uL (1.3-7.7); Neutrophils % (A) 62 %; Platelet Count 366 k/uL (150-450); RBC 5.15 m/uL (4.30-5.90); RDW 13.5 % (11.5-15.5); WBC 7.6 k/uL (3.8-10.6)
[2021-06-07 00:08] LABS: Appearance,Urine Clear (Clear); Bilirubin,Urine Negative (Negative); Blood,Urine Negative (Negative); Color,Urine Light Yellow; Glucose,Urine (UA) Negative (Negative); Ketones,Urine Negative (Negative); Leukocyte Esterase,Urine Negative (Negative); Nitrite,Urine Negative (Negative); PH, Urine 7.5 (5.0-8.0); Partial Thromboplastin Time 22.3 sec (22.0-30.0); Protein,Urine Negative (Negative); Prothrombin Time 10.4 sec (9.0-12.0); Specific Gravity,Urine 1.006 (1.001-1.035); Urobilinogen,Urine <2.0 mg/dL (<2.0)
[2021-06-07 00:11] LABS: ALT 39 U/L (4-49); AST 51 U/L (17-59); African American GFR (CKD) >90 (>60 ml/min/1.73 sqM); Albumin 4.7 g/dL (3.5-5.0); Alkaline Phosphatase 52 U/L (38-126); Anion Gap 11 mmol/L; Blood Urea Nitrogen 5 mg/dL (9-20); Calcium 8.9 mg/dL (8.4-10.2); Carbon Dioxide 27 mmol/L (22-30); Chloride 96 mmol/L (98-107); Glucose 119 mg/dL (74-99); Non-African American GFR(CKD) >90 (>60 ml/min/1.73 sqM); Potassium 3.7 mmol/L (3.5-5.1); Sodium 134 mmol/L (137-145); Total Bilirubin 0.2 mg/dL (0.2-1.3)
[2021-06-07 00:13] LABS: Alcohol 280 mg/dL
--- NOTE | 2021-06-07 00:18 | ED ---
Altered Mental Status HPI - General Chief Complaint: Altered Mental Status Stated Complaint: Altered mental status Time Seen by Provider: 06/06/21 23:23 Source: patient Mode of arrival: wheelchair Limitations: no limitations - History of Present Illness Initial Comments: 40 year-old male patient presents to the emergency department for evaluation of altered mental status. states that patient is an alcoholic, went through detox two weeks ago. About 7 days into detox had a seizure and was found to be hyponatremic. He was started on tegretol and rexulti. Today he stated the rexulti was making him feel agitated and anxious. States that he drank because it was making him feel bad. states that he became very confused, his eyes were rolling back in his head, and he could not support his weight or stand. States she did not know he was drinking today. He also had a fall earlier in the day at work which caused a black eye. He is reporting headache and pain around the left eye. Patient denies any recent rash, fever, chills, cough, shortness of breath, chest pain, abdominal pain, nausea, vomiting, diarrhea, constipation, back pain, numbness, tingling, dizziness, weakness, hematuria, dysuria, urinary urgency, urinary frequency, or any other complaints. - Related Data Home Medications Medication Instructions Recorded Confirmed Citalopram Hydrobromide [CeleXA] 20 mg PO DAILY 10/17/16 12/07/16 Fluticasone Nasal [place] [Flonase 1 spray EA NOSTRIL BID PRN 10/17/16 12/07/16 Nasal [place]] Omeprazole [PriLOSEC] 20 mg PO AC-BID 10/17/16 12/07/16 Ibuprofen [Motrin] 400 mg PO Q6HR PRN 11/03/16 12/07/16 Previous Rx's Medication Instructions Recorded Atenolol [Tenormin] 50 mg PO BID #1 tab 10/30/16 Calcium Carbonate [Tums] 500 mg PO TID-W/MEALS #90 chew 10/30/16 Folic Acid 1 mg PO DAILY #30 tablet 10/30/16 Furosemide [Lasix] 40 mg PO BID #60 tablet 10/30/16 Multivitamins, Thera [Multivitamin 1 tab PO DAILY #30 tablet 10/30/16 (formulary)] Nicotine 14Mg/24Hr Patch [Habitrol] 1 patch TRANSDERM DAILY #30 patch 10/30/16 Spironolactone [Aldactone] 100 mg PO DAILY #30 tab 10/30/16 Thiamine [Vitamin B-1] 100 mg PO DAILY #30 tab 10/30/16 traMADol HCL [Ultram] 50 mg PO Q4HR PRN #30 tab 10/30/16 Clindamycin [Cleocin] 450 mg PO Q6H #28 capsule 08/30/18 HYDROcodone/APAP 5-325MG [[place] 1 tab PO Q6HR PRN 3 Days #12 tab 08/30/18 5-325] Magnesium Oxide [Mag-Ox] 400 mg PO DAILY #30 tablet 06/14/20 diazePAM [Valium] 5 mg PO TID PRN 3 Days #9 tab 06/14/20 Allergies Allergy/AdvReac Type Severity Reaction Status Date / Time No Known Allergies Allergy Verified 06/14/20 18:18 Review of Systems ROS Statement: Those systems with pertinent positive or pertinent negative responses have been documented in the HPI. ROS Other: All systems not noted in ROS Statement are negative. Past Medical History Past Medical History: Asthma, GERD/Reflux, Hypertension Additional Past Medical History / Comment(s): pancreatitis, CROHNS OR COLITS PT NOT SURE WHICH ONE,UPPER BRIDGE, History of Any Multi-Drug Resistant Organisms: None Reported Past Surgical History: No Surgical Hx Reported Additional Past Surgical History / Comment(s): PARACENTESIS, PICC LINE-SINCE REMOVED,NOSE SXPER PTS "STARIGHTENED AND BONE GRAFT" Past Anesthesia/Blood Transfusion Reactions: No Reported Reaction Past Psychological History: Anxiety Smoking Status: Current every day smoker, Light tobacco smoker Past Alcohol Use History: Abuse, Daily Past Drug Use History: None Reported - Past Family History Mother Family Medical History: COPD Father Family Medical History: Cancer Additional Family Medical History / Comment(s): PROSTATE CANCER General Exam Limitations: no limitations General appearance: alert, in no apparent distress, other (Physical well- developed, well-nourished adult male patient in no acute distress. Vital signs upon presentation are temperature 98.1F, pulse 83, respirations 16, blood pressure 138/96, pulse ox 97% on room air.) Eye exam: Present: PERRL, EOMI, periorbital swelling (Left), periorbital tenderness (Left), other (There is left periorbital ecchymosis). Absent: scleral icterus, conjunctival injection ENT exam: Present: normal exam, normal oropharynx, mucous membranes moist Respiratory exam: Present: normal lung sounds bilaterally. Absent: respiratory distress, wheezes, rales, rhonchi, stridor Cardiovascular Exam: Present: regular rate, normal rhythm, normal heart sounds. Absent: systolic murmur, diastolic murmur, rubs, gallop, clicks GI/Abdominal exam: Present: soft, normal bowel sounds. Absent: distended, tenderness, guarding, rebound, rigid Neurological exam: Present: alert, oriented X3, CN II-XII intact Psychiatric exam: Present: normal affect, normal mood Skin exam: Present: warm, dry, intact, normal color. Absent: rash Course Vital Signs 06/06/21 06/07/21 06/07/21 23:09 00:52 01:48 Temperature 98.1 F 97.9 F Pulse Rate 83 90 85 Respiratory 16 20 16 Rate Blood Pressure 138/96 125/89 142/97 O2 Sat by Pulse 97 97 98 Oximetry Medical Decision Making - Medical Decision Making 40-year-old male patient was brought in by for evaluation of altered mental status. Physical examination was unremarkable. Is neurologically intact. It is seem intoxicated. Labs reviewed and are unremarkable. Blood alcohol level was 280. CT brain was negative. CT facial bones negative for any fractures. I did discuss findings and results with them. We discussed that his mentation was most likely off due to mixing alcohol with his new medications Tegretol and Rexulti. He'll be discharged from the primary care physician for recheck in 1-2 days. Return parameters discussed in detail. Family verbalizes understanding and agrees with this plan. Case discussed with my attending Dr. Castillo. - Lab Data Result diagrams: 06/06/21 23:38 06/06/21 23:38 Lab Results 06/06/21 06/06/21 06/06/21 Range/Units 23:38 23:38 23:38 WBC 7.6 (3.8-10.6) k/uL RBC 5.15 (4.30-5.90) m/uL Hgb 16.1 (13.0-17.5) gm/dL Hct 46.6 (39.0-53.0) % MCV 90.6 (80.0-100.0) fL MCH 31.2 (25.0-35.0) pg MCHC 34.4 (31.0-37.0) g/dL RDW 13.5 (11.5-15.5) % Plt Count 366 (150-450) k/uL MPV 8.5 Neutrophils % 62 % Lymphocytes % 22 % Monocytes % 8 % Eosinophils % 2 % Basophils % 3 % Neutrophils # 4.7 (1.3-7.7) k/uL Lymphocytes # 1.7 (1.0-4.8) k/uL Monocytes # 0.6 (0-1.0) k/uL Eosinophils # 0.1 (0-0.7) k/uL Basophils # 0.2 (0-0.2) k/uL PT 10.4 (9.0-12.0) sec INR 1.0 (<1.2) APTT 22.3 (22.0-30.0) sec Sodium (137-145) mmol/L Potassium (3.5-5.1) mmol/L Chloride (98-107) mmol/L Carbon Dioxide (22-30) mmol/L Anion Gap mmol/L BUN (9-20) mg/dL Creatinine (0.66-1.25) mg/dL Est GFR (CKD-EPI)AfAm (>60 ml/min/1.73 sqM) Est GFR (CKD-EPI)NonAf (>60 ml/min/1.73 sqM) Glucose (74-99) mg/dL Calcium (8.4-10.2) mg/dL Total Bilirubin (0.2-1.3) mg/dL AST (17-59) U/L ALT (4-49) U/L Alkaline Phosphatase (38-126) U/L Ammonia (<30) umol/L Troponin I (0.000-0.034) ng/mL Total Protein (6.3-8.2) g/dL Albumin (3.5-5.0) g/dL Urine Color Light Yellow Urine Appearance Clear (Clear) Urine pH 7.5 (5.0-8.0) Ur Specific [place] 1.006 (1.001-1.035) Urine Protein Negative (Negative) Urine Glucose (UA) Negative (Negative) Urine Ketones Negative (Negative) Urine Blood Negative (Negative) Urine Nitrite Negative (Negative) Urine Bilirubin Negative (Negative) Urine Urobilinogen <2.0 (<2.0) mg/dL Ur Leukocyte Esterase Negative (Negative) Urine Opiates Screen Not Detected (NotDetected) Ur Oxycodone Screen Not Detected (NotDetected) Urine Methadone Screen Not Detected (NotDetected) Ur Propoxyphene Screen Not Detected (NotDetected) Ur Barbiturates Screen Not Detected (NotDetected) U Tricyclic Antidepress Not Detected (NotDetected) Ur Phencyclidine Scrn Not Detected (NotDetected) Ur Amphetamines Screen Not Detected (NotDetected) U Methamphetamines Scrn Not Detected (NotDetected) U Benzodiazepines Scrn Not Detected (NotDetected) Urine Cocaine Screen Not Detected (NotDetected) U Marijuana (THC) Screen Not Detected (NotDetected) Serum Alcohol mg/dL 06/06/21 06/06/21 06/06/21 Range/Units 23:38 23:38 23:38 WBC (3.8-10.6) k/uL RBC (4.30-5.90) m/uL Hgb (13.0-17.5) gm/dL Hct (39.0-53.0) % MCV (80.0-100.0) fL MCH (25.0-35.0) pg MCHC (31.0-37.0) g/dL RDW (11.5-15.5) % Plt Count (150-450) k/uL MPV Neutrophils % % Lymphocytes % % Monocytes % % Eosinophils % % Basophils % % Neutrophils # (1.3-7.7) k/uL Lymphocytes # (1.0-4.8) k/uL Monocytes # (0-1.0) k/uL Eosinophils # (0-0.7) k/uL Basophils # (0-0.2) k/uL PT (9.0-12.0) sec INR (<1.2) APTT (22.0-30.0) sec Sodium 134 L (137-145) mmol/L Potassium 3.7 (3.5-5.1) mmol/L Chloride 96 L (98-107) mmol/L Carbon Dioxide 27 (22-30) mmol/L Anion Gap 11 mmol/L BUN 5 L (9-20) mg/dL Creatinine 0.65 L (0.66-1.25) mg/dL Est GFR (CKD-EPI)AfAm >90 (>60 ml/min/1.73 sqM) Est GFR (CKD-EPI)NonAf >90 (>60 ml/min/1.73 sqM) Glucose 119 H (74-99) mg/dL Calcium 8.9 (8.4-10.2) mg/dL Total Bilirubin 0.2 (0.2-1.3) mg/dL AST 51 (17-59) U/L ALT 39 (4-49) U/L Alkaline Phosphatase 52 (38-126) U/L Ammonia 15 (<30) umol/L Troponin I <0.012 (0.000-0.034) ng/mL Total Protein 7.0 (6.3-8.2) g/dL Albumin 4.7 (3.5-5.0) g/dL Urine Color Urine Appearance (Clear) Urine pH (5.0-8.0) Ur Specific [place] (1.001-1.035) Urine Protein (Negative) Urine Glucose (UA) (Negative) Urine Ketones (Negative) Urine Blood (Negative) Urine Nitrite (Negative) Urine Bilirubin (Negative) Urine Urobilinogen (<2.0) mg/dL Ur Leukocyte Esterase (Negative) Urine Opiates Screen (NotDetected) Ur Oxycodone Screen (NotDetected) Urine Methadone Screen (NotDetected) Ur Propoxyphene Screen (NotDetected) Ur Barbiturates Screen (NotDetected) U Tricyclic Antidepress (NotDetected) Ur Phencyclidine Scrn (NotDetected) Ur Amphetamines Screen (NotDetected) U Methamphetamines Scrn (NotDetected) U Benzodiazepines Scrn (NotDetected) Urine Cocaine Screen (NotDetected) U Marijuana (THC) Screen (NotDetected) Serum Alcohol 280 H* mg/dL - EKG Data -: EKG Interpreted by Me EKG Comments: EKG obtained at 2351 shows normal sinus rhythm with a ventricular rate of 84, CA interval 142, QR temple 86, QT 386, QTc 456. No evidence of ST elevation or depression. - Radiology Data Radiology results: report reviewed, image reviewed CT facial bones without contrast are obtained. Report was reviewed in its entirety. Impression by Dr. Grier shows negative exam. No evidence of a fracture. CT brain without contrast was obtained. Report is reviewed in its entirety. Impression by Dr. Grier shows normal unenhanced head CT scan. Disposition Clinical Impression: Altered mental status, Alcohol intoxication Disposition: HOME SELF-CARE Condition: Good Instructions (If sedation given, give patient instructions): Alcohol Intoxication (ED), Altered Mental Status (ED) Additional Instructions: Follow up with primary care physician for recheck in 1-2 days. Return for any new, worsening, or concerning symptoms. Is patient prescribed a controlled substance at d/c from ED?: No Referrals: Tim Marroquin MD [Primary Care Provider] - 1-2 days Time of Disposition: 01:18
[2021-06-07 00:25] LABS: Amphetamine Screen,Urine Not Detected (NotDetected); Barbiturate Screen,Urine Not Detected (NotDetected); Benzodiazepines Screen,Urine Not Detected (NotDetected); Cocaine Screen,Urine Not Detected (NotDetected); Methadone Screen, Urine Not Detected (NotDetected); Opiate Screen,Urine Not Detected (NotDetected); Oxycodone Screen, Urine Not Detected (NotDetected); Phencyclidine Screen,Urine Not Detected (NotDetected); Tricyclic Antidepressant,Urine Not Detected (NotDetected); Urn Cannabinoid Scrn Not Detected (NotDetected)
--- NOTE | 2021-06-07 00:48 | CT ---
EXAMINATION TYPE: CT brain wo con DATE OF EXAM: 06/07/2021 COMPARISON: None HISTORY: fall CT DLP: 1357.4 mGycm Automated exposure control for dose reduction was used. Images obtained of the brain without contrast. Ventricles and sulci appear normal. There is no mass effect nor midline shift. There is no sign of in tracranial hemorrhage. The calvarium is intact. There is no evidence of cerebral edema. IMPRESSION: Normal unenhanced head CT scan.
--- NOTE | 2021-06-07 00:55 | CT ---
EXAMINATION TYPE: CT facial bones wo con DATE OF EXAM: 06/07/2021 COMPARISON: None HISTORY: fall CT DLP: 1357.4 mGycm Automated exposure control for dose reduction was used. Images obtained from the bottom of the mandible to the top of the frontal sinuses with no contrast. The mandibular ring is intact. Temporomandibular joints are intact. Zygomatic arches appear normal. I see no definite nasal bone fracture. There is no evidence of orbital blowout fracture. Orbital ramirez ns are intact. There is fairly normal aeration of the paranasal sinuses. There is normal aeration of the mastoid sinuses. External auditory canals appear normal. Skull base is intact. The maxilla is intact. There is no evidence of a soft tissue mass. The globes are symmetric. There is no evidence of retro-orbital mass. IMPRESSION: Negative exam. No evidence of a fracture.
[2021-06-07 01:51] VITALS: BP 142/97; PULSE 85; RESP 16; TEMP 97.9
== END 2021-06-07 01:47 | disposition home or self-care (01) ==
LOC: EC 22:47
DX: F10.229 Alcohol dependence with intoxication, unspecified (principal); S00.12XA Contusion of left eyelid and periocular area, initial encounter; I10 Essential (primary) hypertension; J45.909 Unspecified asthma, uncomplicated; F41.9 Anxiety disorder, unspecified; K21.9 Gastro-esophageal reflux disease without esophagitis; F17.290 Nicotine dependence, other tobacco product, uncomplicated; Z79.1 Long term (current) use of non-steroidal anti-inflammatories (NSAID); W18.30XA Fall on same level, unspecified, initial encounter; Y90.8 Blood alcohol level of 240 mg/100 ml or more; Y99.0 Civilian activity done for income or pay
CPT/HCPCS: 36415; 70450; 70486; 80053; 80306; 80320; 81003; 82140; 84484; 85025; 85610; 85730; 93005; 96360; 99285

== ENCOUNTER 2022-05-12 12:00 | Emergency (ER) | payer BC, OTHER ==
[2022-05-12] MEDS ORDERED: SODIUM CHLORIDE 0.9% 1,000 ML IV STA (12:33)
[2022-05-12] MEDS ORDERED: ONDANSETRON 4 MG/2 ML VIAL IVP STA (12:51)
--- NOTE | 2022-05-12 12:53 | ED ---
General Adult HPI - General Chief complaint: Nausea/Vomiting/Diarrhea Stated complaint: dehydrated/vomiting Time Seen by Provider: 05/12/22 12:11 Source: patient Mode of arrival: ambulatory Limitations: no limitations - History of Present Illness Initial comments: Dictation was produced using [employer] dictation software. please excuse any grammatical, word or spelling errors. Chief Complaint: 41-year-old male presents emergency department for concerns of dehydration History of Present Illness: 41-year-old male past medical history pancreatitis, asthma and GERD disease. Patient states that for the last 4-5 days he has been having nausea vomiting and diarrhea. Patient denies any abdominal pain. States that his diarrhea and emesis is nonbilious not bloody. Patient denies any sick contacts. No international travel. Denies any abdominal pain. No history of abdominal surgeries. States that he initially had constitutional symptoms during the onset of his symptoms however that has seemingly resolved. The ROS documented in this emergency department record has been reviewed and confirmed by me. Those systems with pertinent positive or negative responses have been documented in the HPI. All other systems are other negative and/or noncontributory. PHYSICAL EXAM: General Impression: Alert and oriented x3, not in acute distress HEENT: Normocephalic atraumatic, extra-ocular movements intact, pupils equal and reactive to light bilaterally, mucous membranes moist. Cardiovascular: Heart regular rate and rhythm Chest: Able to complete full sentences, no retractions, no tachypnea Abdomen: abdomen soft, non-tender, non-distended, no organomegaly Musculoskeletal: Pulses present and equal in all extremities, no peripheral edema Motor: no focal deficits noted Neurological: CN II-XII grossly intact, no focal motor or sensory deficits noted Skin: Intact with no visualized rashes Psych: Normal affect and mood ED course: 41-year-old male presents to the emergency department for chief complaint of nausea vomiting diarrhea. Clinical presentation consistent with gastroenteritis. Vital upon arrival shows heart rate of 102, so vital signs within acceptable limits. Laboratory evaluation obtained. CBC unremarkable. Sodium is 131. Rest of labs are unremarkable. Patient given IV fluids. Patient refusing for panel viral PCR test. Patient requesting to go home. Patient reevaluated at bedside at 2:25 PM found to be in stable medical condition. Patient given prescriptions for symptomatically care. Advised follow-up with primary care doctor. EKG interpretation: Ventricular rate 83, sinus rhythm,. Interval 144, care is 96, QTC 418. No AR prolongation, no QTC prolongation, no ST or T-wave changes noted. Overall, this EKG is unremarkable - Related Data Home Medications Medication Instructions Recorded Confirmed Fluticasone Nasal [place] [Flonase 1 spray EA NOSTRIL BID PRN 10/17/16 05/12/22 Nasal [place]] Omeprazole [PriLOSEC] 20 mg PO DAILY 10/17/16 05/12/22 Albuterol Sulfate [Albuterol 2 puff PO Q6H PRN 05/12/22 05/12/22 Sulfate Hfa] Buprenorphine HCl/Naloxone HCl 0.5 - 1 film SL TID PRN 05/12/22 05/12/22 [Suboxone 8 mg-2 mg Sl Film] Citalopram Hydrobromide [CeleXA] 40 mg PO DAILY 05/12/22 05/12/22 Ibuprofen [Motrin] 800 mg PO BID PRN 05/12/22 05/12/22 Ipratropium-Albuterol Nebulize 3 ml INHALATION RT-QID PRN 05/12/22 05/12/22 [Duoneb 0.5 mg-3 mg/3 ml Soln] Lisinopril-Hctz 20-25 mg 1 tab PO DAILY 05/12/22 05/12/22 [Zestoretic 20-25] Loratadine [Claritin] 10 mg PO DAILY PRN 05/12/22 05/12/22 Melatonin 10 mg PO HS 05/12/22 05/12/22 Vitamin B Complex 1 cap PO DAILY 05/12/22 05/12/22 amLODIPine [Norvasc] 10 mg PO DAILY 05/12/22 05/12/22 Allergies Allergy/AdvReac Type Severity Reaction Status Date / Time No Known Allergies Allergy Verified 05/12/22 14:14 Review of Systems ROS Statement: Those systems with pertinent positive or pertinent negative responses have been documented in the HPI. ROS Other: All systems not noted in ROS Statement are negative. Past Medical History Past Medical History: Asthma, GERD/Reflux, Hypertension Additional Past Medical History / Comment(s): pancreatitis, CROHNS OR COLITS PT NOT SURE WHICH ONE,UPPER BRIDGE, History of Any Multi-Drug Resistant Organisms: None Reported Past Surgical History: No Surgical Hx Reported Additional Past Surgical History / Comment(s): PARACENTESIS, PICC LINE-SINCE REMOVED,NOSE SXPER PTS "STARIGHTENED AND BONE GRAFT" Past Anesthesia/Blood Transfusion Reactions: No Reported Reaction Past Psychological History: Anxiety Smoking Status: Current every day smoker, Light tobacco smoker Past Alcohol Use History: Abuse, Daily Past Drug Use History: None Reported - Past Family History Mother Family Medical History: COPD Father Family Medical History: Cancer Additional Family Medical History / Comment(s): PROSTATE CANCER General Exam Limitations: no limitations Course Vital Signs 05/12/22 05/12/22 05/12/22 12:05 13:20 14:08 Temperature 98.4 F Pulse Rate 102 H 76 76 Respiratory 20 18 18 Rate Blood Pressure 103/70 120/69 108/65 O2 Sat by Pulse 95 99 98 Oximetry Medical Decision Making - Lab Data Result diagrams: 05/12/22 12:40 05/12/22 12:40 Lab Results 05/12/22 05/12/22 Range/Units 12:40 12:40 WBC 4.7 (3.8-10.6) k/uL RBC 5.13 (4.30-5.90) m/uL Hgb 14.3 (13.0-17.5) gm/dL Hct 42.4 (39.0-53.0) % MCV 82.7 (80.0-100.0) fL MCH 27.8 (25.0-35.0) pg MCHC 33.7 (31.0-37.0) g/dL RDW 12.5 (11.5-15.5) % Plt Count 167 (150-450) k/uL MPV 10.7 Sodium 131 L (137-145) mmol/L Potassium 3.5 (3.5-5.1) mmol/L Chloride 98 (98-107) mmol/L Carbon Dioxide 24 (22-30) mmol/L Anion Gap 9 mmol/L BUN 13 (9-20) mg/dL Creatinine 0.83 (0.66-1.25) mg/dL Est GFR (CKD-EPI)AfAm >90 (>60 ml/min/1.73 sqM) Est GFR (CKD-EPI)NonAf >90 (>60 ml/min/1.73 sqM) Glucose 116 H (74-99) mg/dL Calcium 8.5 (8.4-10.2) mg/dL Magnesium 2.0 (1.6-2.3) mg/dL Lipase 45 (23-300) U/L Disposition Clinical Impression: Gastroenteritis Disposition: HOME SELF-CARE Condition: Fair Instructions (If sedation given, give patient instructions): Acute Nausea and Vomiting (ED), Acute Diarrhea (ED) Is patient prescribed a controlled substance at d/c from ED?: No Referrals: Nonstaff,Physician [Primary Care Provider] - 1-2 days Time of Disposition: 14:23
[2022-05-12 13:14] LABS: African American GFR (CKD) >90 (>60 ml/min/1.73 sqM); Anion Gap 9 mmol/L; Blood Urea Nitrogen 13 mg/dL (9-20); Calcium 8.5 mg/dL (8.4-10.2); Carbon Dioxide 24 mmol/L (22-30); Chloride 98 mmol/L (98-107); Glucose 116 mg/dL (74-99); Lipase 45 U/L (23-300); Non-African American GFR(CKD) >90 (>60 ml/min/1.73 sqM); Potassium 3.5 mmol/L (3.5-5.1); Sodium 131 mmol/L (137-145)
[2022-05-12 13:17] LABS: HCT 42.4 % (39.0-53.0); HGB 14.3 gm/dL (13.0-17.5); MCH 27.8 pg (25.0-35.0); MCHC 33.7 g/dL (31.0-37.0); MCV 82.7 fL (80.0-100.0); Mean Platelet Volume 10.7; Platelet Count 167 k/uL (150-450); RBC 5.13 m/uL (4.30-5.90); RDW 12.5 % (11.5-15.5); WBC 4.7 k/uL (3.8-10.6)
[2022-05-12 13:23] VITALS: RESP 18
[2022-05-12] MEDS ORDERED: DIPHENOX-ATROP STARTER PACK 8 TAB BTL PO STA (14:23)
[2022-05-12] MEDS ORDERED: ONDANSETRON 4 MG ODT STARTER PACK 2 TAB BTL PO STA (14:23)
--- NOTE | 2022-05-12 14:24 | ED ---
Medical Decision Making - Lab Data Result diagrams: 05/12/22 12:40 05/12/22 12:40 Lab Results 05/12/22 05/12/22 Range/Units 12:40 12:40 WBC 4.7 (3.8-10.6) k/uL RBC 5.13 (4.30-5.90) m/uL Hgb 14.3 (13.0-17.5) gm/dL Hct 42.4 (39.0-53.0) % MCV 82.7 (80.0-100.0) fL MCH 27.8 (25.0-35.0) pg MCHC 33.7 (31.0-37.0) g/dL RDW 12.5 (11.5-15.5) % Plt Count 167 (150-450) k/uL MPV 10.7 Sodium 131 L (137-145) mmol/L Potassium 3.5 (3.5-5.1) mmol/L Chloride 98 (98-107) mmol/L Carbon Dioxide 24 (22-30) mmol/L Anion Gap 9 mmol/L BUN 13 (9-20) mg/dL Creatinine 0.83 (0.66-1.25) mg/dL Est GFR (CKD-EPI)AfAm >90 (>60 ml/min/1.73 sqM) Est GFR (CKD-EPI)NonAf >90 (>60 ml/min/1.73 sqM) Glucose 116 H (74-99) mg/dL Calcium 8.5 (8.4-10.2) mg/dL Magnesium 2.0 (1.6-2.3) mg/dL Lipase 45 (23-300) U/L Disposition Clinical Impression: Gastroenteritis Disposition: HOME SELF-CARE Condition: Fair Instructions (If sedation given, give patient instructions): Acute Nausea and Vomiting (ED), Acute Diarrhea (ED) Prescriptions: Ondansetron Odt [Zofran Odt] 4 mg PO Q8HR PRN #12 tab PRN Reason: Nausea Is patient prescribed a controlled substance at d/c from ED?: No Referrals: Nonstaff,Physician [Primary Care Provider] - 1-2 days Time of Disposition: 14:24
[2022-05-12 14:38] VITALS: BP 120/64; PULSE 74; TEMP 98.9
[2022-05-12 14:58] LABS: Band Neutrophils % 10 %; Lymphocytes # (M) 0.61 k/uL (1.0-4.8); Monocytes # (M) 1.36 k/uL (0-1.0); Neutrophils % (M) 49 %; Nucleated Red Blood Cells 0 /100 WBC (0-0); Total Cells Counted 200
[2022-05-12 14:59] LABS: RBC Morphology Normal
== END 2022-05-12 14:38 | disposition home or self-care (01) ==
LOC: EC 12:00
DX: K52.9 Noninfective gastroenteritis and colitis, unspecified (principal); J45.909 Unspecified asthma, uncomplicated; K21.9 Gastro-esophageal reflux disease without esophagitis; I10 Essential (primary) hypertension; F17.209 Nicotine dependence, unspecified, with unspecified nicotine-induced disorders; Z79.83 Long term (current) use of bisphosphonates
CPT/HCPCS: 36415; 93005; 80048; 83690; 83735; 85025; 99284; 96361; 96374; J2405; S0119

== ENCOUNTER 2023-11-09 07:29 | Observation (INO) | payer OTHER ==
[2023-11-09] MEDS ORDERED: SODIUM CHLORIDE 0.9% 1,000 ML IV STA (07:59)
[2023-11-09] MEDS ORDERED: SODIUM CHLORIDE 0.9% 500 ML 500 ML IV STA (07:59)
[2023-11-09] MEDS ORDERED: ONDANSETRON 4 MG/2 ML VIAL IVP STA (07:59)
--- NOTE | 2023-11-09 08:05 | ED ---
General Adult HPI - General Chief complaint: Neuro Symptoms/Deficit Stated complaint: Blurried Vision Time Seen by Provider: 11/09/23 07:40 Source: patient, RN notes reviewed, old records reviewed Mode of arrival: ambulatory Limitations: no limitations - History of Present Illness Initial comments: This a 42-year-old male with a past medical history significant for drinking which she started about a year ago again. Patient also has a past medical his tory significant for drug use and a history of pancreatitis and rhabdo and renal failure. Patient states she's been drinking for the last year and last couple days he's been vomiting quite a bit and today he woke up at 5:00 and his vision was a little blurry out of both eyes. Patient denies any headache patient states he is nauseated and does have a little upper abdominal pain. Patient is chest pain difficult breathing shortest breath per patient has any fever chills per patient as any diarrhea. Patient denies any weakness of any extremity or any numbness of any extremity. - Related Data Home Medications Medication Instructions Recorded Confirmed Fluticasone Nasal [place] [Flonase 1 spray EA NOSTRIL BID PRN 10/17/16 05/12/22 Nasal [place]] Omeprazole [PriLOSEC] 20 mg PO DAILY 10/17/16 05/12/22 Albuterol Sulfate [Albuterol 2 puff PO Q6H PRN 05/12/22 05/12/22 Sulfate Hfa] Buprenorphine HCl/Naloxone HCl 0.5 - 1 film SL TID PRN 05/12/22 05/12/22 [Suboxone 8 mg-2 mg Sl Film] Citalopram Hydrobromide [CeleXA] 40 mg PO DAILY 05/12/22 05/12/22 Ibuprofen [Motrin] 800 mg PO BID PRN 05/12/22 05/12/22 Ipratropium-Albuterol Nebulize 3 ml INHALATION RT-QID PRN 05/12/22 05/12/22 [Duoneb 0.5 mg-3 mg/3 ml Soln] Lisinopril-Hctz 20-25 mg 1 tab PO DAILY 05/12/22 05/12/22 [Zestoretic 20-25] Loratadine [Claritin] 10 mg PO DAILY PRN 05/12/22 05/12/22 Melatonin 10 mg PO HS 05/12/22 05/12/22 Vitamin B Complex 1 cap PO DAILY 05/12/22 05/12/22 amLODIPine [Norvasc] 10 mg PO DAILY 05/12/22 05/12/22 Previous Rx's Medication Instructions Recorded Ondansetron Odt [Zofran Odt] 4 mg PO Q8HR PRN #12 tab 05/12/22 Allergies Allergy/AdvReac Type Severity Reaction Status Date / Time No Known Allergies Allergy Verified 11/09/23 07:40 Review of Systems ROS Statement: Those systems with pertinent positive or pertinent negative responses have been documented in the HPI. ROS Other: All systems not noted in ROS Statement are negative. Past Medical History Past Medical History: Asthma, GERD/Reflux, Hypertension Additional Past Medical History / Comment(s): pancreatitis, CROHNS OR COLITS PT NOT SURE WHICH ONE,UPPER BRIDGE, History of Any Multi-Drug Resistant Organisms: None Reported Past Surgical History: No Surgical Hx Reported Additional Past Surgical History / Comment(s): PARACENTESIS, PICC LINE-SINCE REMOVED,NOSE SXPER PTS "STARIGHTENED AND BONE GRAFT" Past Anesthesia/Blood Transfusion Reactions: No Reported Reaction Past Psychological History: Anxiety Smoking Status: Current every day smoker, Light tobacco smoker Past Alcohol Use History: Abuse, Daily Past Drug Use History: None Reported - Past Family History Mother Family Medical History: COPD Father Family Medical History: Cancer Additional Family Medical History / Comment(s): PROSTATE CANCER General Exam - General Exam Comments Initial Comments: GENERAL: Patient is well-developed and well-nourished. Patient is nontoxic and well- hydrated and is in mild distress. ENT: Neck is soft and supple. No significant lymphadenopathy is noted. Oropharynx is clear. Moist mucous membranes. Neck has full range of motion without eliciting any pain. EYES: The sclera were anicteric and conjunctiva were pink and moist. Extraocular movements were intact and pupils were equal round and reactive to light. Eyelids were unremarkable. PULMONARY: Unlabored respirations. Good breath sounds bilaterally. No audible rales rhonchi or wheezing was noted. CARDIOVASCULAR: There is a regular rate and rhythm without any murmurs gallops or rubs. ABDOMEN: Soft and nontender with normal bowel sounds. SKIN: Skin is clear with no lesions or rashes and otherwise unremarkable. NEUROLOGIC: Patient is alert and oriented x3. Cranial nerves II through XII are grossly intact. Motor and sensory are also intact. Normal speech, volume and content. Symmetrical smile. MUSCULOSKELETAL: Normal extremities with adequate strength and full range of motion. LYMPHATICS: No significant lymphadenopathy is noted PSYCHIATRIC: Normal psychiatric evaluation. Limitations: no limitations Course Vital Signs 11/09/23 11/09/23 11/09/23 07:37 09:13 10:29 Temperature 97.8 F Pulse Rate 116 H 100 102 H Respiratory 18 18 20 Rate Blood Pressure 121/74 133/87 138/82 O2 Sat by Pulse 98 100 99 Oximetry Medical Decision Making - Medical Decision Making EKG is interpreted by myself. EKG shows a sinus tachycardia at 101 bpm TN interval 142 QRS is 91 Q-T is 344 QTC is 402. EKG shows no ST segment elevation or depression Was pt. sent in by a medical professional or institution (ESTELLE Fierro, CITY DETECTIVE, urgent care, hospital, or alf...) When possible be specific @ -No Did you speak to anyone other than the patient for history (EMS, parent, family, police, friend...)? What history was obtained from this source @ -A some of the history because the patient is intoxicated Did you review nursing and triage notes (agree or disagree)? Why? @ -I reviewed and agree with nursing and triage notes Were old charts reviewed (outside hosp., previous admission, EMS record, old EKG, old radiological studies, urgent care reports/EKG's, alf records)? Report findings @ -I reviewed prior charts are lab work on this patient Differential Diagnosis (chest pain, altered mental status, abdominal pain women, abdominal pain men, vaginal bleeding, weakness, fever, dyspnea, syncope, headache, dizziness, GI bleed, back pain, seizure, CVA, palpatations, mental health, musculoskeletal)? @ -Differential CVA Ischemic stroke, hemorrhagic stroke, brain tumor, atypical migraine, Wernicke's encephalopathy, seizure, multiple sclerosis, meningitis, encephalitis, hypoglycemia, Guillain-Sánchez, electrolytes disturbance, myasthenia gravis.... This is not meant to be an all-inclusive list EKG interpreted by me (3pts min.). @ -As above X-rays interpreted by me (1pt min.). @ -Chest x-ray shows no acute abnormality CT interpreted by me (1pt min.). @ -The brain shows no acute abnormality CT angiogram of the head neck shows no acute abnormality U/S interpreted by me (1pt. min.). @ -None done What testing was considered but not performed or refused? (CT, X-rays, U/S, labs)? Why? @ -None What meds were considered but not given or refused? Why? @ -None Did you discuss the management of the patient with other professionals (professionals i.e. , PA, CITY DETECTIVE, lab, RT, psych nurse, social media community manager, technology education teacher, teacher, collection officer, pillowcase cleaner)? Give summary @ -I spoke with Dr. Bautista and he agreed to admit the patient admitted the patient wrote admitting orders Was smoking cessation discussed for >3mins.? @ -No Was critical care preformed (if so, how long)? @ -No Were there social determinants of health that impacted care today? How? (Homelessness, low income, unemployed, alcoholism, drug addiction, transportation, low edu. Level, literacy, decrease access to med. care, residential, rehab)? @ -No Was there de-escalation of care discussed even if they declined (Discuss DNR or withdrawal of care, Hospice)? DNR status @ -No What co-morbidities impacted this encounter? (DM, HTN, Smoking, COPD, CAD, Cancer, CVA, ARF, Chemo, Hep., AIDS, mental health diagnosis, sleep apnea, morbid obesity)? @ -None Was patient admitted / discharged? Hospital course, mention meds given and rout e, prescriptions, significant lab abnormalities, going to OR and other pertinent info. @ -Patient was hydrated with fluids. His symptoms did seem to resolve. CT scans were all negative. Patient's lab work showed that he was intoxicated. Patient will be admitted to neurology to be consult the patient be put on a phenobarbital protocol for withdrawal. Undiagnosed new problem with uncertain prognosis? @ -No Drug Therapy requiring intensive monitoring for toxicity (Heparin, Nitro, Insulin, Cardizem)? @ -No Were any procedures done? @ -No Diagnosis/symptom? @ -TIA Acute, or Chronic, or Acute on Chronic? @ -Acute complicated (without systemic symptoms) or Complicated (systemic symptoms)? @ -Complicated] Side effects of treatment? @ -No Exacerbation, Progression, or Severe Exacerbation? @ -No Poses a threat to life or bodily function? How? (Chest pain, [place], [place], pneumonia, PE, COPD, DKA, ARF, appy, cholecystitis, CVA, Diverticulitis, Homicidal, Diane cidal, threat to staff... and all critical care pts) @ -Yes is currently doing CVA and morbidity and possibly Diagnosis/symptom? @ -Alcohol intoxication Acute, or Chronic, or Acute on Chronic? @ -Acute Uncomplicated (without systemic symptoms) or Complicated (systemic symptoms)? @ -Complicated Side effects of treatment? @ -none Exacerbation, Progression, or Severe Exacerbation] @ -no Poses a threat to life or bodily function? @ -Yes this could lead to seizures and possibly - Lab Data Result diagrams: 11/09/23 08:02 11/09/23 08:02 Lab Results 11/09/23 11/09/23 11/09/23 Range/Units 08:02 08:02 08:02 WBC 5.1 (3.8-10.6) k/uL RBC 5.74 (4.30-5.90) m/uL Hgb 17.3 (13.0-17.5) gm/dL Hct 49.2 (39.0-53.0) % MCV 85.7 (80.0-100.0) fL MCH 30.1 (25.0-35.0) pg MCHC 35.1 (31.0-37.0) g/dL RDW 13.0 (11.5-15.5) % Plt Count 329 (150-450) k/uL MPV 8.8 Neutrophils % 69 % Lymphocytes % 19 % Monocytes % 6 % Eosinophils % 1 % Basophils % 2 % Neutrophils # 3.6 (1.3-7.7) k/uL Lymphocytes # 1.0 (1.0-4.8) k/uL Monocytes # 0.3 (0-1.0) k/uL Eosinophils # 0.0 (0-0.7) k/uL Basophils # 0.1 (0-0.2) k/uL PT 10.9 (10.0-12.5) sec INR 1.0 (<1.2) APTT 23.6 (22.0-30.0) sec Sodium 138 (137-145) mmol/L Potassium 4.1 (3.5-5.1) mmol/L Chloride 99 (98-107) mmol/L Carbon Dioxide 21 L (22-30) mmol/L Anion Gap 18 mmol/L BUN 8 L (9-20) mg/dL Creatinine 0.88 (0.66-1.25) mg/dL Est GFR (CKD-EPI)AfAm >90 (>60 ml/min/1.73 sqM) Est GFR (CKD-EPI)NonAf >90 (>60 ml/min/1.73 sqM) Glucose 121 H (74-99) mg/dL Calcium 9.3 (8.4-10.2) mg/dL Total Bilirubin 1.1 (0.2-1.3) mg/dL AST 196 H (17-59) U/L ALT 150 H (4-49) U/L Alkaline Phosphatase 75 (38-126) U/L Creatine Kinase 175 H (55-170) U/L Troponin I (0.000-0.034) ng/mL Total Protein 8.1 (6.3-8.2) g/dL Albumin 5.0 (3.5-5.0) g/dL Lipase 120 (23-300) U/L Urine Opiates Screen (NotDetected) Ur Oxycodone Screen (NotDetected) Urine Methadone Screen (NotDetected) Ur Barbiturates Screen (NotDetected) U Tricyclic Antidepress (NotDetected) Ur Phencyclidine Scrn (NotDetected) Ur Amphetamines Screen (NotDetected) U Methamphetamines Scrn (NotDetected) U Benzodiazepines Scrn (NotDetected) Urine Cocaine Screen (NotDetected) U Marijuana (THC) Screen (NotDetected) Serum Alcohol mg/dL 11/09/23 11/09/23 11/09/23 Range/Units 08:02 08:47 09:21 WBC (3.8-10.6) k/uL RBC (4.30-5.90) m/uL Hgb (13.0-17.5) gm/dL Hct (39.0-53.0) % MCV (80.0-100.0) fL MCH (25.0-35.0) pg MCHC (31.0-37.0) g/dL RDW (11.5-15.5) % Plt Count (150-450) k/uL MPV Neutrophils % % Lymphocytes % % Monocytes % % Eosinophils % % Basophils % % Neutrophils # (1.3-7.7) k/uL Lymphocytes # (1.0-4.8) k/uL Monocytes # (0-1.0) k/uL Eosinophils # (0-0.7) k/uL Basophils # (0-0.2) k/uL PT (10.0-12.5) sec INR (<1.2) APTT (22.0-30.0) sec Sodium (137-145) mmol/L Potassium (3.5-5.1) mmol/L Chloride (98-107) mmol/L Carbon Dioxide (22-30) mmol/L Anion Gap mmol/L BUN (9-20) mg/dL Creatinine (0.66-1.25) mg/dL Est GFR (CKD-EPI)AfAm (>60 ml/min/1.73 sqM) Est GFR (CKD-EPI)NonAf (>60 ml/min/1.73 sqM) Glucose (74-99) mg/dL Calcium (8.4-10.2) mg/dL Total Bilirubin (0.2-1.3) mg/dL AST (17-59) U/L ALT (4-49) U/L Alkaline Phosphatase (38-126) U/L Creatine Kinase (55-170) U/L Troponin I <0.012 (0.000-0.034) ng/mL Total Protein (6.3-8.2) g/dL Albumin (3.5-5.0) g/dL Lipase (23-300) U/L Urine Opiates Screen Not Detected (NotDetected) Ur Oxycodone Screen Not Detected (NotDetected) Urine Methadone Screen Not Detected (NotDetected) Ur Barbiturates Screen Not Detected (NotDetected) U Tricyclic Antidepress Not Detected (NotDetected) Ur Phencyclidine Scrn Not Detected (NotDetected) Ur Amphetamines Screen Not Detected (NotDetected) U Methamphetamines Scrn Not Detected (NotDetected) U Benzodiazepines Scrn Not Detected (NotDetected) Urine Cocaine Screen Not Detected (NotDetected) U Marijuana (THC) Screen Not Detected (NotDetected) Serum Alcohol 224 H* mg/dL Critical Care Time Critical Care Time: Yes Total Critical Care Time: 35 Disposition Clinical Impression: Transient cerebral ischemia, Alcohol intoxication Disposition: ADMITTED IP TO THIS HOSP Referrals: Nonstaff,Physician [Primary Care Provider] - 1-2 days Time of Disposition: 11:56
[2023-11-09 08:44] LABS: Partial Thromboplastin Time 23.6 sec (22.0-30.0); Prothrombin Time 10.9 sec (10.0-12.5)
[2023-11-09 08:51] LABS: ALT 150 U/L (4-49); AST 196 U/L (17-59); African American GFR (CKD) >90 (>60 ml/min/1.73 sqM); Alkaline Phosphatase 75 U/L (38-126); Anion Gap 18 mmol/L; Blood Urea Nitrogen 8 mg/dL (9-20); Calcium 9.3 mg/dL (8.4-10.2); Carbon Dioxide 21 mmol/L (22-30); Chloride 99 mmol/L (98-107); Creatine Kinase 175 U/L (55-170); Glucose 121 mg/dL (74-99); Lipase 120 U/L (23-300); Non-African American GFR(CKD) >90 (>60 ml/min/1.73 sqM); Potassium 4.1 mmol/L (3.5-5.1); Sodium 138 mmol/L (137-145); Total Bilirubin 1.1 mg/dL (0.2-1.3); Total Protein 8.1 g/dL (6.3-8.2)
[2023-11-09 08:52] LABS: Basophils # (A) 0.1 k/uL (0-0.2); Basophils % (A) 2 %; Eosinophils % (A) 1 %; HCT 49.2 % (39.0-53.0); HGB 17.3 gm/dL (13.0-17.5); Lymphocytes % (A) 19 %; MCH 30.1 pg (25.0-35.0); MCHC 35.1 g/dL (31.0-37.0); MCV 85.7 fL (80.0-100.0); Mean Platelet Volume 8.8; Monocytes # (A) 0.3 k/uL (0-1.0); Monocytes % (A) 6 %; Neutrophils # (A) 3.6 k/uL (1.3-7.7); Neutrophils % (A) 69 %; Platelet Count 329 k/uL (150-450); RBC 5.74 m/uL (4.30-5.90); WBC 5.1 k/uL (3.8-10.6)
--- NOTE | 2023-11-09 08:53 | CT ---
EXAMINATION TYPE: CT brain wo con DATE OF EXAM: 11/09/2023 COMPARISON: 06/07/2021 INDICATION: blurred vision DLP: 1127 mGycm, Automated exposure control for dose reduction was used. CONTRAST: None CT of the brain is performed utilizing 3 mm thick sections through the posterior fossa and 3 mm thick sections through the remaining calvarium. Study is performed within 24 hours of arrival to the hosp ital. No abnormal hyperdensity is present to suggest an acute intracranial hemorrhage. No mass lesion is evident. No acute infarcts are evident. Ventricles and sulci are appropriate for the patient age. Paranasal sinuses and mastoid air cells within the [id number] are clear. IMPRESSION: 1. No acute intracranial process. Follow-up MRI can be performed as clinically indicated.
--- NOTE | 2023-11-09 09:46 | CT ---
EXAMINATION TYPE: CT angio head neck DATE OF EXAM: 11/09/2023 HISTORY: blurred vision COMPARISON: None CT DLP: 580.5 mGycm. Automated Exposure Control for Dose Reduction was Utilized. TECHNIQUE: CTA scan of the neck is performed with IV Contrast, patient injected with 65 mL of Isovue 370, axial images are obtained, coronal and sagittal reformatted images are reviewed. Three-D recons tructed images are created on an independent workstation and reviewed. Source images are reviewed. FINDINGS: Carotid/Vascular Structures: There is a two-vessel arch with a common origin of the innominate and le ft common carotid artery. Common carotid arteries bifurcate into internal and external carotid arteries without significant marvin w limiting stenosis. Vertebral arteries are codominant. Internal carotid arteries and vertebral arteries are patent to the skull base. Cervical of [place]: Vertebral basilar system appears normal. Posterior cerebral vasculature is unrema rkable. Internal carotid arteries bifurcate normally into A1 and M1 segments. A2 segments are normal. The anterior communicating artery is absent. The right posterior communicating artery is absent. The left posterior communicating artery is present. IMPRESSION: 1. No flow-limiting stenosis bilateral carotid bifurcations. 2. Normal [place] of [place] NASCET criteria was used in interpretation of this exam?
[2023-11-09 10:05] LABS: Amphetamine Screen,Urine Not Detected (NotDetected); Barbiturate Screen,Urine Not Detected (NotDetected); Benzodiazepines Screen,Urine Not Detected (NotDetected); Cocaine Screen,Urine Not Detected (NotDetected); Methadone Screen, Urine Not Detected (NotDetected); Opiate Screen,Urine Not Detected (NotDetected); Oxycodone Screen, Urine Not Detected (NotDetected); Phencyclidine Screen,Urine Not Detected (NotDetected); Tricyclic Antidepressant,Urine Not Detected (NotDetected); Urn Cannabinoid Scrn Not Detected (NotDetected)
--- NOTE | 2023-11-09 10:55 | XR ---
EXAMINATION TYPE: XR chest 2V DATE OF EXAM: 11/09/2023 10:21 AM CLINICAL INDICATION:Male, 42 years old with history of altered mental status; [facility] COMPARISON: Chest radiographs from 11/03/2016 TECHNIQUE: XR chest 2V Frontal and lateral views of the chest. FINDINGS: Lungs/Pleura: There is no evidence of pleural effusion, focal consolidation, or pneumothorax. Pulmonary vascularity: Unremarkable. Heart/mediastinum: Cardiomediastinal silhouette is unremarkable. Musculoskeletal: No acute osseous pathology. IMPRESSION: 1. No acute cardiopulmonary disease process.
[2023-11-09] MEDS ORDERED: ASPIRIN 325 MG TAB PO STA (11:56)
[2023-11-09] MEDS ORDERED: THIAMINE 100 MG/ML 2 ML VIAL IM STA (11:57)
[2023-11-09] MEDS ORDERED: SODIUM CHLORIDE 0.9% 1,000 ML with MVI, ADULT NO.4 WITH VIT K 10 ML, THIAMINE 100 MG, F... IV ONE ×4 (12:30)
--- NOTE | 2023-11-09 15:42 | P.CNNES ---
History of Present Illness Consult date: 11/09/23 Requesting physician: Efe Reina Reason for Consult: TIA History of Present Illness: Patient is a 42-year-old right-handed male with longstanding history of alcoholism, who was brought to the hospital and arrived at 7:29 AM today for new onset blurred vision, and problems with balance. Patient states that yesterday he drank about 1/5 or fifth and a half of vodka. He was seeing football game, but could not complete it and just slept in bed. He woke up at around 5 AM with significant blurred vision, could not walk and his balance was off. Therefore he was brought to the hospital. Vital signs on arrival blood pressure 121/74, pulse rate 116, temperature 97.8. Blood test shows normal CBC, PT PTT, normal electrolytes, renal functions. AST is elevated 196, ALT 150. CK1 75, troponin negative. Lipase is normal. Urine drug screen negative, but blood alcohol level is 224. Patient underwent EKG which shows sinus tachycardia, chest x-ray is normal. CT head showed no acute intracranial process. Follow-up MRI can be performed as clinically indicated. I personally reviewed CT head, agree with the findings. Patient states that for the last 1 year, he has been drinking about 3/4 to a fifth of vodka almost daily. Prior to that he has been sober for a year. And before that, he drank on and off for a long time, since he was a teenager. He denies any marijuana use, although he does vape. Patient states he has history of seizure, when he was in alcohol withdrawal about 5 years ago. He does not believe that he has any more seizure last night. He lives with his . Previously when he was withdrawing, he used to have hallucinations. Review of Systems Constitutional: Denies chills, Denies fever Eyes: bilateral blurred vision, denies diplopia, denies pain Ears: deny: decreased hearing, ear discharge Ears, nose, mouth and throat: Denies headache, Denies sore throat, Denies vertigo Cardiovascular: Denies chest pain, Denies shortness of breath Respiratory: Denies cough, Denies excessive sputum Gastrointestinal: Reports diarrhea, Reports nausea, Denies abdominal pain, Denies vomiting Genitourinary: Denies incontinence, Denies urinary frequency Musculoskeletal: Denies low back pain, Denies neck pain Integumentary: Denies pruritus, Denies rash Neurological: Reports as per HPI Psychiatric: Denies anxiety, Denies depression Endocrine: Denies fatigue, Denies weight change Past Medical History Past Medical History: Asthma, GERD/Reflux, Hypertension Additional Past Medical History / Comment(s): pancreatitis, CROHNS OR COLITS PT NOT SURE WHICH ONE,UPPER BRIDGE, History of Any Multi-Drug Resistant Organisms: None Reported Past Surgical History: No Surgical Hx Reported Additional Past Surgical History / Comment(s): PARACENTESIS, PICC LINE-SINCE REMOVED,NOSE SXPER PTS "STARIGHTENED AND BONE GRAFT" Past Anesthesia/Blood Transfusion Reactions: No Reported Reaction Past Psychological History: Anxiety Smoking Status: Current every day smoker, Light tobacco smoker Past Alcohol Use History: Abuse, Daily Past Drug Use History: None Reported - Past Family History Mother Family Medical History: COPD Father Family Medical History: Cancer Additional Family Medical History / Comment(s): PROSTATE CANCER Medications and Allergies Home Medications Medication Instructions Recorded Confirmed Type Omeprazole [PriLOSEC] 20 mg PO DAILY 10/17/16 11/09/23 History Albuterol Sulfate [Albuterol 2 puff PO RT-Q6H PRN 05/12/22 11/09/23 History Sulfate Hfa] Buprenorphine HCl/Naloxone HCl 0.25 film SL DAILY 05/12/22 11/09/23 History [Suboxone 8 mg-2 mg Sl Film] Citalopram Hydrobromide [CeleXA] 40 mg PO DAILY 05/12/22 11/09/23 History Lisinopril-Hctz 20-25 mg 1 tab PO DAILY 05/12/22 11/09/23 History [Zestoretic 20-25] Loratadine [Claritin] 10 mg PO DAILY 05/12/22 11/09/23 History Melatonin 10 mg PO HS PRN 05/12/22 11/09/23 History Vitamin B Complex 1 cap PO DAILY 05/12/22 11/09/23 History amLODIPine [Norvasc] 10 mg PO DAILY 05/12/22 11/09/23 History diphenhydrAMINE HCL [Benadryl] 50 mg PO HS PRN 11/09/23 11/09/23 History Allergies Allergy/AdvReac Type Severity Reaction Status Date / Time No Known Allergies Allergy Verified 11/09/23 12:03 Physical Examination - Vital Signs Vital Signs: Vital Signs Temp Pulse Resp BP Pulse Ox 11/09/23 12:57 106 H 18 131/91 99 11/09/23 10:29 102 H 20 138/82 99 11/09/23 09:13 100 18 133/87 100 11/09/23 07:37 97.8 F 116 H 18 121/74 98 Intake and Output 11/08/23 11/09/23 11/09/23 22:59 06:59 14:59 Other: Weight 81.647 kg Patient is a middle-aged male, who appears to be withdrawing from alcohol. Patient is alert awake oriented to time place and person. He knows it is October 2023 and that he is in [facility] in [place]. He has 3 children. Speech and language functions are normal. Patient can name and repeat very well. No aphasia or dysarthria. Attention, concentration and fund of knowledge is adequate. He appears somewhat flushed. On cranial nerve examination, pupils are equal, round and reacting to light, visual [place] are full on confrontation, with no neglect on double simultaneous stimulation. Extraocular muscles are intact with no nystagmus. Face is symmetric, tongue protrudes to the midline. Palatal elevation and sensation normal, hearing and shoulder shrug normal, facial sensation normal. On muscle strength testing, there is no pronator drift and the strength is normal in arms and legs distally and proximally. Deep tendon reflexes are symmetric one of the biceps, 1 brachioradialis, 2 at the knees, 1 ankles and plantars downgoing bilaterally. Sensory to touch is equal with no neglect on double simultaneous stimulation. Cerebellar function showed no ataxia for [id number] testing, although patient is very tremulous. No dysdiadochokinesia. Patient has ataxia for [id number] testing on either side. Tone and bulk of muscles normal. Gait deferred.. On general examination, there is no carotid bruit or murmur, S1-S2 audible. Chest is clear on consultation. Abdomen is soft nontender. No organomegaly, bowel sounds present. Peripheral pulses are present. No peripheral edema. Results - Laboratory Findings CBC and BMP: 11/09/23 08:02 11/09/23 08:02 Abnormal Lab Findings: Abnormal Labs 11/09/23 11/09/23 08:02 08:47 Carbon Dioxide 21 L BUN 8 L Glucose 121 H AST 196 H ALT 150 H Creatine Kinase 175 H Serum Alcohol 224 H* Assessment and Plan Assessment: * Acute gait ataxia, blurred vision, likely due to alcohol intoxication. * Longstanding history of alcoholism. * Elevated liver enzymes, likely due to above. * History of a seizure 5 years ago from alcohol withdrawal * Vapes Plan: * Patient states that his symptoms have remarkably improved. * Watch for DTs/alcohol withdrawal. Patient currently on phenobarbital for seizure prophylaxis. * Seizure precautions. Patient may be a fall risk. * Continue thiamine, folate, multivitamin. Continue CIWA protocol. * CTA of head and neck revealed no flow-limiting stenosis bilateral carotid bifurcations. Normal false pass of [place]. * Check 2D echo rule out embolic source. * Patient started on aspirin 325 mg daily. * Recommend abstinence from alcohol and also abstain from vaping. * Regarding elevated LFTs, will defer to IM. * Neurology will follow clinically. Thank you for the consult.
[2023-11-09] MEDS ORDERED: MELATONIN 5 MG TABLET PO PRN (16:03)
[2023-11-09] MEDS ORDERED: ALBUTEROL NEBULIZED 2.5 MG/3 ML INHALATION PRN (16:03)
[2023-11-09] MEDS ORDERED: diphenhydrAMINE 25 MG CAP PO PRN (16:03)
[2023-11-09] MEDS ORDERED: chlordiazePOXIDE 25 MG CAP PO PRN (16:06)
--- NOTE | 2023-11-09 16:07 | P.HPIM ---
History of Present Illness H&P Date: 11/09/23 Chief Complaint: visual changes, gait unsteadiness 42-year-old man with medical history of alcohol dependence with alcohol withdrawal seizures, asthma, hypertension presented for evaluation of gait unsteadiness and blurred vision. Patient says that he drank about 1/5 of vodka yesterday and has been doing so for about a year, and when he woke up he had significant blurred vision, and felt very unsteady when he tried to walk. Therefore, presented to the hospital for further evaluation. Patient does have an history of significant alcohol use, drinking 3/4-1/5 of vodka daily. He has tried to quit drinking at least 2 times in the past and each time had significant withdrawal symptoms culminating in alcohol withdrawal seizures as well as visual hallucinations, but was never requiring intubation or ICU level care. He says he has had negative reactions to Ativan in the past but does well with phenobarbital. He otherwise denies fevers, chills, chest pain, loss of sensation or unilateral weakness of limbs, loss of bladder or bowel, dysphagia. In the emergency room, patient was afebrile, 121/74, heart rate 116, 98% on room air. CBC was unremarkable. Basic metabolic panel was unremarkable. Liver function test showed AST of 196, ALT of 150, CK of 175, troponin is less than 0.012, lipase is 120. Urine tox screen is negative. Alcohol level was 224. Coags were unremarkable. EKG showed sinus tachycardia with normal axis, no evidence of ischemia. Brain CT was negative for acute intracranial abnormality. CT angiography head and neck showed no flow-limiting stenosis in the bilateral carotid bifurcations chest x-ray showed no acute cardiopulmonary disease. All Systems reviewed and pertinent positives and negatives noted in HPI, all other symptoms are negative Gen: In NAD, non-toxic HEENT: normocephalic, atraumatic, hearing acuity is intant, mucous membranes moist CVS: perfusing all extremities well, no pitting edema, Respiratory: symmetric chest expansion, no accessory muscle use, GI: soft, NTTP, ND, : no suprapubic tenderness, no CVA tenderness MSK/Derm: no rashes, cyanosis Neuro: CN II-XII intact, no motor weakness, [id number], [id number] were intact, no sensory deficits to light touch, bilateral hand tremor Psych: cooperative, euthymic mood, judgment and insight is intact Labs and imaging as above Assessment/plan: Alcohol intoxication Alcohol withdrawal syndrome with dependence Elevated liver enzymes -Patient admitted to observation with telemetry -Neurology consulted -Neurology checks -Echocardiogram to rule out embolic phenomenon -A1c, lipid panel, TSH -Phenobarbital taper -Librium 25 mg 3 times daily -Librium 25 mg 3 times daily as needed -Thiamine, folate, multivitamin; received banana bag in the ER Asthma Hypertension -Home medications reviewed and reconciled Patient is full code Past Medical History Past Medical History: Asthma, GERD/Reflux, Hypertension Additional Past Medical History / Comment(s): pancreatitis, CROHNS OR COLITS PT NOT SURE WHICH ONE,UPPER BRIDGE, History of Any Multi-Drug Resistant Organisms: None Reported Past Surgical History: No Surgical Hx Reported Additional Past Surgical History / Comment(s): PARACENTESIS, PICC LINE-SINCE REMOVED,NOSE SXPER PTS "STARIGHTENED AND BONE GRAFT" Past Anesthesia/Blood Transfusion Reactions: No Reported Reaction Past Psychological History: Anxiety Smoking Status: Current every day smoker, Light tobacco smoker Past Alcohol Use History: Abuse, Daily Past Drug Use History: None Reported - Past Family History Mother Family Medical History: COPD Father Family Medical History: Cancer Additional Family Medical History / Comment(s): PROSTATE CANCER Medications and Allergies Home Medications Medication Instructions Recorded Confirmed Type Omeprazole [PriLOSEC] 20 mg PO DAILY 10/17/16 11/09/23 History Albuterol Sulfate [Albuterol 2 puff PO RT-Q6H PRN 05/12/22 11/09/23 History Sulfate Hfa] Buprenorphine HCl/Naloxone HCl 0.25 film SL DAILY 05/12/22 11/09/23 History [Suboxone 8 mg-2 mg Sl Film] Citalopram Hydrobromide [CeleXA] 40 mg PO DAILY 05/12/22 11/09/23 History Lisinopril-Hctz 20-25 mg 1 tab PO DAILY 05/12/22 11/09/23 History [Zestoretic 20-25] Loratadine [Claritin] 10 mg PO DAILY 05/12/22 11/09/23 History Melatonin 10 mg PO HS PRN 05/12/22 11/09/23 History Vitamin B Complex 1 cap PO DAILY 05/12/22 11/09/23 History amLODIPine [Norvasc] 10 mg PO DAILY 05/12/22 11/09/23 History diphenhydrAMINE HCL [Benadryl] 50 mg PO HS PRN 11/09/23 11/09/23 History Allergies Allergy/AdvReac Type Severity Reaction Status Date / Time No Known Allergies Allergy Verified 11/09/23 12:03 Physical Exam Osteopathic Statement: *. No significant issues noted on an osteopathic structural exam other than those noted in the History and Physical/Consult. Vitals: Vital Signs Temp Pulse Resp BP Pulse Ox 11/09/23 12:57 106 H 18 131/91 99 11/09/23 10:29 102 H 20 138/82 99 11/09/23 09:13 100 18 133/87 100 11/09/23 07:37 97.8 F 116 H 18 121/74 98 Intake and Output 11/09/23 11/09/23 11/09/23 06:59 14:59 22:59 Other: Weight 81.647 kg Results CBC & Chem 7: 11/09/23 08:02 11/09/23 08:02 Labs: Abnormal Lab Results - Last 24 Hours (Table) 11/09/23 11/09/23 Range/Units 08:02 08:47 Carbon Dioxide 21 L (22-30) mmol/L BUN 8 L (9-20) mg/dL Glucose 121 H (74-99) mg/dL AST 196 H (17-59) U/L ALT 150 H (4-49) U/L Creatine Kinase 175 H (55-170) U/L Serum Alcohol 224 H* mg/dL
[2023-11-09] MEDS: chlordiazePOXIDE 25 MG CAP PO SCH ×2 (16:29→22:14)
[2023-11-09] MEDS: FAMOTIDINE 20 MG TAB PO SCH (22:15)
[2023-11-09] MEDS ORDERED: PHENobarbitaL 16.2 MG TAB PO ONE (23:57)
[2023-11-10 00:54] VITALS: TEMP 97.8
[2023-11-10] MEDS ORDERED: PHENobarbitaL 16.2 MG TAB PO ONE (03:57)
[2023-11-10] MEDS ORDERED: PANTOPRAZOLE 40 MG TABLET PO SCH (07:30)
[2023-11-10] MEDS ORDERED: THIAMINE 100 MG TAB PO SCH (09:00)
[2023-11-10] MEDS ORDERED: LISINOPRIL-HCTZ 20-25 MG 1 EACH TAB PO SCH (09:00)
[2023-11-10] MEDS ORDERED: MULTIVITAMINS, THERA 1 EACH TAB PO SCH (09:00)
[2023-11-10] MEDS ORDERED: NON FORMULARY DRUG (Buprenorphine Hcl/Naloxone Hcl [Suboxone 8 Mg-2 Mg Sl Film] 1 EACH Fil SUBLINGUAL SCH (09:00)
[2023-11-10] MEDS ORDERED: ASPIRIN 325 MG TAB PO SCH (09:00)
[2023-11-10] MEDS ORDERED: amLODIPine 10 MG TAB PO SCH (09:00)
[2023-11-10] MEDS ORDERED: CITALOPRAM HYDROBROMIDE 20 MG TAB PO SCH (09:00)
[2023-11-10] MEDS ORDERED: NON FORMULARY DRUG (Vitamin B Complex [Vitamin B Complex] 1 EACH Capsule) PO SCH (09:00)
[2023-11-10] MEDS ORDERED: FOLIC ACID 1 MG TAB PO SCH (09:00)
[2023-11-10] MEDS ORDERED: LORATADINE 10 MG TAB PO SCH (09:00)
[2023-11-10] MEDS: FAMOTIDINE 20 MG TAB PO SCH (09:35)
[2023-11-10 09:58] VITALS: RESP 16
--- NOTE | 2023-11-10 10:22 | CA ---
Transthoracic Echo Report Name: Estevan Rosado Age: 42 Gender: M : 1980 Exam Date: 11/09/2023 15:37 Exam Location: [facility] Ht (in): 66 Wt (lb): 180 Ordering Physician: Karen Pradhan MD Attending/Referring Phys: Library Assistant Vicky Gutierrez RDCS Procedure CPT: Indications: Blurred vision, r/o TIA Cardiac Hx: Technical Quality: Good Contrast 1: Agitated Saline Total Dose (mL): 10 Contrast 2: Total Dose (mL): MEASUREMENTS (Male / Female) Normal Values 2D ECHO LV Diastolic Diameter PLAX 4.6 cm 4.2 - 5.9 / 3.9 - 5.3 cm LV Systolic Diameter PLAX 3.3 cm IVS Diastolic Thickness 0.9 cm 0.6 - 1.0 / 0.6 - 0.9 cm LVPW Diastolic Thickness 0.8 cm 0.6 - 1.0 / 0.6 - 0.9 cm LV Relative Wall Thickness 0.4 RV Internal Dim ED PLAX 3.2 cm LA Systolic Diameter LX 3.4 cm 3.0 - 4.0 / 2.7 - 3.8 cm LV Diastolic Volume MOD 4C 94.1 cm??? LV Systolic Volume MOD 4C 47.7 cm??? LV Ejection Fraction MOD 4C 49.3 % LV Cardiac Index MOD 4C 2610.0 cm???/min???m??? LV Diastolic Length 4C 8.9 cm LV Systolic Length 4C 7.0 cm LV Diastolic Volume MOD 2C 79.7 cm??? LV Systolic Volume MOD 2C 29.5 cm??? LV Ejection Fraction MOD 2C 63.0 % LV Cardiac Index MOD 2C 2825.5 cm???/min???m??? LV Diastolic Length 2C 8.5 cm LV Systolic Length 2C 6.9 cm LA Volume 40.3 cm??? 18 - 58 / 22 - 52 cm??? LA Volume Index 20.4 cm???/m??? 16 - 28 cm???/m??? M-MODE Aortic Root Diameter MM 3.2 cm MV E Point Septal Separation 0.2 cm AV Cusp Separation MM 2.3 cm DOPPLER AV Peak Velocity 175.0 cm/s AV Peak Gradient 12.2 mmHg MV Area PHT 3.4 cm??? Mitral E Point Velocity 90.1 cm/s Mitral A Point Velocity 104.1 cm/s Mitral E to A Ratio 0.9 MV Deceleration Time 223.6 ms MV E' Velocity 11.4 cm/s Mitral E to MV E' Ratio 7.9 FINDINGS Left Ventricle Left ventricular ejection fraction is estimated at 55-60 %. Left ventricular cavity size normal. Left ventricular wall thickness normal. Right Ventricle Normal right ventricular size. Unable to estimate the right ventricular systolic pressure. Right Atrium Normal right atrial size. Negative agitated saline bubble study for right to left shunt. Left Atrium Normal left atrial size. Mitral Valve Structurally normal mitral valve. No mitral stenosis, regurgitation or prolapse. Aortic Valve Trileaflet aortic valve. No aortic valve stenosis or regurgitation. Tricuspid Valve Structurally normal tricuspid valve. No tricuspid stenosis, regurgitation or prolapse. Pulmonic Valve Pulmonic valve not well visualized. No pulmonic regurgitation. Pericardium No pericardial effusion. Aorta Normal size aortic root and proximal ascending aorta. CONCLUSIONS The patient is tachycardic Normal LV systolic function Overall normal intracardiac valves Hyperdynamic interatrial septum with no shunt was identified by bubble study Previewed by: Dr. Sin Funes MD (Electronically Signed) Final Date: 10 November 2023 10:22
[2023-11-10 10:50] LABS: ALT 97 U/L (4-49); AST 81 U/L (17-59); African American GFR (CKD) >90 (>60 ml/min/1.73 sqM); Albumin 4.3 g/dL (3.5-5.0); Alkaline Phosphatase 52 U/L (38-126); Anion Gap 8 mmol/L; Blood Urea Nitrogen 6 mg/dL (9-20); Calcium 9.1 mg/dL (8.4-10.2); Carbon Dioxide 26 mmol/L (22-30); Chloride 97 mmol/L (98-107); Glucose 211 mg/dL (74-99); Non-African American GFR(CKD) >90 (>60 ml/min/1.73 sqM); Sodium 131 mmol/L (137-145); Total Bilirubin 1.6 mg/dL (0.2-1.3); Total Protein 6.8 g/dL (6.3-8.2)
--- NOTE | 2023-11-10 12:03 | P.DS ---
Providers Date of admission: 11/09/23 11:58 Attending physician: Travis Bautista MD Consults: 11/09/23 11:56 Consult Physician Urgent Consulting Provider: Karen Pradhan Consult Reason/Comments: TIA Do you want consulting provider notified?: Yes Primary care physician: Physician Nonstaff Hospital Course: Discharge Diagnosis: [Alcohol dependence with withdrawal Unsteadiness and blurred vision secondary to the above versus possible TIA Elevated LFTs secondary to alcohol abuse Asthma Hypertension] Hospital Course: 42-year-old man with medical history of alcohol dependence with alcohol withdrawal seizures, asthma, hypertension presented for evaluation of gait unsteadiness and blurred vision. Patient says that he drank about 1/5 of vodka yesterday and has been doing so for about a year, and when he woke up he had significant blurred vision, and felt very unsteady when he tried to walk. Therefore, presented to the hospital for further evaluation. Patient does have an history of significant alcohol use, drinking 3/4-1/5 of vodka daily. He has tried to quit drinking at least 2 times in the past and each time had significant withdrawal symptoms culminating in alcohol withdrawal seizures as well as visual hallucinations, but was never requiring intubation or ICU level care. He says he has had negative reactions to Ativan in the past but does well with phenobarbital. He otherwise denies fevers, chills, chest pain, loss of sensation or unilateral weakness of limbs, loss of bladder or bowel, dysphagia. In the emergency room, patient was afebrile, 121/74, heart rate 116, 98% on room air. CBC was unremarkable. Basic metabolic panel was unremarkable. Liver function test showed AST of 196, ALT of 150, CK of 175, troponin is less than 0.012, lipase is 120. Urine tox screen is negative. Alcohol level was 224. Coags were unremarkable. EKG showed sinus tachycardia with normal axis, no evidence of ischemia. Brain CT was negative for acute intracranial abnormality. CT angiography head and neck showed no flow-limiting stenosis in the bilateral carotid bifurcations chest x-ray showed no acute cardiopulmonary disease. Patient was admitted for TIA evaluation. Neurology was following the patient. Patient symptoms had improved so MRI was not done. Echocardiogram showed normal EF with no PFO. Patient's LDL was elevated so he was started on statin. Patient also started on aspirin. The following day patient was ready to go home. He denied any symptoms. He denied any signs of alcohol withdrawal. Patient seen and examined at bedside on 11/10/2023.[] Vital signs reviewed and stable. General: [non toxic], [no distress], [appears at stated age] Derm: [warm], [dry] Head: [atraumatic], [normocephalic], [symmetric] Eyes: [EOMI], [no lid lag], [anicteric sclera] Mouth: [no lip lesion], [mucus membranes moist] Cardiovascular: [S1S2 reg], [no murmur], [positive posterior tibial pulse bilateral], Lungs: [CTA bilateral], [no rhonchi, no rales] , [no accessory muscle use] Abdominal: [soft], [ nontender to palpation], [no guarding], [no appreciable organomegaly] Ext: [no gross muscle atrophy], [no edema], [no contractures] Neuro: [ CN II-XI grossly intact], [no focal neuro deficits] Psych: [Alert], [oriented], [appropriate affect] A total of [33] minutes of time were spent preparing this complex discharge summary . Patient Condition at Discharge: Fair Plan - Discharge Summary Discharge Rx Participant: Yes New Discharge Prescriptions: New Atorvastatin [Lipitor] 40 mg PO HS 30 Days #30 tablet Aspirin 81 mg PO DAILY 30 Days #30 tab Continue Omeprazole [PriLOSEC] 20 mg PO DAILY amLODIPine [Norvasc] 10 mg PO DAILY Buprenorphine HCl/Naloxone HCl [Suboxone 8 mg-2 mg Sl Film] 0.25 film SL DAILY Citalopram Hydrobromide [CeleXA] 40 mg PO DAILY Melatonin 10 mg PO HS PRN PRN Reason: sleep Lisinopril-Hctz 20-25 mg [Zestoretic 20-25] 1 tab PO DAILY Loratadine [Claritin] 10 mg PO DAILY Vitamin B Complex 1 cap PO DAILY Albuterol Sulfate [Albuterol Sulfate Hfa] 2 puff PO RT-Q6H PRN PRN Reason: Shortness Of Breath diphenhydrAMINE HCL [Benadryl] 50 mg PO HS PRN PRN Reason: sleep Discharge Medication List Omeprazole [PriLOSEC] 20 mg PO DAILY 10/17/16 [History] Albuterol Sulfate [Albuterol Sulfate Hfa] 2 puff PO RT-Q6H PRN 05/12/22 [History] Buprenorphine HCl/Naloxone HCl [Suboxone 8 mg-2 mg Sl Film] 0.25 film SL DAILY 05/12/22 [History] Citalopram Hydrobromide [CeleXA] 40 mg PO DAILY 05/12/22 [History] Lisinopril-Hctz 20-25 mg [Zestoretic 20-25] 1 tab PO DAILY 05/12/22 [History] Loratadine [Claritin] 10 mg PO DAILY 05/12/22 [History] Melatonin 10 mg PO HS PRN 05/12/22 [History] Vitamin B Complex 1 cap PO DAILY 05/12/22 [History] amLODIPine [Norvasc] 10 mg PO DAILY 05/12/22 [History] diphenhydrAMINE HCL [Benadryl] 50 mg PO HS PRN 11/09/23 [History] Aspirin 81 mg PO DAILY 30 Days #30 tab 11/10/23 [Rx] Atorvastatin [Lipitor] 40 mg PO HS 30 Days #30 tablet 11/10/23 [Rx] Follow up Appointment(s)/Referral(s): Nonstaff,Physician [Primary Care Provider] - 1-2 days Discharge/Stand Alone Forms: AA Meetings [facility], [facility], Outpatient Counseling, In Substance Abuse Facilities Discharge Disposition: HOME SELF-CARE
[2023-11-10 12:31] VITALS: BP 149/90; PULSE 102
[2023-11-10 13:45] LABS: Chol/HDL Ratio 3.16 Ratio; LDL Cholesterol,Calculated 130.5 mg/dL (0.0-131.0)
== END 2023-11-10 12:45 | disposition home or self-care (01) ==
LOC: EC 07:29 → 3SCARD 11:58
PROVIDERS: ADMIT Internal Medicine; ATTEND Internal Medicine
DX: F10.239 Alcohol dependence with withdrawal, unspecified (principal); F10.229 Alcohol dependence with intoxication, unspecified; Y90.7 Blood alcohol level of 200-239 mg/100 ml; R26.0 Ataxic gait; H53.8 Other visual disturbances; R74.8 Abnormal levels of other serum enzymes; J45.909 Unspecified asthma, uncomplicated; K21.9 Gastro-esophageal reflux disease without esophagitis; I10 Essential (primary) hypertension; F41.9 Anxiety disorder, unspecified; F17.290 Nicotine dependence, other tobacco product, uncomplicated; Z79.899 Other long term (current) drug therapy
CPT/HCPCS: 96366 ×3; 96361; 96365; 96372; 96375; 99291; 36415; 93005; 93306; 97161; 92523; 80061; 80053 ×2; 82550; 83690; 83735; 84484; 85025; 85610; 85730; 80306; 80320; 71046; 70496; 70450; 70498; G0378 ×2; J3411; J2405; Q9967

== ENCOUNTER 2024-02-25 22:07 | Observation (INO) | payer OTHER ==
--- NOTE | 2024-02-25 22:17 | ED ---
Alcohol HPI - General Chief Complaint: Alcohol Stated Complaint: Etoh withdrawls Time Seen by Provider: 02/25/24 22:13 Source: patient, EMS, RN notes reviewed, old records reviewed Mode of arrival: EMS Limitations: no limitations - History of Present Illness Initial Comments: This is a 43-year-old male with acute hallucinations presenting from [facility] for detox evaluation patient speaking to people who are not there having active hallucinations severe confusion and seeing things that he knows are not there MD Complaint: alcohol intoxication, alcohol withdrawal, medical clearance for detox facility 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) Previous Visits for Alcohol Intoxication?: No Recent Trauma: No Associated Symptoms: nausea Treatments Prior to Arrival: none Chronic Alcohol Use: Yes - Related Data Home Medications Medication Instructions Recorded Confirmed Omeprazole [PriLOSEC] 20 mg PO DAILY 10/17/16 11/09/23 Albuterol Sulfate [Albuterol 2 puff PO RT-Q6H PRN 05/12/22 11/09/23 Sulfate Hfa] Buprenorphine HCl/Naloxone HCl 0.25 film SL DAILY 05/12/22 11/09/23 [Suboxone 8 mg-2 mg Sl Film] Citalopram Hydrobromide [CeleXA] 40 mg PO DAILY 05/12/22 11/09/23 Lisinopril-Hctz 20-25 mg 1 tab PO DAILY 05/12/22 11/09/23 [Zestoretic 20-25] Loratadine [Claritin] 10 mg PO DAILY 05/12/22 11/09/23 Melatonin 10 mg PO HS PRN 05/12/22 11/09/23 Vitamin B Complex 1 cap PO DAILY 05/12/22 11/09/23 amLODIPine [Norvasc] 10 mg PO DAILY 05/12/22 11/09/23 diphenhydrAMINE HCL [Benadryl] 50 mg PO HS PRN 11/09/23 11/09/23 Previous Rx's Medication Instructions Recorded Aspirin 81 mg PO DAILY 30 Days #30 tab 11/10/23 Atorvastatin [Lipitor] 40 mg PO HS 30 Days #30 tablet 11/10/23 Allergies Allergy/AdvReac Type Severity Reaction Status Date / Time No Known Allergies Allergy Verified 02/25/24 22:15 Review of Systems ROS Statement: Those systems with pertinent positive or pertinent negative responses have been documented in the HPI. ROS Other: All systems not noted in ROS Statement are negative. Past Medical History Past Medical History: Asthma, GERD/Reflux, Hypertension Additional Past Medical History / Comment(s): pancreatitis, CROHNS OR COLITS PT NOT SURE WHICH ONE,UPPER BRIDGE, History of Any Multi-Drug Resistant Organisms: None Reported Past Surgical History: No Surgical Hx Reported Additional Past Surgical History / Comment(s): PARACENTESIS, PICC LINE-SINCE REMOVED,NOSE SXPER PTS "STARIGHTENED AND BONE GRAFT" Past Anesthesia/Blood Transfusion Reactions: No Reported Reaction Past Psychological History: Anxiety Smoking Status: Current every day smoker, Light tobacco smoker Past Alcohol Use History: Abuse, Daily Past Drug Use History: None Reported - Past Family History Mother Family Medical History: COPD Father Family Medical History: Cancer Additional Family Medical History / Comment(s): PROSTATE CANCER General Exam Limitations: no limitations General appearance: alert, in no apparent distress Head exam: Present: atraumatic, normocephalic, normal inspection Eye exam: Present: normal appearance, PERRL, EOMI. Absent: scleral icterus, conjunctival injection, periorbital swelling ENT exam: Present: normal exam, mucous membranes moist Neck exam: Present: normal inspection. Absent: tenderness, meningismus, lymphadenopathy Respiratory exam: Present: normal lung sounds bilaterally. Absent: respiratory distress, wheezes, rales, rhonchi, stridor Cardiovascular Exam: Present: regular rate, normal rhythm, normal heart sounds. Absent: systolic murmur, diastolic murmur, rubs, gallop, clicks GI/Abdominal exam: Present: soft, normal bowel sounds. Absent: distended, tenderness, guarding, rebound, rigid Extremities exam: Present: normal inspection, full ROM, normal capillary refill. Absent: tenderness, pedal edema, joint swelling, calf tenderness Back exam: Present: normal inspection Neurological exam: Present: alert, oriented X3, CN II-XII intact Psychiatric exam: Present: normal affect, normal mood Skin exam: Present: warm, dry, intact, normal color. Absent: rash Course Vital Signs 02/25/24 02/25/24 02/26/24 22:09 22:39 01:08 Temperature 98.7 F Pulse Rate 95 93 73 Respiratory 18 20 20 Rate Blood Pressure 161/104 141/91 129/96 O2 Sat by Pulse 99 98 97 Oximetry 02/26/24 01:48 Temperature Pulse Rate 77 Respiratory 20 Rate Blood Pressure 120/75 O2 Sat by Pulse 96 Oximetry - Reevaluation(s) Reevaluation #1: 02/25/24 22:55 Medical records reviewed Reevaluation #2: 02/26/24 01:50 Patient has adequate sedation here in the ER Reevaluation #3: 02/26/24 01:50 Patient informed of results questions answered Reevaluation #4: Was pt. sent in by a medical professional or institution (ESTELLE Fierro, INSTRUCTIONAL MATERIALS DIRECTOR, urgent care, hospital, or senior care...) When possible be specific @ -no Did you speak to anyone other than the patient for history (EMS, parent, family, police, friend...)? What history was obtained from this source @ -no Did you review nursing and triage notes (agree or disagree)? Why? @ -agree Are old charts reviewed (outside hosp., previous admission, EMS record, old EKG, old radiological studies, urgent care reports/EKG's, senior care records)? Report findings @ -yes Differential Diagnosis (chest pain, altered mental status, abdominal pain women, abdominal pain men, vaginal bleeding, weakness, fever, dyspnea, syncope, headache, dizziness, GI bleed, back pain, seizure, CVA, palpatations, mental health, musculoskeletal)? @ -prior EKG interpreted by me (3pts min.). @ -yes X-rays interpreted by me (1pt min.). @ -yes negative for acute disease CT interpreted by me (1pt min.). @ -no U/S interpreted by me (1pt. min.). @ -no What testing was considered but not performed or refused? (CT, X-rays, U/S, labs)? Why? @ -none What meds were considered but not given or refused? Why? @ -none Did you discuss the management of the patient with other professionals (professionals i.e. ESTELLE Fierro, INSTRUCTIONAL MATERIALS DIRECTOR, lab, RT, psych nurse, healthcare social worker, interior painter, teacher, control systems drafting officer, family caseworker)? Give summary @ -no Was smoking cessation discussed for >3mins.? @ -no Was critical care preformed (if so, how long)? @ -no Were there social determinants of health that impacted care today? How? (Homelessness, low income, unemployed, alcoholism, drug addiction, transportation, low edu. Level, literacy, decrease access to med. care, skilled nursing, r ehab)? @ -none Was there de-escalation of care discussed even if they declined (Discuss DNR or withdrawal of care, Hospice)? DNR status @ -no What co-morbidities impacted this encounter? (DM, HTN, Smoking, COPD, CAD, Cancer, CVA, ARF, Chemo, Hep., AIDS, mental health diagnosis, sleep apnea, morbid obesity)? @ -none Was patient admitted / discharged? Hospital course, mention meds given and route , prescriptions, significant lab abnormalities, going to OR and other pertinent info. @ - Undiagnosed new problem with uncertain prognosis? @ -no Drug Therapy requiring intensive monitoring for toxicity (Heparin, Nitro, Insulin, Cardizem)? @ -no Were any procedures done? @ -no Diagnosis/symptom? @ - Acute, or Chronic, or Acute on Chronic? @ -Acute Uncomplicated (without systemic symptoms) or Complicated (systemic symptoms)? @ -Complicated Side effects of treatment? @ -no Exacerbation, Progression, or Severe Exacerbation? @ -exacerbation Poses a threat to life or bodily function? How? (Chest pain, USA, MT, pneumonia, PE, COPD, DKA, ARF, appy, cholecystitis, CVA, Diverticulitis, Homicidal, Suicidal, threat to staff... and all critical care pts) @ -yes Reevaluation #5: Differential Altered Mental Status: Hypoglycemia, DKA, hypercapnia, ETOH, overdose, CO poisoning, trauma, myxedema coma, HTN encephalopathy, infection, encephalitis, psychosis, intercranial hemorrhage, hepatic encephalopathy, meningitis, CVA, this is not meant to be an all-inclusive list - Consultations Consultation #1: Sound who agrees to admit this patient Medical Decision Making - Medical Decision Making 43 male with alcohol withdrawal DTs, patient will be admitted for acute psychosis with delirium - Lab Data Result diagrams: 02/25/24 22:32 02/25/24:32 Lab Results 02/25/24 02/25/24 02/25/24 Range/Units 22:32 22:32 22:32 WBC 5.5 (3.8-10.6) k/uL RBC 5.11 (4.30-5.90) m/uL Hgb 14.4 (13.0-17.5) gm/dL Hct 43.0 (39.0-53.0) % MCV 84.1 (80.0-100.0) fL MCH 28.2 (25.0-35.0) pg MCHC 33.5 (31.0-37.0) g/dL RDW 12.9 (11.5-15.5) % Plt Count 198 (150-450) k/uL MPV 8.4 Neutrophils % 63 % Lymphocytes % 21 % Monocytes % 8 % Eosinophils % 3 % Basophils % 1 % Neutrophils # 3.4 (1.3-7.7) k/uL Lymphocytes # 1.2 (1.0-4.8) k/uL Monocytes # 0.5 (0-1.0) k/uL Eosinophils # 0.2 (0-0.7) k/uL Basophils # 0.1 (0-0.2) k/uL PT 11.5 (10.0-12.5) sec INR 1.1 (<1.2) Sodium 131 L (137-145) mmol/L Potassium 3.6 (3.5-5.1) mmol/L Chloride 95 L (98-107) mmol/L Carbon Dioxide 27 (22-30) mmol/L Anion Gap 9 mmol/L BUN 10 (9-20) mg/dL Creatinine 0.75 (0.66-1.25) mg/dL Est GFR (CKD-EPI)AfAm >90 (>60 ml/min/1.73 sqM) Est GFR (CKD-EPI)NonAf >90 (>60 ml/min/1.73 sqM) Glucose 106 H (74-99) mg/dL Calcium 9.2 (8.4-10.2) mg/dL Phosphorus 3.7 (2.5-4.5) mg/dL Magnesium 2.0 (1.6-2.3) mg/dL Total Bilirubin 0.9 (0.2-1.3) mg/dL AST 56 (17-59) U/L ALT 37 (4-49) U/L Alkaline Phosphatase 67 (38-126) U/L Total Protein 6.8 (6.3-8.2) g/dL Albumin 4.2 (3.5-5.0) g/dL Lipase 258 (23-300) U/L Serum Alcohol <10 mg/dL - EKG Data -: EKG Interpreted by Me (EKG is sinus 96 OH 150 QRS 93 QTc 424) Disposition Clinical Impression: ETOH abuse, Alcohol withdrawal delirium, Alcohol withdrawal syndrome Disposition: ADMITTED IP TO THIS HOSP Condition: Serious Is patient prescribed a controlled substance at d/c from ED?: No Referrals: Nonstaff,Physician [Primary Care Provider] - 1-2 days Time of Disposition: 01:00
[2024-02-25] MEDS ORDERED: LORazepam 1 MG TAB PO PRN ×4 (22:18)
[2024-02-25] MEDS ORDERED: LORazepam 0.5 MG TAB PO PRN (22:18)
[2024-02-25] MEDS ORDERED: LORazepam 2 MG/ML INJ IV PRN ×2 (22:18)
[2024-02-25] MEDS: LORazepam 2 MG/ML INJ IV STA (22:29)
[2024-02-25] MEDS: SODIUM CHLORIDE 0.9% 1,000 ML IV STA ×2 (22:29→23:30)
[2024-02-25] MEDS: SODIUM CHLORIDE 0.9% 500 ML 500 ML IV STA (22:29)
[2024-02-25 22:40] LABS: Basophils # (A) 0.1 k/uL (0-0.2); Basophils % (A) 1 %; Eosinophils # (A) 0.2 k/uL (0-0.7); Eosinophils % (A) 3 %; HGB 14.4 gm/dL (13.0-17.5); Lymphocytes # (A) 1.2 k/uL (1.0-4.8); Lymphocytes % (A) 21 %; MCH 28.2 pg (25.0-35.0); MCHC 33.5 g/dL (31.0-37.0); MCV 84.1 fL (80.0-100.0); Mean Platelet Volume 8.4; Monocytes # (A) 0.5 k/uL (0-1.0); Monocytes % (A) 8 %; Neutrophils # (A) 3.4 k/uL (1.3-7.7); Neutrophils % (A) 63 %; Platelet Count 198 k/uL (150-450); RBC 5.11 m/uL (4.30-5.90); RDW 12.9 % (11.5-15.5); WBC 5.5 k/uL (3.8-10.6)
[2024-02-25 22:45] LABS: INR 1.1 (<1.2); Prothrombin Time 11.5 sec (10.0-12.5)
[2024-02-25 22:54] LABS: ALT 37 U/L (4-49); AST 56 U/L (17-59); African American GFR (CKD) >90 (>60 ml/min/1.73 sqM); Albumin 4.2 g/dL (3.5-5.0); Alcohol <10 mg/dL; Alkaline Phosphatase 67 U/L (38-126); Anion Gap 9 mmol/L; Blood Urea Nitrogen 10 mg/dL (9-20); Calcium 9.2 mg/dL (8.4-10.2); Carbon Dioxide 27 mmol/L (22-30); Chloride 95 mmol/L (98-107); Glucose 106 mg/dL (74-99); Lipase 258 U/L (23-300); Non-African American GFR(CKD) >90 (>60 ml/min/1.73 sqM); Phosphorus 3.7 mg/dL (2.5-4.5); Potassium 3.6 mmol/L (3.5-5.1); Sodium 131 mmol/L (137-145); Total Bilirubin 0.9 mg/dL (0.2-1.3); Total Protein 6.8 g/dL (6.3-8.2)
[2024-02-26] MEDS: LORazepam 2 MG/ML INJ IV PRN (01:29)
[2024-02-26] MEDS ORDERED: NALOXONE 0.4 MG/ML 1 ML VIAL IV PRN (01:49)
[2024-02-26 02:35] LABS: Amphetamine Screen,Urine Not Detected (NotDetected); Barbiturate Screen,Urine Not Detected (NotDetected); Benzodiazepines Screen,Urine Detected (NotDetected); Cocaine Screen,Urine Not Detected (NotDetected); Methadone Screen, Urine Not Detected (NotDetected); Opiate Screen,Urine Not Detected (NotDetected); Oxycodone Screen, Urine Not Detected (NotDetected); Phencyclidine Screen,Urine Not Detected (NotDetected); Tricyclic Antidepressant,Urine Not Detected (NotDetected); Urn Cannabinoid Scrn Not Detected (NotDetected)
[2024-02-26] MEDS: SODIUM CHLORIDE 0.9% 1,000 ML IV SCH (03:24)
--- NOTE | 2024-02-26 04:37 | P.HPIM ---
History of Present Illness H&P Date: 02/26/24 Patient is a 43-year-old male with a PMH of alcohol abuse with history of delirium tremens with alcohol withdrawal seizures, hypertension, and asthma who was brought into the emergency room via EMS from [facility] for alcohol withdrawal. The patient reports that he currently drinks half a gallon of hard liquor daily with his last drink yesterday prior to checking into [facility]. The patient had reportedly been hallucinating and was anxious at the facility. The patient had been sedated and thereby history was somewhat limited. Patient however denied experiencing chest discomfort, shortness of breath, fever, chills, cough, nausea, vomiting, abdominal pain, diarrhea. EKG in the emergency room revealed sinus rhythm at 96 beats per minute as reviewed by me. Laboratory evaluation revealed a sodium of 131, chloride 95, BUN 10, creatinine 0.75, glucose 106, urine toxicology positive for benzodiazepines, and serum alcohol level less than 10. ED documentation reviewed and case discussed with ED provider. Review of systems: Pertinent positives and negatives as discussed in HPI, a complete review of systems was performed and all other systems are negative. Physical examination: Vital signs reviewed General: non toxic, no distress, appears at stated age, normal weight Derm: no unusual rashes/lesions, warm Head: atraumatic, normocephalic, symmetric Eyes: EOMI, no lid lag, anicteric sclera, pupils equal round reactive to light ENT: Nose and ears atraumatic Neck: No cervical lymphadenopathy, trachea midline, supple Mouth: no lip lesion, mucus membranes moist Cardiovascular: S1S2 reg, no murmur, positive dorsalis pedis pulse bilateral, no edema Lungs: CTA bilateral, no rhonchi, no rales, no accessory muscle use Abdominal: soft, nontender to palpation, no guarding Ext: muscle strength 5 out of 5 in all 4 extremities grossly, no gross muscle atrophy, no contractures, Neuro: CN II-XI grossly intact, no gross focal neuro deficits Psych: Lethargic but oriented x 3 and answering most questions appropriately Assessment: Alcohol abuse, impending withdrawal Hypochloremic hyponatremia, suspect due to poor oral intake with alcohol abuse Chronic conditions: Hypertension, asthma Imaging: EKG in the emergency room revealed sinus rhythm at 96 beats per minute as reviewed by me. Data Review: Laboratory evaluation revealed a sodium of 131, chloride 95, BUN 10, creatinine 0.75, glucose 106, urine toxicology positive for benzodiazepines, and serum alcohol level less than 10. Plan: CIWA protocol Continue with thiamine and multivitamin Continue IV fluids with normal saline 130 cc/h Cardiac monitoring Fall precautions Check electrolytes daily Resume home medications once reconciled DVT prophylaxis: Lovenox subcu The patient is admitted with an anticipated less than 2 midnight stay for evaluation of alcohol abuse CODE STATUS: Full Code Discussed with: Patient Anticipated discharge place: [facility] Past Medical History Past Medical History: Asthma, GERD/Reflux, Hypertension Additional Past Medical History / Comment(s): pancreatitis, CROHNS OR COLITS PT NOT SURE WHICH ONE,UPPER BRIDGE, History of Any Multi-Drug Resistant Organisms: None Reported Past Surgical History: No Surgical Hx Reported Additional Past Surgical History / Comment(s): PARACENTESIS, PICC LINE-SINCE REMOVED,NOSE SXPER PTS "STARIGHTENED AND BONE GRAFT" Past Anesthesia/Blood Transfusion Reactions: No Reported Reaction Past Psychological History: Anxiety Smoking Status: Current every day smoker, Light tobacco smoker Past Alcohol Use History: Abuse, Daily Past Drug Use History: None Reported - Past Family History Mother Family Medical History: COPD Father Family Medical History: Cancer Additional Family Medical History / Comment(s): PROSTATE CANCER Medications and Allergies Home Medications Medication Instructions Recorded Confirmed Type Omeprazole [PriLOSEC] 20 mg PO DAILY 10/17/16 11/09/23 History Albuterol Sulfate [Albuterol 2 puff PO RT-Q6H PRN 05/12/22 11/09/23 History Sulfate Hfa] Buprenorphine HCl/Naloxone HCl 0.25 film SL DAILY 05/12/22 11/09/23 History [Suboxone 8 mg-2 mg Sl Film] Citalopram Hydrobromide [CeleXA] 40 mg PO DAILY 05/12/22 11/09/23 History Lisinopril-Hctz 20-25 mg 1 tab PO DAILY 05/12/22 11/09/23 History [Zestoretic 20-25] Loratadine [Claritin] 10 mg PO DAILY 05/12/22 11/09/23 History Melatonin 10 mg PO HS PRN 05/12/22 11/09/23 History Vitamin B Complex 1 cap PO DAILY 05/12/22 11/09/23 History amLODIPine [Norvasc] 10 mg PO DAILY 05/12/22 11/09/23 History diphenhydrAMINE HCL [Benadryl] 50 mg PO HS PRN 11/09/23 11/09/23 History Aspirin 81 mg PO DAILY 30 Days #30 tab 11/10/23 Rx Atorvastatin [Lipitor] 40 mg PO HS 30 Days #30 tablet 11/10/23 Rx Allergies Allergy/AdvReac Type Severity Reaction Status Date / Time No Known Allergies Allergy Verified 02/25/24 22:15 Physical Exam Vitals: Vital Signs Temp Pulse Resp BP Pulse Ox 02/26/24 01:48 77 20 120/75 96 02/26/24 01:08 73 20 129/96 97 02/25/24 22:39 93 20 141/91 98 02/25/24 22:09 98.7 F 95 18 161/104 99 Intake and Output 02/25/24 02/25/24 02/26/24 14:59 22:59 06:59 Other: Weight 78.471 kg Results CBC & Chem 7: 02/25/24 22:32 02/25/24 22:32 Labs: Abnormal Lab Results - Last 24 Hours (Table) 02/25/24 02/26/24 Range/Units 22:32 01:25 Sodium 131 L (137-145) mmol/L Chloride 95 L (98-107) mmol/L Glucose 106 H (74-99) mg/dL U Benzodiazepines Scrn Detected H (NotDetected)
[2024-02-26 06:17] LABS: HCT 44.6 % (39.0-53.0); HGB 14.6 gm/dL (13.0-17.5); MCH 28.3 pg (25.0-35.0); MCHC 32.8 g/dL (31.0-37.0); MCV 86.4 fL (80.0-100.0); Mean Platelet Volume 8.5; Platelet Count 180 k/uL (150-450); RBC 5.16 m/uL (4.30-5.90)
[2024-02-26 06:25] LABS: ALT 33 U/L (4-49); AST 43 U/L (17-59); African American GFR (CKD) >90 (>60 ml/min/1.73 sqM); Albumin 3.8 g/dL (3.5-5.0); Albumin/Globulin Ratio 1.7; Alkaline Phosphatase 61 U/L (38-126); Anion Gap 5 mmol/L; Blood Urea Nitrogen 7 mg/dL (9-20); Calcium 8.9 mg/dL (8.4-10.2); Carbon Dioxide 25 mmol/L (22-30); Chloride 106 mmol/L (98-107); Globulin 2.3 g/dL; Glucose 114 mg/dL (74-99); Non-African American GFR(CKD) >90 (>60 ml/min/1.73 sqM); Potassium 4.2 mmol/L (3.5-5.1); Sodium 136 mmol/L (137-145); Total Bilirubin 1.3 mg/dL (0.2-1.3); Total Protein 6.1 g/dL (6.3-8.2)
[2024-02-26] MEDS: MULTIVITAMINS, THERA 1 EACH TAB PO SCH (08:41)
[2024-02-26] MEDS: THIAMINE 100 MG TAB PO SCH (08:41)
[2024-02-26] MEDS: chlordiazePOXIDE 25 MG CAP PO SCH (08:41)
[2024-02-26] MEDS: FOLIC ACID 1 MG TAB PO SCH (08:41)
[2024-02-26] MEDS: ENOXAPARIN 40 MG/0.4 ML SYRINGE SQ SCH (08:41)
[2024-02-26] MEDS ORDERED: chlordiazePOXIDE 25 MG CAP PO PRN ×2 (09:01)
[2024-02-26] MEDS ORDERED: ACETAMINOPHEN TAB 325 MG TAB PO PRN (09:13)
[2024-02-26] MEDS ORDERED: bisacodyL 5 MG TABLET.DR PO PRN (09:13)
[2024-02-26] MEDS: amLODIPine 10 MG TAB PO SCH (11:29)
[2024-02-26] MEDS: CITALOPRAM HYDROBROMIDE 20 MG TAB PO SCH (11:29)
[2024-02-26] MEDS: LISINOPRIL-HCTZ 20-25 MG 1 EACH TAB PO SCH (11:29)
[2024-02-26] MEDS: chlordiazePOXIDE 25 MG CAP PO PRN ×2 (11:39→16:29)
[2024-02-26] MEDS: cloNIDine HCL 0.1 MG TAB PO PRN (11:39)
[2024-02-26] MEDS: NICOTINE 21MG/24HR PATCH TRANSDERM SCH (13:29)
--- NOTE | 2024-02-26 16:34 | P.PN ---
Subjective Progress Note Date: 02/26/24 (delayed charting seen at 0915) Patient is a 43-year-old male with a history of hypertension, anxiety, alcohol dependency with history of delirium tremens and withdrawal seizures who was brought in from [place] due to worsening hallucinations. On arrival to the emergency department he was found to be hypertensive with a blood pressure of 161/104. Initial laboratory analysis was remarkable for sodium of 131. Urine drug screen was positive for benzodiazepines. Of note patient was coming off of both alcohol and Suboxone. Arrangements are made for admission. He was started on CIWA protocol with Ativan use. Patient seen and examined at bedside. He is feeling very fidgety and anxious, he is having itching. He denies any headache, nausea, lightheadedness. - is present at bedside she is a nurse. She reports he has had adverse reactions to Ativan in the past but has tolerated both Librium and phenobarbital well. They report that his drinking has increased steadily over the last several weeks. He has not tried naltrexone in the past will discuss with his and consider this on discharge. They were speaking with him about Vivitrol at [place]. Vital signs reviewed General: Nontoxic, no distress, appears at stated age Cardiovascular: S1S2 reg, no murmur Lungs: CTA bilateral, no rhonchi, no rales, no accessory muscle use Abdominal: Soft, nontender to palpation, no guarding Ext: No gross muscle atrophy, no edema b/l lower extremities, no contractures Neuro: CN II-XI grossly intact, no focal neuro deficits Psych: Alert, oriented, appropriate affect Assessment/Plan: Gall withdrawal and a known alcoholic with history of withdrawal seizures in the past -Patient has not tolerated Ativan well in the past -Will start Librium 25 mg p.o. 3 times daily scheduled and use Librium 25 to 100 mg every 4 hours as needed for CIWA protocol -Folic acid 1 mg daily -Thiamine 100 mg daily High blood pressure, urgency -Likely due to alcohol withdrawal -Resume lisinopril hydrochlorothiazide 2024 1 tablet daily, Norvasc 10 mg daily Nicotine dependency -Nicotine patch 21 mcg Imaging: None new Data Review: Labs reviewed from today include CBC and CMP which are remarkable for sodium of 136, BUN 7, creatinine 0.63 DVT prophylaxis: SCDs Anticipated discharge date: Pending Clinical Course Anticipated discharge place: Pending Clinical Course This dictation was prepared using [employer] voice recognition software. Though every attempt is made to correct errors during dictation some may still exist. A Objective - Vital Signs Vital signs: Vital Signs Temp 98.2 F 02/26/24 14:07 Pulse 77 02/26/24 14:07 Resp 18 02/26/24 14:07 BP 106/67 02/26/24 14:07 Pulse Ox 98 02/26/24 14:07 FiO2 Intake & Output 02/25/24 02/26/24 02/26/24 18:59 06:59 18:59 Weight 78.471 kg 78.471 kg - Labs CBC & Chem 7: 02/26/24 05:53 02/26/24 05:53 Labs: Abnormal Lab Results - Last 24 Hours (Table) 02/25/24 02/26/24 02/26/24 Range/Units 22:32 01:25 05:53 Sodium 131 L 136 L (137-145) mmol/L Chloride 95 L (98-107) mmol/L BUN 7 L (9-20) mg/dL Creatinine 0.63 L (0.66-1.25) mg/dL Glucose 106 H 114 H (74-99) mg/dL Total Protein 6.1 L (6.3-8.2) g/dL U Benzodiazepines Scrn Detected H (NotDetected)
[2024-02-26] MEDS: ONDANSETRON 4 MG/2 ML VIAL IVP PRN (18:44)
[2024-02-26] MEDS: KETOROLAC 15 MG/ML 1 ML VIAL IVP PRN (18:46)
[2024-02-26 23:16] VITALS: RESP 16
[2024-02-27] MEDS: MELATONIN 3 MG TABLET PO PRN (00:42)
[2024-02-27 04:45] VITALS: TEMP 97.3
[2024-02-27 07:42] VITALS: BP 114/78; PULSE 74
[2024-02-27] MEDS ORDERED: chlordiazePOXIDE 25 MG CAP PO PRN ×3 (07:54)
[2024-02-27] MEDS: PANTOPRAZOLE 40 MG TABLET PO SCH (08:45)
[2024-02-27 09:16] LABS: HCT 42.3 % (39.6-50.0); HGB 13.7 g/dL (13.0-17.0); MCH 27.4 pg (27.0-32.0); MCHC 32.4 g/dL (32.0-37.0); MCV 84.6 FL (80.0-97.0); Mean Platelet Volume 10.8 FL (9.5-12.2); NRBC Per 100 WBC 0 X 10*3/uL (0.00-0.01); Platelet Count 165 X 10*3/uL (140-440); RDW 12.8 % (11.5-14.5); WBC 5.35 X 10*3/uL (4.50-10.00)
[2024-02-27 09:24] LABS: ALT 27 U/L (10-49); AST 27 U/L (14-35); Albumin 3.9 g/dL (3.8-4.9); Albumin/Globulin Ratio 2.17 Ratio (1.60-3.17); Alkaline Phosphatase 51 U/L (41-126); Blood Urea Nitrogen 6.3 mg/dL (9.0-27.0); Calcium 8.7 mg/dL (8.7-10.3); Carbon Dioxide 23.5 mmol/L (21.6-31.8); Chloride 106 mmol/L (96-109); Globulin 1.8 g/dL (1.6-3.3); Glucose 117 mg/dL (70-110); Potassium 3.9 mmol/L (3.5-5.5); Sodium 142 mmol/L (135-145); Total Bilirubin 0.7 mg/dL (0.3-1.2); Total Protein 5.7 g/dL (6.2-8.2)
[2024-02-27 13:16] VITALS: BMI 27.9
--- NOTE | 2024-02-27 16:02 | P.DS ---
Providers Date of admission: 02/26/24 01:49 Expected date of discharge: 02/27/24 Attending physician: Darshan Franks MD Primary care physician: Tim Marroquin [facility] Course: Discharge Diagnosis: Alcohol withdrawal in a known alcoholic with history of withdrawal seizures in the past Subaxone withdrawal Hypertensive urgency, likely related to withdrawal Hospital Course: Patient is a 43-year-old male with a history of hypertension, anxiety, alcohol dependency with history of delirium tremens and withdrawal seizures who was brought in from [facility] due to worsening hallucinations. On arrival to the emergency department he was found to be hypertensive with a blood pressure of 161/104. Initial laboratory analysis was remarkable for sodium of 131. Urine drug screen was positive for benzodiazepines. Of note patient was coming off of both alcohol and Suboxone. Arrangements are made for admission. He was started on CIWA protocol with Ativan use. Reported that patient has adverse reactions to Ativan in the past including hallucinations. His CIWA scale was transitioned to Librium and he did well. The afternoon of 02/26 he had not required any as needed Librium in greater than 8 hours, he had no signs of sedation. He was feeling well and was up and ambulating in the hallways. He was determined stable for discharge back to [facility]. Follow-up: patient will be transferred back to [facility] today. No medication changes. Patient seen and examined at bedside. Doing well. No complaints currently. Feeling good and wants to return to [facility], present at bedside and agreeable. Vital signs reviewed and stable. General: Nontoxic, no distress, appears at stated age Cardiovascular: S1S2 reg, no murmur, positive posterior tibial pulse bilateral, Lungs: CTA bilateral, no rhonchi, no rales, no accessory muscle use Abdominal: Soft, nontender to palpation, no guarding, no appreciable organomegaly Ext: No gross muscle atrophy, no edema b/l lower extremities, no contractures Neuro: CN II-XI grossly intact, no focal neuro deficits Psych: Alert, oriented, appropriate affect A total of 32 minutes of time were spent preparing this complex discharge summary. Patient was discharged on 02/27/24. This dictation was prepared using [employer] voice recognition software. Though every attempt is made to correct errors during dictation some may still exist. Patient Condition at Discharge: Stable Plan - Discharge Summary Discharge Rx Participant: No New Discharge Prescriptions: New Nicotine 21Mg/24Hr Patch [Habitrol] 1 patch TRANSDERM DAILY patch Continue Omeprazole [PriLOSEC] 20 mg PO DAILY amLODIPine [Norvasc] 10 mg PO DAILY Citalopram Hydrobromide [CeleXA] 40 mg PO DAILY Zofran 4mg/2ml 4 mg IM Q6H PRN PRN Reason: Nausea And Vomiting Acetaminophen Tab [Tylenol] 650 mg PO Q4H PRN MDD 4 doses PRN Reason: Pain Thiamine [Vitamin B-1] 100 mg PO DAILY Multivitamins, Thera [Multivitamin (formulary)] 1 tab PO DAILY Ibuprofen [Motrin Ib] 600 mg PO Q6H PRN PRN Reason: Pain Chlorpheniramine Maleate [Chlor-Trimeton] 4 mg PO Q4H PRN PRN Reason: Allergy Symptoms cloNIDine HCL [Catapres] 0.1 - 0.3 mg PO Q4H PRN PRN Reason: BP >160/100 Calcium/Mag/Zinc/D3 1 tab PO TID PRN PRN Reason: cramps ondansetron HCL [Zofran] 8 mg PO Q6H PRN PRN Reason: Nausea And Vomiting Lisinopril-Hctz 20-25 mg [Zestoretic 20-25] 1 tab PO DAILY Tigan 200mg/2ml 200 mg IM Q6H PRN PRN Reason: Vomiting Mylanta 30 ml PO Q4H PRN PRN Reason: Gi Upset Loperamide [Imodium] 4 mg PO QID PRN MDD 8 caps PRN Reason: Loose Stool Discontinued traZODone HCL [Desyrel] 50 - 150 mg PO HS PRN PRN Reason: Insomnia LORazepam [Ativan] 1 - 2 mg PO Q4H PRN PRN Reason: Anxiety Discharge Medication List Omeprazole [PriLOSEC] 20 mg PO DAILY 10/17/16 [History] Citalopram Hydrobromide [CeleXA] 40 mg PO DAILY 05/12/22 [History] Lisinopril-Hctz 20-25 mg [Zestoretic 20-25] 1 tab PO DAILY 05/12/22 [History] amLODIPine [Norvasc] 10 mg PO DAILY 05/12/22 [History] Acetaminophen Tab [Tylenol] 650 mg PO Q4H PRN MDD 4 doses 02/26/24 [History] Calcium/Mag/Zinc/D3 1 tab PO TID PRN 02/26/24 [History] Chlorpheniramine Maleate [Chlor-Trimeton] 4 mg PO Q4H PRN 02/26/24 [History] Ibuprofen [Motrin Ib] 600 mg PO Q6H PRN 02/26/24 [History] Loperamide [Imodium] 4 mg PO QID PRN MDD 8 caps 02/26/24 [History] Multivitamins, Thera [Multivitamin (formulary)] 1 tab PO DAILY 02/26/24 [History] Mylanta 30 ml PO Q4H PRN 02/26/24 [History] Thiamine [Vitamin B-1] 100 mg PO DAILY 02/26/24 [History] Tigan 200mg/2ml 200 mg IM Q6H PRN 02/26/24 [History] Zofran 4mg/2ml 4 mg IM Q6H PRN 02/26/24 [History] cloNIDine HCL [Catapres] 0.1 - 0.3 mg PO Q4H PRN 02/26/24 [History] ondansetron HCL [Zofran] 8 mg PO Q6H PRN 02/26/24 [History] Nicotine 21Mg/24Hr Patch [Habitrol] 1 patch TRANSDERM DAILY patch 02/27/24 [Rx] Follow up Appointment(s)/Referral(s): Nonstaff,Physician [REFERRING] - 1-2 days (Please call a primary care provider for follow-up appointment.) Patient Instructions/Handouts: Seizure/Epilepsy Discharge Instructions & Follow-Up Activity/Diet/Wound Care/Special Instructions: Activity: As tolerated Diet: Regular Special Instructions: Call [facility] [phone] once discharged. They do not have drivers over the weekend so call [facility] to see if it is ok if transports or if we send patient by cab if discharged over the weekend. He has adverse reaction to ativan. Tolerated Librium. Discharge Disposition: OTHER INSTITUTION NOT DEFINED
== END 2024-02-27 13:58 | disposition other institution (70) ==
LOC: EC 22:07 → 4SSUR 02-26 01:49
PROVIDERS: ADMIT Internal Medicine; ATTEND Internal Medicine
DX: F10.239 Alcohol dependence with withdrawal, unspecified (principal); F10.229 Alcohol dependence with intoxication, unspecified; Y90.0 Blood alcohol level of less than 20 mg/100 ml; I16.0 Hypertensive urgency; E87.8 Other disorders of electrolyte and fluid balance, not elsewhere classified; J45.909 Unspecified asthma, uncomplicated; F17.210 Nicotine dependence, cigarettes, uncomplicated; Z80.9 Family history of malignant neoplasm, unspecified; Z79.82 Long term (current) use of aspirin; Z79.899 Other long term (current) drug therapy; Z80.42 Family history of malignant neoplasm of prostate; Z82.5 Family history of asthma and other chronic lower respiratory diseases
CPT/HCPCS: 96361 ×2; 96372 ×2; 96375; 96376 ×2; 96374; 99285; 36415; 80053 ×3; 82140; 83690; 83735; 84100; 85025; 85027 ×2; 85610; 80306; 80320; G0378 ×2; S4990 ×2; J2060 ×2; J2405; J1650 ×2; J1885 ×2

== ENCOUNTER 2024-06-09 10:25 | Inpatient (IN) | payer OTHER ==
[~2024-06-09 10:25] MED LIST: FAMOTIDINE 20 MG/2 ML VIAL ONE; METOCLOPRAMIDE 5 MG/ML 2 ML VIAL ONE; MORPHINE SULFATE 4 MG/ML SYRINGE ONE; ONDANSETRON 4 MG/2 ML VIAL ONE; PHENobarbital SODIUM 130 MG/ML 1 ML VIAL ONE; SODIUM CHLORIDE 0.9% 1,000 ML BAG ONE
[2024-06-09] MEDS ORDERED: PROCHLORPERAZINE INJ 10 MG/2 ML VIAL ONE ×2 (13:35→22:11)
[2024-06-09] MEDS ORDERED: PANTOPRAZOLE 40 MG/10 ML VIAL ONE (13:35)
[2024-06-09] MEDS ORDERED: HYDROmorphone 0.5 MG/0.5 ML SYRINGE ONE ×3 (13:35→22:05)
[2024-06-09] MEDS ORDERED: chlordiazePOXIDE 25 MG CAP ONE ×2 (14:07→22:00)
[2024-06-10] MEDS ORDERED: HYDROmorphone 0.5 MG/0.5 ML SYRINGE ONE ×5 (02:43→22:28)
[2024-06-10] MEDS ORDERED: chlordiazePOXIDE 25 MG CAP ONE ×3 (05:24→21:50)
[2024-06-10] MEDS ORDERED: PANTOPRAZOLE 40 MG/10 ML VIAL ONE (09:35)
[2024-06-10] MEDS ORDERED: POTASSIUM CHLORIDE ER 20 MEQ TAB.ER PO ONE (18:32)
[2024-06-10] MEDS ORDERED: MAGNESIUM SULFATE-D5W PMX 100 ML IVPB ONE ×2 (18:32→22:29)
[2024-06-11] MEDS ORDERED: HYDROmorphone 0.5 MG/0.5 ML SYRINGE ONE ×3 (02:17→08:54)
[2024-06-11] MEDS ORDERED: LACTATED RINGERS 1,000 ML BAG ONE (02:30)
[2024-06-11] MEDS ORDERED: chlordiazePOXIDE 25 MG CAP ONE (06:00)
[2024-06-11] MEDS ORDERED: PANTOPRAZOLE 40 MG/10 ML VIAL ONE (08:18)
[2024-06-11] MEDS ORDERED: NICOTINE 21MG/24HR PATCH TRANSDERM ONE (08:19)
[2024-06-12] MEDS ORDERED: PROCHLORPERAZINE INJ 10 MG/2 ML VIAL IVP PRN
[2024-06-12] MEDS ORDERED: NALOXONE 0.4 MG/ML 1 ML VIAL IV PRN
[2024-06-12] MEDS ORDERED: LACTATED RINGERS 1,000 ML BAG ONE (00:10)
[2024-06-12] MEDS: HYDROmorphone 0.5 MG/0.5 ML SYRINGE IVP PRN (04:20)
[2024-06-12] MEDS: LACTATED RINGERS 1,000 ML IV SCH ×2 (04:47→17:46)
[2024-06-12 05:47] LABS: Basophils # (A) 0.1 k/uL (0-0.2); Basophils % (A) 0 %; Eosinophils # (A) 0.3 k/uL (0-0.7); Eosinophils % (A) 2 %; HCT 41.5 % (39.0-53.0); HGB 13.6 gm/dL (13.0-17.5); Lymphocytes # (A) 1.1 k/uL (1.0-4.8); Lymphocytes % (A) 10 %; MCH 29.7 pg (25.0-35.0); MCHC 32.8 g/dL (31.0-37.0); MCV 90.4 fL (80.0-100.0); Mean Platelet Volume 8.9; Monocytes # (A) 0.7 k/uL (0-1.0); Monocytes % (A) 7 %; Neutrophils % (A) 80 %; Platelet Count 191 k/uL (150-450); RBC 4.59 m/uL (4.30-5.90); RDW 13.3 % (11.5-15.5); WBC 11.2 k/uL (3.8-10.6)
[2024-06-12 06:22] LABS: ALT 18 U/L (4-49); AST 28 U/L (17-59); African American GFR (CKD) >90 (>60 ml/min/1.73 sqM); Albumin 3.4 g/dL (3.5-5.0); Albumin/Globulin Ratio 1.5; Alkaline Phosphatase 56 U/L (38-126); Anion Gap 6 mmol/L; Blood Urea Nitrogen 2 mg/dL (9-20); Calcium 8.9 mg/dL (8.4-10.2); Carbon Dioxide 27 mmol/L (22-30); Chloride 104 mmol/L (98-107); Globulin 2.3 g/dL; Glucose 100 mg/dL (74-99); Magnesium 2.1 mg/dL (1.6-2.3); Non-African American GFR(CKD) >90 (>60 ml/min/1.73 sqM); Sodium 137 mmol/L (137-145); Total Bilirubin 1.1 mg/dL (0.2-1.3); Total Protein 5.7 g/dL (6.3-8.2)
[2024-06-12] MEDS: chlordiazePOXIDE 25 MG CAP PO SCH (08:16)
[2024-06-12] MEDS: PANTOPRAZOLE 40 MG/10 ML VIAL IVP SCH (08:16)
[2024-06-12] MEDS: NICOTINE 21MG/24HR PATCH TRANSDERM SCH (08:16)
[2024-06-12] MEDS: KETOROLAC 15 MG/ML 1 ML VIAL IVP SCH (11:18)
--- NOTE | 2024-06-12 15:15 | P.PN ---
Subjective Progress Note Date: 06/12/24 Hospital course: Patient is a 43-year-old male with a past medical history of daily alcohol abuse drinking approximately 1/5 or more of liquor daily, hypertension, and nicotine dependence smoking 1 pack of cigarettes daily. He presented to the emergency department on 06/09/2024 with a chief complaint of intractable abdominal pain accompanied by nausea and vomiting. Patient also reporting EtOH withdrawal with last alcoholic beverage being 06/08/2024. Patient underwent evaluation in the emergency department. Labs revealing leukocytosis with WBC count of 17.74 and polycythemia with hemoglobin of 17.8. Lipase [place] 9944. CT abdomen and pelvis with contrast was then completed showing acute pancreatitis with surrounding fluid but no reports of pseudocyst formation at this time, mild mid abdominal ileus with left renal cortical cyst, and a stable right middle lobe n odule. Patient was admitted under our services with consultation to gastroenterology. Physical exam: Patient seen and fully evaluated at bedside. He was visiting with family. Patient sitting on edge of bed, tearful reports persistent pain. Discussed with patient will maintain clear liquid diet and await advancement of diet secondary to persistent/uncontrolled pain at this time. Additional pain medications being added onto regimen. Patient denies having any nausea, vomiting, and reports a normal bowel movement this morning. Vital signs reviewed and stable. General: Nontoxic, no distress and appears stated age. Derm: Skin warm and dry, normal coloration for ethnicity. Head: Atraumatic, normocephalic and symmetric. Eyes: EOM's intact, no lid lag, and anicteric sclera Mouth: no lip lesions, mucus membranes moist Cardiovascular: regular rate and rhythm with normal S1S2, no murmur, positive posterior tibial pulses bilaterally, and cap refill < 2 seconds. Lungs: Respirations even, regular, and unlabored on room air. Lungs CTA bilaterally, no rhonchi, no rales, no wheezing, and no accessory muscle usage. Abdominal: soft, nondistended abdomen. Patient tearful and reports tenderness to left upper quadrant and epigastric region upon light palpation. Ext: ROM intact. No gross muscle atrophy, no edema, no contractures Neuro: Speech clear, face symmetrical and CN II-XII grossly intact with no noted focal neuro deficits Psych: Alert and oriented to person, place, time, and situation. Appropriate and pleasant affect. Assessment and Plan of Care: Acute alcoholic pancreatitis Alcohol withdrawal in active alcoholic Leukocytosis, secondary to above Patient tearful this morning continuing to report severe pain left upper quadrant. Continue aggressive IV fluid hydration with lactated Ringer's at 150 cc/h. Continue symptomatic care and pain management with Dilaudid, will add on Toradol 15 mg IVP every 6 hours as needed. Compazine 10 mg IVP every 6 hours as needed for nausea. Secondary to persistent pain we will maintain patient on clear liquid diet for an additional 24 hours and reattempt advancement tomorrow. Continue CIWA protocol with symptom triggered medication management with benzodiazepines. We will discontinue Librium today. Continue telemetry monitoring with seizure and fall precautions in place. Continue folate, multivitamin, and thiamine daily. Continue close monitoring of electrolytes with repeat morning labs. Hypertension Continue Norvasc 10 mg daily. Nicotine dependence Recommend smoking cessation and continuing nicotine patch 21 mg daily. Right middle lobe lung nodule CT reports stable and unchanged. Recommend outpatient follow-up/monitoring with repeat scan in 6 months. Data and imaging reviewed: Vital signs reviewed. Blood pressure 142/94, heart rate 87, respiratory rate 20, temp 97.5 F, and SpO2 of 100% on room air. Morning labs reviewed. CBC showing improvement of leukocytosis with WBC count down to 11.2 this morning from initial 17.74. BMP unremarkable. Blood glucose 100. Magnesium 2.1. Liver profile normal finding with the exception of hypoalbuminemia with albumin of 3.4. CODE STATUS: Full code DVT prophylaxis: MINO mcmanus with SCDs Anticipated discharge date: Pending clinical course Anticipated discharge place: Home Patient was seen independently by Nurse Pracitioner. This document was prepared using [employer] dictation software. Please allow for errors in pecan grower, while rare they do occur. Mario Linn NP rendered care for this patient independently, reviewed the findings and plan as documented in the note above. I did not physically speak with or examine the patient on this date. Objective - Vital Signs Vital signs: Vital Signs Temp 97.5 F L 06/12/24 07:45 Pulse 87 06/12/24 07:45 Resp 20 06/12/24 07:45 BP 142/94 06/12/24 07:45 Pulse Ox 100 06/12/24 07:45 FiO2 Intake & Output 06/11/24 06/12/24 06/12/24 18:59 06:59 18:59 Intake Total 320 Balance 320 Weight 79.5 kg Intake: Oral 320 Other: Voiding Method Toilet # Voids 2 - Labs CBC & Chem 7: 06/13/24 02:48 06/13/24 02:48 Labs: Abnormal Lab Results - Last 24 Hours (Table) 06/12/24 06/12/24 Range/Units 04:20 04:21 WBC 11.2 H (3.8-10.6) k/uL Neutrophils # 9.0 H (1.3-7.7) k/uL BUN 2 L (9-20) mg/dL Creatinine 0.55 L (0.66-1.25) mg/dL Glucose 100 H (74-99) mg/dL Total Protein 5.7 L (6.3-8.2) g/dL Albumin 3.4 L (3.5-5.0) g/dL
[2024-06-12] MEDS ORDERED: chlordiazePOXIDE 25 MG CAP PO PRN ×3 (16:25)
[2024-06-12] MEDS: CITALOPRAM HYDROBROMIDE 20 MG TAB PO SCH (20:37)
[2024-06-12] MEDS: THIAMINE 100 MG TAB PO SCH (20:37)
[2024-06-12] MEDS: chlordiazePOXIDE 25 MG CAP PO PRN (20:59)
[2024-06-13] MEDS: amLODIPine 10 MG TAB PO SCH (08:27)
[2024-06-13 09:09] LABS: HCT 38.2 % (39.6-50.0); HGB 12.6 g/dL (13.0-17.0); MCH 29.2 pg (27.0-32.0); MCV 88.6 FL (80.0-97.0); Mean Platelet Volume 11.8 FL (9.5-12.2); NRBC Per 100 WBC 0 X 10*3/uL (0.00-0.01); Platelet Count 195 X 10*3/uL (140-440); RBC 4.31 X 10*6/uL (4.40-5.60); RDW 13.2 % (11.5-14.5); WBC 6.44 X 10*3/uL (4.50-10.00)
[2024-06-13 09:15] LABS: ALT 14 U/L (10-49); AST 14 U/L (14-35); Albumin 3.4 g/dL (3.8-4.9); Albumin/Globulin Ratio 2.12 Ratio (1.60-3.17); Alkaline Phosphatase 48 U/L (41-126); BUN/Creat Ratio <5.83 Ratio (12.00-20.00); Blood Urea Nitrogen <3.5 mg/dL (9.0-27.0); Calcium 8.3 mg/dL (8.7-10.3); Carbon Dioxide 23.3 mmol/L (21.6-31.8); Chloride 107 mmol/L (96-109); Globulin 1.6 g/dL (1.6-3.3); Glucose 100 mg/dL (70-110); Potassium 3.3 mmol/L (3.5-5.5); Sodium 141 mmol/L (135-145); Total Bilirubin 0.5 mg/dL (0.3-1.2)
[2024-06-13] MEDS: POTASSIUM CHLORIDE ER 20 MEQ TAB.ER PO STA (10:26)
[2024-06-13] MEDS: PANTOPRAZOLE 40 MG/10 ML VIAL ONE ×2 (13:20→13:21)
[2024-06-13] MEDS: KETOROLAC 15 MG/ML 1 ML VIAL ONE ×4 (13:20→13:21)
[2024-06-13] MEDS: HYDROmorphone 0.5 MG/0.5 ML SYRINGE ONE ×7 (13:20→13:27)
[2024-06-13] MEDS: chlordiazePOXIDE 25 MG CAP ONE ×7 (13:20→13:27)
[2024-06-13] MEDS: POTASSIUM CHLORIDE ER 20 MEQ TAB.ER PO ONE (13:21)
--- NOTE | 2024-06-13 13:22 | P.PN ---
Subjective Progress Note Date: 06/13/24 Hospital course: Patient is a 43-year-old male with a past medical history of daily alcohol abuse drinking approximately 1/5 or more of liquor daily, hypertension, and nicotine dependence smoking 1 pack of cigarettes daily. He presented to the emergency department on 06/09/2024 with a chief complaint of intractable abdominal pain accompanied by nausea and vomiting. Patient also reporting EtOH withdrawal with last alcoholic beverage being 06/08/2024. Patient underwent evaluation in the emergency department. Labs revealing leukocytosis with WBC count of 17.74 and polycythemia with hemoglobin of 17.8. [place]ase [place] 9944. CT abdomen and pelvis with contrast was then completed showing acute pancreatitis with surrounding fluid but no reports of pseudocyst formation at this time, mild mid abdominal ileus with left renal cortical cyst, and a stable right middle lobe nodule. Patient was admitted under our services with consultation to gastroent erology. Physical exam: Patient seen and fully evaluated at bedside. Ambulating in room this morning, reports pain is improved and denies any further episodes of nausea or vomiting. He is tolerating clear liquid diet, will advance to full liquid diet at this time and continue to monitor. Vital signs reviewed and stable. General: Nontoxic, no distress and appears stated age. Derm: Skin warm and dry, normal coloration for ethnicity. Head: Atraumatic, normocephalic and symmetric. Eyes: EOM's intact, no lid lag, and anicteric sclera Mouth: no lip lesions, mucus membranes moist Cardiovascular: regular rate and rhythm with normal S1S2, no murmur, positive posterior tibial pulses bilaterally, and cap refill < 2 seconds. Lungs: Respirations even, regular, and unlabored on room air. Lungs CTA bilaterally, no rhonchi, no rales, no wheezing, and no accessory muscle usage. Abdominal: soft, nondistended abdomen. Patient tearful and reports tenderness to left upper quadrant and epigastric region upon light palpation. Ext: ROM intact. No gross muscle atrophy, no edema, no contractures Neuro: Speech clear, face symmetrical and CN II-XII grossly intact with no noted focal neuro deficits Psych: Alert and oriented to person, place, time, and situation. Appropriate and pleasant affect. Assessment and Plan of Care: Acute alcoholic pancreatitis Alcohol withdrawal in active alcoholic Leukocytosis, secondary to above Continue symptomatic care and pain management with Dilaudid and Toradol 15 mg IVP every 6 hours as needed. Compazine 10 mg IVP every 6 hours as needed for nausea. Patient reports improvement in pain and denies any nausea or vomiting. Will advance diet from clear liquid to full liquid at this time. Continue CIWA protocol with symptom triggered medication management with b enzodiazepines. We will discontinue Librium today. Continue telemetry monitoring with seizure and fall precautions in place. Continue folate, multivitamin, and thiamine daily. Continue close monitoring of electrolytes with repeat morning labs. Hypertension Continue Norvasc 10 mg daily. Nicotine dependence Recommend smoking cessation and continuing nicotine patch 21 mg daily. Right middle lobe lung nodule CT reports stable and unchanged. Recommend outpatient follow-up/monitoring with repeat scan in 6 months. Data and imaging reviewed: Vital signs reviewed. Blood pressure 127/88, heart rate 80, respiratory rate 15, temp 97.8 F, SpO2 of 100% on room air. Morning labs reviewed. CBC showing resolution of leukocytosis with WBC count of 6.44 and stable normocytic anemia with hemoglobin of 12.6. BMP showing mild hypokalemia with potassium of 3.3. Orders placed for K-Dur 40 mEq p.o. x 1 dose. Magnesium 2.0. Liver profile unremarkable with the exception of low albumin of 3.4. CODE STATUS: Full code DVT prophylaxis: MINO mcmanus with SCDs Anticipated discharge date: Pending clinical course Anticipated discharge place: Home Patient was seen independently by Nurse Pracitioner. This document was prepared using [employer] dictation software. Please allow for errors in bone worker, while rare they do occur. Mario Linn NP rendered care for this patient independently, reviewed the findings and plan as documented in the note above. I did not physically speak with or examine the patient on this date. Objective - Vital Signs Vital signs: Vital Signs Temp 97.8 F 06/13/24 07:31 Pulse 80 06/13/24 07:31 Resp 15 06/13/24 07:31 BP 127/88 06/13/24 07:31 Pulse Ox 100 06/13/24 07:31 FiO2 Intake & Output 06/12/24 06/13/24 06/13/24 18:59 06:59 18:59 Intake Total 2818 Balance 2818 Intake: Oral 2818 Other: Voiding Method Toilet Toilet # Voids 5 3 # Bowel Movements 1 2 - Labs CBC & Chem 7: 06/13/24 02:48 06/13/24 02:48
[2024-06-14 08:07] VITALS: BP 132/89; PULSE 67; RESP 15; TEMP 97.3
--- NOTE | 2024-06-14 11:40 | P.DS ---
Providers Date of admission: 06/09/24 10:25 Expected date of discharge: 06/14/24 Attending physician: Capri Morton MD Consults: 06/11/24 14:56 Consult Physician Routine Consulting Provider: Lorena Levy Consult Reason/Comments: PANCREATITIS Do you want consulting provider notified?: Already Contacted Primary care physician: Tim Marroquin Hospital Course: Discharge Diagnosis: Acute alcoholic pancreatitis. Discussed with patient and strongly recommend cessation of any and all alcohol use. Alcohol withdrawal in active alcoholic Leukocytosis, secondary to above Hypertension. Continue Norvasc 10 mg daily. Nicotine dependence. Recommend smoking cessation and continuing nicotine patch 21 mg daily. Right middle lobe lung nodule. CT reports stable and unchanged. Recommend outpatient follow-up/monitoring with repeat scan in 6 months. Hospital Course: Patient is a 43-year-old male with a past medical history of daily alcohol abuse drinking approximately 1/5 or more of liquor daily, hypertension, and nicotine dependence smoking 1 pack of cigarettes daily. He presented to the emergency department on 06/09/2024 with a chief complaint of intractable abdominal pain accompanied by nausea and vomiting. Patient also reporting EtOH withdrawal with last alcoholic beverage being 06/08/2024. Patient underwent evaluation in the emergency department. Labs revealing leukocytosis with WBC count of 17.74 and polycythemia with hemoglobin of 17.8. Lipase was elevated at 9944. CT abdomen and pelvis with contrast was then completed showing acute pancreatitis with surrounding fluid but no reports of pseudocyst formation at this time, mild mid abdominal ileus with left renal cortical cyst, and a stable right middle lobe nodule. Patient was admitted under our services with consultation to gastroenterology. He was placed on bowel rest and treated with aggressive IV fluid hydration and pain medication. Patient placed on CIWA protocol for symptom triggered medication management with Ativan for alcohol withdrawal. Patient's diet slowly advanced and pain resolved. Patient is medically stable for discharge at this time, he was strongly educated on importance of alcohol cessation and risks of continued use. Patient to follow-up outpatient with PCP and stock sheets cleaner inspector. Physical exam: Vital signs reviewed and stable. General: Nontoxic, no distress and appears stated age. Derm: Skin warm and dry, normal coloration for ethnicity. Head: Atraumatic, normocephalic and symmetric. Eyes: EOM's intact, no lid lag, and anicteric sclera Mouth: no lip lesions, mucus membranes moist Cardiovascular: regular rate and rhythm with normal S1S2, no murmur, positive posterior tibial pulses bilaterally, and cap refill < 2 seconds. Lungs: Respirations even, regular, and unlabored on room air. Lungs CTA bilaterally, no rhonchi, no rales, no wheezing, and no accessory muscle usage. Abdominal: soft, nondistended abdomen. Patient tearful and reports tenderness to left upper quadrant and epigastric region upon light palpation. Ext: ROM intact. No gross muscle atrophy, no edema, no contractures Neuro: Speech clear, face symmetrical and CN II-XII grossly intact with no noted focal neuro deficits Psych: Alert and oriented to person, place, time, and situation. Appropriate and pleasant affect. A total of 36 minutes of time were spent preparing this complex discharge summary. Pt was discharged on 06/14/2024 at 11:22 AM. Patient was seen independently by Nurse Practitioner. This document was prepared using [employer] dictation software. Please allow for errors in line haul truck driver while rare they do occur. I reviewed the documentation as provided by the DORINDA above, who is the original author of this note. I agree with the documented assessment and plan, with the following changes: none Patient Condition at Discharge: Stable Plan - Discharge Summary New Discharge Prescriptions: Continue Omeprazole [PriLOSEC] 20 mg PO DAILY amLODIPine [Norvasc] 10 mg PO DAILY Citalopram Hydrobromide [CeleXA] 40 mg PO DAILY Zofran 4mg/2ml 4 mg IM Q6H PRN PRN Reason: Nausea And Vomiting Acetaminophen Tab [Tylenol] 650 mg PO Q4H PRN MDD 4 doses PRN Reason: Pain Thiamine [Vitamin B-1] 100 mg PO DAILY Multivitamins, Thera [Multivitamin (formulary)] 1 tab PO DAILY Ibuprofen [Motrin Ib] 600 mg PO Q6H PRN PRN Reason: Pain Chlorpheniramine Maleate [Chlor-Trimeton] 4 mg PO Q4H PRN PRN Reason: Allergy Symptoms cloNIDine HCL [Catapres] 0.1 - 0.3 mg PO Q4H PRN PRN Reason: BP >160/100 Calcium/Mag/Zinc/D3 1 tab PO TID PRN PRN Reason: cramps ondansetron HCL [Zofran] 8 mg PO Q6H PRN PRN Reason: Nausea And Vomiting Nicotine 21Mg/24Hr Patch [Habitrol] 1 patch TRANSDERM DAILY patch Lisinopril-Hctz 20-25 mg [Zestoretic 20-25] 1 tab PO DAILY Tigan 200mg/2ml 200 mg IM Q6H PRN PRN Reason: Vomiting Mylanta 30 ml PO Q4H PRN PRN Reason: Gi Upset Loperamide [Imodium] 4 mg PO QID PRN MDD 8 caps PRN Reason: Loose Stool Discharge Medication List Omeprazole [PriLOSEC] 20 mg PO DAILY 10/17/16 [History] Citalopram Hydrobromide [CeleXA] 40 mg PO DAILY 05/12/22 [History] Lisinopril-Hctz 20-25 mg [Zestoretic 20-25] 1 tab PO DAILY 05/12/22 [History] amLODIPine [Norvasc] 10 mg PO DAILY 05/12/22 [History] Acetaminophen Tab [Tylenol] 650 mg PO Q4H PRN MDD 4 doses 02/26/24 [History] Calcium/Mag/Zinc/D3 1 tab PO TID PRN 02/26/24 [History] Chlorpheniramine Maleate [Chlor-Trimeton] 4 mg PO Q4H PRN 02/26/24 [History] Ibuprofen [Motrin Ib] 600 mg PO Q6H PRN 02/26/24 [History] Loperamide [Imodium] 4 mg PO QID PRN MDD 8 caps 02/26/24 [History] Multivitamins, Thera [Multivitamin (formulary)] 1 tab PO DAILY 02/26/24 [History] Mylanta 30 ml PO Q4H PRN 02/26/24 [History] Thiamine [Vitamin B-1] 100 mg PO DAILY 02/26/24 [History] Tigan 200mg/2ml 200 mg IM Q6H PRN 02/26/24 [History] Zofran 4mg/2ml 4 mg IM Q6H PRN 02/26/24 [History] cloNIDine HCL [Catapres] 0.1 - 0.3 mg PO Q4H PRN 02/26/24 [History] ondansetron HCL [Zofran] 8 mg PO Q6H PRN 02/26/24 [History] Nicotine 21Mg/24Hr Patch [Habitrol] 1 patch TRANSDERM DAILY patch 02/27/24 [Rx] Follow up Appointment(s)/Referral(s): Lili Daly MD [REFERRING] - 1 Week (please call to schedule a follow up appointment) Lorena Levy MD [STAFF PHYSICIAN] - 1 Week (please call the office to schedule a follow up appointment) Patient Instructions/Handouts: Pancreatitis (DC), Abuse of Alcohol (DC), Alcohol Withdrawal (DC) Discharge Disposition: HOME SELF-CARE
--- NOTE | 2024-06-28 13:16 | CT ---
Patient: Estevan Rosado Ordering Physician: Unknown, Unknown ID: [id number] Phone, Pager: Phone: N/A Pager: N/A : [phone] Age/Gender: 43Y, M Primary Location: N/A Procedure: ABD/PEL W/ Study Date: 06/09/2024 10:28:41 AM EXAMINATION TYPE: CT abdomen pelvis w con DATE OF EXAM: 06/09/2024 COMPARISON: 06/14/2020 INDICATION: Abdominal pain and history of pancreatitis DLP: 748.1 mGycm, Automated exposure control for dose reduction was used. CONTRAST: 100 mL mL of Isovue 300. Study performed without Oral Contrast TECHNIQUE: Axial images were obtained from above the diaphragm to the pubic rami in the axial plane a t 5 mm thick sections. Reconstructed images are reviewed on the computer in the coronal plane. FINDINGS: Limited CT sections are obtained the lung bases. There is a 0.6 cm density in the anterior right veronique g base. This was present previously.. CT ABDOMEN: Liver: There is mild fatty infiltration of the liver. Spleen: Normal Pancreas: Fluid surrounds the pancreas. No discrete pseudocyst formation is evident. No duct dilatati on is evident. Adrenal glands: The adrenal glands are normal. Gallbladder: Normal Kidneys: No masses are evident. No hydronephrosis is present. There is a 1.5 cm cyst posterior mid left kidney. Delayed images were obtained through the kidneys, which remain unremarkable. Aorta: Normal Inferior vena cava: Normal. CT PELVIS: Loops of bowel within the abdomen and pelvis are normal. The study is without oral contrast limit ing bowel evaluation. Some fluid is within small bowel loops which appear nondilated. Some mild ileus within the mid abdomen may be present. Appendix: Normal as visualized. Urinary bladder: Normal. Genitourinary structures: Prostate appears normal Osseous structures: No suspicious lytic or sclerotic lesions. IMPRESSION: 1. Findings compatible with acute pancreatitis with surrounding fluid. No pseudocyst formation evide nt at this time. 2. Mild mid abdominal ileus 3. Left renal cortical cyst. 4. A 0.6 cm stable right middle lobe nodule.
== END 2024-06-14 11:40 | disposition home or self-care (01) | DRG 439 ==
LOC: 5NMEDONC 10:25
PROVIDERS: ADMIT Family Medicine; ATTEND Family Medicine
DX: K85.20 Alcohol induced acute pancreatitis without necrosis or infection (principal); F10.239 Alcohol dependence with withdrawal, unspecified; R91.1 Solitary pulmonary nodule; I10 Essential (primary) hypertension; D72.829 Elevated white blood cell count, unspecified; Z71.6 Tobacco abuse counseling; F17.210 Nicotine dependence, cigarettes, uncomplicated; Z71.41 Alcohol abuse counseling and surveillance of alcoholic; Z79.899 Other long term (current) drug therapy; Z88.8 Allergy status to other drugs, medicaments and biological substances
CPT/HCPCS: 74177; 80053; 83735; 85025; 85027; 96361; 96372; 96374; 96375; 99285